=== PATIENT | female | born 1995 | race Caucasian/White ===

== ENCOUNTER → 2018-02-28 07:53 | Outpatient (CLI) | payer BC, SELFPAY ==
[2018-02-28 09:46] LABS: Thyroid Stim Hormone (TSH) 2.53 uIU/mL (0.358-3.74)
[2018-02-28 09:57] LABS: Pregnancy, Serum, hCG Quali. NEGATIVE Negative (0-9 Nonpreg)
[2018-03-02 09:42] LABS: Progesterone Level 0.65 ng/mL (See Comment)
== END ==
PROVIDERS: Family Provider Internal Medicine; PCP Internal Medicine; Visit Provider Obstetrics & Gynecology
DX: N92.6 Irregular menstruation, unspecified (principal); Z30.430 Encounter for insertion of intrauterine contraceptive device
CPT/HCPCS: 36415; 84144; 84146; 84443; 84703

== ENCOUNTER → 2018-03-02 19:47 | Outpatient (CLI) | payer BC, SELFPAY ==
[2018-03-03 00:15] LABS: Chlamydia Trachomatis by PCR Negative (Negative); Neisserai gonorrhoeae by PCR Negative (Negative); Probe Check PASS; Sample Adequacy Control PASS; Specimen Processing Control PASS
== END ==
PROVIDERS: Visit Provider Obstetrics & Gynecology
DX: Z12.4 Encounter for screening for malignant neoplasm of cervix (principal); Z11.3 Encounter for screening for infections with a predominantly sexual mode of transmission
CPT/HCPCS: 87491; 87591; 88175; G0145

== ENCOUNTER → 2021-04-16 | Outpatient (CLI) | payer BC, SELFPAY ==
[2021-04-19 10:26] LABS: HPV Reflexed? NOT INDICATED
== END | disposition home or self-care (01) ==
LOC: LABSPEC 15:10
PROVIDERS: PCP Internal Medicine; Visit Provider Obstetrics & Gynecology
DX: Z12.4 Encounter for screening for malignant neoplasm of cervix (principal)
CPT/HCPCS: 88175; G0145

== ENCOUNTER 2025-05-01 15:20 | Inpatient (IN) | payer BC, SELFPAY ==
[2025-05-01] VITALS (51 sets, daily range): BP systolic 103–137; BP diastolic 58–89; PULSE 84–128; RESP 16–18; TEMP 36.3–37.4; O2SAT 67–100; BMI 34.5
--- OUTSIDE RECORDS SUMMARY | 2025-05-01 15:11 | XMS RPT_ITS | CCD ---
Author Organization [facility] Care Team Providers Care Department Operations Manager Name Role Phone JOSE CARLOS SUAZO, DR JEREL Vann JR Primary Care Physician DENNIS GREENBERG DO Primary Care Physician DENNIS GREENBERG DO Attending Unavailable DENNIS GREENBERG DO Primary Care Unavailable OFELIA VELAZQUEZ, MSMuna Snell Attending Walter BRANCH MD, JEREL Vann JR Primary Care Unavailab DENNIS Verdugo DO Attending Unavailable JEREL BRANCH MD, JR Primary Care Unavailab tony KING MD., DR. ELLA Smiley Attending Walter BRANCH MD, JEREL Vann JR Primary Care Unavailab DENNIS Verdugo DO Attending Unavailable DENNIS GREENBERG DO Primary Care Unavailable Jose Carlos Damico MD, Jerel Vann Primary Care Provider JEREL BRANCH JR Primary Care Unavailable PATRICIA CASANOVA Attending Unavailable Jerel Branch Jr. Care Unavailable Mira Mtz Attending UnavailMira Shields Admitting UnavailJEREL Still JR Primary Care Unavailable MIRIAM, RAO Referring Unavailable JEREL BRANCH JR Primary Care Unavailable MIRIAM, RAO Referring Unavailable LOREN LEMUS Attending Unavailable JEREL BRANCH JR Primary Care Unavailable DESTINEY SCHROEDER Referring Unavailable JEREL BRANCH JR Primary Care Unavailable MIRA LEWIS Referring Unavailable JEREL BRANCH JR Primary Care Unavailable RAO PINEDA Referring Unavailable JEREL BRANCH JR Primary Care Unavailable MIRIAM, RAO Referring Unavailable CONSTANTINO GAINES Attending Unavailable JEREL BRANCH JR Primary Care Unavailable DESTINEY SCHROEDER Attending Unavailable JEREL BRANCH JR Primary Care Unavailable RAO PINEDA Attending Unavailable JEREL BRANCH JR Primary Care Unavailable MIRIAM, RAO Referring Unavailable JEREL BRANCH JR Primary Care Unavailable MIRA LEWIS Referring Unavailable JOSE CARLOS DAI, JEREL W Primary Care Unavailable CONSTANTINO GAINES Referring Unavailable JOSE CARLOS DAI, JEREL W Primary Care Unavailable DESTINEY SCHROEDER Referring Unavailable MIRA LEWIS Attending Unavailable JOSE CARLOS DAI, JEREL W Primary Care Unavailable MIRA LEWIS Referring Unavailable JOSE CARLOS DAI, JEREL W Primary Care Unavailable MIRA LEWIS Referring Unavailable RAO PINEDA Attending Unavailable JOSE CARLOS DAI, JEREL W Primary Care Unavailable CONSTANTINO GAINES Referring Unavailable LAUREN PAL Attending Unavailable JOSE CARLOS DAI, JEREL W Primary Care Unavailable CONSTANTINO GAINES Referring Unavailable JOSE CARLOS DAI, JEREL W Primary Care Unavailable SHABNMA WILSON Attending Unavailable JOSE CARLOS DAI, JEREL Vann Primary Care Unavailable RAO PINEDA Attending Unavailable JOSE CARLOS DAI, JEREL W Primary Care Unavailable SHABNAM WILSON Attending Unavailable JOSE CARLOS DAI, JEREL W Primary Care Unavailable DESTINEY SCHROEDER Attending Unavailable JOSE CARLOS DAI, JEREL W Primary Care Unavailable SHEREE MICHELE Attending Unavail able JOSE CARLOS DAI, JEREL W Primary Care Unavailable CONSTANTINO GAINES Referring Unavailable JOSE CARLOS DAI, JEREL W Primary Care Unavailable MIRA LEWIS Attending Unavailable JOSE CARLOS DAI, JEREL W Primary Care Unavailable RAO PINEDA Referring Unavailable JOSE CARLOS DAI, JEREL W Primary Care Unavailable DESTINEY SCHROEDER Attending Unavailable JOSE CARLOS DAI, JEREL W Primary Care Unavailable ASCENCION KESSLER Attending Unavailable JOSE CARLOS DAI, JEREL W Primary Care Unavailable JOSE CARLOS DAI, JEREL W Primary Care Unavailable SELF Referring Unavailable Medications Current Medications Medication Drug Class(es) Dates Sig (Normalized) Sig (Original) aspirin 81 mg delayed release oral tablet (20 sources) Platelet Aggregation Inhibitor, Nonsteroidal Anti-inflammatory Drug Start: 09-20-2024 take 1 tablet by mouth once daily aspirin, enteric coated (ECOTRIN LOW STRENGTH) 81 mg EC tablet Indications: Encounter for supervision in primigravida, antepartum (HCC) , Less than 8 weeks gestation of (HCC) Take 1 tablet by mouth once daily. 90 tablet 3 09/20/2024 Active Breast Pump (7 sources) Start: 03-25-2025 End: 03-25-2026 Breast Pump Use as directed 1 each 03/25/2025 03/25/2026 Active cefdinir 300 mg oral capsule (1 source) Cephalosporin Antibacterial Start: 07-23-2022 End: 08-02-2022 cefdinir 300 mg oral capsule Dose : 300 mg = 1 cap(s), Oral, q12h, X 10 day(s), # 20 cap(s), 0 Refill(s), 08/02/22 13:22:00 EST, Pharmacy: [facility]/pharmacy #[id number], Bacterial UTI Abnormal urinalysis, 164.5, cm, 06/18/22 15:52:00 EDT, Height, 65.6 Start Date: 07/23/22 Stop Date: 08/02/22 Status: Ordered cephalexin 500 mg oral capsule (1 source) Cephalosporin Antibacterial Start: 06-28-2024 End: 07-05-2024 take 1 capsule by mouth twice daily cephALEXin (KEFLEX) 500 mg capsule Take 1 capsule by mouth two times a day for 7 days. 14 capsule 06/28/2024 07/05/2024 Active Cetirizine (20 sources) Histamine-1 Receptor Antagonist cetirizine HCl (ZYRTEC ORAL) Take by mouth. Active oseltamivir 75 mg oral capsule (5 sources) Neuraminidase Inhibitor Start: 10-06-2024 End: 10-11-2024 take 1 capsule by mouth twice daily oseltamivir (TAMIFLU) 75 mg capsule Indications: Influenza A Take 1 capsule by mouth two times a day for 5 days. 10 capsule 10/06/2024 10/11/2024 Active no115/iron/folic acid ( 19 ORAL) (20 sources) no115/iron/folic acid ( 19 ORAL) Take by mouth. Active spironolactone 100 mg oral tablet (6 sources) Aldosterone Antagonist Start: 07-23-2022 End: 08-27-2024 spironolactone 100 mg oral tablet Dose : 100 mg = 1 tab(s), Oral, qDay, # 90 tab(s), 0 Refill(s) Start Date: 07/23/22 Status: Ordered vitamin b6 50 mg oral tablet (17 sources) Start: 09-02-2024 End: 01-20-2025 take 1 tablet by mouth once daily pyridoxine, vitamin B6, (VITAMIN B-6) 50 mg tablet Take 1 tablet by mouth once daily. 100 tablet 2 09/02/2024 01/20/2025 Discontinued (Course of therapy completed) Completed/Discontinued Medications Medication Drug Class(es) Dates Sig (Normalized) Sig (Original) escitalopram 10 mg oral tablet (4 sources) Serotonin Reuptake Inhibitor End: 09-02-2024 escitalopram oxalate (LEXAPRO) 10 mg tablet Take by mouth as directed. 09/02/2024 Discontinued 21 day ethinyl estradiol 0.417917 mg/hr / etonogestrel 0.005 mg/hr vaginal system (5 sources) Progestin, Estrogen Start: 02-11-2024 End: 08-27-2024 ELURYNG 0.12-0.015 mg/24 hr vaginal ring Use 1 Each vaginally as directed. 3 Each 3 02/11/2024 08/27/2024 Discontinued fexofenadine (5 sources) Histamine-1 Receptor Antagonist End: 10-06-2024 fexofenadine HCl (YONI ORAL) Take by mouth. 10/06/2024 Discontinued fexofenadine HCl (YONI ORAL) Take by mouth. Active MULTIVITAMIN ORAL (1 source) End: 09-02-2024 MULTIVITAMIN ORAL Take by mouth. 09/02/2024 Discontinued nitrofurantoin, macrocrystals 25 mg / nitrofurantoin, monohydrate 75 mg oral capsule (2 sources) Nitrofuran Antibacterial Start: 06-26-2024 End: 07-01-2024 take 1 capsule by mouth twice daily nitrofurantoin monohydrate and macrocrystal (MACROBID) 100 mg capsule Take 1 capsule by mouth two times a day for 5 days. 10 capsule 06/26/2024 06/28/2024 Discontinued propranolol hydrochloride 10 mg oral tablet (8 sources) beta-Adrenergic Kelvin Start: 01-09-2022 End: 09-02-2024 take 1-2 tablets by mouth three times daily as needed propranolol (INDERAL) 10 mg tablet 1-2 tabs, Oral, TID, PRN palpitations, # 90 tab(s), 0 Refill(s), Pharmacy: [facility]/pharmacy #[id number], Encounter to establish care Wellness examination, 163.8, cm, 01/09/22 14:52:00 EDT, Height 01/09/2022 09/02/2024 Discontinued Problems Active Problems Problem Classification Problem Date Documented Date Episodic/Chronic Allergic reactions (5 sources) Environmental allergy 01-09-2022 Episodic Anxiety disorders (2 sources) Anxiety; Translations: [Anxiety disorder, unspecified] Onset: 09-20-2024 09-02-2024 Chronic Cardiac dysrhythmias (5 sources) Palpitations 01-09-2022 Episodic Genitourinary symptoms and ill-defined conditions (2 sources) Unspecified symptoms and signs involving the genitourinary system; Translations: [Unspecified symptoms and signs involving the genitourinary system] Onset: 07-23-2022 Episodic Heart valve disorders (5 sources) Mitral valve prolapse 01-09-2022 Chronic Immunizations and screening for infectious disease (2 sources) Vaccination needed; Translations: [Encounter for immunization] Onset: 02-18-2025 02-18-2025 Episodic Influenza (3 sources) Influenza due to Influenza A virus; Translations: [Influenza due to other identified influenza virus with other respiratory manifestations] 10-06-2024 Episodic Menstrual disorders (5 sources) Irregular periods 01-09-2022 Chronic Other circulatory disease (5 sources) Elevated blood-pressure reading without diagnosis of hypertension 01-09-2022 Episodic Other circulatory disease (20 sources) H/O: hypertension; Translations: [Personal history of other diseases of the circulatory system] Onset: 09-20-2024 09-20-2024 Episodic Other complications of (1 source) Morning sickness; Translations: [Other specified related conditions, unspecified trimester] 09-02-2024 Episodic Other complications of (13 sources) Anxiety in ; Translations: [Other mental disorders complicating , unspecified trimester] Onset: 09-20-2024 09-20-2024 Episodic Other complications of (1 source) Spotting complicating , first trimester; Translations: [Spotting affecting in first trimester] Onset: 09-30-2024 Episodic Other complications of (7 sources) Uterine size for dates discrepancy; Translations: [Uterine size-date discrepancy, third trimester] 02-18-2025 Episodic Other complications of (1 source) Spotting per vagina in ; Translations: [Spotting complicating , third trimester] 02-18-2025 Episodic Other complications of (7 sources) Suspected macroscopic fetus; Translations: [Maternal care for excessive growth, third trimester, not applicable or unspecified] Onset: 04-11-2025 04-08-2025 Episodic Other complications of (3 sources) Excessive growth affecting management of mother; Translations: [Maternal care for excessive growth, third trimester, not applicable or unspecified] 04-15-2025 Episodic Other complications of (1 source) Maternal care for excessive growth, third trimester, not applicable or unspecified; Translations: [Excessive growth affecting management of in third trimester, single or unspecified fetus (HCC)] Onset: 04-15-2025 Episodic Other complications of (1 source) Spotting complicating , third trimester; Translations: [Spotting complicating , third trimester (HCC)] Onset: 02-18-2025 Episodic Other complications of (1 source) Uterine size-date discrepancy, third trimester; Translations: [Uterine size date discrepancy , third trimester (HCC)] Onset: 02-18-2025 Episodic Other and delivery including normal (20 sources) Early stage of ; Translations: [Encounter for supervision of normal , unspecified, unspecified trimester] Onset: 09-20-2024 09-02-2024 Episodic Other screening for suspected conditions (not mental disorders or infectious disease) (9 sources) Abnormal renal function; Translations: [Cancer cervix screening status] Onset: 12-23-2024 02-08-2022 Episodic Other upper respiratory infections (2 sources) Viral upper respiratory tract infection; Translations: [Acute upper respiratory infection, unspecified] 10-06-2024 Episodic Residual codes; unclassified (5 sources) Family history of asthma 01-09-2022 Episodic Residual codes; unclassified (1 source) First trimester ; Translations: [Less than 8 weeks gestation of ] 09-20-2024 Episodic Residual codes; unclassified (1 source) 9 weeks gestation of ; Translations: [9 weeks gestation of ] Onset: 09-30-2024 Episodic Residual codes; unclassified (2 sources) Gestation period, 10 weeks; Translations: [10 weeks gestation of ] 10-05-2024 Episodic Residual codes; unclassified (2 sources) Gestation period, 12 weeks; Translations: [12 weeks gestation of ] 10-25-2024 Episodic Residual codes; unclassified (1 source) Gestation period, 16 weeks; Translations: [16 weeks gestation of ] 11-25-2024 Episodic Residual codes; unclassified (2 sources) Gestation period, 20 weeks; Translations: [20 weeks gestation of ] 12-23-2024 Episodic Residual codes; unclassified (1 source) Gestation period, 24 weeks; Translations: [24 weeks gestation of ] 01-20-2025 Episodic Residual codes; unclassified (1 source) Gestation period, 29 weeks; Translations: [29 weeks gestation of ] 02-18-2025 Episodic Residual codes; unclassified (2 sources) Gestation period, 31 weeks; Translations: [31 weeks gestation of ] 03-10-2025 Episodic Residual codes; unclassified (1 source) Gestation period, 34 weeks; Translations: [34 weeks gestation of ] 03-25-2025 Episodic Residual codes; unclassified (1 source) Gestation period, 36 weeks; Translations: [36 weeks gestation of ] 04-08-2025 Episodic Residual codes; unclassified (2 sources) Gestation period, 37 weeks; Translations: [37 weeks gestation of ] 04-15-2025 Episodic Residual codes; unclassified (1 source) Gestation period, 38 weeks; Translations: [38 weeks gestation of ] 2025 Episodic Residual codes; unclassified (1 source) 38 weeks gestation of ; Translations: [38 weeks gestation of (HCC)] Onset: 2025 Episodic Residual codes; unclassified (1 source) 37 weeks gestation of ; Translations: [37 weeks gestation of (HCC)] Onset: 04-15-2025 Episodic Residual codes; unclassified (1 source) 36 weeks gestation of ; Translations: [36 weeks gestation of (HCC)] Onset: 04-08-2025 Episodic Residual codes; unclassified (1 source) 34 weeks gestation of ; Translations: [34 weeks gestation of (HCC)] Onset: 03-25-2025 Episodic Residual codes; unclassified (1 source) 31 weeks gestation of ; Translations: [31 weeks gestation of (HCC)] Onset: 03-10-2025 Episodic Residual codes; unclassified (1 source) 29 weeks gestation of ; Translations: [29 weeks gestation of (HCC)] Onset: 02-18-2025 Episodic Residual codes; unclassified (1 source) 24 weeks gestation of ; Translations: [24 weeks gestation of (HCC)] Onset: 02-18-2025 Episodic Unclassified (20 sources) [facility] Education - COMMON Onset: 09-20-2024 09-20-2024 Unclassified (20 sources) Education - [place] Onset: 09-20-2024 09-20-2024 Urinary tract infections (1 source) Recurrent urinary tract infection; Translations: [Urinary tract infection, site not specified] 06-26-2024 Episodic Past or Other Problems Problem Classification Problem Date Documented Da te Episodic/Chronic Fracture of upper limb (20 sources) Closed fracture of head of radius; Translations: [Displaced fracture of head of unspecified radius, initial encounter for closed fracture] Onset: 12-23-2005 Resolved: 09-20-2024 12-23-2005 Episodic Hemorrhage during ; abruptio placenta; placenta previa (5 sources) Antepartum hemorrhage; Translations: [Hemorrhage in early , unspecified] Onset: 08-24-2024 08-31-2024 Episodic Other circulatory disease (1 source) Personal history of other diseases of the circulatory system; Translations: [History of chronic hypertension] Onset: 09-20-2024 Episodic Other complications of (3 sources) with inconclusive viability, not applicable or unspecified; Translations: [ with inconclusive viability] Onset: 09-02-2024 08-31-2024 Episodic Other complications of (20 sources) Other mental disorders complicating , unspecified trimester; Translations: [Mental disorders of mother, antepartum condition or complication] Onset: 09-20-2024 11-25-2024 Episodic Residual codes; unclassified (1 source) 20 weeks gestation of ; Translations: [20 weeks gestation of (HCC)] Onset: 12-23-2024 Episodic Residual codes; unclassified (1 source) Less than 8 weeks gestation of ; Translations: [Less than 8 weeks gestation of ] Onset: 10-25-2024 Episodic Residual codes; unclassified (1 source) 8 weeks gestation of ; Translations: [8 weeks gestation of ] Onset: 09-20-2024 Episodic Results Test Name Value Interpretation Reference Range Facility URINE OB DIP B/Oon 5 Glucose Ql (U) Negative Neg mg/dL [facility] Protein.monoclonal (U) [Mass/Vol] Negative Neg mg/dL [facility] URINE OB DIP B/Oon 5 Glucose Ql (U) Negative Neg mg/dL [facility] Protein.monoclonal (U) [Mass/Vol] Negative Neg mg/dL [facility] CNPNon 04-11-2025 CNPN Telephone (OBGYWM) KI DELGADO ([id number]) 1995 F Date Time Provider Department 04/11/25 MIRA LEWIS During your visit today, we recorded the following information about you: Lucrecia Sheppard MA 04/11/2025 8:24 AM Signed Received FMLA paperwork- will complete on working on forms for provider to sign. CHASE Bernabe Reanna, MA 04/19/2025 1:11 PM Signed FMLA has been singed and faxed. Copy is placed into scanning folder. Lucrecia Sheppard MA Allergies As of Date: 04/11/2025 (No Known Allergies) Date Reviewed: 04/08/2025 Reviewed by: Mira Lewis MD - Fully Assessed Prescriptions as of 04/19/2025 - Breast Pump Use as directed - cetirizine HCl (ZYRTEC ORAL) Take by mouth. - aspirin, enteric coated (ECOTRIN LOW STRENGTH) 81 mg EC tablet Take 1 tablet by mouth once daily. - no115/iron/folic acid ( 19 ORAL) Take by mouth. Problem List As Of Date 04/11/2025 Noted Resolved Closed fracture of head of radius [S52.123A] 12/23/2005 09/20/2024 History of chronic hypertension [Z86.79] 09/20/2024 Anxiety during [O99.340, F41.9] 09/20/2024 Encounter for supervision in primigra*09/20/2024 with uncertain dates in first trimest*09/20/2024 macrosomia during in third trim*04/11/2025 Encounter Status:Closed by LUCRECIA SHEPPARD on 04/19/[address] [facility] Examination level ultrasound on 04-08-2025 [facility] Radiology Study observation (narrative) [facility] ROUTINE, GROUP B ST REPTOCOCCUS BY PCRon 04-08-2025 ROUTINE, GROUP B STREPTOCOCCUS BY PCR Not detected Normal [facility] Comment on above: Performed By: #### G BPCR ####[facility] LABCLIA [id number] [place] [address] [place] URINE OB DIP B/Oon 5 Glucose Ql (U) Negative Neg mg/dL [facility] Interpretation and review of laboratory results Normal [facility] Protein.monoclonal (U) [Mass/Vol] Negative Neg mg/dL [facility] URINE OB DIP B/Oon 5 Glucose Ql (U) Negative Neg mg/dL [facility] Interpretation and review of laboratory results Normal [facility] Protein.monoclonal (U) [Mass/Vol] Negative Neg mg/dL [facility] Examination level ultrasound on 03-10-2025 [facility] Radiology Study observation (narrative) [facility] BACTERIAL VAGINOSIS NAATon 0 02-18-2025 Lactobacillus crispatus+gasseri+peewee senii + Gardnerella vaginalis + Atopobium vaginae rRNA RAYA+probe Ql (Vag fld) Not detected Normal Not detected [facility] Comment on above: Order Comment: Speci men Type: BLOOD SPECIMEN Ordering Facility: [facility] Address: [address] [place] [address] Performed By: #### 5 8410-2 #### [facility] CLIA [id number] [address] [place] [address] [place] MARY/TRICHOMONAS NAATon 0 02-18-2025 C. glabrata RNA RAYA+probe Ql (Vag fld) Not detected Normal Not detected [facility] Comment on above: Order Comment: Speci men Type: BLOOD SPECIMEN Ordering Facility: [facility] Address: [address] [place] [address] Performed By: #### 5 8410-2 #### [facility] CLIA [id number] [address] [place] [address] [place] Mary sp DNA RAYA+probe Ql (Vag fld) Not detected Normal Not detected [facility] Comment on above: Order Comment: Speci men Type: BLOOD SPECIMEN Ordering Facility: [facility] Address: [address] [place] [address] Performed By: #### 5 8410-2 #### [facility] CLIA [id number] [address] [place] [address] [place] T. vaginalis DNA RAYA+probe Ql (Unsp spec) Not detected Normal Not detected [facility] Comment on above: Order Comment: Speci men Type: BLOOD SPECIMEN Ordering Facility: [facility] Address: [address] [place] [address] Performed By: #### 5 8410-2 #### [facility] CLIA [id number] [address] [place] [address] [place] CBC W Auto Differential pane l (Bld)on 02-18-2025 Basophils (Bld) [#/Vol] 0.04 10*3/uL Normal <0.11 [facility] Comment on above: Order Comment: Speci men Type: BLOOD SPECIMENOrdering Facility: [facility] Address: [address] [place] [address] Performed By: #### 5 7021-8 ####[facility] [id number] [place] [address] [place] Basophils/100 WBC (Bld) 0.4 % Normal [facility] Comment on above: Order Comment: Speci men Type: BLOOD SPECIMENOrdering Facility: [facility] Address: [address] [place] [address] Performed By: #### 5 7021-8 ####[facility] [id number] [place] [address] [place] Differential cell count method Nom (Bld) Auto Normal [facility] Comment on above: Order Comment: Speci men Type: BLOOD SPECIMENOrdering Facility: [facility] Address: [address] [place] [address] Performed By: #### 5 7021-8 ####[facility] [id number] [place] [address] [place] Eosinophils (Bld) [#/Vol] 0.10 10*3/uL Normal <0.46 [facility] Comment on above: Order Comment: Speci men Type: BLOOD SPECIMENOrdering Facility: [facility] Address: [address] [place] [address] Performed By: #### 5 7021-8 ####[facility] [id number] [place] [address] [place] Eosinophils/100 WBC (Bld) 0.9 % Normal [facility] Comment on above: Order Comment: Speci men Type: BLOOD SPECIMENOrdering Facility: [facility] Address: [address] [place] [address] Performed By: #### 5 7021-8 ####[facility] [id number] [place] [address] [place] Erythrocyte distribution width (RBC) [Ratio] 12.1 % Normal 11.5-15.0 [facility] Comment on above: Order Comment: Speci men Type: BLOOD SPECIMENOrdering Facility: [facility] Address: [address] [place] [address] Performed By: #### 5 7021-8 ####[facility] [id number] [place] [address] [place] Hematocrit (Bld) [Volume fraction] 30.7 % Low 36.0-46.0 [facility] Comment on above: Order Comment: Speci men Type: BLOOD SPECIMENOrdering Facility: [facility] Address: [address] [place] [address] Performed By: #### 5 7021-8 ####[facility] OJSESTRYKERSVILLENCOLIVER [id number] [place] [address] [place] Hemoglobin (Bld) [Mass/Vol] 10.6 g/dL Low 11.5-15.5 [facility] Comment on above: Order Comment: Speci men Type: BLOOD SPECIMENOrdering Facility: [facility] Address: [address] [place] [address] Performed By: #### 5 7021-8 ####[facility] [id number] [place] [address] [place] Immature granulocytes (Bld) [#/Vol] 0.11 10*3/uL High <0.10 [facility] Comment on above: Order Comment: Speci men Type: BLOOD SPECIMENOrdering Facility: [facility] Address: [address] [place] [address] Performed By: #### 5 7021-8 ####[facility] [id number] [place] [address] [place] Immature granulocytes/100 WBC (Bld) 1.0 % Normal [facility] Comment on above: Order Comment: Speci men Type: BLOOD SPECIMENOrdering Facility: [facility] Address: [address] [place] [address] Performed By: #### 5 7021-8 ####[facility] [id number] [place] [address] [place] Lymphocytes (Bld) [#/Vol] 1.95 10*3/uL Normal 1.00-4.00 [facility] Comment on above: Order Comment: Speci men Type: BLOOD SPECIMENOrdering Facility: [facility] Address: [address] [place] [address] Performed By: #### 5 7021-8 ####[facility] JOSEMARY CARMENA [id number] [place] [address] [place] Lymphocytes/100 WBC (Bld) 17.1 % Normal [facility] Comment on above: Order Comment: Speci men Type: BLOOD SPECIMENOrdering Facility: [facility] Address: [address] [place] [address] Performed By: #### 5 7021-8 ####[facility] EMERGENCYJOHN [id number] [place] [address] [place] MCH (RBC) [Entitic mass] 30.0 pg Normal 26.0-34.0 [facility] Comment on above: Order Comment: Speci men Type: BLOOD SPECIMENOrdering Facility: [facility] Address: [address] [place] [address] Performed By: #### 5 7021-8 ####[facility] EMERGENCYKAILEETIMPANOGOS REGIONAL [facility] [id number] [place] [address] [place] MCHC (RBC) [Mass/Vol] 34.5 g/dL Normal 30.5-36.0 [facility] Comment on above: Order Comment: Speci men Type: BLOOD SPECIMENOrdering Facility: [facility] Address: [address] [place] [address] Performed By: #### 5 7021-8 ####[facility] EMERGENCYKAILEELIOly [id number] [place] [address] [place] MCV (RBC) [Entitic vol] 87.0 fL Normal 80.0-100.0 [facility] Comment on above: Order Comment: Speci men Type: BLOOD SPECIMENOrdering Facility: [facility] Address: [address] [place] [address] Performed By: #### 5 7021-8 ####[facility] EMERGENCYNCA [id number] [place] [address] [place] Monocytes (Bld) [#/Vol] 1.00 10*3/uL High <0.87 [facility] Comment on above: Order Comment: Speci men Type: BLOOD SPECIMENOrdering Facility: [facility] Address: [address] [place] [address] Performed By: #### 5 7021-8 ####[facility] [id number] [place] [address] [place] Monocytes/100 WBC (Bld) 8.8 % Normal [facility] Comment on above: Order Comment: Speci men Type: BLOOD SPECIMENOrdering Facility: [facility] Address: [address] [place] [address] Performed By: #### 5 7021-8 ####[facility] [id number] [place] [address] [place] Neutrophils (Bld) [#/Vol] 8.18 10*3/uL High 1.45-7.50 [facility] Comment on above: Order Comment: Speci men Type: BLOOD SPECIMENOrdering Facility: [facility] Address: [address] [place] [address] Performed By: #### 5 7021-8 ####[facility] [id number] [place] [address] [place] Neutrophils/100 WBC (Bld) 71.8 % Normal [facility] Comment on above: Order Comment: Speci men Type: BLOOD SPECIMENOrdering Facility: [facility] Address: [address] [place] [address] Performed By: #### 5 7021-8 ####[facility] [id number] [place] [address] [place] Nucleated RBC (Bld) [#/Vol] 10*3/uL Normal <0.01 [facility] Comment on above: Order Comment: Speci men Type: BLOOD SPECIMENOrdering Facility: [facility] Address: [address] [place] [address] Performed By: #### 5 7021-8 ####[facility] FRANCISCO [id number] [place] [address] [place] Nucleated RBC/100 WBC (Bld) [Ratio] 0.0 /[address] [facility] Comment on above: Order Comment: Speci men Type: BLOOD SPECIMENOrdering Facility: [facility] Address: [address] [place] [address] Performed By: #### 5 7021-8 ####[facility] JOSESTRYKERSVILLENCOLIVER [id number] [place] [address] [place] Platelet mean volume (Bld) [Entitic vol] 10.5 fL Normal 9.0-12.7 [facility] Comment on above: Order Comment: Speci men Type: BLOOD SPECIMENOrdering Facility: [facility] Address: [address] [place] [address] Performed By: #### 5 7021-8 ####[facility] EMERGENCYKONGA [id number] [place] [address] [place] Platelets (Bld) [#/Vol] 213 10*3/uL Normal 150-400 [facility] Comment on above: Order Comment: Speci men Type: BLOOD SPECIMENOrdering Facility: [facility] Address: [address] [place] [address] Performed By: #### 5 7021-8 ####[facility] EMERGENCYNCLIA [id number] [place] [address] [place] RBC (Bld) [#/Vol] 3.53 10*6/uL Low 3.90-5.20 [facility] Comment on above: Order Comment: Speci men Type: BLOOD SPECIMENOrdering Facility: [facility] Address: [address] [place] [address] Performed By: #### 5 7021-8 ####[facility] SOUTHWNCLIA [id number] [place] [address] [place] WBC (Bld) [#/Vol] 11.38 10*3/uL High 3.70-11.00 [facility] Comment on above: Order Comment: Speci men Type: BLOOD SPECIMENOrdering Facility: [facility] Address: [address] [place] [address] Performed By: #### 5 7021-8 ####[facility] EMERGENCYNCLIA [id number] [place] [address] [place] Ferritin SerPl-mCncon 2024 Ferritin [Mass/Vol] 11.5 ng/mL Low 14.7-205.1 [facility] Comment on above: Order Comment: Speci men Type: BLOOD SPECIMENOrdering Facility: [facility] Address: [address] [place] [address] Performed By: #### 5 0190-8, 2276-4 ####[facility] LABCLIA [id number] [place] [address] [place] GESTATIONAL GLUCOSE SCREEN, 1-HOUR, 50 GRAM, NON-FASTINGon 02-18-2025 Glucose [Mass/Vol] 107 mg/dL Normal 74-134 [facility] Comment on above: Order Comment: Speci men Type: BLOOD SPECIMEN Ordering [facility]: [facility] Address: [address] [place] [address] Result Comment: [facility] Congress of Obstetricians and Gynecologists ([place]) guidelines state a gestational diabetes mellitus positive screen is made, in women not previously diagnosed with overt diabetes, when the 1 hr plasma glucose level is equal to or above 140 mg/dL. The [facility] [employer] Manager and [facility] [employer] recommends a 135 mg/dL cutoff. Performed By: #### 5 8410-2 #### [facility] CLIA [id number] [address] [place] [address] [place] Iron and Iron binding capaci ty panelon 02-18-2025 Iron [Mass/Vol] 46 ug/dL Normal 41-186 [facility] Comment on above: Order Comment: Speci men Type: BLOOD SPECIMENOrdering Facility: [facility] Address: [address] [place] [address] Performed By: #### 5 0190-8, 6-4 ####[facility] LABIA [id number] [address] STATES OF [facility] Iron binding capacity [Mass/Vol] >546 High 232-386 [facility] Comment on above: Order Comment: Speci men Type: BLOOD SPECIMENOrdering Facility: [facility] Address: [address] [place] [address] Performed By: #### 5 0190-8, 6-4 ####[facility] [id number] [address] [place] Iron/TIBC [Molar ratio] <8.4 Low 15.0-57.0 [facility] Comment on above: Order Comment: Speci men Type: BLOOD SPECIMENOrdering Facility: [facility] Address: [address] [place] [address] Performed By: #### 5 0190-8, 6-4 ####[facility] [id number] [address] [place] Reagin and Treponema pallidu m IgG and IgM [Interp]on 02-18-2025 T. pallidum IgG+IgM IA Ql (S) Non-Reactive Normal Nonreactive [facility] Comment on above: Order Comment: Speci men Type: BLOOD SPECIMENOrdering Facility: [facility] Address: [address] [place] [address] Performed By: #### 7 3752-8 ####[facility] LABIA [id number] [place] [address] [place] Reagin+T pallidum IgG+IgM Se rPl-Impon 02-18-2025 Reagin and Treponema pallidum IgG and IgM [Interp] Cannot exclude recent Treponemal infection if specimen collected within 7-10 days after appearance of suspect lesions or 2-3 weeks after an exposure. Clinical correlation is required. Normal [facility] Comment on above: Order Comment: Speci men Type: BLOOD SPECIMENOrdering Facility: [facility] Address: [address] [place] [address] Performed By: #### 7 3752-8 ####[facility] LABCLIA [id number] [place] [address] [place] [facility] Examination level ultrasound on 12-23-2024 Indication Standard anatomic survey Impression The patient is referred for a standard anatomic survey. - Single, live, intrauterine . - biometry is consistent with the established gestational age. - No malformations were visualized on a complete standard anatomic survey. - The amniotic fluid volume is normal amount. - The placenta is posterior, fundal. - The Transabdominal cervical length measures 41.4 mm with no evidence of funneling or other dynamic changes. - Not all structural malformations can be detected by ultrasound examination. Recommendations Additional follow-up as clinically indicated. Maternal Assessment Height 165 cm Height (ft) 5 ft Height (in) 5 in Physical Exam Initial weight (lb) 167 lb Initial BMI 27.79 kg/m Maternal assessment other: 1 Para 0 REMOTE READ Method Transabdominal ultrasound examination. View: Adequate visualization Number of fetuses: uncertain Dating LMP on: 07/21/2024 Cycle: regular cycle GA by LMP 22 w + 1 d KAMERON by LMP: 04/27/2025 GA by prior assessment 20 w + 6 d KAMERON by prior assessment: 05/06/2025 Ultrasound examination on: 12/23/2024 GA by U/S based upon: AC, BPD, Femur, HC GA by U/S 21 w + 2 d KAMERON by U/S: 05/03/2025 Assigned: based on stated KAMERON, selected on 12/23/2024 Assigned GA 20 w + 6 d Assigned KAMERON: 05/06/2025 General Evaluation Cardiac activity present. FHR 139 bpm. movements: present. Presentation: cephalic Placenta: Placental site: posterior, fundal Umbilical cord: Cord vessels: 3 vessel cord Amniotic fluid: Amount of AF: normal amount. MVP 4.2 cm Growth Overview Exam date GA BPD (mm) HC (mm) AC (mm) FL (mm) HL (mm) EFW (g) 12/23/2024 20w 6d 49.9 59% 192.1 68% 174.3 87% 32.4 35% 33.1 59% 420 72% Biometry Standard BPD 49.9 mm 21w 1d 59% Hadlock OFD 68.8 mm 21w 3d 93% Nicolaides HC 192.1 mm 21w 3d 68% Rayray Cerebellum tr 21.9 mm 20w 4d 55% Hill Nuchal fold 4.5 mm AC 174.3 mm 22w 3d 87% Hadlock Femur 32.4 mm 20w 2d 35% Rayray Humerus 33.1 mm 21w 1d 59% Rayray EFW 420 g 21w 2d 72% Hadlock EFW (lb) 0 lb EFW (oz) 15 oz EFW by: Hadlock (HC-AC-FL) Extended Voice Over Announcer 5.9 mm CM 5.0 mm 42% Nicolaides Extremities / Bony Struc FL / HC 0.17 2% Hadlock Other Structures FHR 139 bpm Anatomy Cranium: normal Lateral ventricles: normal Choroid plexus: normal Midline falx: normal Cavum septi pellucidi: normal Cerebellum: normal Cisterna magna: normal Head / Neck Vermis: Normal but not required for a standard anatomy exam Neck: Normal but not required for a standard anatomy exam Nuchal fold: Normal but not required for a standard anatomy exam Lips: normal Profile: Normal but not required for a standard anatomy exam Nose: Normal but not required for a standard anatomy exam Face Maxilla: Normal but not required for a standard anatomy exam Mandible: Normal but not required for a standard anatomy exam Orbits: Normal but not required for a standard anatomy exam Lens: Normal but not required for a standard anatomy exam 4-chamber view: normal RVOT view: normal LVOT view: normal 3-vessel view: normal 0-jrwevj-bwhxzek view: normal Heart / Thorax Situs: situs solitus (normal) Aortic arch view: Normal but not required for a standard anatomy exam SVC: Normal but not required for a standard anatomy exam IVC: Normal but not required for a standard anatomy exam Cardiac axis: normal Rt lung: Normal but not required for a standard anatomy exam Lt lung: Normal but not required for a standard anatomy exam Diaphragm: Normal but not required for a standard anatomy exam Cord insertion: normal Stomach: normal Kidneys: normal Bladder: normal Genitals: normal Abdomen Abdom. wall: normal Cervical spine: normal Thoracic spine: normal Lumbar spine: normal Sacral spine: normal Arms: normal Legs: normal Rt upper arm: normal Rt forearm: normal Rt hand: normal Rt fingers: normal Lt upper arm: normal Lt forearm: normal Lt hand: normal Lt fingers: normal Rt upper leg: normal Rt lower leg: normal Rt foot: normal Lt upper leg: normal Lt lower leg: normal Lt foot: normal sex: male Wants to know sex: yes Maternal Structures Uterus / Cervix Uterus: Visualized Cervix: Visualized Approach: Transabdominal Cervical length 41.4 mm Other: Patient declined transvaginal ultrasound for cervical length. Ovaries / Tubes / Adnexa Rt ovary: Visualized Lt ovary: Not visualized Performed By: Rema Myers RDMS, RVT Read By: Eli Martinez M.D. MATERNAL MEDICINE [facility] Radiology Study observation (narrative) [facility] Yamile 11-03-2024 CNPN Telephone (OBGYWM) KI DELGADO ([id number]) 1995 F Date Time Provider Department 11/03/24 DESTINEY SCHROEDER OBGYWM During your visit today, we recorded the following information about you: Nicole Simpson, RN 11/03/2024 3:17 PM Signed 13w5d Calling because she had abnormal discharge for her. Was more like a clear mucous like consistency. States it occurred once so far and was about the size of a nickel. No vaginal itching, irritation, odor, bleeding or cramping. Advised to continue to monitor discharge and call with if any of those symptoms or new s/s occur to call for an appointment. Only call with further advice. SVETA Madera Courtney, APRN.CNM 11/04/2024 7:56 AM Signed Agree with plan of care. Destiney Schroeder APRN.CNM Allergies As of Date: 11/03/2024 (No Known Allergies) Date Reviewed: 10/25/2024 Reviewed by: Destiney Schroeder APRN.CNM - Fully Assessed Reason for Visit: Vaginal Discharge [Other] Prescriptions as of 11/04/2024 - cetirizine HCl (ZYRTEC ORAL) Take by mouth. - aspirin, enteric coated (ECOTRIN LOW STRENGTH) 81 mg EC tablet Take 1 tablet by mouth once daily. - no115/iron/folic acid ( 19 ORAL) Take by mouth. - pyridoxine, vitamin B6, (VITAMIN B-6) 50 mg tablet Take 1 tablet by mouth once daily. Problem List As Of Date 11/03/2024 Noted Resolved Closed fracture of head of radius [S52.123A] 12/23/2005 09/20/2024 History of chronic hypertension [Z86.79] 09/20/2024 Anxiety during [O99.340, F41.9] 09/20/2024 Encounter for supervision in primigra*09/20/2024 with uncertain dates in first trimest*09/20/2024 Encounter Status:Closed by DESTINEY SCHROEDER on 11/04/[address] [facility] Examination level ultrasound on 10-25-2024 Indication First trimester anatomic survey Impression REMOTE READ The patient is referred for a first trimester anatomy scan including nuchal translucency measurement as clinically indicated. - Single, live, intrauterine . - [employer] rump length measurement is consistent with the established gestational age. - A qualitative screen of the nuchal translucency and other anatomic structures was unremarkable on incomplete first trimester anatomic assessment. - Not all structural malformations can be detected by ultrasound examination. Maternal Structures: Right Ovary: Size 34 mm x 18 mm x 17 mm Left Ovary: Size 41 mm x 28 mm x 19 mm Recommendations Return for anatomy ultrasound Maternal Assessment Height 165 cm Height (ft) 5 ft Height (in) 5 in Physical Exam Initial weight (lb) 167 lb Initial BMI 27.79 kg/m Maternal assessment other: 1 Para 0 Method Transabdominal ultrasound examination Number of fetuses: uncertain Dating LMP on: 07/21/2024 Cycle: regular cycle GA by LMP 13 w + 5 d KAMERON by LMP: 04/27/2025 GA by prior assessment 12 w + 3 d KAMERON by prior assessment: 05/06/2025 Ultrasound examination on: 10/25/2024 GA by U/S based upon: CRL GA by U/S 12 w + 6 d KAMERON by U/S: 05/03/2025 Assigned: based on stated KAMERON, selected on 10/25/2024 Assigned GA 12 w + 3 d Assigned KAMERON: 05/06/2025 General Evaluation Cardiac activity present Placenta: posterior Cord vessels: 3 vessel cord Amniotic fluid: normal amount Biometry Standard FHR 151 bpm CRL 66.1 mm 12w 6d 77% Hadlock First Trimester Anatomy Calvarium: normal Falx cerebri: normal Choroid plexus: normal Profile: normal Nasal bone: normal Retronasal triangle: normal Maxilla: normal Mandible: normal Nuchal translucency: Unremarkable Situs: normal Cardiac position: normal Cardiac axis: normal 4-chamber view: suboptimal 4-chamber view with color: suboptimal 6-puodvn-hdioprt view: suboptimal Abdominal cord insertion: normal Stomach: normal Kidneys: suboptimal Bladder: normal Color doppler of perivesical umbilical arteries: normal Vertebral alignment: normal Arms: normal Hands: normal Legs: normal Feet: normal Maternal Structures Uterus / Cervix Uterus: Visualized Uterus length 143 mm Uterus width 89 mm Uterus height 81 mm Uterus Vol 540.8 cm Ovaries / Tubes / Adnexa Rt ovary: Visualized Rt ovary D1 34 mm Rt ovary D2 18 mm Rt ovary D3 17 mm Rt ovary Vol 5.3 cm Lt ovary: Visualized Lt ovary D1 41 mm Lt ovary D2 28 mm Lt ovary D3 19 mm Lt ovary Vol 11.0 cm Performed By: Rema Myers RDMS, RVT Read By: Eli Martinez M.D. MATERNAL MEDICINE [facility] Radiology Study observation (narrative) [facility] CBC W Auto Differential pane l (Bld)on 10-22-2024 Basophils (Bld) [#/Vol] 0.03 10*3/uL Normal <0.11 [facility] Comment on above: Order Comment: Speci men Type: BLOOD SPECIMENOrdering Facility: [facility] Address: [address] [place] [address] Performed By: #### 5 7021-8 ####[facility] MILLWNCLIA [id number] [place] [address] [place] Basophils/100 WBC (Bld) 0.4 % Normal [facility] Comment on above: Order Comment: Speci men Type: BLOOD SPECIMENOrdering Facility: [facility] Address: [address] [place] [address] Performed By: #### 5 7021-8 ####[facility] HOSPITALLIA [id number] [place] [address] [place] Differential cell count method Nom (Bld) Auto Normal [facility] Comment on above: Order Comment: Speci men Type: BLOOD SPECIMENOrdering Facility: [facility] Address: [address] [place] [address] Performed By: #### 5 7021-8 ####[facility] HOSPITALLIA [id number] [place] [address] [place] Eosinophils (Bld) [#/Vol] 0.11 10*3/uL Normal <0.46 [facility] Comment on above: Order Comment: Speci men Type: BLOOD SPECIMENOrdering Facility: [facility] Address: [address] [place] [address] Performed By: #### 5 7021-8 ####[facility] HOSPITALLIA [id number] [place] [address] [place] Eosinophils/100 WBC (Bld) 1.4 % Normal [facility] Comment on above: Order Comment: Speci men Type: BLOOD SPECIMENOrdering Facility: [facility] Address: [address] [place] [address] Performed By: #### 5 7021-8 ####[facility] EMERGENCYNCLIA [id number] [place] [address] [place] Erythrocyte distribution width (RBC) [Ratio] 13.0 % Normal 11.5-15.0 [facility] Comment on above: Order Comment: Speci men Type: BLOOD SPECIMENOrdering Facility: [facility] Address: [address] [place] [address] Performed By: #### 5 7021-8 ####[facility] EMERGENCYNCTIMPANOGOS REGIONAL [facility] [id number] [place] [address] [place] Hematocrit (Bld) [Volume fraction] 32.6 % Low 36.0-46.0 [facility] Comment on above: Order Comment: Speci men Type: BLOOD SPECIMENOrdering Facility: [facility] Address: [address] [place] [address] Performed By: #### 5 7021-8 ####[facility] [id number] [place] [address] [place] Immature granulocytes (Bld) [#/Vol] 0.04 10*3/uL Normal <0.10 [facility] Comment on above: Order Comment: Speci men Type: BLOOD SPECIMENOrdering Facility: [facility] Address: [address] [place] [address] Performed By: #### 5 7021-8 ####[facility] [id number] [place] [address] [place] Immature granulocytes/100 WBC (Bld) 0.5 % Normal [facility] Comment on above: Order Comment: Speci men Type: BLOOD SPECIMENOrdering Facility: [facility] Address: [address] [place] [address] Performed By: #### 5 7021-8 ####[facility] [id number] [place] [address] [place] Lymphocytes (Bld) [#/Vol] 2.15 10*3/uL Normal 1.00-4.00 [facility] Comment on above: Order Comment: Speci men Type: BLOOD SPECIMENOrdering Facility: [facility] Address: [address] [place] [address] Performed By: #### 5 7021-8 ####[facility] EMERGENCYJOHN [id number] [place] [address] [place] Lymphocytes/100 WBC (Bld) 26.6 % Normal [facility] Comment on above: Order Comment: Speci men Type: BLOOD SPECIMENOrdering Facility: [facility] Address: [address] [place] [address] Performed By: #### 5 7021-8 ####[facility] EMERGENCYNCTIMPANOGOS REGIONAL [facility]PITAL [id number] [place] [address] [place] MCH (RBC) [Entitic mass] 30.7 pg Normal 26.0-34.0 [facility] Comment on above: Order Comment: Speci men Type: BLOOD SPECIMENOrdering Facility: [facility] Address: [address] [place] [address] Performed By: #### 5 7021-8 ####[facility] [id number] [place] [address] [place] MCHC (RBC) [Mass/Vol] 34.4 g/dL Normal 30.5-36.0 [facility] Comment on above: Order Comment: Speci men Type: BLOOD SPECIMENOrdering Facility: [facility] Address: [address] [place] [address] Performed By: #### 5 7021-8 ####[facility] EMERGENCYNCLIA [id number] [place] [address] [place] MCV (RBC) [Entitic vol] 89.3 fL Normal 80.0-100.0 [facility] Comment on above: Order Comment: Speci men Type: BLOOD SPECIMENOrdering Facility: [facility] Address: [address] [place] [address] Performed By: #### 5 7021-8 ####[facility]ENTERWNCLIA [id number] [place] [address] [place] Monocytes (Bld) [#/Vol] 0.77 10*3/uL Normal <0.87 [facility] Comment on above: Order Comment: Speci men Type: BLOOD SPECIMENOrdering Facility: [facility] Address: [address] [place] [address] Performed By: #### 5 7021-8 ####[facility] HOSPITALLIA [id number] [place] [address] [place] Monocytes/100 WBC (Bld) 9.5 % Normal [facility] Comment on above: Order Comment: Speci men Type: BLOOD SPECIMENOrdering Facility: [facility] Address: [address] [place] [address] Performed By: #### 5 7021-8 ####[facility]ENTER[facility] [id number] [place] [address] [place] Neutrophils (Bld) [#/Vol] 4.97 10*3/uL Normal 1.45-7.50 [facility] Comment on above: Order Comment: Speci men Type: BLOOD SPECIMENOrdering Facility: [facility] Address: [address] [place] [address] Performed By: #### 5 7021-8 ####[facility] [id number] [place] [address] [place] Neutrophils/100 WBC (Bld) 61.6 % Normal [facility] Comment on above: Order Comment: Speci men Type: BLOOD SPECIMENOrdering Facility: [facility] Address: [address] [place] [address] Performed By: #### 5 7021-8 ####[facility] [id number] [place] [address] [place] Nucleated RBC (Bld) [#/Vol] 10*3/uL Normal <0.01 [facility] Comment on above: Order Comment: Speci men Type: BLOOD SPECIMENOrdering Facility: [facility] Address: [address] [place] [address] Performed By: #### 5 7021-8 ####[facility] [id number] [place] [address] [place] Nucleated RBC/100 WBC (Bld) [Ratio] 0.0 /[address] [facility] Comment on above: Order Comment: Speci men Type: BLOOD SPECIMENOrdering Facility: [facility] Address: [address] [place] [address] Performed By: #### 5 7021-8 ####[facility] [id number] [place] [address] [place] Platelet mean volume (Bld) [Entitic vol] 11.1 fL Normal 9.0-12.7 [facility] Comment on above: Order Comment: Speci men Type: BLOOD SPECIMENOrdering Facility: [facility] Address: [address] [place] [address] Performed By: #### 5 7021-8 ####[facility] [id number] [place] [address] [place] Platelets (Bld) [#/Vol] 218 10*3/uL Normal 150-400 [facility] Comment on above: Order Comment: Speci men Type: BLOOD SPECIMENOrdering Facility: [facility] Address: [address] [place] [address] Performed By: #### 5 7021-8 ####[facility] [id number] [place] [address] [place] RBC (Bld) [#/Vol] 3.65 10*6/uL Low 3.90-5.20 [facility] Comment on above: Order Comment: Speci men Type: BLOOD SPECIMENOrdering Facility: [facility] Address: [address] [place] [address] Performed By: #### 5 7021-8 ####[facility] [id number] [place] [address] [place] WBC (Bld) [#/Vol] 8.07 10*3/uL Normal 3.70-11.00 [facility] Comment on above: Order Comment: Speci men Type: BLOOD SPECIMENOrdering Facility: [facility] Address: [address] [place] [address] Performed By: #### 5 7021-8 ####[facility] [id number] [place] [address] [place] HBV surface Ag Ser Qlon 09-26 HBV surface Ag Ql (S) Negative Normal Negative [facility] Comment on above: Order Comment: Speci men Type: BLOOD SPECIMENOrdering Facility: [facility] Address: [address] [place] [address] Performed By: #### 7 3752-8, 98438-8, 5195-3 ####[facility] LABCLIA [id number] [place] [address] [place] HCV Ab Ser Qlon 10-22-2024 HCV Ab Ql (S) Negative Normal Negative [facility] Comment on above: Order Comment: Speci men Type: BLOOD SPECIMENOrdering Facility: [facility] Address: [address] [place] [address] Result Comment: The result suggests no evidence of active infection with Hepatitis C virus. Should recent infection be suspected, repeat testing may be considered 4-6 weeks after this draw. Performed By: #### 1 6128-1 ####[facility] LABCLIA [id number] [place] [address] [place] HGB ELECTROPHORESIS FOR EVAL (LAB ORDER)on 10-22-2024 Hemoglobin A (Bld) [Mass fraction] 97.4 % Normal 96.2-98.0 [facility] Comment on above: Order Comment: Speci men Type: BLOOD SPECIMENOrdering Facility: [facility] Address: [address] [place] [address] Performed By: #### L [id number], HGBELEV ####[facility] LABCLIA [id number] [place] [address] [place] Hemoglobin A2 (Bld) [Mass fraction] 2.6 % Normal 2.0-3.1 [facility] Comment on above: Order Comment: Speci men Type: BLOOD SPECIMENOrdering Facility: [facility] Address: [address] [place] [address] Performed By: #### L [id number], HGBELEV ####[facility] LABCLIA [id number] [place] [address] [place] Hemoglobin Unsp Elph (Bld) [Mass fraction] No abnormal hemoglobin identified. Normal No abnormal hemoglobin identified. [facility] Comment on above: Order Comment: Speci men Type: BLOOD SPECIMENOrdering Facility: [facility] Address: [address] [place] [address] Performed By: #### L [id number], HGBELEV ####[facility] LABIA [id number] [place] [address] [place] HGB EVALUATION CASCADE INTER Carlos Eduardo 10-22-2024 Hemoglobin pattern (Bld) [Interp] Reviewed by Chantal Palomares DO Normal [facility] Comment on above: Order Comment: Speci men Type: BLOOD SPECIMENOrdering Facility: [facility] Address: [address] [place] [address] Performed By: #### L [id number], HGBELEV ####[facility] LABCLIA [id number] [place] [id number] [place] INTERPRETATION (HGB EVAL) Normal [facility] Comment on above: Order Comment: Speci men Type: BLOOD SPECIMENOrdering Facility: [facility] Address: [address] [place] [address] Result Comment: No a bnormal hemoglobin is identified. There is a normal hemoglobin capillary electrophoresis pattern. Hemoglobins were analyzed by capillary electrophoresis and CBC red cell parameters were reviewed. Performed By: #### L [id number], HGBELEV ####[facility] LABIA [id number] [place] [address] [place] HIV 1+2 Ab IA Qlon 5 HIV 1 and 2 Ab IA.rapid Nom (S/P/Bld) Normal [facility] Comment on above: Order Comment: Speci men Type: BLOOD SPECIMENOrdering Facility: [facility] Address: [address] [place] [address] Result Comment: Test not indicated. Performed By: #### 7 3752-8, 92721-5, 5195-3 ####[facility] LABIA [id number] [place] [address] [place] HIV 1+2 Ab+HIV1 p24 Ag IA Ql Non-Reactive Normal Nonreactive [facility] Comment on above: Order Comment: Speci men Type: BLOOD SPECIMENOrdering Facility: [facility] Address: [address] [place] [address] Performed By: #### 7 3752-8, 60691-7, 5195-3 ####[facility] [id number] [place] [address] [place] HIV immunoassay testing algorithm interpretation (S/P/Bld) [Interp] Normal [facility] Comment on above: Order Comment: Speci men Type: BLOOD SPECIMENOrdering Facility: [facility] Address: [address] [place] [address] Result Comment: No e vidence of HIV-1 or HIV-2 infection. Should recent infection be suspected, repeat testing may be considered 2-3 weeks after this draw. [place] Rev. Code 3701.243(E): This information has been disclosed to you from confidential records protected from disclosure by state law. ???You shall make no further disclosure of this information without the specific, written, and informed release of the individual to whom it pertains or as otherwise permitted by state law. A general authorization for the release of medical or other information is not sufficient for the purpose of the release of HIV test results or diagnoses. Performed By: #### 7 3752-8, 45697-6, 5195-3 ####[facility] LABCLIA [id number] [place] [address] [place] HbA1c (Bld)on 10-22-2024 Average glucose Estimated from glycated hemoglobin (Bld) [Mass/Vol] 97 mg/dL Normal [facility] Comment on above: Order Comment: Boni carolnia Type: BLOOD SPECIMEN [facility] Address: [address] [place] [address] Result Comment: eAG: (Estimated average glucose) is a calculated value from HgbA1c and is customer account representative of the average blood glucose level in the last 2-3 month period. Performed By: #### 5 8410-2 #### [facility] [id number] [address] [place] [address] [place] HbA1c (Bld) [Mass fraction] 5.0 % Normal 4.3-5.6 [facility] Comment on above: Order Comment: Boni carolina Type: BLOOD SPECIMEN [facility] Address: [address] [place] [address] Result Comment: [place] Diabetes Association guidelines indicate that patients with HgbA1c in the range 5.7-6.4% are at increased risk for development of diabetes, and intervention by lifestyle modification may be beneficial. HgbA1c greater or equal to 6.5% is considered diagnostic of diabetes. Performed By: #### 5 8410-2 #### [facility] [id number] [address] [place] [address] [place] [id number] PLUSon 10-22-2024 Cell-free DNA./Cell-free DNA.total Dosage of chromosome-specific cfDNA (cfDNA) [Molar fraction] 15% Normal [facility] Comment on above: Order Comment: Speci men Type: BLOOD SPECIMEN [facility] Address: [address] [place] [address] Performed By: #### 5 8410-2 #### [facility] CLIA [id number] [address] [place] [address] [place] Chr 13+18+21+X+Y aneuploidy Dosage of chromosome-specific cfDNA Ql (cfDNA) Negative Normal [facility] Comment on above: Order Comment: Speci men Type: BLOOD SPECIMEN [facility] Address: [address] [place] [address] Performed By: #### 5 8410-2 #### [facility] CLIA [id number] [address] [place] [address] Chr 21 trisomy Dosage of chromosome-specific cfDNA Ql (cfDNA) Negative Normal [facility] Comment on above: Order Comment: Speci men Type: BLOOD SPECIMEN [facility] Address: [address] [place] [address] Performed By: #### 5 8410-2 #### [facility] CLIA [id number] [address] [place] [address] Chr X and Y aneuploidy risk Sequencing Ql (cfDNA) [Interp] Not detected Normal [facility] Comment on above: Order Comment: Speci men Type: BLOOD SPECIMEN [facility] Address: [address] [place] [address] Result Comment: Not Detected Not Detected Performed By: #### 5 8410-2 #### [facility] CLIA [id number] [address] [place] [address] [place] Citation Bryan (Reference lab test) Comment Normal [facility] Comment on above: Order Comment: Speci men Type: BLOOD SPECIMEN [facility] Address: [address] [place] [address] Result Comment: 1. P tristin ROGERS, et al. Awa Med. 2012;14(3):296-305. 2. Nathalia GILLESPIE, et al. Prenat Diag. 2013;33(6):591-597. 3. Manolo C, et al. Clin Chem. 2015 Apr;61(4):608-616. 4. Terry ROGERS et al. Awa Med. 2011;13(11):913-920. 5. ACOG/SMFM Practice Bulletin No. 226, May 2020. Performed By: #### 5 8410-2 #### [facility] CLIA [id number] [address] [place] [address] [place] Gestational age Estimated from conception date Love Normal [facility] Comment on above: Order Comment: Boni carolina Type: BLOOD SPECIMEN [facility] Address: [address] [place] [address] Performed By: #### 5 8410-2 #### [facility] CLIA [id number] [address] [place] [address] [place] GESTATIONALAGE AGE > OR = 9W Yes Normal [facility] Comment on above: Order Comment: Boni carolina Type: BLOOD SPECIMEN [facility] Address: [address] [place] [address] Performed By: #### 5 8410-2 #### [facility] CLIA [id number] [address] [place] [address] [place] Laboratory comment Bryan (Report) Comment Normal [facility] Comment on above: Order Comment: Boni carolina Type: BLOOD SPECIMEN [facility] Address: [address] [place] [address] Result Comment: The MaterniT(R) 21 PLUS laboratory-developed test (LDT) analyzes circulating cell-free DNA from a maternal blood sample. This test is used for screening purposes and not diagnostic. Clinical correlation is recommended. Validation data on twin pregnancies is limited and the ability of this test to detect aneuploidy in higher multiple gestations has not yet been validated. Performed By: #### 5 8410-2 #### [facility] CLIA [id number] [address] [place] [address] [place] director print name Nom (Provider) Comment Normal [facility] Comment on above: Order Comment: Speci men Type: BLOOD SPECIMEN [facility] Address: [address] [place] [address] Result Comment: This specimen showed an expected representation of chromosome 21, 18 and 13 material. Clinical correlation is suggested. Comment Leticia Westbrook MD, Director, [employer] Performed By: #### 5 8410-2 #### [facility] CLIA [id number] [address] [place] [address] [place] LIMITATIONS OF THE TEST Comment Normal [facility] Comment on above: Order Comment: Speci men Type: BLOOD SPECIMEN [facility] Address: [address] [place] [address] Result Comment: Ruddy wiggins the results of these tests are highly reliable, discordant results, including inaccurate sex prediction, may occur due to placental, maternal, or mosaicism or neoplasm; vanishing twin; prior maternal organ transplant; or other causes. These tests are screening tests and not diagnostic; they do not replace the accuracy and precision of diagnosis with CVS or amniocentesis. A patient with a positive test result should be referred for genetic counseling and offered invasive diagnosis for confirmation of test results.[5] The results of this testing, including the benefits and limitations, should be discussed with a qualified healthcare provider. management decisions, including termination of the , should not be based on the results of these tests alone. The healthcare provider is responsible for the use of this information in the management of their patient. Sex chromosomal aneuploidies are not reportable for known multiple gestations. A negative result does not ensure an unaffected nor does it exclude the possibility of other chromosomal abnormalities or defects which are not a part of these tests. An uninformative result may be reported, the causes of which may include, but are not limited to, insufficient sequencing coverage, noise or artifacts in the region, amplification or sequencing bias, or insufficient fraction. These tests are not intended to identify pregnancies at risk for neural tube defects or ventral wall defects. Testing for whole chromosome abnormalities (including sex chromosomes) and for subchromosomal abnormalities could lead to the potential discovery of both and maternal genomic abnormalities that could have major, minor, or no, clinical significance. Evaluating the significance of a positive or a non-reportable result may involve both invasive testing and additional studies on the mother. Such investigations may lead to a diagnosis of maternal chromosomal or subchromosomal abnormalities, which on occasion may be associated with benign or malignant maternal neoplasms. These tests may not accurately identify triploidy, balanced rearrangements, or the precise location of subchromosomal duplications or deletions; these may be detected by diagnosis with CVS or amniocentesis. The ability to report results may be impacted by maternal BMI, maternal weight, maternal systemic lupus erythematosus (SLE) and/or by certain pharmaceutical agents such as low molecular weight heparin (for example: Lovenox(R), Xaparin(R), Clexane(R) and Fragmin(R)). Performed By: #### 5 8410-2 #### [facility] [id number] [address] [place] [address] [place] [facility] Monosomy X risk Dosage of chromosome-specific cfDNA Ql (Plasma cell-free+WBC DNA) [Interp] Not detected Normal [facility] Comment on above: Order Comment: Speci caity Type: BLOOD SPECIMEN [facility] Address: [address] [place] [address] Performed By: #### 5 8410-2 #### [facility] [id number] [address] [place] [address] NEGATIVE PREDICTIVE VALUE Note Normal [facility] Comment on above: Order Comment: Speci men Type: BLOOD SPECIMEN [facility] Address: [address] [place] [address] Result Comment: The Negative Predictive Value (NPV) for trisomy 21, 18, and 13 is greater than 99%. The NPV for SCA and ESS cannot be calculated as SCA and ESS are only reported when an abnormality is detected. Performed By: #### 5 8410-2 #### [facility] [id number] [address] [place] [address] [place] PERFORMANCE CHARACTERISTICS Note Normal [facility] Comment on above: Order Comment: Boni carolina Type: BLOOD SPECIMEN [facility] Address: [address], [place] [address] Result Comment: ! Sex ! Accuracy: 99.4% ! ! ! ! Region (associated syndrome) ! Est. Sens# ! Est. Spec ! ! ! ! Trisomy 21 (Down Syndrome) ! 99.1% ! 99.9% ! ! ! ! Trisomy 18 (Stearns Syndrome) ! >99.9% ! 99.6% ! ! ! ! Trisomy 13 (Patau Syndrome) ! 91.7% ! 99.7% ! ! ! ! Sex Chromosome Aneuploidies## ! 96.2% ! 99.7% ! ! ! * As reported in [employer] database nstd37 [https://www.ncbi.nlm.nih.gov/dbvar/studies/nstd37/ ] # Estimated Sensitivity. Sensitivity estimated across the observed size distribution of each syndrome [per [facility] database nstd37] and across the range of fractions observed in routine clinical NIPT. Actual sensitivity can also be influenced by other factors such as the size of the event, total sequence counts, amplification bias, or sequence bias. ## Love gestation only. Performed By: #### 5 8410-2 #### [facility] [id number] [address] [place] [address] POSITIVE PREDICTIVE VALUE N/A Normal [facility] Comment on above: Order Comment: Specsuman carolina Type: BLOOD SPECIMEN [facility] Address: [address] [place] [address] Performed By: #### 5 8410-2 #### [facility] CLIA [id number] [address] [place] [address] [place] Reference Lab Test Method Comment Normal [facility] Comment on above: Order Comment: Specsuman carolina Type: BLOOD SPECIMEN [facility]ing [facility]: [facility] Address: [address] [place] [address] Result Comment: See Notes Circulating cell-free DNA was purified from the plasma component of maternal blood. The extracted DNA was then converted into a genomic DNA library for aneuploidy analysis of chromosomes 21, 18, and 13 via next generation sequencing.[1] Optional findings based on the test order include sex chromosome aneuploidy (SCA)[2], and enhanced sequencing series (ESS)[3], which will only be reported on as an additional finding when an abnormality is detected. SCA testing includes information on X and Y representation, while ESS testing includes deletions in selected regions (22q, 15q, 11q, 8q, 5p, 4p, 1p) and trisomy of chromosomes 16 and 22. Performed By: #### 5 8410-2 #### [facility] CLIA [id number] [address] [place] [address] [place] Service comment (Unsp spec) [Interp] Comment Normal [facility] Comment on above: Order Comment: Speci men Type: BLOOD SPECIMEN [facility]: [facility] Address: [address] [place] [address] Result Comment: See Notes [employer] is a subsidiary of [employer], using the brand [employer]. This test was developed and its performance characteristics determined by [employer]. It has not been cleared or approved by the Food and Drug Administration. This laboratory is certified under the Clinical Laboratory Improvement Amendments (CLIA) as qualified to perform high complexity clinical laboratory testing and accredited by the [employer] [place] [employer] [employer] (CAP). Performed By: #### 5 8410-2 #### [facility] CLIA [id number] [address] [place] [address] [place] Sex Dosage of chromosome-specific cfDNA Nom (cfDNA) Comment Normal [facility] Comment on above: Order Comment: Speci men Type: BLOOD SPECIMEN [facility] Address: [address] [place] [address] Result Comment: Cons istent with Male Performed By: #### 5 8410-2 #### [facility] CLIA [id number] [address] [place] [address] [place] Test performance information Bryan (Unsp spec) Comment Normal [facility] Comment on above: Order Comment: Speci men Type: BLOOD SPECIMEN [facility]ing [facility]: [facility] Address: [address] [place] [address] Result Comment: The performance characteristics of the MaterniT(R) 21 PLUS laboratory-developed test (LDT) have been determined in a clinical validation study with women at increased risk for chromosomal aneuploidy.[1-4] Performed By: #### 5 8410-2 #### [facility] CLIA [id number] [address] [place] [address] [place] Trisomy 13 risk Dosage of chromosome-specific cfDNA Ql (cfDNA) [Interp] Negative Normal [facility] Comment on above: Order Comment: Speci men Type: BLOOD SPECIMEN [facility]ing [facility]: [facility] Address: [address] [place] [address] Performed By: #### 5 8410-2 #### [facility] CLIA [id number] [address] [place] [address] OF [place] Trisomy 18 risk Dosage of chromosome-specific cfDNA Ql (Plasma cell-free+WBC DNA) [Interp] Negative Normal [facility] Comment on above: Order Comment: Speci men Type: BLOOD SPECIMEN [facility]ing [facility]: [facility] Address: [address] [place] [address] Performed By: #### 5 8410-2 #### [facility] CLIA [id number] [address] [place] [address] [place] RBC PARAMETERS FOR HB IDon 0 10-22-2024 Erythrocyte distribution width (RBC) [Ratio] 13.1 % Normal 11.5-15.0 [facility] Comment on above: Order Comment: Speci men Type: BLOOD SPECIMEN [facility]ing [facility]: [facility] Address: [address] [place] [address] Performed By: #### 5 8410-2 #### [facility] CLIA [id number] [address] [place] [address] [place] Hematocrit (Bld) [Volume fraction] 33.2 % Low 36.0-46.0 [facility] Comment on above: Order Comment: Speci men Type: BLOOD SPECIMEN [facility]ing [facility]: [facility] Address: [address] [place] [address] Performed By: #### 5 8410-2 #### [facility] CLIA [id number] [address] [place] [address] [place] Hemoglobin (Bld) [Mass/Vol] 11.2 g/dL Low 11.5-15.5 [facility] Comment on above: Order Comment: Speci men Type: BLOOD SPECIMEN Ordering Facility: [facility] Address: [address] [place] [address] Performed By: #### 5 8410-2 #### [facility] CLIA [id number] [address] [place] [address] [place] Order Comment: Speci men Type: BLOOD SPECIMENOrdering Facility: [facility] Address: [address] [place] [address] Performed By: #### 5 7021-8 ####[facility] [id number] [place] [address] [place] MCH (RBC) [Entitic mass] 30.4 pg Normal 26.0-34.0 [facility] Comment on above: Order Comment: Speci men Type: BLOOD SPECIMEN Ordering Facility: [facility] Address: [address] [place] [address] Performed By: #### 5 8410-2 #### [facility] [id number] [address] [place] [address] [place] MCHC (RBC) [Mass/Vol] 33.7 g/dL Normal 30.5-36.0 [facility] Comment on above: Order Comment: Speci men Type: BLOOD SPECIMEN Ordering Facility: [facility] Address: [address] [place] [address] Performed By: #### 5 8410-2 #### [facility] [id number] [address] [place] [address] [place] MCV (RBC) [Entitic vol] 90.2 fL Normal 80.0-100.0 [facility] Comment on above: Order Comment: Speci men Type: BLOOD SPECIMEN Ordering Facility: [facility] Address: [address] [place] [address] Performed By: #### 5 8410-2 #### [facility] CLIA [id number] [address] [place] [address] [place] RBC (Bld) [#/Vol] 3.68 10*6/uL Low 3.90-5.20 [facility] Comment on above: Order Comment: Speci men Type: BLOOD SPECIMEN Ordering Facility: [facility] Address: [address] [place] [address] Performed By: #### 5 8410-2 #### [facility] CLIA [id number] [address] [place] [address] [place] RUBELLA IGG ANTIBODYon 10-22 RUBELLA IGG AB, QUAL Positive Normal Positive [facility] Comment on above: Order Comment: Speci men Type: BLOOD SPECIMEN Ordering Facility: [facility] Address: [address] [place] [address] Result Comment: The result suggests recent or past exposure to Rubella virus or history of Rubella vaccination. Positive result may also be seen due to presence of passively-transferred antibodies. Please correlate with patient's history. Performed By: #### 5 8410-2 #### [facility] CLIA [id number] [address] [place] [address] [place] Reagin and Treponema pallidu m IgG and IgM [Interp]on 10-22-2024 T. pallidum IgG+IgM IA Ql (S) Non-Reactive Normal Nonreactive [facility] Comment on above: Order Comment: Speci men Type: BLOOD SPECIMENOrdering Facility: [facility] Address: [address] [place] [address] Performed By: #### 7 3752-8, 20110-6, 5195-3 ####[facility] LABCLIA [id number] [place] [address] [place] Reagin+T pallidum IgG+IgM Se rPl-Impon 10-22-2024 Reagin and Treponema pallidum IgG and IgM [Interp] Cannot exclude recent Treponemal infection if specimen collected within 7-10 days after appearance of suspect lesions or 2-3 weeks after an exposure. Clinical correlation is required. Normal [facility] Comment on above: Order Comment: Speci men Type: BLOOD SPECIMENOrdering Facility: [facility] Address: [address] [place] [address] Performed By: #### 7 3752-8, 58342-0, 5195-3 ####[facility] LABCLIA [id number] [place] [address] [place] TYPE + SCREEN PRENATALon ABO O Normal [facility] Comment on above: Order Comment: Speci men Type: BLOOD SPECIMENOrdering Facility: [facility] Address: [address] [place] [address] Performed By: #### T SPN ####[facility] BLOOD BANKCLIA [id number] [place] [address] [place] Rh Nom (Bld) Positive Normal [facility] Comment on above: Order Comment: Speci men Type: BLOOD SPECIMENOrdering Facility: [facility] Address: [address] [place] [address] Performed By: #### T SPN ####[facility] BLOOD BANKIA [id number] [place] [address] [place] TYPE AND SCREEN EXPIRATION 10/25/2024 23:[address] [facility] Comment on above: Order Comment: Speci men Type: BLOOD SPECIMENOrdering Facility: [facility] Address: [address] [place] [address] Performed By: #### T SPN ####[facility] B[facility] BANKCLIA [id number] [place] [address] [place] CNOVon 10-06-2024 CNOV Office Visit (WALKWA) KI DELGADO ([id number]) 1995 F Date Time Provider Department 10/06/24 9:10 AM MARGARITA ALMAGEUR During your visit today, we recorded the following information about you: Pulse Blood pressure Weight 119/minute 134/84 77.7 kg Margarita Almaguer APRN.GREEN MARKETING ANALYST 10/06/2024 9:58 AM Signed (J06.9) Viral upper respiratory tract infection with cough (primary encounter diagnosis) (J02.9) Pharyngitis, unspecified etiology (J10.1) Influenza A Plan: oseltamivir (TAMIFLU) 75 mg capsule Education on viral vs bacterial infections. Most viral infections will last 10 days, sometimes 14. It is possible to have back to back viral infections. An antibiotic will not treat a virus. Negative strep culture. Positive influenza A, will discuss tamiflu and possible side effects. -Drink lots of fluids and get plenty of rest. Gargle with salt water 3 times/day. -Vaporizers, cool mist humidifiers, warm showers, and warm fluids help open respiratory and sinus passages. Clean humidifiers daily. -OTC tylenol as directed on the bottle. -Saline nasal spray as needed. -Cough/deep breathing education, promote clearing of the airways and good lung expansion. -Make follow up with primary care for monitoring and resolution in symptoms. -Signs that warrant an ER evaluation: Sudden change/worsening in condition, lethargy, signs of dehydration, fever greater than 102 F that is not responding to Tylenol or ibuprofen (Motrin, Advil), drooling, difficulty swallowing, difficulty breathing, shortness of breath, chest pain, evidence of airway compromise (tripod position, neck extension, retractions), seizures, changes in mental status, or other concerns. Margarita Almaguer APRN.GREEN MARKETING ANALYST 10/06/2024 10:06 AM Signed This note was created using [employer]. Subjective Ki Delgado is a 29 year old female. HPI by patient: Ki Delgado is a 29 year old presenting to the office with the complaint of viral symptoms. Started yesterday. Associated symptoms include body aches, cough, congestion, and sore throat. Covid Immunization Dates Current Care Gaps Covid-19 Vaccine ( season) Overdue since 04/25/2024 01/03/2021 Imm Admin: COVID-19 original vaccine, full dose, monovalent (MODERNA) 12/06/2020 Imm Admin: COVID-19 original vaccine, full dose, monovalent (MODERNA) Is almost 10 weeks . Sick contacts: yes. Smoking history/second hand smoke: none. OTC zyrtec. No antibiotic use in the last 60 days. ALLERGIES No Known Allergies Family History Reviewed Including Cardiac Diseases, Psychiatric Diseases, AND Substance Abuse Problem: No Known Problems Relation: Mother Age of Onset: (Not Specified) Problem: Alcohol abuse Relation: Father Age of Onset: (Not Specified) Comment: Has been sober since approx 2004 Problem: Alcohol abuse Relation: Brother Age of Onset: (Not Specified) Comment: Has been sober since approx. 2022 Problem: other (hypoglycemia [Other]) Relation: Maternal Grandmother Age of Onset: (Not Specified) Problem: Heart Relation: Maternal Grandmother Age of Onset: (Not Specified) Problem: other (colitis [Other]) Relation: Maternal Grandmother Age of Onset: (Not Specified) Problem: other (arrythemia [Other]) Relation: Maternal Grandfather Age of Onset: (Not Specified) Problem: other (lung problems [Other]) Relation: Maternal Grandfather Age of Onset: (Not Specified) Comment: farmers lung Problem: other (mitral valve prolpase [Other]) Relation: Paternal Grandmother Age of Onset: (Not Specified) Problem: other (hemorrhagic stroke) Relation: Paternal Grandmother Age of Onset: (Not Specified) Problem: other (quadruple bypass) Relation: Paternal Grandfather Age of Onset: (Not Specified) Social History Tobacco Use Smoking status: Never Smokeless tobacco: Never Tobacco comments: smoking outside-parent Vaping Use Vaping status: Never Used Alcohol use: Not Currently Comment: socially Drug use: Never Active Ambulatory Problems History of chronic hypertension Date Noted: 09/20/2024 Anxiety during Date Noted: 09/20/2024 Encounter for supervision in primigravida, antepartum Date Noted: 09/20/2024 with uncertain dates in first trimester Date Noted: 09/20/2024 Resolved Ambulatory Problems Closed fracture of head of radius Date Noted: 12/23/2005 Past Medical History:No Additional Past Medical History Review of Systems Constitutional: Negative. HENT: Positive for congestion and sore throat. Eyes: Negative. Respiratory: Positive for cough. Cardiovascular: Negative. Gastrointestinal: Negative. Endocrine: Negative. Genitourinary: Negative. Musculoskeletal: Positive for myalgias. Skin: Negative. Neurological: Negative. Hematological: Negative. Objective BP 134/84 Pulse 119 Wt 77.7 kg (171 lb 4.8 oz (more content not included)... Normal [facility] CNPNon 10-06-2024 RENNY Telephone (KEVIN) KI DELGADO ([id number]) 1995 F Date Time Provider Department 10/06/24 MARGARITA ALMAGUER During your visit today, we recorded the following information about you: Nelly Pierre 10/06/2024 10:53 AM Signed Ki is calling Margarita Almaguer APRN.CNP today to request the RX sent to pharmacy today be sent to a different pharmacy as they do not have Tamiflu in stock at [facility] Pleases send to [facility] for patient Patient has been identified by name and birthdate. Duration of symptoms: today Person calling: self Call patient at: at home [phone] (home) [phone] (cell) Was an appointment scheduled: No Closing statement: Medication not in stock at [facility] Margarita Almaguer APRN.CNP 10/06/2024 11:33 AM Signed Sent Allergies As of Date: 10/06/2024 (No Known Allergies) Date Reviewed: 10/06/2024 Reviewed by: Almaguer, Margarita, ELECTRICAL ASSEMBLY SUPERVISOR.GREEN MARKETING ANALYST - Fully Assessed Reason for Visit: Medication Problem [65] Primary Visit Diagnosis:Influenza A [J10.1] Order(s):oseltamivir (TAMIFLU) 75 mg capsuleTake 1 capsule by mouth two times a day for 5 days.Disp: 10 capsuleRfl: 0 Prescriptions as of 10/06/2024 - oseltamivir (TAMIFLU) 75 mg capsule Take 1 capsule by mouth two times a day for 5 days. - cetirizine HCl (ZYRTEC ORAL) Take by mouth. - aspirin, enteric coated (ECOTRIN LOW STRENGTH) 81 mg EC tablet Take 1 tablet by mouth once daily. - no115/iron/folic acid ( 19 ORAL) Take by mouth. - pyridoxine, vitamin B6, (VITAMIN B-6) 50 mg tablet Take 1 tablet by mouth once daily. Problem List As Of Date 10/06/2024 Noted Resolved Closed fracture of head of radius [S52.123A] 12/23/2005 09/20/2024 History of chronic hypertension [Z86.79] 09/20/2024 Anxiety during [O99.340, F41.9] 09/20/2024 Encounter for supervision in primigra*09/20/2024 with uncertain dates in first trimest*09/20/2024 Prescriptions ordered this encounter Disp Refills Start End OSELTAMIVIR 75 MG CAPSULE 10 c* 0 10/06/2024 10/11/2024 Route: ORAL Sig: Take 1 capsule by mouth two times a day for 5 days. Medications Discontinued During This Encounter Prescriptions - oseltamivir (TAMIFLU) 75 mg capsule (Discontinued) Take 1 capsule by mouth two times a day for 5 days. Encounter Status:Closed by MARGARITA [facility]MAGUER [facility] ([id number]) 1995 F Date Time Provider Department 10/06/24 SHEREE MICHELE OB During your visit today, we recorded the following information about you: Nicole Simpson RN 10/06/2024 8:14 AM Signed 9w5d Calling c/o chest congestion and worsening cough. Asking what to do. Advised to go to PCP or urgent care for evaluation and call with update if tested positive for any illness. Message sent with safe medication list. SVETA Madera Trisha, RN 10/06/2024 10:09 AM Signed 9w5d Patient called back in and was positive for influenza A. She was seen in [facility] today. Her symptoms started yesterday. She was prescribed Tamiflu. She plans to go home rest, push fluids/electrolytes, tylenol as needed. Safe meds previously sent to her to refer to. Next OB visit 10/13/24. Will f/u with PCP or express care with prolonged/worsening symptoms. Asking if there are any other recommendations. SVETA Madera Emily, APRN.GREEN MARKETING ANALYST 10/06/2024 10:23 AM Signed Agree with plan. Hope she feels better! Continue to push fluids and try to stay nourished with small frequent protein filled meals. Rao Pineda APRN.Rema Marte RN 10/06/2024 10:51 AM Signed Left message to call office. SVETA Quintero Trisha, RN 10/06/2024 10:56 AM Signed Patient notified. Nicole Simpson RN Allergies As of Date: 10/06/2024 (No Known Allergies) Date Reviewed: 10/06/2024 Reviewed by: Margarita Almaguer APRN.GREEN MARKETING ANALYST - Fully Assessed Prescriptions as of 10/06/2024 - oseltamivir (TAMIFLU) 75 mg capsule Take 1 capsule by mouth two times a day for 5 days. - cetirizine HCl (ZYRTEC ORAL) Take by mouth. - aspirin, enteric coated (ECOTRIN LOW STRENGTH) 81 mg EC tablet Take 1 tablet by mouth once daily. - no115/iron/folic acid ( 19 ORAL) Take by mouth. - pyridoxine, vitamin B6, (VITAMIN B-6) 50 mg tablet Take 1 tablet by mouth once daily. Problem List As Of Date 10/06/2024 Noted Resolved Closed fracture of head of radius [S52.123A] 12/23/2005 09/20/2024 History of chronic hypertension [Z86.79] 09/20/2024 Anxiety during [O99.340, F41.9] 09/20/2024 Encounter for supervision in primigra*09/20/2024 with uncertain dates in first trimest*09/20/2024 Encounter Status:Closed by NICOLE SIMPSON on 10/06/[address] [facility] INFLUENZA A&B MOLECULAR (POC )on 10-06-2024 Flu A (POCT) Positive Abnormal Negative [facility] Comment on above: Location:[facility] Office, [address] [place] [address], [facility] Interpretation and review of laboratory results Abnormal [facility] Procedural Control Valid [facility] Location:[facility], [address] [place] [address], [address] [place] [address] POINT OF CARE [facility] STREP A MOLECULAR (POC)on Procedural Control Valid [facility] Strep A (POCT) Negative Negative [facility] ALLIED HEALTHon 09-30-2024 ALLIED HEALTH HNO ID: [id number] Author: GUILLERMO CHUN Tech Service: Radiology Author Type: Favor Maker Type: Allied Health Filed: 09/30/2024 20:50 Note Text: Radiology Service Progress Note PATIENT NAME: Ki Delgado DATE OF SERVICE: September 30, 2024 TIME: 8:49 PM PATIENT IDENTITY VERIFICATION COMPLETED USING TWO (2) IDENTIFIERS: Name and Date of confirmed by patient verbally. FALL SCREENING: Has the patient had 2 falls in the last year or 1 fall with injury or currently using an Ambulatory Assistive Device (Walker, Cane, Wheelchair, Crutches, etc.)? Emergency Room Patient: Screened in ED PATIENT GENDER DATA: Assigned female at . status: : Yes. Internal Quality Check OK. Urinalysis hCG results are as follows: Positive Reference Range: Negative status: NO. PATIENT RELEVANT IMPLANT DATA REVIEWED: Not Applicable PATIENT PRESENTS WITH AN IMPLANTABLE OR ATTACHED SALES MARKETING: No RADIOLOGY DEPARTMENT: Ultrasound PERIPHERAL IV DATA: Not applicable SIGNED BY: Yany Mckay September 30, 2024 8:49 PM Normal [facility] B-HCG SerPl-[place]Cn[place] 5 [place] [address].0 m[IU]/mL High <5.0 [facility] Comment on above: Order Comment: Speci men Type: BLOOD SPECIMEN Ordering Facility: [facility] Address: [address] [place] [address] Result Comment: JAMILAH TITATIVE HCG NORMAL RANGES Weeks of Gestation (Weeks Since LMP) 3 Weeks (5.8-71.2 mIU/mL) 4 Weeks (9.5-750 mIU/mL) 5 Weeks (217-7138 mIU/mL) 6 Weeks (158-44575 mIU/mL) 7 Weeks (3697-264490 mIU/mL) 8 Weeks (17840-191999 mIU/mL) 9 Weeks (66726-800635 mIU/mL) 10 Weeks (06695-982062 mIU/mL) 12 Weeks (30840-036923 mIU/mL) Referenced to 4th IS of [facility] Performed By: #### 2 1198-7 #### [facility] CLIA [id number] [address] [place] [address] [place] Basic metabolic 2000 panelon 09-30-2024 Anion gap [Moles/Vol] 12 mmol/L Normal 8-15 [facility] Comment on above: Order Comment: Speci men Type: BLOOD SPECIMEN Ordering Facility: [facility] Address: [address] [place] [address] Performed By: #### 2 4321-2 #### [facility] CLIA [id number] [address] [place] [address] [place] Calcium [Mass/Vol] 10.4 mg/dL High 8.5-10.2 [facility] Comment on above: Order Comment: Speci men Type: BLOOD SPECIMEN Ordering Facility: [facility] Address: [address] [place] [address] Performed By: #### 2 4321-2 #### [facility] CLIA [id number] [address] [place] [address] [place] Chloride [Moles/Vol] 102 mmol/L Normal 98-107 [facility] Comment on above: Order Comment: Speci men Type: BLOOD SPECIMEN Ordering Facility: [facility] Address: [address] [place] [address] Performed By: #### 2 4321-2 #### [facility] CLIA [id number] [address] [place] [address] [place] CO2 [Moles/Vol] 22 mmol/L Normal 22-30 [facility] Comment on above: Order Comment: Speci men Type: BLOOD SPECIMEN Ordering Facility: [facility] Address: [address] [place] [address] Performed By: #### 2 4321-2 #### [facility] CLIA [id number] [address] STATES OF [facility] Creatinine [Mass/Vol] 0.95 mg/dL Normal 0.58-0.96 [facility] Comment on above: Order Comment: Lisai men Type: BLOOD SPECIMEN Ordering Facility: [facility] Address: [address] [place] [address] Performed By: #### 2 4321-2 #### [facility] CLIA [id number] [address] Creatinine and Glomerular filtration rate.predicted panel (S/P/Bld) 84 mL/min/1.73m??? Normal >=60 [facility] Comment on above: Order Comment: Boni carolina Type: BLOOD SPECIMEN Ordering Facility: [facility] Address: [address] [place] [address] Result Comment: Maeve mated Glomerular Filtration Rate (eGFR) is calculated using the 2020 CKD-EPI creatinine equation. This equation utilizes serum creatinine, sex, and age as parameters. The creatinine assay has traceable calibration to isotope dilution-mass spectrometry. Refer to KDIGO guidelines for clinical interpretation. In patients with unstable renal function, e.g. those with acute kidney injury, the eGFR may not accurately reflect actual GFR. Performed By: #### 2 4321-2 #### [facility] CLIA [id number] [address] STATES OF [facility] Glucose [Mass/Vol] 87 mg/dL Normal 74-99 [facility] Comment on above: Order Comment: Boni carolina Type: BLOOD SPECIMEN Ordering Facility: [facility] Address: [address] [address] Result Comment: The [place] Diabetes Association (ADA) provides guidance for cutoff values for fasting glucose and random glucose. The ADA defines fasting as no caloric intake for at least 8 hours. Fasting plasma glucose results between 100 to 125 mg/dL indicate increased risk for diabetes (prediabetes). Fasting plasma glucose results greater than or equal to 126 mg/dL meet the criteria for diagnosis of diabetes. In the absence of unequivocal hyperglycemia, results should be confirmed by repeat testing. In a patient with classic symptoms of hyperglycemia or hyperglycemic crisis, random plasma glucose results greater than or equal to 200 mg/dL meet the criteria for diagnosis of diabetes. Reference: Standards of Medical Care in Diabetes 2016, [place] [employer] Association. Diabetes Care. 2016.39(Suppl 1). Performed By: #### 2 4321-2 #### [facility] CLIA [id number] [address] [place] [address] [place] Potassium [Moles/Vol] 4.0 mmol/L Normal 3.7-5.1 [facility] Comment on above: Order Comment: Boni carolina Type: BLOOD SPECIMEN Ordering Facility: [facility] Address: [address] [place] [address] Performed By: #### 2 4321-2 #### [facility] CLIA [id number] [address] [place] Sodium [Moles/Vol] 136 mmol/L Normal 136-144 [facility] Comment on above: Order Comment: Boni carolina Type: BLOOD SPECIMEN Ordering Facility: [facility] Address: [address] [address] Performed By: #### 2 4321-2 #### [facility] CLIA [id number] [address] [place] [address] [place] Urea nitrogen [Mass/Vol] 10 mg/dL Normal 7-21 [facility] Comment on above: Order Comment: Boni carolina Type: BLOOD SPECIMEN Ordering Facility: [facility] Address: [address] [address] Performed By: #### 2 4321-2 #### [facility] CLIA [id number] [address] [place] [address] [place] CBC W Auto Differential pane l (Bld)on 09-30-2024 Basophils (Bld) [#/Vol] 0.04 10*3/uL Normal <0.11 [facility] Comment on above: Order Comment: Speci men Type: BLOOD SPECIMEN Ordering Facility: [facility] Address: [address] [place] [address] Performed By: #### 5 7021-8 #### [facility] CLIA [id number] [address] [place] [address] [place] Basophils/100 WBC (Bld) 0.4 % Normal [facility] Comment on above: Order Comment: Speci men Type: BLOOD SPECIMEN Ordering Facility: [facility] Address: [address] [place] [address] Performed By: #### 5 7021-8 #### [facility] CLIA [id number] [address] [place] [address] [place] Differential cell count method Nom (Bld) Auto Normal [facility] Comment on above: Order Comment: Speci men Type: BLOOD SPECIMEN Ordering Facility: [facility] Address: [address] [place] [address] Performed By: #### 5 7021-8 #### [facility] CLIA [id number] [address] [place] [address] [place] Eosinophils (Bld) [#/Vol] 0.17 10*3/uL Normal <0.46 [facility] Comment on above: Order Comment: Speci men Type: BLOOD SPECIMEN Ordering Facility: [facility] Address: [address] [place] [address] Performed By: #### 5 7021-8 #### [facility] CLIA [id number] [address] [place] [address] [place] Eosinophils/100 WBC (Bld) 1.8 % Normal [facility] Comment on above: Order Comment: Speci men Type: BLOOD SPECIMEN Ordering Facility: [facility] Address: [address] [place] [address] Performed By: #### 5 7021-8 #### [facility] CLIA [id number] [address] [place] [address] [place] Erythrocyte distribution width (RBC) [Ratio] 13.1 % Normal 11.5-15.0 [facility] Comment on above: Order Comment: Speci men Type: BLOOD SPECIMEN Ordering Facility: [facility] Address: [address] [place] [address] Performed By: #### 5 7021-8 #### [facility] CLIA [id number] [address] [place] [address] [place] Hematocrit (Bld) [Volume fraction] 35.7 % Low 36.0-46.0 [facility] Comment on above: Order Comment: Speci men Type: BLOOD SPECIMEN Ordering Facility: [facility] Address: [address] [place] [address] Performed By: #### 5 7021-8 #### [facility] CLIA [id number] [address] [place] [address] [place] Hemoglobin (Bld) [Mass/Vol] 12.4 g/dL Normal 11.5-15.5 [facility] Comment on above: Order Comment: Speci men Type: BLOOD SPECIMEN Ordering Facility: [facility] Address: [address] [place] [address] Performed By: #### 5 7021-8 #### [facility] CLIA [id number] [address] [place] Immature granulocytes (Bld) [#/Vol] 0.03 10*3/uL Normal <0.10 [facility] Comment on above: Order Comment: Speci men Type: BLOOD SPECIMEN Ordering Facility: [facility] Address: [address] [place] [address] Performed By: #### 5 7021-8 #### [facility] CLIA [id number] [address] [place] Immature granulocytes/100 WBC (Bld) 0.3 % Normal [facility] Comment on above: Order Comment: Speci men Type: BLOOD SPECIMEN Ordering Facility: [facility] Address: [facility] [place] [address] Performed By: #### 5 7021-8 #### [facility] CLIA [id number] [address] Lymphocytes (Bld) [#/Vol] 3.47 10*3/uL Normal 1.00-4.00 [facility] Comment on above: Order Comment: Speci men Type: BLOOD SPECIMEN Ordering Facility: [facility] Address: [address] [place] [address] Performed By: #### 5 7021-8 #### [facility] CLIA [id number] [address] Lymphocytes/100 WBC (Bld) 37.4 % Normal [facility] Comment on above: Order Comment: Speci men Type: BLOOD SPECIMEN Ordering Facility: [facility] Address: [address] [place] [address] Performed By: #### 5 7021-8 #### [facility] CLIA [id number] [address] MCH (RBC) [Entitic mass] 30.5 pg Normal 26.0-34.0 [facility] Comment on above: Order Comment: Speci men Type: BLOOD SPECIMEN Ordering Facility: [facility] Address: [address] [place] [address] Performed By: #### 5 7021-8 #### [facility] CLIA [id number] [address] MCHC (RBC) [Mass/Vol] 34.7 g/dL Normal 30.5-36.0 [facility] Comment on above: Order Comment: Speci men Type: BLOOD SPECIMEN Ordering Facility: [facility] Address: [address] [place] [address] Performed By: #### 5 7021-8 #### [facility] CLIA [id number] [address] MCV (RBC) [Entitic vol] 87.9 fL Normal 80.0-100.0 [facility] Comment on above: Order Comment: Speci men Type: BLOOD SPECIMEN Ordering Facility: [facility] Address: [address] [place] [address] Performed By: #### 5 7021-8 #### [facility] CLIA [id number] [address] [place] [address] [place] Monocytes (Bld) [#/Vol] 1.03 10*3/uL High <0.87 [facility] Comment on above: Order Comment: Speci men Type: BLOOD SPECIMEN Ordering Facility: [facility] Address: [address] [place] [address] Performed By: #### 5 7021-8 #### [facility] CLIA [id number] [address] Monocytes/100 WBC (Bld) 11.1 % Normal [facility] Comment on above: Order Comment: Speci men Type: BLOOD SPECIMEN Ordering Facility: [facility] Address: [address] [place] [address] Performed By: #### 5 7021-8 #### [facility] CLIA [id number] [address] [place] Neutrophils (Bld) [#/Vol] 4.54 10*3/uL Normal 1.45-7.50 [facility] Comment on above: Order Comment: Speci men Type: BLOOD SPECIMEN Ordering Facility: [facility] Address: [address] [place] [address] Performed By: #### 5 7021-8 #### [facility] CLIA [id number] [address] Neutrophils/100 WBC (Bld) 49.0 % Normal [facility] Comment on above: Order Comment: Speci men Type: BLOOD SPECIMEN Ordering Facility: [facility] Address: [address] [place] [address] Performed By: #### 5 7021-8 #### [facility] CLIA [id number] [address] [place] Nucleated RBC (Bld) [#/Vol] 10*3/uL Normal <0.01 [facility] Comment on above: Order Comment: Speci men Type: BLOOD SPECIMEN Ordering Facility: [facility] Address: [address] [place] [address] Performed By: #### 5 7021-8 #### [facility] CLIA [id number] [address] [place] [address] [place] Nucleated RBC/100 WBC (Bld) [Ratio] 0.0 /100 WBC Normal [facility] Comment on above: Order Comment: Speci men Type: BLOOD SPECIMEN Ordering Facility: [facility] Address: [address] [place] [address] Performed By: #### 5 7021-8 #### [facility] CLIA [id number] [address] [place] [address] [place] Platelet mean volume (Bld) [Entitic vol] 10.5 fL Normal 9.0-12.7 [facility] Comment on above: Order Comment: Speci men Type: BLOOD SPECIMEN Ordering Facility: [facility] Address: [address] [place] [address] Performed By: #### 5 7021-8 #### [facility] CLIA [id number] [address] [place] Platelets (Bld) [#/Vol] 238 10*3/uL Normal 150-400 [facility] Comment on above: Order Comment: Speci men Type: BLOOD SPECIMEN Ordering Facility: [facility] Address: [address] [place] [address] Performed By: #### 5 7021-8 #### [facility] CLIA [id number] [address] [place] RBC (Bld) [#/Vol] 4.06 10*6/uL Normal 3.90-5.20 [facility] Comment on above: Order Comment: Speci men Type: BLOOD SPECIMEN Ordering Facility: [facility] Address: [address] [place] [address] Performed By: #### 5 7021-8 #### [facility] CLIA [id number] [address] [place] WBC (Bld) [#/Vol] 9.28 10*3/uL Normal 3.70-11.00 [facility] Comment on above: Order Comment: Speci men Type: BLOOD SPECIMEN Ordering Facility: [facility] Address: [address] [place] [address] Performed By: #### 5 7021-8 #### [facility] CLIA [id number] [address] [place] [address] [facility] ED NOTEon 09-30-2024 ED NOTE HNO ID: [id number] Author: PATRICIA LONGORIA RN Service: ? Author Type: Registered Nurse Type: ED Notes Filed: 09/30/2024 21:53 Note Text: Discharge instructions d/w pt and at bedside. Stated understanding with no further questions for this nurse. Encouraged f/u with PCP and referring doctors given. Stated understanding. [facility] ED PROV NOTEon 09-30-2024 ED PROV NOTE HNO ID: [id number] Author: PATRICIA CASANOVA MD Service: Emergency Medicine Author Type: Physician Type: ED Provider Notes Filed: 09/30/2024 21:48 Note Text: ED Provider Note Patient Name: Ki Delgado : 1995 SERVICE DATE: 09/30/24 History Patient presents with: Bleeding With : Patient ambulatory to triage with complaints of spotting, just started (light pink) patient has a lot of anxiety with the . Has an ultrasound scheduled on Friday 29-year-old female. Comes to the emergency room today for some spotting associated with her . She reports being approximately 8 to 9 weeks . Noticed some light pink/brown spotting while wiping earlier today. Denies any new abdominal cramping or abdominal pain. Denies any kim of fluids or any heavy bleeding. Reports that her has been relatively smooth so far. Has had some episodes of hypoglycemia but denies any significant nausea or vomiting or other associated symptoms at this time. PAST MEDICAL HISTORY Diagnosis Date Closed fracture of head of radius 12/23/2005 History of chronic hypertension 09/20/2024 PAST SURGICAL HISTORY Procedure Laterality Date FOOT SURGERY HX Left 03/16/2010 bunion FAMILY HISTORY Problem Relation Age of Onset No Known Problems Mother Alcohol abuse Father Has been sober since approx 2004 Alcohol abuse Brother Has been sober since approx. 2022 other (hypoglycemia [Other]) Maternal Grandmother Heart Maternal Grandmother other (colitis [Other]) Maternal Grandmother other (arrythemia [Other]) Maternal Grandfather other (lung problems [Other]) Maternal Grandfather farmers lung other (mitral valve prolpase [Other]) Paternal Grandmother other (hemorrhagic stroke) Paternal Grandmother other (quadruple bypass) Paternal Grandfather Social History Tobacco Use Smoking status: Never Smokeless tobacco: Never Tobacco comments: smoking outside-parent Vaping Use Vaping status: Never Used Substance and Sexual Activity Alcohol use: Not Currently Comment: socially Drug use: Never Sexual activity: Yes Partners: Male ALLERGIES No Known Allergies Review of Systems Constitutional: Negative for chills, diaphoresis, fatigue and fever. HENT: Negative for congestion, ear pain, sinus pain and sore throat. Eyes: Negative for photophobia, pain, redness and visual disturbance. Respiratory: Negative for cough, chest tightness and shortness of breath. Cardiovascular: Negative for chest pain, palpitations and leg swelling. Gastrointestinal: Negative for abdominal distention, abdominal pain, constipation, diarrhea, nausea and vomiting. Genitourinary: Negative for difficulty urinating, dysuria, flank pain, frequency and urgency. Spotting with Musculoskeletal: Negative for back pain, neck pain and neck stiffness. Skin: Negative for color change, rash and wound. Neurological: Negative for dizziness, syncope, light-headedness and headaches. Psychiatric/Behavior al: Negative for agitation, behavioral problems and confusion. Physical Exam Vitals [09/30/24 192] BP Pulse Temp Temp src Resp SpO2 Weight Height 129/75 84 36.8 ?C (98.2 ?F) Oral 18 100 % 74.8 kg (165 lb) 1.626 m (5' 4) Physical Exam Vitals and nursing note reviewed. Constitutional: Appearance: She is well-developed. She is not diaphoretic. HENT: Head: Normocephalic and atraumatic. Right Ear: External ear normal. Left Ear: External ear normal. Eyes: General: No scleral icterus. Right eye: No discharge. Left eye: No discharge. Conjunctiva/sclera: Conjunctivae normal. Pupils: Pupils are equal, round, and reactive to light. Neck: Vascular: No JVD. Trachea: No tracheal deviation. Cardiovascular: Rate and Rhythm: Normal rate and regular rhythm. Heart sounds: Normal heart sounds. No murmur heard. No friction rub. No gallop. Pulmonary: Effort: Pulmonary effort is normal. No respiratory distress. Breath sounds: Normal breath sounds. No stridor. No wheezing. Chest: Chest wall: No tenderness. Abdominal: General: Bowel sounds are normal. There is no distension. Palpations: Abdomen is soft. There is no mass. Tenderness: There is no abdominal tenderness. There is no guarding or rebound. Musculoskeletal: General: No tenderness or deformity. Normal range of motion. Cervical back: Normal range of motion and neck supple. Skin: General: Skin is warm. Capillary Refill: Capillary refill takes less than 2 seconds. Coloration: Skin is not pale. Findings: No rash. Neurological: Mental Status: She is alert and oriented to person, place, and time. Sensory: No sensory deficit. Motor: No abnormal muscle tone. Psychiatric: Mood and Affect: Mood normal. Behavior: Behavior normal. Thought Content: Thought content normal. Judgment: Judgment normal. Diagnostic Testing ED Labs Ordered and Reviewed BASIC METABOLIC PANEL - Abnorma (more content not included)... [facility] ED Triage Noteon 09-30-2024 ED Triage Note HNO ID: [id number] Author: NANCY LAGUERRE PA-C Service: Emergency Medicine Author Type: Physician Artificial Teeth Inspector Type: ED Triage Notes Filed: 09/30/2024 19:40 Note Text: ED TRIAGE PROVIDER NOTE Patient Name: Ki Delgado Service Date: 09/30/24 BRIEF HPI: This is a 29 year old female who presents to the ED with: Vaginal bleeding 29-year-old G1, P0 at approximately 9 weeks gestation (FDLMP 07/21/2024) presents for evaluation of spotting. Starting this afternoon that she noticed with wiping. Not having to wear a pad No abdominal pain or cramping Hx of anxiety 09/20/2024 OB ultrasound: Impression Single intrauterine gestational sac, CRL indicates discrepancy from clinical dates, KAMERON 05/06/25 based on today's ultrasound, cardiac activity is visualized BRIEF EXAM: NAD Awake and Alert Non labored breathing Abdomen nontender INITIAL WORKUP AND DECISION MAKING: Orders Placed This Encounter US PREG TRANSABD <14 WEEKS LTD US PREG TRANSVAG <14 WEEKS BASIC METABOLIC PNL CBC + DIFF HCG Quantitative Urinalysis w Microscopic, reflex Culture SIGNATURE: Nancy Laguerre PA-C [facility] TYPE + SCREEN PRENATALon ABO O [facility] Comment on above: Order Comment: Speci men Type: BLOOD SPECIMEN Ordering Facility: [facility] Address: [address] [place] [address] Performed By: #### T SPN #### [facility] CLIA [id number] [address] Rh Nom (Bld) Positive [facility] Comment on above: Order Comment: Speci men Type: BLOOD SPECIMEN Ordering Facility: [facility] Address: [facility] [place] [address] Performed By: #### T SPN #### [facility] CLIA [id number] [address] TYPE AND SCREEN EXPIRATION 10/03/2024 23:59 [facility] Comment on above: Order Comment: Speci men Type: BLOOD SPECIMEN Ordering Facility: [facility] Address: [address] [place] [address] Performed By: #### T SPN #### [facility] CLIA [id number] [address] US PREG TRANSABD <14 WKS LTD on 09-30-2024 US PREG TRANSABD <14 WKS LTD * * *Final Report* * * DATE OF EXAM: Sep 30 2024 8:49PM MDU 1035 - US PREG TRANSABD <14 WKS LTD / PROCEDURE REASON: Abnormal uterine bleeding (AUB), * * * * Physician Interpretation * * * * EXAMINATION: FIRST TRIMESTER TRANSVAGINAL AND TRANSABDOMINAL PELVIC ULTRASOUND CLINICAL HISTORY: Spotting. Positive hCG. LMP: 07/21/2024. TECHNIQUE: Sonography of the pelvis was performed by transabdominal and transvaginal techniques. Images were obtained and stored in a permanent archive. MQ: USOB1_1 COMPARISON: None. RESULT: Uterus: - Orientation: Anteverted - Size: 9.5 x 6.7 x 6.2 cm - Myometrium: homogeneous echogenicity { If leiomyomas present give index lesion size, location etc here} - Cervix length: 3.4 cm. No funneling. Gestation: - Intrauterine gestational sac: Single present - Mean Sac Diameter: 3.3 cm, corresponding gestational age 8 week 5 days - Yolk sac: Present, measuring 6 mm. - Embryo: Single present - [employer] rump length: 2.4 cm, corresponding gestational age 9 weeks, 1 day -Gestational heart rate: present 163 bpm -Subgestational hematoma: Absent Right ovary: Not visualized Left ovary: - Size: 2.8 x 2.2 x 2.5 cm - There is a 1.9 x 1.1 x 1.2 cm corpus luteum. Pelvis free fluid: None. IMPRESSION: Single live intrauterine gestation. Estimated Gestational Age: 9 weeks, 1 day by crown rump length. Left ovarian corpus luteum. 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[employer] Transcribe Date/Time: Sep 30 2024 9:11P Dictated by : ELIER MIKE MD This examination was interpreted and the report reviewed and electronically signed by: ELIER MIKE MD on Sep 30 2024 9:15PM EST [id number] [facility] US PREG TRANSVAG <14 WEEKSon 09-30-2024 US PREG TRANSVAG <14 WEEKS * * *Final Report* * * DATE OF EXAM: Sep 30 2024 8:49PM U 1034 - US PREG TRANSVAG <14 WEEKS / PROCEDURE REASON: Abnormal uterine bleeding (AUB), * * * * Physician Interpretation * * * * EXAMINATION: FIRST TRIMESTER TRANSVAGINAL AND TRANSABDOMINAL PELVIC ULTRASOUND CLINICAL HISTORY: Spotting. Positive hCG. LMP: 07/21/2024. TECHNIQUE: Sonography of the pelvis was performed by transabdominal and transvaginal techniques. Images were obtained and stored in a permanent archive. MQ: USOB1_1 COMPARISON: None. RESULT: Uterus: - Orientation: Anteverted - Size: 9.5 x 6.7 x 6.2 cm - Myometrium: homogeneous echogenicity { If leiomyomas present give index lesion size, location etc here} - Cervix length: 3.4 cm. No funneling. Gestation: - Intrauterine gestational sac: Single present - Mean Sac Diameter: 3.3 cm, corresponding gestational age 8 week 5 days - Yolk sac: Present, measuring 6 mm. - Embryo: Single present - [employer] rump length: 2.4 cm, corresponding gestational age 9 weeks, 1 day -Gestational heart rate: present 163 bpm -Subgestational hematoma: Absent Right ovary: Not visualized Left ovary: - Size: 2.8 x 2.2 x 2.5 cm - There is a 1.9 x 1.1 x 1.2 cm corpus luteum. Pelvis free fluid: None. IMPRESSION: Single live intrauterine gestation. Estimated Gestational Age: 9 weeks, 1 day by crown rump length. Left ovarian corpus luteum. 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 Comment on above: Performed By: #### 6 30-4 ####[facility] [id number] [address] [place] C. trachomatis+N. gonorrhoea e DNA RAYA+probe Ql (Unsp spec)on 09-20-2024 C. trachomatis rRNA RAYA+probe Ql (Unsp spec) Not detected Normal Not detected [facility] Comment on above: Order Comment: Speci men Type: BLOOD SPECIMEN Ordering Facility: [facility] Address: [address] [place] [address] Performed By: #### 5 8410-2 #### [facility] [id number] [address] [place] [address] STATES OF [facility] N. gonorrhoeae rRNA RAYA+probe Ql (Unsp spec) Not detected Normal Not detected 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 Method Transvaginal ultrasound examination. View: Adequate visualization Number of embryos: uncertain Dating LMP on: 07/21/2024 Cycle: regular cycle GA by LMP 8 w + 5 d KAMERON by LMP: 04/27/2025 Ultrasound examination on: 09/20/2024 GA by U/S based upon: CRL GA by U/S 7 w + 3 d KAMERON by U/S: 05/06/2025 Assigned: based on ultrasound (CRL), selected on 09/20/2024 Assigned GA 7 w + 3 d Assigned KAMERON: 05/06/2025 Biometry Standard FHR 163 bpm CRL 12.1 mm 7w 3d 87% Hadlock Assessment Gestational sac: uncertain Location: intrauterine Yolk sac: visualized Embryo: visualized CRL 12.1 mm 7w 3d 87% [place]lock Cardiac activity: present FHR 163 bpm General Evaluation Cardiac activity present. FHR 163 bpm Performed By: Rao Pineda NP Read By: Rao Pineda NP MATERNAL MEDICINE [facility] Radiology Study observation (narrative) [facility] Yamile 09-15-2024 RENNY Telephone (ANN-MARIEWM) KI DELGADO ([id number]) 1995 F Date Time Provider Department 09/15/24 RAO PINEDA During your visit today, we recorded the following information about you: Maxine Schwarz RN 09/15/2024 11:12 AM Signed Attempted to reach patient to go over new OB intake questions for upcoming appt 09/20/24 with at 11am. Stated if she could please call the office back today and ask for Benjamín or Silvestre we could go over questions prior to her appointment and if she is unable to, then we ask that she please arrive 30 minutes prior to her appointment time and arrive with a full bladder. Maxine Schwarz RN Allergies As of Date: 09/15/2024 (No Known Allergies) Date Reviewed: 09/02/2024 Reviewed by: Dm Rodriguez MA - Fully Assessed Reason for Visit: New OB intake questions [Other] Prescriptions as of 09/15/2024 - no115/iron/folic acid ( 19 ORAL) Take by mouth. - fexofenadine HCl (YONI ORAL) Take by mouth. - pyridoxine, vitamin B6, (VITAMIN B-6) 50 mg tablet Take 1 tablet by mouth once daily. Problem List As Of Date 09/15/2024 Noted Resolved FX RADIUS HEAD-CLOSED [S52.123A] 12/23/2005 Encounter Status:Closed by MAXINE SCHWARZ on 09/15/24 [facility] CNOVon 09-02-2024 CNOV Office Visit (OBGYWM) KI DELGADO ([id number]) 1995 F Date Time Provider Department 09/02/24 1:50 PM LAUREN PAL OBGYWE[facility] During your visit today, we recorded the following information about you: Blood pressure Weight Last Period 114/84 73.5 kg 07/21/24 Lauren Pal MD 09/02/2024 1:56 PM Signed Ki Delgado is a 29 year old female who presents for problem visit follow up from US HPI: Patient presents after US. She reports that she had 10 days of light spotting but this has resolved. Also she reports mild nausea. Patient denies pain. She is anxiou. 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 PAST SURGICAL HISTORY Procedure Laterality Date FOOT SURGERY HX Left 03/16/2010 bunion FAMILY HISTORY Problem Relation Age of Onset other (hypoglycemia [Other]) Maternal Grandmother Heart Maternal Grandmother other (colitis [Other]) Maternal Grandmother other (arrythemia [Other]) Maternal Grandfather other (lung problems [Other]) Maternal Grandfather farmers lung other (mitral valve prolpase [Other]) Paternal Grandmother Stroke Paternal Grandmother Social History Tobacco Use Smoking status: Never Smokeless tobacco: Never Tobacco comments: smoking outside-parent Vaping Use Vaping status: Never Used Substance Use Topics Alcohol use: Yes Comment: socially Drug use: Never Current Outpatient Medications Medication Sig propranolol (INDERAL) 10 mg tablet 1-2 tabs, Oral, TID, PRN palpitations, # 90 tab(s), 0 Refill(s), Pharmacy: [facility]/pharmacy #[id number], Encounter to establish care Wellness examination, 163.8, cm, 01/09/22 14:52:00 EDT, Height escitalopram oxalate (LEXAPRO) 10 mg tablet Take by mouth as directed. No current facility-administere d medications for this visit. Allergies As of Date: 09/02/2024 (No Known Allergies) Fully Assessed 06/26/2024 Allergies and current medication updated:Yes SENSITIVE EXAM: Sensitive exam not performed. EXAM: LMP 01/20/2024 GENERAL: pleasant, female in no apparent distress ASSESSMENT AND PLAN: Assessment AND Plan Early stage of Anxiety related nausea, antepartum Pelvic US shows early IUP. Plan for repeat US at time of new OB visit in 2-3 weeks. Patient agrees with plan. Vitamin B6 given for nausea. Anxiety - encouraged patient to establish with counselor. Medical Decision Making: Problems: Moderate: New problem with uncertain prognosis Data: Unique test result(s) reviewed: 3+ Risk: Moderate: Drug management Medical Decision Making Level: 4 - Moderate Lauren Pal MD Referring Provider: CONSTANTINO GAINES [[id number]] Allergies As of Date: 09/02/2024 (No Known Allergies) Date Reviewed: 09/02/2024 Reviewed by: Dm Rodriguez MA - Fully Assessed Reason for Visit: US follow up [Other] Primary Visit Diagnosis:Early stage of [Z34.90] Other Visit Diagnoses:Anxiety [F41.9] related nausea, antepartum [O26.899, R11.0] Order(s):pyridoxine, vitamin B6, (VITAMIN B-6) 50 mg tabletTake 1 tablet by mouth once daily.Disp: 100 tabletRfl: 2 Prescriptions as of 09/02/2024 - no115/iron/folic acid ( 19 ORAL) Take by mouth. - fexofenadine HCl (YONI ORAL) Take by mouth. - pyridoxine, vitamin B6, (VITAMIN B-6) 50 mg tablet Take 1 tablet by mouth once daily. Problem List As Of Date 09/02/2024 Noted Resolved FX RADIUS HEAD-CLOSED [S52.123A] 12/23/2005 Prescriptions ordered this encounter Disp Refills Start End PYRIDOXINE (VITAMIN B6) 50 MG TABLET 100 * 2 09/02/2024 Route: ORAL Sig: Take 1 tablet by mouth once daily. Medications Discontinued During This Encounter Prescriptions - propranolol (INDERAL) 10 mg tablet (Discontinued) Reported on 09/02/2024 - MULTIVITAMIN ORAL (Discontinued) Take by mouth. - escitalopram oxalate (LEXAPRO) 10 mg tablet (Discontinued) Take by mouth as directed. Encounter Status:Closed by LAUREN PAL on 09/02/[address] [facility] US Pelvison 09-02-2024 Indication r/o ectopic Impression Right Ovary: Size 29 mm x 12 mm x 12 mm Left Ovary: Size 46 mm x 29 mm x 25 mm There is a hemorrhagic corpus luteum cyst of the left ovary. The uterus is anteverted. The central endometrial complex contains a gestational sac with a yolk sac. No pole is identified. There is a small amount of free fluid visualized in the peritoneal cavity. Recommendations Follow up for repeat ultrasound in at least 11 days to confirm viability. Method Transabdominal and transvaginal ultrasound examination, Color Doppler examination. View: Adequate visualization Number of embryos: uncertain Dating LMP on: 07/21/2024 Cycle: regular cycle GA by LMP 6 w + 1 d KAMERON by LMP: 04/27/2025 Assigned: based on the LMP, selected on 09/02/2024 Assigned GA 6 w + 1 d Assigned KAMERON: 04/27/2025 Assessment Gestational sac: visualized GS 5.7 mm -/- 3% Italo Location: intrauterine Yolk sac: visualized YS 1.1 mm <1% Grisolia Embryo: not visualized Uterus Uterus: Visualized Uterus position: anteverted Description of uterine malformations: none Myometrium: normal Endometrium: thickened, intrauterine GS w/ YS seen Cervix details: normal Uterus length 75 mm Uterus width 56 mm Uterus height 40 mm Uterus Vol 86.9 cm Endometrial thickness, total 20.9 mm Fibroids: No fibroids identified Polyps: No polyps identified Cul de Sac Visualized. free fluid visualized: small Right Ovary Rt ovary: Visualized Rt ovary morphology: premenopausal normal follicular Rt ovary D1 29 mm Rt ovary D2 12 mm Rt ovary D3 12 mm Rt ovary Vol 2.2 cm Rt ovarian cyst(s): No cysts identified Left Ovary Lt ovary: Visualized Lt ovary D1 46 mm Lt ovary D2 29 mm Lt ovary D3 25 mm Lt ovary Vol 17.7 cm Lt ovarian corpus luteum: hemorrhagic Lt ovarian corpus luteum D1 22.4 mm Lt ovarian corpus luteum D2 21.0 mm Lt ovarian corpus luteum D3 17.7 mm Performed By: Ki Mims RDMS Read By: Raman Gyoal M.D. MATERNAL MEDICINE [facility] Radiology Study observation (narrative) [facility] B-HCG SerPl-aCncon 5 HCG.beta subunit Qn 2155.0 m[IU]/mL High <5.0 [facility] Comment on above: Order Comment: Speci men Type: BLOOD SPECIMENOrdering Facility: [facility] Address: [address] [place] [address] Result Comment: JAMILAH TITATIVE HCG NORMAL RANGES Weeks of Gestation (Weeks Since LMP) 3 Weeks (5.8-71.2 mIU/mL) 4 Weeks (9.5-750 mIU/mL) 5 Weeks (217-7138 mIU/mL) 6 Weeks (158-28584 mIU/mL) 7 Weeks (3697-732027 mIU/mL) 8 Weeks (36076-117600 mIU/mL) 9 Weeks (11854-736121 mIU/mL) 10 Weeks (57674-063707 mIU/mL) 12 Weeks (80256-664885 mIU/mL) Referenced to 4th IS of [facility] Performed By: #### 2 9338-7 ####[facility] LABCLIA [id number] [address] [address] [address], [place] [address] [place] CBC panel Auto (Bld)on 09-01 Erythrocyte distribution width (RBC) [Ratio] 12.6 % Normal 11.5-15.0 [facility] Comment on above: Order Comment: Speci men Type: BLOOD SPECIMEN Ordering Facility: [facility] Address: [address] [place] [address] Performed By: #### 5 8410-2 #### [facility] [id number] [address] [place] [address] [place] Hematocrit (Bld) [Volume fraction] 41.7 % Normal 36.0-46.0 [facility] Comment on above: Order Comment: Speci men Type: BLOOD SPECIMEN Ordering Facility: [facility] Address: [address] [place] [address] Performed By: #### 5 8410-2 #### [facility] [id number] [address] [place] [address] [place] Hemoglobin (Bld) [Mass/Vol] 14.0 g/dL Normal 11.5-15.5 [facility] Comment on above: Order Comment: Speci men Type: BLOOD SPECIMEN Ordering Facility: [facility] Address: [address] [place] [address] Performed By: #### 5 8410-2 #### [facility] [id number] [address] [place] [address] [place] MCH (RBC) [Entitic mass] 29.5 pg Normal 26.0-34.0 [facility] Comment on above: Order Comment: Speci men Type: BLOOD SPECIMEN Ordering Facility: [facility] Address: [address] [place] [address] Performed By: #### 5 8410-2 #### [facility] [id number] [address] [place] [address] [place] MCHC (RBC) [Mass/Vol] 33.6 g/dL Normal 30.5-36.0 [facility] Comment on above: Order Comment: Speci men Type: BLOOD SPECIMEN Ordering Facility: [facility] Address: [address] [place] [address] Performed By: #### 5 8410-2 #### [facility] CLIA [id number] [address] [place] [address] [place] MCV (RBC) [Entitic vol] 87.8 fL Normal 80.0-100.0 [facility] Comment on above: Order Comment: Speci men Type: BLOOD SPECIMEN Ordering Facility: [facility] Address: [address] [place] [address] Performed By: #### 5 8410-2 #### [facility] CLIA [id number] [address] [place] [address] [place] Nucleated RBC (Bld) [#/Vol] 10*3/uL Normal <0.01 [facility] Comment on above: Order Comment: Speci men Type: BLOOD SPECIMEN Ordering Facility: [facility] Address: [address] [place] [address] Performed By: #### 5 8410-2 #### [facility] CLIA [id number] [address] [place] [address] [place] Platelet mean volume (Bld) [Entitic vol] 10.7 fL Normal 9.0-12.7 [facility] Comment on above: Order Comment: Speci men Type: BLOOD SPECIMEN Ordering Facility: [facility] Address: [address] [place] [address] Performed By: #### 5 8410-2 #### [facility] CLIA [id number] [address] [place] [address] [place] Platelets (Bld) [#/Vol] 230 10*3/uL Normal 150-400 [facility] Comment on above: Order Comment: Speci men Type: BLOOD SPECIMEN Ordering Facility: [facility] Address: [address] [place] [address] Performed By: #### 5 8410-2 #### [facility] CLIA [id number] [address] [place] [address] [place] RBC (Bld) [#/Vol] 4.75 10*6/uL Normal 3.90-5.20 [facility] Comment on above: Order Comment: Speci men Type: BLOOD SPECIMEN Ordering Facility: [facility] Address: [address] [place] [address] Performed By: #### 5 8410-2 #### [facility] CLIA [id number] [address] [place] [address] [place] WBC (Bld) [#/Vol] 6.48 10*3/uL Normal 3.70-11.00 [facility] Comment on above: Order Comment: Speci men Type: BLOOD SPECIMEN Ordering Facility: [facility] Address: [address] [place] [address] Performed By: #### 5 8410-2 #### [facility] CLIA [id number] [address] [place] [address] [place] Comprehensive metabolic 2000 panelon 09-01-2024 Albumin [Mass/Vol] 4.3 g/dL Normal 3.9-4.9 [facility] Comment on above: Order Comment: Speci men Type: BLOOD SPECIMEN Ordering Facility: [facility] Address: [address] [place], [place] [address] Performed By: #### 2 4323-8 #### [facility] CLIA [id number] [address] [place] [address] [place] ALP [Catalytic activity/Vol] 57 U/L Normal 34-123 [facility] Comment on above: Order Comment: Speci men Type: BLOOD SPECIMEN Ordering Facility: [facility] Address: [address] [place] [address] Performed By: #### 2 4323-8 #### [facility] CLIA [id number] [address] [place] [address] [place] ALT [Catalytic activity/Vol] 15 U/L Normal 7-38 [facility] Comment on above: Order Comment: Speci men Type: BLOOD SPECIMEN Ordering Facility: [facility] Address: [address] [id number] Performed By: #### 2 4323-8 #### [facility] CLIA [id number] [address] [place] [address] [place] Anion gap [Moles/Vol] 9 mmol/L Normal 8-15 [facility] Comment on above: Order Comment: Speci men Type: BLOOD SPECIMEN Ordering Facility: [facility] Address: [address] [place] [address] Performed By: #### 2 4323-8 #### [facility] CLIA [id number] [address] [place] [address] [place] AST [Catalytic activity/Vol] 16 U/L Normal 13-35 [facility] Comment on above: Order Comment: Speci men Type: BLOOD SPECIMEN Ordering Facility: [facility] Address: [address] [place] [address] Performed By: #### 2 4323-8 #### [facility] CLIA [id number] [address] [place] [address] [place] Bilirubin [Mass/Vol] 0.3 mg/dL Normal 0.2-1.3 [facility] Comment on above: Order Comment: Speci men Type: BLOOD SPECIMEN Ordering Facility: [facility] Address: [address] [place] [address] Performed By: #### 2 4323-8 #### [facility] CLIA [id number] [address] [place] [address] [place] Calcium [Mass/Vol] 9.5 mg/dL Normal 8.5-10.2 [facility] Comment on above: Order Comment: Speci men Type: BLOOD SPECIMEN Ordering Facility: [facility] Address: [address] [place] [address] Performed By: #### 2 4323-8 #### [facility] CLIA [id number] [address] [place] [address] [place] Chloride [Moles/Vol] 105 mmol/L Normal 98-107 [facility] Comment on above: Order Comment: Speci men Type: BLOOD SPECIMEN Ordering Facility: [facility] Address: [address] [place] [address] Performed By: #### 2 4323-8 #### [facility] CLIA [id number] [address] [place] [address] [place] CO2 [Moles/Vol] 21 mmol/L Low 22-30 [facility] Comment on above: Order Comment: Speci men Type: BLOOD SPECIMEN Ordering Facility: [facility] Address: [address] [place] [address] Performed By: #### 2 4323-8 #### [facility] CLIA [id number] [address] [place] [address] [place] Creatinine [Mass/Vol] 0.85 mg/dL Normal 0.58-0.96 [facility] Comment on above: Order Comment: Speci men Type: BLOOD SPECIMEN Ordering Facility: [facility] Address: [address] [place] [address] Performed By: #### 2 4323-8 #### [facility] CLIA [id number] [address] [place] [address] [place] Creatinine and Glomerular filtration rate.predicted panel (S/P/Bld) 96 mL/min/1.73m??? Normal >=60 [facility] Comment on above: Order Comment: Speci men Type: BLOOD SPECIMEN Ordering Facility: [facility] Address: [address] [id number] Result Comment: Maeve mated Glomerular Filtration Rate (eGFR) is calculated using the 2020 CKD-EPI creatinine equation. This equation utilizes serum creatinine, sex, and age as parameters. The creatinine assay has traceable calibration to isotope dilution-mass spectrometry. Refer to KDIGO guidelines for clinical interpretation. In patients with unstable renal function, e.g. those with acute kidney injury, the eGFR may not accurately reflect actual GFR. Performed By: #### 2 4323-8 #### [facility] [id number] [address] [place] [address] [place] Glucose [Mass/Vol] 56 mg/dL Low 74-99 [facility] Comment on above: Order Comment: Boni carolina Type: BLOOD SPECIMEN Ordering Facility: [facility] Address: [address] [place] [address] Result Comment: The [place] Diabetes Association (ADA) provides guidance for cutoff values for fasting glucose and random glucose. The ADA defines fasting as no caloric intake for at least 8 hours. Fasting plasma glucose results between 100 to 125 mg/dL indicate increased risk for diabetes (prediabetes). Fasting plasma glucose results greater than or equal to 126 mg/dL meet the criteria for diagnosis of diabetes. In the absence of unequivocal hyperglycemia, results should be confirmed by repeat testing. In a patient with classic symptoms of hyperglycemia or hyperglycemic crisis, random plasma glucose results greater than or equal to 200 mg/dL meet the criteria for diagnosis of diabetes. Reference: Standards of Medical Care in Diabetes 2016, [place] [employer] Association. Diabetes Care. 2016.39(Suppl 1). Performed By: #### 2 4323-8 #### [facility] [id number] [address] [place] [address] [place] Potassium [Moles/Vol] 3.7 mmol/L Normal 3.7-5.1 [facility] Comment on above: Order Comment: Boni carolina Type: BLOOD SPECIMEN Ordering Facility: [facility] Address: [address] [place], [place] [id number] Performed By: #### 2 4323-8 #### [facility] CLIA [id number] [address] [place] [address] [place] Protein [Mass/Vol] 6.8 g/dL Normal 6.3-8.0 [facility] Comment on above: Order Comment: Speci men Type: BLOOD SPECIMEN Ordering Facility: [facility] Address: [address] [place] [address] Performed By: #### 2 4323-8 #### [facility] CLIA [id number] [address] [place] [address] [place] Sodium [Moles/Vol] 135 mmol/L Low 136-144 [facility] Comment on above: Order Comment: Speci men Type: BLOOD SPECIMEN Ordering Facility: [facility] Address: [address] [place] [address] Performed By: #### 2 4323-8 #### [facility] CLIA [id number] [address] [place] [address] [place] Urea nitrogen [Mass/Vol] 12 mg/dL Normal 7-21 [facility] Comment on above: Order Comment: Speci men Type: BLOOD SPECIMEN Ordering Facility: [facility] Address: [address] [place] [address] Performed By: #### 2 4323-8 #### [facility] [id number] [address] [place] [address] [place] [facility] HCG.beta subunit Qn 935.3 m[IU]/mL High <5.0 [facility] Comment on above: Order Comment: Speci men Type: BLOOD SPECIMENOrdering Facility: [facility] Address: [address] [place] [address] Result Comment: JAMILAH TITATIVE HCG NORMAL RANGES Weeks of Gestation (Weeks Since LMP) 3 Weeks (5.8-71.2 mIU/mL) 4 Weeks (9.5-750 mIU/mL) 5 Weeks (217-7138 mIU/mL) 6 Weeks (158-04797 mIU/mL) 7 Weeks (3697-802554 mIU/mL) 8 Weeks (18302-439993 mIU/mL) 9 Weeks (84397-808270 mIU/mL) 10 Weeks (67641-729769 mIU/mL) 12 Weeks (56481-947869 mIU/mL) Referenced to 4th IS of [facility] Performed By: #### 2 1198-7 ####[facility] LABCLIA [id number] [place] [address] [place] HCG QUANTITATIVEon HCG.beta subunit Qn 935.3 m[IU]/mL [facility] Comment on above: QUANTITATIVE HCG NOR MAL RANGES Weeks of Gestation (Weeks Since LMP) 3 Weeks (5.8-71.2 mIU/mL) 4 Weeks (9.5-750 mIU/mL) 5 Weeks (217-7138 mIU/mL) 6 Weeks (158-03602 mIU/mL) 7 Weeks (3697-340175 mIU/mL) 8 Weeks (02637-653473 mIU/mL) 9 Weeks (58946-787990 mIU/mL) 10 Weeks (57841-730016 mIU/mL) 12 Weeks (59850-256677 mIU/mL) Referenced to 4th IS of [facility] HCG.beta subunit Qnon 2024 Interpretation and review of laboratory results Abnormal [facility] CNPNon 08-27-2024 MARCUSN Telephone (YONIS) KI DELGADO ([id number]) 1995 F Date Time Provider Department 08/27/24 CONSTANTINO GAINES During your visit today, we recorded the following information about you: Terri Griffith LPN 08/27/2024 8:49 AM Signed Patient received results of hcg quants on Immy and called asking if any repeat labs are needed. Lmp was 07/21/2024. Patient reports that she continues to have brownish spotting only when using restroom and cramping is intermittent and mild when it occurs. Please advise. New ob appointment is scheduled on 09/09/2024 Constantino Gaines MD 08/27/2024 9:25 AM Signed recommend she not take spironolactone during . Take PNV w/ folic acid. Repeat quants next week, if severe pain notify office or to ED. Unfortunately, there is no intervention we can offer at this time to prevent miscarriage but many patients spot early on and go on to have normal healthy pregnancies. Get quants Friday and fri or Friday and next week. MD Bayron Noriega Tara, RN 08/27/2024 9:38 AM Signed Pt notified-states she has not been taking the Spironolactone. Has been taking PNV w/folic acid. Pt will have completed Friday (08/30/24) and Friday (09/01/24). Please leave phone note open for results. SVETA Ruelas Annalee, LPN 08/31/2024 10:39 AM Signed Patient received Immy message with results of hcg quant drawn on 08/30/2024 and asking if she needs to have lab repeated today as mentioned in result note or tomorrow (48 hours after last). Previous HCG quants drawn on 08/24 and 08/26/24. Does patient need to have a CBC drawn also? Order placed was for a CMP. Please advise. Constantino Gaines MD 08/31/2024 11:01 AM Signed My apologies, thought I ordered cbc and cmp. Repeat quant tomorrow, I misread it and thought it was done Friday. Yes, 48 hrs apart is more appropriate. Have CMP and CBC done w/ next quant and get US and we will go from there. thanks. MD Camilo Noriega Rebecca L, MD 08/31/2024 11:01 AM Signed Addended by: CONSTANTINO GAINES on: 08/31/2024 11:01 AM Modules accepted: Orders Mira Nguyen RN 08/31/2024 11:19 AM Signed Patient notified. Mira Nguyen RN Allergies As of Date: 08/27/2024 (No Known Allergies) Date Reviewed: 06/26/2024 Reviewed by: Ivanna Warner MA - Fully Assessed Reason for Visit: Results [95] Primary Visit Diagnosis:Threatened [O20.0] Order(s):HCG QUANTITATIVE [SQHCGQT] Order #: [id number] STANDING COMPLETE BLOOD COUNT [SQCBC] Order #: [id number] FUTURE Prescriptions as of 08/31/2024 - propranolol (INDERAL) 10 mg tablet 1-2 tabs, Oral, TID, PRN palpitations, # 90 tab(s), 0 Refill(s), Pharmacy: [facility]/pharmacy #[id number], Encounter to establish care Wellness examination, 163.8, cm, 01/09/22 14:52:00 EDT, Height - escitalopram oxalate (LEXAPRO) 10 mg tablet Take by mouth as directed. Problem List As Of Date 08/27/2024 Noted Resolved FX RADIUS HEAD-CLOSED [S52.123A] 12/23/2005 Medications Discontinued During This Encounter Prescriptions - spironolactone (ALDACTONE) 100 mg tablet (Discontinued) Take 100 mg by mouth once daily. - ELURYNG 0.12-0.015 mg/24 hr vaginal ring (Discontinued) Use 1 Each vaginally as directed. Encounter Status:Closed by TERRI GRIFFITH on 08/31/[address] [facility] B-HCG SerPl-aCncon 5 HCG.beta subunit Qn 351.8 m[IU]/mL High <5.0 [facility] Comment on above: Order Comment: Speci men Type: BLOOD SPECIMENOrdering Facility: [facility] Address: [address] [place] [address] Result Comment: JAMILAH TITATIVE HCG NORMAL RANGES Weeks of Gestation (Weeks Since LMP) 3 Weeks (5.8-71.2 mIU/mL) 4 Weeks (9.5-750 mIU/mL) 5 Weeks (217-7138 mIU/mL) 6 Weeks (158-70123 mIU/mL) 7 Weeks (3697-738039 mIU/mL) 8 Weeks (58716-487619 mIU/mL) 9 Weeks (55802-847507 mIU/mL) 10 Weeks (13958-540898 mIU/mL) 12 Weeks (52258-663738 mIU/mL) Referenced to 4th IS of [facility] Performed By: #### 2 1198-7 ####[facility] [id number] [address] [place] B-HCG SerPl-aCncon 4 HCG.beta subunit Qn 178.5 m[IU]/mL High <5.0 C [facility] Comment on above: Order Comment: Speci men Type: BLOOD SPECIMENOrdering Facility: [facility] Address: [address] [place] [address] Result Comment: JAMILAH TITATIVE HCG NORMAL RANGES Weeks of Gestation (Weeks Since LMP) 3 Weeks (5.8-71.2 mIU/mL) 4 Weeks (9.5-750 mIU/mL) 5 Weeks (217-7138 mIU/mL) 6 Weeks (158-34151 mIU/mL) 7 Weeks (3697-260622 mIU/mL) 8 Weeks (94218-146146 mIU/mL) 9 Weeks (98346-259678 mIU/mL) 10 Weeks (54306-300417 mIU/mL) 12 Weeks (69020-000127 mIU/mL) Referenced to 4th IS of [facility] Performed By: #### 2 1198-7 ####[facility] [id number] [address] [place] Yamile 06-28-2024 RENNY Telephone ([email or web address]) KI DELGADO ([id number]) 1995 F Date Time Provider Department 06/28/24 LUCIANA JOSEPH During your visit today, we recorded the following information about you: Jena Bob 06/28/2024 1:38 PM Signed Ki is calling Luciana Joseph APRN.[employer] today asking the Macrobid for UTI is changed. She's taken Macrobid in the past for UTI's and they haven not worked -She is not feeling any better since Friday's visit. Asking prescription is changed to Ceftriaxone? Please advise Jodi Crocker PA-C 06/28/2024 2:09 PM Signed This provider returned the call to Ki. She has a thompson-sensitive UTI. She is day 3/7 of Macrobid and it has not helped at all. She does not want Macrobid- she states it never works. She states she has Macrobid for previous UTIs, and took two rounds but it still didn't work. She would like to switch antibiotics. Switched to Keflex. She VU. Stop Macrobid. Start Keflex. - sent to [facility] Jodi Crocker PA-C Allergies As of Date: 06/28/2024 (No Known Allergies) Date Reviewed: 06/26/2024 Reviewed by: Ivanna Warner MA - Fully Assessed Reason for Visit: Medication Problem [65] Order(s):cephALEXin (KEFLEX) 500 mg capsuleTake 1 capsule by mouth two times a day for 7 days.Disp: 14 capsuleRfl: 0 Prescriptions as of 06/28/2024 - cephALEXin (KEFLEX) 500 mg capsule Take 1 capsule by mouth two times a day for 7 days. - spironolactone (ALDACTONE) 100 mg tablet Take 100 mg by mouth once daily. - ELURYNG 0.12-0.015 mg/24 hr vaginal ring Use 1 Each vaginally as directed. Problem List As Of Date 06/28/2024 Noted Resolved FX RADIUS HEAD-CLOSED [S52.123A] 12/23/2005 Prescriptions ordered this encounter Disp Refills Start End CEPHALEXIN 500 MG CAPSULE 14 c* 0 06/28/2024 07/05/2024 Route: ORAL Sig: Take 1 capsule by mouth two times a day for 7 days. Medications Discontinued During This Encounter Prescriptions - nitrofurantoin monohydrate and macrocrystal (MACROBID) 100 mg capsule (Discontinued) Take 1 capsule by mouth two times a day for 5 days. Encounter Status:Closed by JODI CROCKER on 06/28/[address] [facility] Bacteria Ur Culton Bacteria identified Cx Nom (U) ORGANISM ID: 1 50,000-<100,000 CFU/ml Escherichia coli ORGANISM ID: 1 (ESCHERICHIA COLI) ANTIBIOTIC INTERPRETATION CYNDI STATUS REFERENCE RANGE Ampicillin S <=2 F Susceptible <=8 , Intermediate >8 , Resistant >16 Cefazolin S <=4 F Susceptible 0-16 , Intermediate <0 or >16 , Resistant >16 For uncomplicated urinary tract infections, cefazolin results can be used to predict susceptibility or resistance to cephalexin. Ceftriaxone S <=1 F Susceptible <=1 , Intermediate >1 , Resistant >=4 Cefepime S <=1 F Susceptible <=2 , Susceptible-Dose Dependent >2 , Resistant >=16 Ertapenem S <=0.5 F Susceptible <=0.5 , Intermediate >.5 , Resistant >1 Meropenem S <=0.25 F Susceptible <=1 , Intermediate >1 , Resistant >2 Ampicillin/Sulbact S <=2 F Susceptible <=8 , Intermediate >8 , Resistant >16 Piperacillin/Tazobac S <=4 F Susceptible <16 , Susceptible-Dose Dependent >=16 , Resistant >=32 Gentamicin S <=1 F Susceptible <=2 , Intermediate >2 , Resistant >=8 Tobramycin S <=1 F Susceptible <4 , Intermediate >=4 , Resistant >=8 Trimeth sulfameth S <=20 F Susceptible <=40 , Resistant >40 Ciprofloxacin S <=0.25 F Susceptible <0.5 , Intermediate >=.5 , Resistant >=1 Nitrofurantoin S <=16 F Susceptible <=32 , Intermediate >32 , Resistant >[address] [facility] Comment on above: Performed By: #### 6 30-4 ####[facility] LABCLIA [id number] [address] OF [facility] CNOVon 06-26-2024 CNOV Office Visit (JOSE) KI DELGADO ([id number]) 1995 F Date Time Provider Department 06/26/24 8:20 AM LUCIANA JOSEPH During your visit today, we recorded the following information about you: Temperature Pulse Blood pressure Weight 97.4 degrees 82/minute 132/91 71.8 kg Luciana Joseph APRN.GREEN MARKETING ANALYST 06/26/2024 8:54 AM Signed Subjective HPI Ki presents today with one day hx of urinary frequency, burning and she has seen blood. She states she has hx of a uti in the past that became very severe so she wanted to be seen baudilio. She denies fever, abdominal pain or back discomfort. No past medical history on file. PAST SURGICAL HISTORY Procedure Laterality Date FOOT SURGERY HX Left 03/16/2010 bunion ALLERGIES Patient has no known allergies. MEDICATIONS spironolactone (ALDACTONE) 100 mg tablet Take 100 mg by mouth once daily. ELURYNG 0.12-0.015 mg/24 hr vaginal ring Use 1 Each vaginally as directed. FAMILY HISTORY Problem Relation Age of Onset other (hypoglycemia [Other]) Maternal Grandmother Heart Maternal Grandmother other (colitis [Other]) Maternal Grandmother other (arrythemia [Other]) Maternal Grandfather other (lung problems [Other]) Maternal Grandfather farmers lung other (mitral valve prolpase [Other]) Paternal Grandmother Stroke Paternal Grandmother Social History Tobacco Use Smoking status: Never Smokeless tobacco: Never Tobacco comments: smoking outside-parent Vaping Use Vaping status: Never Used Substance Use Topics Alcohol use: Yes Comment: socially Drug use: Never Review of Systems Genitourinary: Positive for dysuria, frequency, hematuria and urgency. Negative for flank pain. Objective Physical Exam Vitals and nursing note reviewed. Constitutional: Appearance: Normal appearance. HENT: Head: Normocephalic and atraumatic. Nose: Nose normal. Mouth/Throat: Mouth: Mucous membranes are moist. Eyes: Extraocular Movements: Extraocular movements intact. Pupils: Pupils are equal, round, and reactive to light. Cardiovascular: Rate and Rhythm: Normal rate and regular rhythm. Pulses: Normal pulses. Pulmonary: Effort: Pulmonary effort is normal. Breath sounds: Normal breath sounds. Abdominal: General: Abdomen is flat. Bowel sounds are normal. Palpations: Abdomen is soft. Tenderness: There is no right CVA tenderness, left CVA tenderness, guarding or rebound. Musculoskeletal: General: Normal range of motion. Cervical back: Normal range of motion and neck supple. Skin: General: Skin is warm and dry. Capillary Refill: Capillary refill takes less than 2 seconds. Neurological: General: No focal deficit present. Mental Status: She is alert and oriented to person, place, and time. Psychiatric: Mood and Affect: Mood normal. ASSESSMENT/PLAN: 1. Recurrent UTI (urinary tract infection) - ICD9: 599.0, ICD10: N39.0 acute - UA positive for ava esterase, hematuria, and proteinuria - Send urine for culture - Begin treatment with Macrobid 100 mg BID for 7 days - Patient education for prevention given - URINE CULTURE Luciana Joseph APRN.GREEN MARKETING ANALYST Referring Provider: SELF [200] Allergies As of Date: 06/26/2024 (No Known Allergies) Date Reviewed: 06/26/2024 Reviewed by: Ivanna Warner MA - Fully Assessed Reason for Visit: UTI [116] Cmt: Symptoms started yesterday frequency burning and blood in urine. Primary Visit Diagnosis:Recurrent UTI (urinary tract infection) [N39.0] Order(s):UA DIP, URINE (POC) [[id number]] Order #: [id number]. #:[id number] nitrofurantoin monohydrate and macrocrystal (MACROBID) 100 mg capsuleTake 1 capsule by mouth two times a day for 5 days.Disp: 10 capsuleRfl: 0 URINE CULTURE [SQURCUL] Order #: [id number]. #:[id number] Prescriptions as of 06/26/2024 - nitrofurantoin monohydrate and macrocrystal (MACROBID) 100 mg capsule Take 1 capsule by mouth two times a day for 5 days. - spironolactone (ALDACTONE) 100 mg tablet Take 100 mg by mouth once daily. - ELURYNG 0.12-0.015 mg/24 hr vaginal ring Use 1 Each vaginally as directed. Problem List As Of Date 06/26/2024 Noted Resolved FX RADIUS HEAD-CLOSED [S52.123A] 12/23/2005 Prescriptions ordered this encounter Disp Refills Start End NITROFURANTOIN MONOHYDRATE AND MACROCR* 10 c* 0 06/26/2024 07/01/2024 Route: ORAL Sig: Take 1 capsule by mouth two times a day for 5 days. Encounter Status:Closed by LUCIANA JOSEPH on 06/26/[address] [facility] UA DIP, URINE (POC)on 2023 BILIRUBIN UA (POCT) Negative Negative [facility] CLARITY UA (POCT) Turbid [facility] COLOR UA (POCT) Dark yellow [facility] GLUCOSE UA (POCT) Negative Negative mg/dL [facility] Hemoglobin Ql (U) Moderate Abnormal Negative [facility] Interpretation and review of laboratory results Abnormal [facility] KETONE UA (POCT) Negative Negative mg/dL [facility] LEUKOCYTES UA (POCT) Small Abnormal Negative [facility] NITRITE UA (POCT) Negative Negative [facility] PH UA (POCT) 7.5 4.5 - 8.0 [facility] Protein Ql (U) 30 mg/dL Abnormal Negative [facility] SPECIFIC GRAVITY UA (POCT) 1.020 1.005 - 1.030 [facility] UROBILINOGEN UA (POCT) 0.2 Normal E.U./dL [facility] Location:[facility] Office, [address] [place] [address], [address] [place] [address] POINT OF CARE [facility] .GFRon 08-09-2022 GFR 73 ml/min/1.73sqm Normal [facility] ([place]) Comment on above: Result Comment: GFR Population mean for , Non- Americans Ages 20-29 = 116 mL/min/1.73 sq.m. Ages 30-39 = 107 mL/min/1.73 sq.m. Ages 40-49 = 99 mL/min/1.73 sq.m. Ages 50-59 = 93 mL/min/1.73 sq.m. Ages 60-69 = 85 mL/min/1.73 sq.m. Ages 70+ = 75 mL/min/1.73 sq.m. Chronic Kidney Disease: Less than 60 mL/min/1.73 square meters End Stage Renal Disease: Less than 15 mL/min/1.73 square meters Performed By: #### B MP, GFR #### [place] [address] [address] GFR Non- 60 ml/min/1.73sqm Normal [facility] ([place]) Comment on above: Result Comment: GFR Population mean for , Non- Americans Ages 20-29 = 116 mL/min/1.73 sq.m. Ages 30-39 = 107 mL/min/1.73 sq.m. Ages 40-49 = 99 mL/min/1.73 sq.m. Ages 50-59 = 93 mL/min/1.73 sq.m. Ages 60-69 = 85 mL/min/1.73 sq.m. Ages 70+ = 75 mL/min/1.73 sq.m. Chronic Kidney Disease: Less than 60 mL/min/1.73 square meters End Stage Renal Disease: Less than 15 mL/min/1.73 square meters Performed By: #### B MP, GFR #### [address] [address] .Urinalysis Microscopic (AO) on 08-08-2022 UA Bacteria Trace Abnormal [facility] ([place]) Comment on above: Performed By: #### U AMICAO, UA #### [address] [address] UA RBC 0-5 Abnormal None Seen [facility] ([place]) Comment on above: Performed By: #### U AMICAO, UA #### [address] [address] UA Squam Epithelial 5-10 Abnormal None Seen [facility] ([place]) Comment on above: Performed By: #### U AMICAO, UA #### [address] [address] UA WBC 10-15 Abnormal None Seen [facility] ([place]) Comment on above: Performed By: #### U AMICAO, UA #### [address] [address] BMPon 08-08-2022 BUN/Creatinine Ratio 13 ratio Normal 7-27 [facility] ([place]) Comment on above: Performed By: #### B MP, GFR #### [address] [address] Calcium [Mass/Vol] 9.3 mg/dL Normal 8.4-10.2 [facility] ([place]) Comment on above: Performed By: #### B MP, GFR #### [address] [address] Chloride [Moles/Vol] 102 mmol/L Normal 98-107 [facility] ([place]) Comment on above: Performed By: #### B MP, GFR #### [address] [address] CO2 [Moles/Vol] 28 mmol/L Normal 22-29 [facility] ([place]) Comment on above: Performed By: #### B MP, GFR #### [address] [address] Creatinine [Mass/Vol] 1.10 mg/dL High 0.55-1.02 [facility] ([place] Comment on above: Performed By: #### B MP, GFR #### [address] [address] Electrolyte Balance 8.0 mEq/L Normal 4.0-15.0 [facility] ([place]) Comment on above: Performed By: #### B MP, GFR #### [address] [address] Glucose [Mass/Vol] 135 mg/dL High 70-105 [facility] ([place]) Comment on above: Performed By: #### B MP, GFR #### [address] [address] Potassium [Moles/Vol] 4.6 mmol/L Normal 3.5-5.1 [facility] ([place] Comment on above: Performed By: #### B MP, GFR #### [address] [address] Sodium [Moles/Vol] 138 mmol/L Normal 136-145 [facility] ([place]) Comment on above: Performed By: #### B MP, GFR #### [address] [address] Urea nitrogen [Mass/Vol] 14 mg/dL Normal 7-18 [facility] ([place]) Comment on above: Performed By: #### B MP, GFR #### [address] [address] LABORATORYOrdered By: Sherie Arriaga on 08-08-2022 Appearance (U) Clear (08/08/22 8:09 AM) Invalid Interpretation Code Clear AO Auto Urine SS Bacteria LM.HPF (Urine sed) [#/Area] Trace /HPF Invalid Interpretation Code AO Auto Urine SS Bilirubin Ql (U) Negative (08/08/22 8:09 AM) Invalid Interpretation Code Negative AO Auto Urine SS Color (U) Yellow (08/08/22 8:09 AM) Invalid Interpretation Code AO Auto Urine SS Glucose Test strip (U) [Mass/Vol] Negative Invalid Interpretation Code Negativemg/dL AO Auto Urine SS Hemoglobin Auto test strip (U) [Mass/Vol] Trace *ABN* (08/08/22 8:09 AM) Invalid Interpretation Code Negative AO Auto Urine SS Ketones Ql (U) Negative Invalid Interpretation Code Negativemg/dL AO Auto Urine SS UA Leuk Est Negative (08/08/22 8:09 AM) Invalid Interpretation Code Negative AO Auto Urine SS UA Nitrite Negative (08/08/22 8:09 AM) Invalid Interpretation Code Negative AO Auto Urine SS UA pH 6.5 (08/08/22 8:09 AM) Invalid Interpretation Code 5.0 - 8.0 AO Auto Urine SS UA Protein 30 mg/dL Invalid Interpretation Code Negativemg/dL AO Auto Urine SS UA RBC 0-5 /HPF Invalid Interpretation Code None Seen/HPF AO Auto Urine SS UA Spec Grav 1.025 (08/08/22 8:09 AM) Invalid Interpretation Code 1.015-1.025 AO Auto Urine SS UA Specimen Type Not Given (08/08/22 8:09 AM) Invalid Interpretation Code AO Auto Urine SS UA Squam Epithelial 5-10 /HPF Invalid Interpretation Code None Seen/HPF AO Auto Urine SS UA Urobilinogen 0.2 E.U./dL Invalid Interpretation Code 0.2-1.0E.U./dL AO Auto Urine SS WBC LM.HPF (Urine sed) [#/Area] 10-15 /HPF Invalid Interpretation Code None Seen/HPF AO Auto Urine SS LABORATORYOrdered By: SYSTEM SYSTEM on 08-08-2022 Calcium [Mass/Vol] 9.3 mg/dL Invalid Interpretation Code 8.4 - 10.2 mg/dL AO ADM SS Chloride [Moles/Vol] 102 mmol/L Invalid Interpretation Code 98 - 107 mmol/L AO ADM SS CO2 [Moles/Vol] 28 mmol/L Invalid Interpretation Code 22 - 29 mmol/L AO ADM SS Creatinine [Mass/Vol] 1.10 mg/dL Invalid Interpretation Code 0.55 - 1.02 mg/dL AO ADM SS Electrolyte Balance 8.0 mEq/L Invalid Interpretation Code 4.0 - 15.0 mEq/L AO ADM SS Glucose [Mass/Vol] 135 mg/dL Invalid Interpretation Code 70 - 105 mg/dL AO ADM SS Potassium [Moles/Vol] 4.6 mmol/L Invalid Interpretation Code 3.5 - 5.1 mmol/L AO ADM SS Sodium [Moles/Vol] 138 mmol/L Invalid Interpretation Code 136 - 145 mmol/L AO ADM SS Urea nitrogen [Mass/Vol] 14 mg/dL Invalid Interpretation Code 7 - 18 mg/dL AO ADM SS Urea nitrogen/Creatinine [Mass ratio] 13 ratio Invalid Interpretation Code 7 - 27 ratio AO ADM SS UAon 08-08-2022 Color (U) Yellow Normal [facility] ([place]) Comment on above: Performed By: #### U AMICAO, UA #### [address] [address] Glucose (U) [Mass/Vol] Negative Normal Negative [facility] ([place] Comment on above: Performed By: #### U AMICAO, UA #### [address] [address] Ketones Ql (U) Negative Normal Negative [facility] ([place] Comment on above: Performed By: #### U AMICAO, UA #### [address] [address] UA Appear Clear Normal Clear [facility] ([place] Comment on above: Performed By: #### U AMICAO, UA #### [address] [address] UA Blood Trace Abnormal Negative [facility] ([place] Comment on above: Performed By: #### U AMICAO, UA #### [address] [address] UA Leuk Est Negative Normal Negative [facility] ([place] Comment on above: Performed By: #### U AMICAO, UA #### [address] [address] UA Nitrite Negative Normal Negative [facility] ([place] Comment on above: Performed By: #### U AMICAO, UA #### [address] [address] UA pH 6.5 Normal 5.0 - 8.0 [facility] ([place] Comment on above: Performed By: #### U AMICAO, UA #### [address] [address] UA Protein 30 mg/dL Normal Negative [facility] ([place] Comment on above: Performed By: #### U AMICAO, UA #### [address] [address] UA Spec Grav 1.025 Normal 1.015-1.025 [facility] ([place] Comment on above: Performed By: #### U AMICAO, UA #### [address] [address] UA Specimen Type Not Given Normal [facility] ([place] Comment on above: Performed By: #### U AMICAO, UA #### [address] [address] UA Urobilinogen 0.2 E.U./dL Normal 0.2-1.0 [facility] ([place]) Comment on above: Performed By: #### U AMICAO, UA #### [address] [address] Urobilinogen (U) [Mass/Vol] Negative Normal Negative [facility] ([place] Comment on above: Performed By: #### U AMICAO, UA #### [address] [address] .GFRon 02-07-2022 GFR 68 ml/min/1.73sqm Normal [facility] ([place]) Comment on above: Result Comment: GFR Population mean for , Non- Americans Ages 20-29 = 116 mL/min/1.73 sq.m. Ages 30-39 = 107 mL/min/1.73 sq.m. Ages 40-49 = 99 mL/min/1.73 sq.m. Ages 50-59 = 93 mL/min/1.73 sq.m. Ages 60-69 = 85 mL/min/1.73 sq.m. Ages 70+ = 75 mL/min/1.73 sq.m. Chronic Kidney Disease: Less than 60 mL/min/1.73 square meters End Stage Renal Disease: Less than 15 mL/min/1.73 square meters Performed By: #### B MP, GFR #### [place] [id number] GFR Non- 56 ml/min/1.73sqm Normal [facility] ([place]) Comment on above: Result Comment: GFR Population mean for , Non- Americans Ages 20-29 = 116 mL/min/1.73 sq.m. Ages 30-39 = 107 mL/min/1.73 sq.m. Ages 40-49 = 99 mL/min/1.73 sq.m. Ages 50-59 = 93 mL/min/1.73 sq.m. Ages 60-69 = 85 mL/min/1.73 sq.m. Ages 70+ = 75 mL/min/1.73 sq.m. Chronic Kidney Disease: Less than 60 mL/min/1.73 square meters End Stage Renal Disease: Less than 15 mL/min/1.73 square meters Performed By: #### B MP, GFR #### [address] [address] BMPon 02-07-2022 BUN/Creatinine Ratio 18 ratio Normal 7-27 [facility] ([place]) Comment on above: Performed By: #### B MP, GFR #### [address] [address] Calcium [Mass/Vol] 9.4 mg/dL Normal 8.4-10.2 [facility] ([place]) Comment on above: Performed By: #### B MP, GFR #### [address] [address] Chloride [Moles/Vol] 104 mmol/L Normal 98-107 [facility] ([place]) Comment on above: Performed By: #### B MP, GFR #### [address] [address] CO2 [Moles/Vol] 28 mmol/L Normal 22-29 [facility] ([place]) Comment on above: Performed By: #### B MP, GFR #### [address] [address] Creatinine [Mass/Vol] 1.18 mg/dL High 0.55-1.02 [facility] ([place] Comment on above: Performed By: #### B MP, GFR #### [place] [id number] [place], [place] [address] Electrolyte Balance 10.0 mEq/L Normal 4.0-15.0 [facility] ([place]) Comment on above: Performed By: #### B MP, GFR #### [place] [id number] [place], [place] [address] Glucose [Mass/Vol] 97 mg/dL Normal 70-105 [facility] ([place]) Comment on above: Performed By: #### B MP, GFR #### [address] [address] Potassium [Moles/Vol] 4.8 mmol/L Normal 3.5-5.1 [facility] ([place] Comment on above: Performed By: #### B MP, GFR #### [address] [address] Sodium [Moles/Vol] 142 mmol/L Normal 136-145 [facility] ([place]) Comment on above: Performed By: #### B MP, GFR #### [address] [address] Urea nitrogen [Mass/Vol] 21 mg/dL High 7-18 [facility] ([place]) Comment on above: Performed By: #### B MP, GFR #### [address] [address] LABORATORYOrdered By: Barney Blandon on 02-07-2022 Calcium [Mass/Vol] 9.4 mg/dL Invalid Interpretation Code 8.4 - 10.2 mg/dL AO ADM SS Chloride [Moles/Vol] 104 mmol/L Invalid Interpretation Code 98 - 107 mmol/L AO ADM SS CO2 [Moles/Vol] 28 mmol/L Invalid Interpretation Code 22 - 29 mmol/L AO ADM SS Creatinine [Mass/Vol] 1.18 mg/dL Invalid Interpretation Code 0.55 - 1.02 mg/dL AO ADM SS Electrolyte Balance 10.0 mEq/L Invalid Interpretation Code 4.0 - 15.0 mEq/L AO ADM SS Glucose [Mass/Vol] 97 mg/dL Invalid Interpretation Code 70 - 105 mg/dL AO ADM SS Potassium [Moles/Vol] 4.8 mmol/L Invalid Interpretation Code 3.5 - 5.1 mmol/L AO ADM SS Sodium [Moles/Vol] 142 mmol/L Invalid Interpretation Code 136 - 145 mmol/L AO ADM SS Urea nitrogen [Mass/Vol] 21 mg/dL Invalid Interpretation Code 7 - 18 mg/dL AO ADM SS Urea nitrogen/Creatinine [Mass ratio] 18 ratio Invalid Interpretation Code 7 - 27 ratio AO ADM SS LABORATORYOrdered By: SYSTEM SYSTEM on 02-07-2022 GFR 68 ml/min/1.73sqm Invalid Interpretation Code AO Chemistry S GFR Non- 56 ml/min/1.73sqm Invalid Interpretation Code AO Chemistry S [id number] 01-11-2022 Dog Dander IgE <0.35 Normal <0.35 [facility] ([place]) Comment on above: Result Comment: Perf ormed By: [facility] [address] [place] [address] Pocket Marker: Chad De La Garza III, M.D. CLIA#: [id number] Performed By: #### B MP, GFR #### [place] [id number] Dog Dander-Class Class 0 Normal Class 0 [facility] ([place]) Comment on above: Result Comment: Perf ormed By: [facility] [address] [place] [address] Pocket Marker: Chad De La Garza III, M.D. CLIA#: [id number] Performed By: #### B MP, GFR #### [address] [address] .Auto Diffon 01-10-2022 Basophil, Absolute 0.00 10 3/mcL Normal 0.00-0.19 [facility] ([place] Comment on above: Performed By: #### L IPID, CBC, TSH, ADIFF, GFR, ANEU, CMP #### [address] [address] Basophils/100 WBC (Bld) 1.0 % Normal 0.0-2.5 [facility] ([place]) Comment on above: Performed By: #### L IPID, CBC, TSH, ADIFF, GFR, ANEU, CMP #### [address] [address] Eosinophil, Absolute 0.10 10 3/mcL Normal 0.00-0.40 [facility] ([place]) Comment on above: Performed By: #### L IPID, CBC, TSH, ADIFF, GFR, ANEU, CMP #### [address] [address] Eosinophils/100 WBC (Bld) 2.3 % Normal 0.0-7.0 [facility] ([place]) Comment on above: Performed By: #### L IPID, CBC, TSH, ADIFF, GFR, ANEU, CMP #### [address] [address] Lymphocyte, Absolute 2.00 10 3/mcL Normal 0.77-3.85 A [facility] ([place]) Comment on above: Performed By: #### L IPID, CBC, TSH, ADIFF, GFR, ANEU, CMP #### [address] [address] Lymphocytes/100 WBC (Bld) 42.1 % Normal 10.0-50.0 [facility] ([place]) Comment on above: Performed By: #### L IPID, CBC, TSH, ADIFF, GFR, ANEU, CMP #### [address] [address] Monocyte, Absolute 0.50 10 3/mcL Normal 0.15-1.00 [facility] [place] Comment on above: Performed By: #### L IPID, CBC, TSH, ADIFF, GFR, ANEU, CMP #### [address] [address] Monocytes/100 WBC (Bld) 11.4 % Normal 1.7-13.0 [facility] ([place] Comment on above: Performed By: #### L IPID, CBC, TSH, ADIFF, GFR, ANEU, CMP #### [address] [address] Neutrophils/100 WBC (Bld) 43.2 % Normal 37.0-80.0 [facility] ([place]) Comment on above: Performed By: #### L IPID, CBC, TSH, ADIFF, GFR, ANEU, CMP #### [address] [address] .GFRon 01-10-2022 GFR 62 ml/min/1.73sqm Normal [facility] ([place]) Comment on above: Result Comment: GFR Population mean for , Non- Americans Ages 20-29 = 116 mL/min/1.73 sq.m. Ages 30-39 = 107 mL/min/1.73 sq.m. Ages 40-49 = 99 mL/min/1.73 sq.m. Ages 50-59 = 93 mL/min/1.73 sq.m. Ages 60-69 = 85 mL/min/1.73 sq.m. Ages 70+ = 75 mL/min/1.73 sq.m. Chronic Kidney Disease: Less than 60 mL/min/1.73 square meters End Stage Renal Disease: Less than 15 mL/min/1.73 square meters Performed By: #### B MP, GFR #### [address] [address] GFR Non- 51 ml/min/1.73sqm Normal [facility] ([place] Comment on above: Result Comment: GFR Population mean for , Non- Americans Ages 20-29 = 116 mL/min/1.73 sq.m. Ages 30-39 = 107 mL/min/1.73 sq.m. Ages 40-49 = 99 mL/min/1.73 sq.m. Ages 50-59 = 93 mL/min/1.73 sq.m. Ages 60-69 = 85 mL/min/1.73 sq.m. Ages 70+ = 75 mL/min/1.73 sq.m. Chronic Kidney Disease: Less than 60 mL/min/1.73 square meters End Stage Renal Disease: Less than 15 mL/min/1.73 square meters Performed By: #### B MP, GFR #### [address] [address] .NEUABSon 01-10-2022 Neutrophil, Absolute 2.00 10 3/mcL Low 2.85-6.16 [facility] ([place]) Comment on above: Performed By: #### L IPID, CBC, TSH, ADIFF, GFR, ANEU, CMP #### [address] [address] CBCon 01-10-2022 Erythrocyte distribution width (RBC) [Ratio] 15.9 % High 11.5-14.5 [facility] ([place]) Comment on above: Performed By: #### L IPID, CBC, TSH, ADIFF, GFR, ANEU, CMP #### [address] [address] Hematocrit (Bld) [Volume fraction] 38.5 % Normal 37.0-47.0 [facility] ([place]) Comment on above: Performed By: #### L IPID, CBC, TSH, ADIFF, GFR, ANEU, CMP #### [address] [address] Hgb 12.7 G/dL Normal 12.0-16.0 [facility] ([place]) Comment on above: Performed By: #### L IPID, CBC, TSH, ADIFF, GFR, ANEU, CMP #### [address] [address] MCH (RBC) [Entitic mass] 28.7 pg Normal 27.0-31.2 [facility] ([place]) Comment on above: Performed By: #### L IPID, CBC, TSH, ADIFF, GFR, ANEU, CMP #### [address] [address] MCHC 33.1 G/dL Normal 33.0-37.0 [facility] ([place] Comment on above: Performed By: #### L IPID, CBC, TSH, ADIFF, GFR, ANEU, CMP #### [address] [address] MCV (RBC) [Entitic vol] 86.8 fL Normal 80.0-94.0 [facility] ([place]) Comment on above: Performed By: #### L IPID, CBC, TSH, ADIFF, GFR, ANEU, CMP #### [address] [address] Platelet 225 10 3/mcL Normal 130-400 [facility] [facility] Comment on above: Performed By: #### L IPID, CBC, TSH, ADIFF, GFR, ANEU, CMP #### [address] [address] Platelet mean volume (Bld) [Entitic vol] 10.0 fL Normal 7.4-10.4 [facility] ([place]) Comment on above: Performed By: #### L IPID, CBC, TSH, ADIFF, GFR, ANEU, CMP #### [address] [address] RBC 4.44 10 6/mcL Normal 4.20-5.40 [facility] ([place]) Comment on above: Performed By: #### L IPID, CBC, TSH, ADIFF, GFR, ANEU, CMP #### [address] [address] WBC 4.70 10 3/mcL Normal 4.60-10.80 [facility] ([place] Comment on above: Performed By: #### L IPID, CBC, TSH, ADIFF, GFR, ANEU, CMP #### [address] [address] CMPon 01-10-2022 Albumin Level 4.3 G/dL Normal 3.5-5.0 [facility] ([place] Comment on above: Performed By: #### B MP, GFR #### [address] [address] Albumin/Globulin [Mass ratio] 1.4 {ratio} Normal 1.1-2.5 [facility] ([place] Comment on above: Performed By: #### B MP, GFR #### [address] [address] ALP [Catalytic activity/Vol] 57 U/L Normal 40-135 [facility] ([place] Comment on above: Performed By: #### B MP, GFR #### [address] [address] ALT [Catalytic activity/Vol] 33 U/L Normal 14-59 [facility] ([place] Comment on above: Performed By: #### B MP, GFR #### [address] [address] AST [Catalytic activity/Vol] 32 U/L Normal 10-40 [facility] ([place] Comment on above: Performed By: #### B MP, GFR #### [address] [address] Bili Total 0.5 mg/dL Normal 0.2-1.0 [facility] ([place] Comment on above: Result Comment: Use of this assay is not recommended for patients undergoing treatment with eltrombopag due to the potential for falsely elevated results. Performed By: #### B MP, GFR #### [address] [address] BUN/Creatinine Ratio 12 ratio Normal 7-27 [facility] ([place]) Comment on above: Performed By: #### B MP, GFR #### [address] [address] Calcium [Mass/Vol] 10.1 mg/dL Normal 8.4-10.2 [facility] ([place]) Comment on above: Performed By: #### B MP, GFR #### [address] [address] Chloride [Moles/Vol] 106 mmol/L Normal 98-107 [facility] ([place] Comment on above: Performed By: #### B MP, GFR #### [address] [address] CO2 [Moles/Vol] 26 mmol/L Normal 22-29 [facility] ([place] Comment on above: Performed By: #### B MP, GFR #### [address] [address] Creatinine [Mass/Vol] 1.28 mg/dL High 0.55-1.02 [facility] [place] Comment on above: Performed By: #### B MP, GFR #### [address] [address] Electrolyte Balance 10.0 mEq/L Normal 4.0-15.0 [facility] ([place]) Comment on above: Performed By: #### B MP, GFR #### [address] [address] Globulin 3.1 G/dL Normal [facility] ([place] Comment on above: Performed By: #### B MP, GFR #### [address] [address] Glucose [Mass/Vol] 88 mg/dL Normal 70-105 [facility] ([place] Comment on above: Performed By: #### B MP, GFR #### [address] [address] Potassium [Moles/Vol] 5.3 mmol/L High 3.5-5.1 [facility] [place] Comment [place]: Performed By: #### B MP, GFR #### [address] [address] Sodium [Moles/Vol] 142 mmol/L Normal 136-145 [facility] ([place] Comment on above: Performed By: #### B MP, GFR #### [address] [address] Total Protein 7.4 G/dL Normal 6.4-8.2 [facility] ([place] Comment on above: Performed By: #### B MP, GFR #### [address] [address] Urea nitrogen [Mass/Vol] 16 mg/dL Normal 7-18 [facility] ([place] Comment on above: Performed By: #### B MP, GFR #### [address] [address] LABORATORYOrdered By: Antonieta Cano on 01-10-2022 Albumin BCP dye [Mass/Vol] 4.3 G/dL Invalid Interpretation Code 3.5 - 5.0 G/dL AO ADM SS Albumin/Globulin [Mass ratio] 1.4 {ratio} Invalid Interpretation Code 1.1 - 2.5 ratio AO ADM SS ALP [Catalytic activity/Vol] 57 U/L Invalid Interpretation Code 40 - 135 U/L AO ADM SS ALT With P-5'-P [Catalytic activity/Vol] 33 U/L Invalid Interpretation Code 14 - 59 U/L AO ADM SS AST With P-5'-P [Catalytic activity/Vol] 32 U/L Invalid Interpretation Code 10 - 40 U/L AO ADM SS Bilirubin [Mass/Vol] 0.5 mg/dL Invalid Interpretation Code 0.2 - 1.0 mg/dL AO ADM SS Calcium [Mass/Vol] 10.1 mg/dL Invalid Interpretation Code 8.4 - 10.2 mg/dL AO ADM SS Chloride [Moles/Vol] 106 mmol/L Invalid Interpretation Code 98 - 107 mmol/L AO ADM SS Cholesterol [Mass/Vol] 191 mg/dL Invalid Interpretation Code 0 - 200 mg/dL AO ADM SS Cholesterol in HDL [Mass/Vol] 58 mg/dL Invalid Interpretation Code 40 - 60 mg/dL AO ADM SS Cholesterol in LDL [Mass/Vol] 122 mg/dL Invalid Interpretation Code 0 - 130 mg/dL AO ADM SS CO2 [Moles/Vol] 26 mmol/L Invalid Interpretation Code 22 - 29 mmol/L AO ADM SS Creatinine [Mass/Vol] 1.28 mg/dL Invalid Interpretation Code 0.55 - 1.02 mg/dL AO ADM SS Electrolyte Balance 10.0 mEq/L Invalid Interpretation Code 4.0 - 15.0 mEq/L AO ADM SS Globulin 3.1 G/dL Invalid Interpretation Code AO ADM SS Glucose [Mass/Vol] 88 mg/dL Invalid Interpretation Code 70 - 105 mg/dL AO ADM SS Potassium [Moles/Vol] 5.3 mmol/L Invalid Interpretation Code 3.5 - 5.1 mmol/L AO ADM SS Protein [Mass/Vol] 7.4 G/dL Invalid Interpretation Code 6.4 - 8.2 G/dL AO ADM SS Sodium [Moles/Vol] 142 mmol/L Invalid Interpretation Code 136 - 145 mmol/L AO ADM SS Triglyceride [Mass/Vol] 57 mg/dL Invalid Interpretation Code 0 - 150 mg/dL AO ADM SS TSH Qn 2.39 m[IU]/L Invalid Interpretation Code 0.36 - 3.74 mcIU/mL AO ADM SS Urea nitrogen [Mass/Vol] 16 mg/dL Invalid Interpretation Code 7 - 18 mg/dL AO ADM SS Urea nitrogen/Creatinine [Mass ratio] 12 ratio Invalid Interpretation Code 7 - 27 ratio AO ADM SS LABORATORYOrdered By: Olivia Chavez on 01-10-2022 Basophil, Absolute 0.00 103/mcL Invalid Interpretation Code 0.00 - 0.19 10^3/mcL AO Auto Heme SS Basophils/100 WBC (Bld) 1.0 % Invalid Interpretation Code 0.0 - 2.5 % AO Auto Heme SS Eosinophil, Absolute 0.10 103/mcL Invalid Interpretation Code 0.00 - 0.40 10^3/mcL AO Auto Heme SS Eosinophils/100 WBC (Bld) 2.3 % Invalid Interpretation Code 0.0 - 7.0 % AO Auto Heme SS Erythrocyte distribution width (RBC) [Ratio] 15.9 % Invalid Interpretation Code 11.5 - 14.5 % AO Auto Heme SS Hematocrit (Bld) [Volume fraction] 38.5 % Invalid Interpretation Code 37.0 - 47.0 % AO Auto Heme SS Hemoglobin (Bld) [Mass/Vol] 12.7 G/dL Invalid Interpretation Code 12.0 - 16.0 G/dL AO Auto Heme SS Lymphocyte, Absolute 2.00 103/mcL Invalid Interpretation Code 0.77 - 3.85 10^3/mcL AO Auto Heme SS Lymphocytes/100 WBC (Bld) 42.1 % Invalid Interpretation Code 10.0 - 50.0 % AO Auto Heme SS MCH (RBC) [Entitic mass] 28.7 pg Invalid Interpretation Code 27.0 - 31.2 pg AO Auto Heme SS MCHC (RBC) [Mass/Vol] 33.1 G/dL Invalid Interpretation Code 33.0 - 37.0 G/dL AO Auto Heme SS MCV (RBC) [Entitic vol] 86.8 fL Invalid Interpretation Code 80.0 - 94.0 fL AO Auto Heme SS Monocyte, Absolute 0.50 103/mcL Invalid Interpretation Code 0.15 - 1.00 10^3/mcL AO Auto Heme SS Monocytes/100 WBC (Bld) 11.4 % Invalid Interpretation Code 1.7 - 13.0 % AO Auto Heme SS Neutrophil, Absolute 2.00 103/mcL Invalid Interpretation Code 2.85 - 6.16 10^3/mcL AO Auto Heme SS Neutrophils/100 WBC (Bld) 43.2 % Invalid Interpretation Code 37.0 - 80.0 % AO Auto Heme SS Platelet mean volume (Bld) [Entitic vol] 10.0 fL Invalid Interpretation Code 7.4 - 10.4 fL AO Auto Heme SS Platelets (Bld) [#/Vol] 225 103/mcL Invalid Interpretation Code 130 - 400 10^3/mcL AO Auto Heme SS RBC (Bld) [#/Vol] 4.44 106/mcL Invalid Interpretation Code 4.20 - 5.40 10^6/mcL AO Auto Heme SS WBC (Bld) [#/Vol] 4.70 103/mcL Invalid Interpretation Code 4.60 - 10.80 10^3/mcL AO Auto Heme SS LABORATORYOrdered By: SYSTEM SYSTEM on 01-10-2022 GFR 62 ml/min/1.73sqm Invalid Interpretation Code AO Chemistry S GFR Non- 51 ml/min/1.73sqm Invalid Interpretation Code AO Chemistry S LIPIDon 01-10-2022 Cholesterol [Mass/Vol] 191 mg/dL Normal 0-200 [facility] ([place]) Comment on above: Result Comment: Chol esterol Reference Interval: Less than 200 Desirable 200-239 Borderline high risk 240 and above High risk Performed By: #### L IPID, CBC, TSH, ADIFF, GFR, ANEU, CMP #### [address] [address] Cholesterol in HDL [Mass/Vol] 58 mg/dL Normal 40-60 [facility] ([place]) Comment on above: Performed By: #### L IPID, CBC, TSH, ADIFF, GFR, ANEU, CMP #### [address] [address] Cholesterol in LDL [Mass/Vol] 122 mg/dL Normal 0-130 [facility] ([place] Comment on above: Performed By: #### L IPID, CBC, TSH, ADIFF, GFR, ANEU, CMP #### [address] [address] Triglyceride [Mass/Vol] 57 mg/dL Normal 0-150 [facility] ([place]) Comment on above: Result Comment: Trig lyceride Reference Interval: Less than 150 Normal 150-199 Borderline high risk 200-499 High risk 500 or higher Very high risk Performed By: #### L IPID, CBC, TSH, ADIFF, GFR, ANEU, CMP #### [id number] [place], [place] [address] TSHon 01-10-2022 TSH Qn 2.39 m[IU]/L Normal 0.36-3.74 [facility] ([place]) Comment on above: Performed By: #### L IPID, CBC, TSH, ADIFF, GFR, ANEU, CMP #### [id number] [place], [place] [address] Vital Signs Date Time Vital Sign Value Performing Clinician Chris vera 2025 08:35-0400 Body mass index (BMI) [Ratio] 35.36 kg/m2 Sheree Swain MD Work Phone: [facility] 2025 08:35-0400 Body weight 93.44 kg Sheree Swain MD Work Phone: [facility] 2025 08:35-0400 Diastolic blood pressure 70 mm[Hg] Sheree Swain MD Work Phone: [facility] 2025 08:35-0400 Systolic blood pressure 108 mm[Hg] Sheree Swain MD Work Phone: [facility] 04-21-2025 07:50-0400 Body mass index (BMI) [Ratio] 35.02 kg/m2 Destiney Schroeder ELECTRICAL ASSEMBLY SUPERVISOR.CNM Work Phone: [facility] 04-21-2025 07:50-0400 Body weight 92.53 kg Destiney Schroeder ELECTRICAL ASSEMBLY SUPERVISOR.CNM Work Phone: [facility] 04-21-2025 07:50-0400 Diastolic blood pressure 82 mm[Hg] Destiney Plotts ELECTRICAL ASSEMBLY SUPERVISOR.CNM Work Phone: [facility] 04-21-2025 07:50-0400 Systolic blood pressure 124 mm[Hg] Destiney Plotts ELECTRICAL ASSEMBLY SUPERVISOR.CNM Work Phone: [facility] 04-15-2025 07:57-0400 Body mass index (BMI) [Ratio] 34.84 kg/m2 Shabnam Wilson ELECTRICAL ASSEMBLY SUPERVISOR.CNM Work Phone: [facility] 04-15-2025 07:57-0400 Body weight 92.08 kg Shabnam Wilson ELECTRICAL ASSEMBLY SUPERVISOR.CNM Work Phone: [facility] 04-15-2025 07:57-0400 Diastolic blood pressure 76 mm[Hg] Shabnam Wilson ELECTRICAL ASSEMBLY SUPERVISOR.CNM Work Phone: [facility] 04-15-2025 07:57-0400 Systolic blood pressure 104 mm[Hg] Shabnam Wilson ELECTRICAL ASSEMBLY SUPERVISOR.CNM Work Phone: [facility] 04-08-2025 15:20-0400 Body mass index (BMI) [Ratio] 34.84 kg/m2 Mira Lewis MD Work Phone: [facility] 04-08-2025 15:20-0400 Body weight 92.08 kg Mira Lewis MD Work Phone: [facility] 04-08-2025 15:20-0400 Diastolic blood pressure 74 mm[Hg] Mira Lewis MD Work Phone: [facility] 04-08-2025 15:20-0400 Systolic blood pressure 112 mm[Hg] Mira Lewis MD Work Phone: [facility] 03-25-2025 08:08-0400 Body mass index (BMI) [Ratio] 34.16 kg/m2 Shabnam Wilson ELECTRICAL ASSEMBLY SUPERVISOR.CNM Work Phone: [facility] 03-25-2025 08:08-0400 Body weight 90.27 kg Shabnam Wilson ELECTRICAL ASSEMBLY SUPERVISOR.CNM Work Phone: [facility] 03-25-2025 08:08-0400 Diastolic blood pressure 60 mm[Hg] Shabnam Wilson ELECTRICAL ASSEMBLY SUPERVISOR.CNM Work Phone: [facility] 03-25-2025 08:08-0400 Systolic blood pressure 104 mm[Hg] Shabnam Wilson ELECTRICAL ASSEMBLY SUPERVISOR.CNM Work Phone: [facility] 03-10-2025 09:01-0400 Body mass index (BMI) [Ratio] 33.99 kg/m2 Rao Faithdestiny ELECTRICAL ASSEMBLY SUPERVISOR.GREEN MARKETING ANALYST Work Phone: [facility] 03-10-2025 09:01-0400 Body weight 89.81 kg Rao Pineda ELECTRICAL ASSEMBLY SUPERVISOR.GREEN MARKETING ANALYST Work Phone: [facility] 03-10-2025 09:01-0400 Diastolic blood pressure 62 mm[Hg] Rao Pineda ELECTRICAL ASSEMBLY SUPERVISOR.GREEN MARKETING ANALYST Work Phone: [facility] 03-10-2025 09:01-0400 Systolic blood pressure 112 mm[Hg] Rao Pineda ELECTRICAL ASSEMBLY SUPERVISOR.GREEN MARKETING ANALYST Work Phone: [facility] 02-18-2025 08:10-0400 Body mass index (BMI) [Ratio] 33.51 kg/m2 Mira Lewis MD Work Phone: [facility] 02-18-2025 08:10-0400 Body weight 88.54 kg Mira Lewis MD Work Phone: [facility] 02-18-2025 08:10-0400 Diastolic blood pressure 80 mm[Hg] Mira Lewis MD Work Phone: [facility] 02-18-2025 08:10-0400 Systolic blood pressure 120 mm[Hg] Mira Lewis MD Work Phone: [facility] 01-20-2025 08:02-0400 Body mass index (BMI) [Ratio] 33.13 kg/m2 Destiney Schroeder ELECTRICAL ASSEMBLY SUPERVISOR.CNM Work Phone: [facility] 01-20-2025 08:02-0400 Body weight 87.54 kg Destiney Plotbrynn ELECTRICAL ASSEMBLY SUPERVISOR.CNM Work Phone: [facility] 01-20-2025 08:02-0400 Diastolic blood pressure 72 mm[Hg] Destiney Plotts ELECTRICAL ASSEMBLY SUPERVISOR.CNM Work Phone: [facility] 01-20-2025 08:02-0400 Systolic blood pressure 110 mm[Hg] Destiney Plotts ELECTRICAL ASSEMBLY SUPERVISOR.CNM Work Phone: [facility] 12-23-2024 09:01-0400 Body mass index (BMI) [Ratio] 32.27 kg/m2 Constantino Gaines MD Work Phone: [facility] 12-23-2024 09:01-0400 Body weight 85.28 kg Constantino Gaines MD Work Phone: [facility] 12-23-2024 09:01-0400 Diastolic blood pressure 60 mm[Hg] Constantino Gaines MD Work Phone: [facility] 12-23-2024 09:01-0400 Systolic blood pressure 104 mm[Hg] Constantino Gaines MD Work Phone: [facility] 11-25-2024 07:51-0400 Body mass index (BMI) [Ratio] 31.41 kg/m2 Destiney Plotts ELECTRICAL ASSEMBLY SUPERVISOR.CNM Work Phone: [facility] 11-25-2024 07:51-0400 Body weight 83.01 kg Destiney Plotts ELECTRICAL ASSEMBLY SUPERVISOR.CNM Work Phone: [facility] 11-25-2024 07:51-0400 Diastolic blood pressure 74 mm[Hg] Destiney Plotts ELECTRICAL ASSEMBLY SUPERVISOR.CNM Work Phone: [facility] 11-25-2024 07:51-0400 Systolic blood pressure 112 mm[Hg] Destiney Plotts ELECTRICAL ASSEMBLY SUPERVISOR.CNM Work Phone: [facility] 10-25-2024 11:48-0500 Body mass index (BMI) [Ratio] 30 kg/m2 Destiney Plotts ELECTRICAL ASSEMBLY SUPERVISOR.CNM Work Phone: [facility] 10-25-2024 11:48-0500 Body weight 79.29 kg Destiney Plotts ELECTRICAL ASSEMBLY SUPERVISOR.CNM Work Phone: [facility] 10-25-2024 11:48-0500 Diastolic blood pressure 70 mm[Hg] Destiney Plotts ELECTRICAL ASSEMBLY SUPERVISOR.CNM Work Phone: [facility] 10-25-2024 11:48-0500 Systolic blood pressure 110 mm[Hg] Destiney Plotts ELECTRICAL ASSEMBLY SUPERVISOR.CNM Work Phone: [facility] 10-11-2024 07:38-0500 Body mass index (BMI) [Ratio] 29.35 kg/m2 Rao Hadestiny ELECTRICAL ASSEMBLY SUPERVISOR.GREEN MARKETING ANALYST Work Phone: [facility] 10-11-2024 07:38-0500 Body weight 77.56 kg Rao Haury ELECTRICAL ASSEMBLY SUPERVISOR.GREEN MARKETING ANALYST Work Phone: [facility] 10-11-2024 07:38-0500 Diastolic blood pressure 78 mm[Hg] Rao Haury ELECTRICAL ASSEMBLY SUPERVISOR.GREEN MARKETING ANALYST Work Phone: [facility] 10-11-2024 07:38-0500 Systolic blood pressure 114 mm[Hg] Rao Hadestiny ELECTRICAL ASSEMBLY SUPERVISOR.GREEN MARKETING ANALYST Work Phone: [facility] 10-06-2024 09:31-0500 Body mass index (BMI) [Ratio] 29.4 kg/m2 aMrgarita Almaguer ELECTRICAL ASSEMBLY SUPERVISOR.GREEN MARKETING ANALYST Work Phone: [facility] 10-06-2024 09:31-0500 Body weight 77.7 kg Margarita Almaguer ELECTRICAL ASSEMBLY SUPERVISOR.GREEN MARKETING ANALYST Work Phone: [facility] 10-06-2024 09:31-0500 Diastolic blood pressure 84 mm[Hg] Margarita Almaguer ELECTRICAL ASSEMBLY SUPERVISOR.GREEN MARKETING ANALYST Work Phone: [facility] 10-06-2024 09:31-0500 Heart rate 119 /min Margarita Almaguer ELECTRICAL ASSEMBLY SUPERVISOR.GREEN MARKETING ANALYST Work Phone: [facility] 10-06-2024 09:31-0500 SaO2% (BldA) [Mass fraction] 100 % Margarita Almaguer ELECTRICAL ASSEMBLY SUPERVISOR.GREEN MARKETING ANALYST Work Phone: [facility] 10-06-2024 09:31-0500 Systolic blood pressure 134 mm[Hg] Margarita Almaguer ELECTRICAL ASSEMBLY SUPERVISOR.GREEN MARKETING ANALYST Work Phone: [facility] 10-04-2024 08:06-0500 Body mass index (BMI) [Ratio] 29.18 kg/m2 Ascencion Kessler MD Work Phone: [facility] 10-04-2024 08:06-0500 Body weight 77.11 kg Ascencion Kessler MD Work Phone: [facility] 10-04-2024 08:06-0500 Diastolic blood pressure 74 mm[Hg] Ascencion Kessler MD Work Phone: [facility] 10-04-2024 08:06-0500 Systolic blood pressure 118 mm[Hg] Ascencion Kessler MD Work Phone: [facility] 09-20-2024 10:59-0500 Body height 164.5 cm Rao Haury ELECTRICAL ASSEMBLY SUPERVISOR.GREEN MARKETING ANALYST Work Phone: [facility] 09-20-2024 10:59-0500 Body mass index (BMI) [Ratio] 27.99 kg/m2 Rao Haury ELECTRICAL ASSEMBLY SUPERVISOR.GREEN MARKETING ANALYST Work Phone: [facility] 09-20-2024 10:59-0500 Body weight 75.75 kg Rao Haury ELECTRICAL ASSEMBLY SUPERVISOR.GREEN MARKETING ANALYST Work Phone: [facility] 09-20-2024 10:59-0500 Diastolic blood pressure 70 mm[Hg] Rao Haury ELECTRICAL ASSEMBLY SUPERVISOR.GREEN MARKETING ANALYST Work Phone: [facility] 09-20-2024 10:59-0500 Systolic blood pressure 124 mm[Hg] Rao Haury ELECTRICAL ASSEMBLY SUPERVISOR.GREEN MARKETING ANALYST Work Phone: [facility] 09-02-2024 11:31-0500 Body mass index (BMI) [Ratio] 27.12 kg/m2 Lauren Pal MD Work Phone: [facility] 09-02-2024 11:31-0500 Body weight 73.48 kg Lauren Pal MD Work Phone: [facility] 09-02-2024 11:31-0500 Diastolic blood pressure 84 mm[Hg] Lauren Pal MD Work Phone: [facility] 09-02-2024 11:31-0500 Systolic blood pressure 114 mm[Hg] Lauren Pal MD Work Phone: [facility] 06-26-2024 08:36-0400 Body mass index (BMI) [Ratio] 26.5 kg/m2 Luciana Callow ELECTRICAL ASSEMBLY SUPERVISOR.GREEN MARKETING ANALYST Work Phone: [facility] 06-26-2024 08:36-0400 Body temperature 97.39 [degF] Luciana Callow ELECTRICAL ASSEMBLY SUPERVISOR.GREEN MARKETING ANALYST Work Phone: [facility] 06-26-2024 08:36-0400 Body weight 71.8 kg ow ELECTRICAL ASSEMBLY SUPERVISOR.GREEN MARKETING ANALYST Work Phone: [facility] 06-26-2024 08:36-0400 Diastolic blood pressure 91 mm[Hg] ELECTRICAL ASSEMBLY SUPERVISOR.GREEN MARKETING ANALYST Work Phone: [facility] 06-26-2024 08:36-0400 Heart rate 82 /min ELECTRICAL ASSEMBLY SUPERVISOR.GREEN MARKETING ANALYST Work Phone: [facility] 06-26-2024 08:36-0400 SaO2% (BldA) [Mass fraction] 99 % ELECTRICAL ASSEMBLY SUPERVISOR.GREEN MARKETING ANALYST Work Phone: [facility] 06-26-2024 08:36-0400 Systolic blood pressure 132 mm[Hg] Luciana Callow ELECTRICAL ASSEMBLY SUPERVISOR.GREEN MARKETING ANALYST Work Phone: [facility] 02-11-2024 11:11-0400 Body height 164.6 cm Ascencion Kessler MD Work Phone: [facility] 02-11-2024 11:11-0400 Body mass index (BMI) [Ratio] 26.95 kg/m2 Ascencion Kessler MD Work Phone: [facility] 02-11-2024 11:11-0400 Body weight 73.03 kg Ascencion Kessler MD Work Phone: [facility] 02-11-2024 11:11-0400 Diastolic blood pressure 60 mm[Hg] Ascencion Kessler MD Work Phone: [facility] 02-11-2024 11:11-0400 Systolic blood pressure 100 mm[Hg] Ascencion Kessler MD Work Phone: [facility] Encounters Encounter Date Encounter Type Care Provider Facility Start: 05-06-2025 ambulatory [facility] Start: 2025 End: 2025 Patient encounter procedure Sheree Swain MD Work Phone: OB/Gynecology Comment on above: Encounter for superv ision of normal first in third trimester (HCC) (Primary Dx); History of chronic hypertension; Excessive growth affecting management of in third trimester, single or unspecified fetus (HCC); Anxiety during (HCC); 38 weeks gestation of (HCC) Start: 2025 End: 2025 ambulatory JEREL BRANCH JR Facility:[facility] Start: 04-21-2025 End: 04-21-2025 Patient encounter procedure Destiney Schroeder APRN.CNM Work Phone: OB/Gynecology Comment on above: Encounter for superv ision of normal first in third trimester (HCC) (Primary Dx); Excessive growth affecting management of in third trimester, single or unspecified fetus (HCC); History of chronic hypertension; Anxiety during (HCC); 37 weeks gestation of (HCC) Start: 04-21-2025 End: 04-21-2025 ambulatory JEREL BRANCH JR Facility:[facility] Start: 04-15-2025 End: 04-15-2025 Patient encounter procedure Shabnam Wilson APRN.CNM Work Phone: OB/Gynecology Comment on above: Encounter for superv ision of normal first in third trimester (HCC) (Primary Dx); 37 weeks gestation of (HCC); Excessive growth affecting management of in third trimester, single or unspecified fetus (HCC); History of chronic hypertension; Anxiety during (HCC) Start: 04-15-2025 End: 04-15-2025 ambulatory JEREL BRANCH JR Facility:[facility] Start: 04-11-2025 End: 04-19-2025 Telephone encounter Mira Lewis MD Work Phone: OB/Gynecology Start: 04-08-2025 End: 04-08-2025 Patient encounter procedure Mira Lewis MD Work Phone: OB/Gynecology Comment on above: 36 weeks gestation o f (HCC) (Primary Dx); Encounter for supervision of normal first in third trimester (HCC) macrosomia dur ing in third trimester, single or unspecified fetus (HCC) (Primary Dx); Encounter for supervision of normal first in third trimester (HCC); Uterine size date discrepancy , third trimester (HCC) Start: 04-08-2025 End: 04-08-2025 ambulatory JEREL BRANCH JR Facility:[facility] Start: 03-25-2025 End: 03-25-2025 Patient encounter procedure Shabnam Wilson APRN.CNM Work Phone: OB/Gynecology Comment on above: Encounter for superv ision of normal first in third trimester (HCC) (Primary Dx); 34 weeks gestation of (HCC); Uterine size date discrepancy , third trimester (HCC); History of chronic hypertension; Anxiety during ([facility]) Start: 03-25-2025 End: 03-25-2025 ambulatory JEREL BRANCH JR Facility:[facility] Start: 03-10-2025 End: 03-10-2025 Patient encounter procedure Rao Pineda APRN.GREEN MARKETING ANALYST Work Phone: OB/Gynecology Comment on above: Encounter for superv ision of normal first in third trimester (HCC) (Primary Dx); 31 weeks gestation of (HCC); Uterine size date discrepancy , third trimester (HCC); Anxiety during (HCC) Encounter for ultras ound to check growth ([facility]) (Primary Dx); Uterine size date discrepancy , third trimester (HCC); 31 weeks gestation of (HCC) Start: 03-10-2025 End: 03-10-2025 ambulatory JEREL BRANCH JR Facility:[facility] Start: 02-21-2025 End: 04-23-2025 Follow-up encounter Constantino Gaines MD Work Phone: OB/Gynecology Start: 02-18-2025 End: 02-18-2025 Patient encounter procedure Mira Lewis MD Work Phone: OB/Gynecology Comment on above: 29 weeks gestation o f (HCC) (Primary Dx); Encounter for supervision of normal first in second trimester ([facility]); Need for vaccination; Spotting complicating , third trimester ([facility]); Uterine size date discrepancy , third trimester ([facility]) Start: 02-18-2025 End: 02-18-2025 ambulatory JEREL BRANCH JR Facility:[facility] Start: 01-20-2025 End: 01-20-2025 Patient encounter procedure Destiney Schroeder APRN.CNM Work Phone: OB/Gynecology Comment on above: History of chronic h ypertension (Primary Dx); Encounter for supervision of normal first in second trimester ([facility]); Anxiety during ([facility]); 24 weeks gestation of ([facility]); Screening for diabetes mellitus Start: 01-20-2025 End: 01-20-2025 ambulatory JEREL BRANCH JR Facility:[facility] Start: 12-23-2024 End: 12-23-2024 Patient encounter procedure Constantino Gaines MD Work Phone: OB/Gynecology Comment on above: Encounter for superv ision of normal first in second trimester ([facility]) (Primary Dx); History of chronic hypertension; 20 weeks gestation of ([facility]) Encounter for anatomic survey ([facility]) (Primary Dx); 20 weeks gestation of ([facility]) Start: 12-23-2024 End: 12-23-2024 ambulatory JEREL BRANCH JR Facility:[facility] Start: 11-25-2024 End: 11-25-2024 ambulatory JEREL BRANCH JR Facility:[facility] Start: 11-25-2024 End: 11-25-2024 Patient encounter procedure Destiney Schroeder APRN.CNM Work Phone: OB/Gynecology Comment on above: 16 weeks gestation o f ([facility]) (Primary Dx); Anxiety during ([facility]); Encounter for supervision in primigravida, antepartum ([facility]) Start: 11-03-2024 End: 11-04-2024 Telephone encounter Destiney Schroeder APRN.CNM Work Phone: OB/Gynecology Comment on above: Vaginal Discharge Start: 10-25-2024 End: 12-25-2024 Follow-up encounter Rao Pineda APRN.CNP Work Phone: OB/Gynecology Start: 10-25-2024 End: 10-25-2024 ambulatory JEREL BRANCH JR Facility:[facility] Start: 10-25-2024 End: 10-25-2024 Patient encounter procedure Whsuman Tech 1 Pet Walker Mfm Wstr [facility] Maternal Medicine Comment on above: Encounter for antena hali screening for malformation using ultrasound (Primary Dx); 12 weeks gestation of 12 weeks gestation o f (Primary Dx); Encounter for supervision in primigravida, antepartum; Anxiety during Start: 10-22-2024 End: 10-22-2024 ambulatory JEREL BRANCH JR Facility:[facility] Start: 10-11-2024 End: 10-11-2024 ambulatory JEREL Edwar JOSE CARLOS DAI Facility:[facility] Start: 10-11-2024 End: 10-11-2024 Patient encounter procedure Rao Pineda APRN.CNP Work Phone: OB/Gynecology Comment on above: Encounter for superv ision in primigravida, antepartum (Primary Dx); 10 weeks gestation of ; Influenza A; Anxiety during Start: 10-07-2024 End: 10-07-2024 E-mail encounter from caregiver Jodi Crocker PA-C Work Phone: [facility] Start: 10-07-2024 End: 10-07-2024 Patient encounter procedure Jodi Crocker PA-C Work Phone: [facility] Comment on above: Lab results Start: 10-06-2024 End: 10-06-2024 Telephone encounter Sheree Swain MD Work Phone: OB/Gynecology Comment on above: Medication Problem Start: 10-06-2024 End: 10-06-2024 ambulatory JEREL BRANCH JR Facility:[facility] Start: 10-06-2024 End: 10-06-2024 Office outpatient new 30 minutes Margarita Almaguer APRN.GREEN MARKETING ANALYST Work Phone: [facility] Comment on above: Viral upper respirat ory tract infection with cough (Primary Dx); Pharyngitis, unspecified etiology; Influenza A Start: 10-04-2024 End: 10-04-2024 ambulatory JEREL Edwar BRANCH Facility:[facility] Start: 10-04-2024 End: 10-04-2024 Patient encounter procedure Ascencion Kessler MD Work Phone: OB/Gynecology Comment on above: 10 weeks gestation o f (Primary Dx) Start: 09-30-2024 End: 09-30-2024 Emergency department patient visit JEREL Edwar JOSE CARLOS DAI Facility:[facility] Start: 09-20-2024 End: 09-20-2024 ambulatory JEREL BRANCH Facility:[facility] Start: 09-20-2024 End: 09-20-2024 Patient encounter procedure Rao Pineda APRN.GREEN MARKETING ANALYST Work Phone: OB/Gynecology Comment on above: Encounter for superv ision in primigravida, antepartum (Primary Dx); Less than 8 weeks gestation of ; Anxiety during ; History of chronic hypertension; with uncertain dates in first trimester Start: 09-02-2024 End: 09-02-2024 ambulatory Pet Walker Wstr Mob Us Remote Work Phone: OB/Gynecology Start: 09-02-2024 End: 09-02-2024 Patient encounter procedure Us Tech 1 Wstr Mob OB/Gynecology Comment on above: Early stage of pregn minh (Primary Dx); Anxiety; related nausea, antepartum Start: 09-01-2024 End: 09-01-2024 ambulatory JEREL Edwar JOSE CARLOS DAI Facility:[facility] Start: 08-31-2024 End: 08-31-2024 Orders Only Constantino Gaines MD Work Phone: [facility] Comment on above: Bleeding in early pr egnancy (Primary Dx); , location unknown Start: 08-30-2024 End: 08-30-2024 ambulatory JEREL BRANCH JR Facility:[facility] Start: 08-27-2024 End: 08-31-2024 Telephone encounter Constantino Gaines APRN.CNM Work Phone: OB/Gynecology Comment on above: Results Start: 08-26-2024 End: 08-26-2024 ambulatory JEREL BRANCH JR Facility:[facility] Start: 08-24-2024 End: 08-24-2024 ambulatory JEREL BRANCH JR Facility:[facility] Start: 06-28-2024 End: 06-28-2024 Telephone encounter Luciana Opal ARAGON.GREEN MARKETING ANALYST Work Phone: [facility] Comment on above: Medication Problem Start: 06-26-2024 End: 06-26-2024 ambulatory JEREL BRANCH JR Facility:[facility] Start: 06-26-2024 End: 06-26-2024 Patient encounter procedure Luciana Opal ARAGON.GREEN MARKETING ANALYST Work Phone: [facility] Comment on above: Recurrent UTI (urina ry tract infection) (Primary Dx) Start: 02-11-2024 End: 02-11-2024 Patient encounter procedure Ascencion Kessler MD Work Phone: OB/Gynecology Comment on above: Encounter for gyneco logical examination (general) (routine) without abnormal findings (Primary Dx); Screening for cervical cancer Start: 02-11-2024 End: 02-11-2024 Patient encounter status Ascencion Kessler MD Work Phone: [facility] Start: 08-08-2022 End: 08-09-2022 ambulatory DENNIS GREENBERG DO Facility:B Start: 08-08-2022 End: 08-08-2022 Patient encounter procedure DENNIS GREENBERG DO [facility] Start: 07-23-2022 End: 07-28-2022 ambulatory DENNIS GREENBERG DO Facility:[facility] Start: 07-23-2022 End: 07-27-2022 Outreach Lab DENNIS GREENBERG DO [facility] Start: 02-07-2022 End: 02-08-2022 ambulatory MS. SHABNAM GILBERT GREEN MARKETING ANALYST Facility:B Start: 02-07-2022 End: 02-07-2022 Patient encounter procedure SHABNAM GILBERT ELECTRICAL ASSEMBLY SUPERVISOR-GREEN MARKETING ANALYST [facility] Start: 01-10-2022 End: 01-11-[address] ELLA KING MD. Facility:[facility] Start: 01-10-2022 End: 01-10-2022 Patient encounter procedure DENNIS GREENBERG DO [facility] Procedures Date Procedure Procedure Detail Performing Clinician Start: 2025 Urnls dip stick/tabl et rgnt non-auto w/o micrscp Sheree Swain MD Work Phone: Start: 04-21-2025 Urnls dip stick/tabl et rgnt non-auto w/o micrscp Destiney Schroeder ELECTRICAL ASSEMBLY SUPERVISOR.CNM Work Phone: Start: 04-08-2025 Us preg uterus after 1st trimest 1/ gestation Rao Pineda ELECTRICAL ASSEMBLY SUPERVISOR.GREEN MARKETING ANALYST Work Phone: Start: 04-08-2025 Urnls dip stick/tabl et rgnt non-auto w/o micrscp Mira Leiws MD Work Phone: Start: 03-25-2025 Urnls dip stick/tabl et rgnt non-auto w/o micrscp Shabnam Wilson ELECTRICAL ASSEMBLY SUPERVISOR.CNM Work Phone: Start: 03-10-2025 Us preg uterus after 1st trimest 1/1st gestation Mira Lewis MD Work Phone: Start: 12-23-2024 Us preg uterus after 1st trimest /1st gestation Rao Pineda ELECTRICAL ASSEMBLY SUPERVISOR.GREEN MARKETING ANALYST Work Phone: Start: 10-25-2024 Us preg uterus after 1st trimest 1/ gestation Rao Pineda ELECTRICAL ASSEMBLY SUPERVISOR.GREEN MARKETING ANALYST Work Phone: Start: 10-22-2024 Antibody screen JEREL BRANCH JR Comment on above: Order Comment: Speci men Type: BLOOD SPECIMENOrdering Facility: [facility] Address: [address] [place] [address] Performed By: #### T SPN ####[facility] BANKCLIA [id number] [id number] [address] [place] Start: 10-06-2024 INFLUENZA A&B MOLECU LAR (POC) [facility] Provider Start: 10-06-2024 STREP A MOLECULAR (POC) [facility] Provider Start: 09-30-2024 Antibody screen JEREL BRANCH JR Comment on above: Order Comment: Speci men Type: BLOOD SPECIMEN Ordering Facility: [facility] Address: [address] [place] [address] [place] [address] Performed By: #### T SPN #### [facility] CLIA [id number] [address] [place] [address] [place] Start: 09-20-2024 Us uterus l imited fetuses Rao Faithdestiny ARZATEGREEN MARKETING ANALYST Work Phone: Start: 09-02-2024 pelvic nonobstetr ic real-time image complete Constantino Gaines MD Work Phone: Start: 06-26-2024 Urnls dip stick/tabl et rgnt auto w/o microscopy [facility] Provider Foot structure (body structure) DENNIS GREENBERG DO Comment on above: More than 10 years a go Plan of Treatment Date Care Activity Detail Author Start: 02-18-2035 Urine microalbumin profile DTaP,Tdap,Td Vaccine (3 - Td or Tdap) [facility] Start: 02-10-2027 Screening for malign ant neoplasm of cervix Cervical Cancer Screening [facility] Start: 01-10-2027 Urine microalbumin profile DTaP,Tdap,Td Vaccine (2 - Td or Tdap) [facility] Start: 06-13-2025 End: 06-13-2025 Patient encounter procedure 06/13/2025 10:30 AM EDT Office Visit OB/Gynecology [address] [place] [address] Loren Lemus MD [address] [place] [id number] 6 week post OB/Gynecology Comment on above: 6 week post Start: 05-16-2025 End: 05-16-2025 Patient encounter procedure 05/16/2025 10:30 AM EDT Office Visit OB/Gynecology [address] [place] [address] Shabnam Wilson APRN.CNM [address] [place] [address] 2 week post OB/Gynecology Comment on above: 2 week post Start: 05-06-2025 End: 05-06-2025 Patient encounter procedure 05/06/2025 8:10 AM EDT Routine Office Visit OB/Gynecology [address] [place] [address] Mira Lewis MD [address] [place] [address] OB OB/Gynecology Comment on above: OB Start: 2025 End: 2025 Patient encounter procedure 2025 8:40 AM EDT Routine Office Visit OB/Gynecology [address] [place] [address] Sheree Michele MD [address] [place] [address] OB OB/Gynecology Comment on above: OB Start: 04-25-2025 Influenza vaccination C [facility] Start: 04-21-2025 End: 04-21-2025 Patient encounter procedure OB/Gynecology Comment on above: OB OB- please ask for f ax number for her FMLA Start: 04-15-2025 End: 04-15-2025 Patient encounter procedure 04/15/2025 8:00 AM EDT Routine Office Visit OB/Gynecology [address] [place] [address] Shabnam Wilson APRN.CNM [address] [place] [address] OB OB/Gynecology Comment on above: OB Start: 04-08-2025 End: 04-08-2025 Patient encounter procedure OB/Gynecology Comment on above: Growth/OB Growth Start: 03-25-2025 End: 03-25-2025 Patient encounter procedure 03/25/2025 8:00 AM EDT Routine Office Visit OB/Gynecology [address] [place] [address] Shabnam Wilson APRN.CN [address] [place] [address] OB OB/Gynecology Comment on above: OB Start: 03-10-2025 End: 03-10-2026 OBSTETRIC ULTRASOUND WHI OBSTETRIC ULTRASOUND WHI Anc Imaging Routine Encounter for supervision of normal first in third trimester (HCC) Uterine size date discrepancy , third trimester (HCC) Expected: 03/10/2025, Expires: 03/10/2026 [facility] Work Phone: Comment on above: Expected: 03/10/2025 , Expires: 03/10/2026 Start: 03-10-2025 End: 03-10-2025 Patient encounter procedure Maternal Medicine Comment on above: Growth Growth/OB Start: 03-04-2025 End: 02-18-2026 OBSTETRIC ULTRASOUND WHI OBSTETRIC ULTRASOUND WHI Anc Imaging Routine Uterine size date discrepancy , third trimester (HCC) Expected: 03/04/2025, Expires: 02/18/2026 [facility] Work Phone: Comment on above: Expected: 03/04/2025 , Expires: 02/18/2026 Start: 02-18-2025 End: 02-18-2025 Patient encounter procedure 02/18/2025 8:10 AM EDT Routine Office Visit OB/Gynecology [address] [place], [place] [id number] Mira Lewis MD [address] [place] [address] OB/ glucose OB/Gynecology Comment on above: OB/ glucose Start: 02-18-2025 End: 02-18-2025 ambulatory 02/18/2025 8:00 AM EDT Results Only [facility] [address] [place] [address] lab glucose [facility] Comment on above: lab glucose Start: 02-14-2025 End: 02-14-2025 Patient encounter procedure 02/14/2025 8:50 AM EDT Office Visit OB/Gynecology [address] [place] [address] Ascencion Kessler MD [address] [place] [address] Annual OB/Gynecology Comment on above: Annual Start: 01-20-2025 End: 04-21-2025 ANEMIA REFLEX PANEL ANEMIA REFLEX PANEL Lab Routine History of chronic hypertension Encounter for supervision of normal first in second trimester (HCC) Anxiety during (HCC) 24 weeks gestation of (HCC) Expected: 01/20/2025, Expires: 04/21/2025 [facility] Comment on above: Expected: 01/20/2025 , Expires: 04/21/2025 Start: 01-20-2025 End: 01-20-2026 GESTATIONAL GLUCOSE SCREEN, 1-HOUR, 50 GRAM, NON-FASTING GESTATIONAL GLUCOSE SCREEN, 1-HOUR, 50 GRAM, NON-FASTING Lab Routine History of chronic hypertension Encounter for supervision of normal first in second trimester (HCC) Anxiety during (HCC) 24 weeks gestation of (HCC) Screening for diabetes mellitus Expected: 01/20/2025, Expires: 01/20/2026 [facility] Work Phone: Comment on above: Expected: 01/20/2025 , Expires: 01/20/2026 Start: 01-20-2025 End: 01-20-2026 SYPHILIS TREPONEMAL W/REFLEX SYPHILIS TREPONEMAL W/REFLEX Lab Routine History of chronic hypertension Encounter for supervision of normal first in second trimester (HCC) Anxiety during (HCC) 24 weeks gestation of (HCC) Expected: 01/20/2025, Expires: 01/20/2026 [facility] Comment on above: Expected: 01/20/2025 , Expires: 01/20/2026 Start: 01-20-2025 End: 01-20-2025 Patient encounter procedure 01/20/2025 8:00 AM EDT Routine Office Visit OB/Gynecology [address] [place] [address] Destiney Schroeder APRN.CNM [address] [place] [address] OB Routine OB/Gynecology Comment on above: OB Routine Start: 12-23-2024 End: 12-23-2024 Patient encounter procedure Maternal Medicine Comment on above: Anatomy/OB Start: 11-25-2024 End: 11-25-2024 Patient encounter procedure 11/25/2024 8:00 AM EDT Routine Office Visit OB/Gynecology [address] [place] [address] Destiney Schroeder APRN.CNM [address] [place] [address] OB OB/Gynecology Comment on above: OB Start: 10-25-2024 End: 10-25-2024 Patient encounter procedure Maternal Medicine Comment on above: Nuchal OB Start: 10-18-2024 End: 10-18-2024 Patient encounter procedure 10/18/2024 8:00 AM EST Routine Office Visit OB/Gynecology [address] [place] [address] Ascencion Kessler MD [address] [place] [address] Weekly heart beat check (per Miriam) OB/Gynecology Comment on above: Weekly heart b eat check (per Miriam) Start: 10-13-2024 End: 10-13-2024 Patient encounter procedure 10/13/2024 8:00 AM EST Routine Office Visit OB/Gynecology [address] [place] [address] Ascencion Kessler MD [address] [place] [address] Weekly heart beat check (per Haury) OB/Gynecology Comment on above: Weekly heart b eat check (per Haury) Start: 09-20-2024 End: 12-20-2024 ANEMIA REFLEX PANEL ANEMIA REFLEX PANEL Lab Routine Encounter for supervision in primigravida, antepartum Less than 8 weeks gestation of Expected: 09/20/2024, Expires: 12/20/2024 [facility] Work Phone: Comment on above: Expected: 09/20/2024 , Expires: 12/20/2024 Start: 09-20-2024 End: 12-20-2024 Chromosome 21 trisomy [Presence] in Blood or Tissue by Cytogenetics [id number] PLUS Lab Routine Encounter for supervision in primigravida, antepartum Less than 8 weeks gestation of Expected: 09/20/2024, Expires: 12/20/2024 [facility] Comment on above: Expected: 09/20/2024 , Expires: 12/20/2024 Start: 09-20-2024 End: 12-20-2024 Hemoglobin A1c in Blood HEMOGLOBIN A1C Lab Routine Encounter for supervision in primigravida, antepartum Less than 8 weeks gestation of Expected: 09/20/2024, Expires: 12/20/2024 [facility] Comment on above: Expected: 09/20/2024 , Expires: 12/20/2024 Start: 09-20-2024 End: 12-20-2024 HEMOGLOBIN EVALUATION CASCADE HEMOGLOBIN EVALUATION CASCADE Lab Routine Encounter for supervision in primigravida, antepartum Less than 8 weeks gestation of Expected: 09/20/2024, Expires: 12/20/2024 [facility] Comment on above: Expected: 09/20/2024 , Expires: 12/20/2024 Start: 09-20-2024 End: 12-20-2024 Hepatitis B virus surface Ag [Presence] in Serum HEPATITIS B SURFACE ANTIGEN Lab Routine Encounter for supervision in primigravida, antepartum Less than 8 weeks gestation of Expected: 09/20/2024, Expires: 12/20/2024 [facility] Comment on above: Expected: 09/20/2024 , Expires: 12/20/2024 Start: 09-20-2024 End: 12-20-2024 Hepatitis C virus Ab [Presence] in Serum HEPATITIS C ANTIBODY IA WITH CONFIRMATION Lab Routine Encounter for supervision in primigravida, antepartum Less than 8 weeks gestation of Expected: 09/20/2024, Expires: 12/20/2024 [facility] Comment on above: Expected: 09/20/2024 , Expires: 12/20/2024 Start: 09-20-2024 End: 12-20-2024 HIV 1+2 Ab [Presence] in Serum or Plasma by Immunoassay HIV 1/2 COMBO WITH REFLEX TO DIFFERENTIATION Lab Routine Encounter for supervision in primigravida, antepartum Less than 8 weeks gestation of Expected: 09/20/2024, Expires: 12/20/2024 [facility] Comment on above: Expected: 09/20/2024 , Expires: 12/20/2024 Start: 09-20-2024 End: 09-20-2025 OBSTETRIC ULTRASOUND WHI OBSTETRIC ULTRASOUND WHI Anc Imaging Routine Encounter for supervision in primigravida, antepartum Less than 8 weeks gestation of Expected: 09/20/2024, Expires: 09/20/2025 [facility] Comment on above: Expected: 09/20/2024 , Expires: 09/20/2025 Start: 09-20-2024 End: 12-20-2024 RUBELLA IGG ANTIBODY RUBELLA IGG ANTIBODY Lab Routine Encounter for supervision in primigravida, antepartum Less than 8 weeks gestation of Expected: 09/20/2024, Expires: 12/20/2024 [facility] Comment on above: Expected: 09/20/2024 , Expires: 12/20/2024 Start: 09-20-2024 End: 12-20-2024 SYPHILIS TREPONEMAL W/REFLEX SYPHILIS TREPONEMAL W/REFLEX Lab Routine Encounter for supervision in primigravida, antepartum Less than 8 weeks gestation of Expected: 09/20/2024, Expires: 12/20/2024 [facility] Comment on above: Expected: 09/20/2024 , Expires: 12/20/2024 Start: 09-20-2024 End: 12-20-2024 TYPE + SCREEN TYPE + SCREEN Blood Bank Routine Encounter for supervision in primigravida, antepartum Less than 8 weeks gestation of Expected: 09/20/2024, Expires: 12/20/2024 [facility] Comment on above: Expected: 09/20/2024 , Expires: 12/20/2024 Start: 09-20-2024 End: 09-20-2024 Patient encounter procedure 09/20/2024 11:00 AM EST Initial Office Visit OB/Gynecology [address] [place] [address] Rao Pineda, ELECTRICAL ASSEMBLY SUPERVISOR.GREEN MARKETING ANALYST [address] [place] [address] initial ob appointment- lmp 07/21/24 OB/Gynecology Comment on above: initial ob appointme nt- lmp 07/21/24 Start: 09-09-2024 End: 09-09-2024 Patient encounter procedure 09/09/2024 11:00 AM EST Initial Office Visit OB/Gynecology [address] [place] [address] Rao Pineda, ELECTRICAL ASSEMBLY SUPERVISOR.GREEN MARKETING ANALYST [address] [place] [address] initial ob appointment- lmp 07/21/24 OB/Gynecology Comment on above: initial ob appointme nt- lmp 07/21/24 Start: 09-02-2024 End: 09-02-2024 Patient encounter procedure 09/02/2024 11:30 AM EST Office Visit OB/Gynecology [address] [place] [address] Lauren Pal MD [address] [place] [address] f/u ultrasound to r/o ectopic OB/Gynecology Comment on above: f/u ultrasound to r/ o ectopic Start: 09-02-2024 End: 09-02-2024 ambulatory 09/02/2024 11:00 AM EST Procedure OB/Gynecology [address] [place] [address] Remote, Pet Walker Wstr Mob Us [address] [place] [address] r/o ectopic OB/Gynecology Comment on above: r/o ectopic Start: 08-31-2024 End: 11-30-2024 CBC panel - Blood by Automated count COMPLETE BLOOD COUNT Lab Routine Threatened Expected: 08/31/2024, Expires: 11/30/2024 [facility] Comment on above: Expected: 08/31/2024 , Expires: 11/30/2024 Start: 08-31-2024 End: 11-30-2024 Comprehensive metabolic 2000 panel - Serum or Plasma COMPREHENSIVE METABOLIC PANEL Lab Routine Bleeding in early , location unknown Expected: 08/31/2024, Expires: 11/30/2024 [facility] Comment on above: Expected: 08/31/2024 , Expires: 11/30/2024 Start: 08-31-2024 End: 08-31-2025 US Pelvis PELVIC US [facility] Anc Imaging Routine Bleeding in early , location unknown Expected: 08/31/2024, Expires: 08/31/2025 [facility] Work Phone: Comment on above: Expected: 08/31/2024 , Expires: 08/31/2025 Start: 04-25-2024 Covid-19 Vaccine ( season) Covid-19 Vaccine () [facility] Start: 04-25-2024 Covid-19 Vaccine () Covid-19 Vaccine ( season) [facility] Start: 04-25-2024 Influenza vaccination C [facility] Start: 08-25-2023 Behavioral Health Screening Behavioral Health Screening [facility] Start: 2023 HPV Vaccine (1 - 3-d ose SCDM series) HPV Vaccine (1 - 3-dose SCDM series) [facility] Start: 04-25-2023 Covid-19 Vaccine () Covid-19 Vaccine () [facility] Start: 2017 Screening for malign ant neoplasm of cervix Cervical Cancer Screening [facility] Start: 2015 Hepatitis B Vaccine (1 of 3 - 19+ 3-dose series) Hepatitis B Vaccine (1 of 3 - 19+ 3-dose series) [facility] Start: 2014 Anxiety Screening Anxiety Screening [facility] Start: 2014 Depression Screening Depression Scre ening [facility] Start: 2014 Hepatitis C screening Hepatitis C Sc reening [facility] Start: 2014 HIV screening HIV Screening [facility] Bacteria identified in Urine by Culture URINE CULTURE Microbiology Routine Recurrent UTI (urinary tract infection) Ordered: 06/26/2024 [facility] Work Phone: Comment on above: Ordered: 06/26/2024 Bacteria identified in Urine by Culture BACTERIAL CULTURE, URINE Microbiology Routine Encounter for supervision in primigravida, antepartum Less than 8 weeks gestation of 09/20/2024 11:50 AM [facility] BACTERIAL VAGINOSIS NAAT BACTERIAL VAGINOSIS NAAT Lab Routine Spotting complicating , third trimester ([facility]) 02/18/2025 8:30 AM EDT [facility] MARY/TRICHOMONAS NAAT MARY/TRICHOMONAS NAAT Lab Routine Spotting complicating , third trimester ([facility]) 02/18/2025 8:30 AM EDT [facility] Chlamydia trachomatis+Neisseria gonorrhoeae DNA [Presence] in Unspecified specimen by RAYA with probe detection GONORRHEA/CHLAMYDIA NAAT Lab Routine Encounter for supervision in primigravida, antepartum Less than 8 weeks gestation of 09/20/2024 11:50 AM EST [facility] End: 09-10-2024 Choriogonadotropin.beta subunit [Units/volume] in Serum or Plasma HCG QUANTITATIVE Lab Routine Threatened 2x per week for 4 Occurrences starting 08/27/2024 until 09/10/2024, 1 completed [facility] Work Phone: Comment on above: 2x per week for 4 Oc currences starting 08/27/2024 until 09/10/2024, 1 completed COVID & INFLUENZA A/ B & RSV PCR, ROUTINE COVID & INFLUENZA A/B & RSV PCR, ROUTINE Microbiology Routine Viral upper respiratory tract infection with cough Influenza A Ordered: 10/06/2024 [facility] Work Phone: Comment on above: Ordered: 10/06/2024 PAP TEST PAP TEST Lab [place] Encounter for gynecological examination (general) (routine) without abnormal findings Screening for cervical cancer 02/11/2024 12:02 PM EDT [facility] Work Phone: ROUTINE, GR OUP B STREPTOCOCCUS BY PCR ROUTINE, GROUP B STREPTOCOCCUS BY PCR Microbiology Routine 36 weeks gestation of ([facility]) 04/08/2025 3:43 PM EDT [facility] Work Phone: URINE OB DIP B/O URINE OB DIP B/ O Lab Routine Encounter for supervision of normal first in third trimester ([facility]) History of chronic hypertension 37 weeks gestation of ([facility]) Ordered: 04/15/2025 [facility] Work Phone: Comment on above: Ordered: 04/15/2025 Immunizations Immunization Date Immunization Notes Care Provider Gustavo kline 02-18-2025 tetanus toxoid, redu ham diphtheria toxoid, and acellular pertussis vaccine, adsorbed Mira Lewis MD Work Phone: [facility] 04-23-2021 influenza virus vaccine, unspecified formulation SHABNAMYAHIR GILBERT ELECTRICAL ASSEMBLY SUPERVISOR-GREEN MARKETING ANALYST [facility] 01-03-2021 SARS-CoV-2 (COVID-19 ) mRNA-1273 vaccine SHABNAM OFELIA ELECTRICAL ASSEMBLY SUPERVISOR-GREEN MARKETING ANALYST [facility] Comment on above: Result Comment: 2021: TPVAL 12-06-2020 SARS-CoV-2 (COVID-19 ) mRNA-1273 vaccine SHABNAM OFELIA ELECTRICAL ASSEMBLY SUPERVISOR-GREEN MARKETING ANALYST [facility] Comment on above: Result Comment: 2021: TPVALL 04-10-2020 influenza virus vaccine, unspecified formulation SHABNAM OFELIA ELECTRICAL ASSEMBLY SUPERVISOR-GREEN MARKETING ANALYST [facility] 06-16-2019 influenza virus vaccine, unspecified formulation SHABNAM GILBERT ELECTRICAL ASSEMBLY SUPERVISOR-GREEN MARKETING ANALYST [facility] 04-09-2018 influenza virus vaccine, unspecified formulation SHABNAM GILBERT ELECTRICAL ASSEMBLY SUPERVISOR-GREEN MARKETING ANALYST [facility] 01-10-2017 tetanus toxoid, redu ham diphtheria toxoid, and acellular pertussis vaccine, adsorbed SHABNAM GILBERT ELECTRICAL ASSEMBLY SUPERVISOR-GREEN MARKETING ANALYST [facility] Payers Date Payer Category Payer Self-pay 2024 [employer] Blue [employer] BLUE CARD PPO OOS [id number] 2024 Unknown [id number] 2023 Unknown [id number] 2022 Unknown [id number] 2022 Unknown [id number] 1996 Unknown [id number] 1996 Unknown [id number] 1996 Unknown [id number] 1996 Unknown [id number] 1996 Unknown [id number] Unknown [id number] Social History Date Type Detail Facility Start: 01-09-2022 End: 02-11-2024 Tobacco smoking status Never smoked tobacco (finding) [facility] Start: 1995 Sex Assigned At Female A [facility] Start: 02-11-2024 Tobacco use and exposure Smokeless tobacco non-user [facility] Start: 02-11-2024 End: 09-02-2024 Alcohol intake Current drinker of alcohol (finding) [facility] Start: 02-11-2024 End: 09-02-2024 History of Social function [facility] Start: 02-11-2024 End: 09-02-2024 Tobacco use panel [facility] Start: 02-11-2024 Tobacco Comment smoking outside-pare nt [facility] Start: 02-11-2024 Alcohol Comment socially [facility] Start: 1995 [facility] 07-26-2012 National Score (1-10 0), lower number is lower risk 54 [facility] Start: 09-20-2024 End: 04-08-2025 Alcoholic beverage intake Ex-drinker (finding) [facility] Start: 08-13-2024 [facility] Start: 09-15-2024 Gender identity Identifies as female gender (finding) [facility] Start: 09-15-2024 Sexual orientation Heterosexual (dwaine higginbotham) [facility] Goals Date Patient Goal Desired Activity /State Personal health goal Clinical Notes 01-10-2022 to 2025 Quick Notes - Sheree Michele MD - 2025 8:42 AM EDTPrenatal Quick Notes - Sheree Michele MD - 2025 8:42 AM EDTPatient InstructionsPatient Instructions Note Date & Type Note Facility 2025 Progress note Formatting of t his note might be different from the original. DM-Pt doing well. Denies vaginal Bleeding, Leaking fluid, or regular Contractions. Pt reports good movement Physical Exam: Gen: female in no apparent distress Abd: soft, Gravid. Non tender to palpation. See flow sheet Participation of a fellow, resident, medical student, or advanced practice provider student in performing the sensitive examination was discussed with the patient or authorized customer account representative. The patient or authorized customer account representative has agreed to proceed with the sensitive examination. @ 38.6 weeks Assessment & Plan Encounter for supervision of normal first in third trimester ([facility]) Orders: URINE OB DIP B/O History of chronic hypertension BP well controlled. Orders: URINE OB DIP B/O Excessive growth affecting management of in third trimester, single or unspecified fetus ([facility]) Orders: URINE OB DIP B/O Anxiety during ([facility]) Orders: URINE OB DIP B/O 38 weeks gestation of ([facility]) IOL scheduled Kick counts and labor reviewed Sheree Crowder MD [facility] 2025 Miscellaneous Notes DM-Pt doing well. Denies vaginal Bleeding, Leaking fluid, or regular Contractions. Pt reports good movement Physical Exam: Gen: female in no apparent distress Abd: soft, Gravid. Non tender to palpation. See flow sheet Participation of a fellow, resident, medical student, or advanced practice provider student in performing the sensitive examination was discussed with the patient or authorized customer account representative. The patient or authorized customer account representative has agreed to proceed with the sensitive examination. @ 38.6 weeks Assessment & Plan Encounter for supervision of normal first in third trimester ([facility]) Orders: URINE OB DIP B/O History of chronic hypertension BP well controlled. Orders: URINE OB DIP B/O Excessive growth affecting management of in third trimester, single or unspecified fetus ([facility]) Orders: URINE OB DIP B/O Anxiety during ([facility]) Orders: URINE OB DIP B/O 38 weeks gestation of ([facility]) IOL scheduled Kick counts and labor reviewed Sheree Crowder MD documented in this encounter [facility] 2025 Instructions Ember Darden MA - 2025 8:31 AM EDT SEQUENTIAL SCREENINGS The [facility] offers sequential screenings for women who are interested in screenings for chromosomal abnormalities and certain defects during a . The sequential screen combines ultrasound and blood tests to determine the risk of chromosomal abnormalities, including Down's Syndrome (Trisomy 21) and Trisomy 18, as well as open neural tube defects including spina bifida. Ultrasound examination is performed between 11 weeks and 13 weeks gestational age. Blood tests are drawn after the ultrasound and again later in the between 15 and 21 weeks gestational age. Please let your physician know if you are interested in this testing. It will require an appointment with our morgue technician. This is not an ultrasound performed by a physician in our office during a routine visit. SIGNS AND SYMPTOMS OF LABOR 1. Contractions every 10 minutes or more often 2. Clear, pink, or brownish fluid (water) leaking from vagina 3. Feeling that baby is pushing down, pressure 4. Low, dull backache 5. Cramps that feel like a period 6. Cramps with or without diarrhea If you notice any of the above symptoms, contact our office at [phone] and ask to speak with a nurse. After hours, you can call doctors registry at [phone] OR call [facility] at [phone] and ask to have the doctor safety companion paged. If you consider this an emergency, dial 9-- or go to your nearest emergency department. NEED HELP? Are you dealing with a violent or abusive relationship? Are you a victim of rape or sexual assult? Call [facility] ([facility] 24 hour Crisis Hotline: 532.108.7664 or 759-355-4495. MANUAL Your Guide to a Healthy manual is now on-line. Visit [email or web address] [email or web address] to download your free copy documented in this encounter [facility] 04-21-2025 Progress note Formatting of t his note might be different from the original. S: Ki Delgado is a 29 year old female who presents at 37.6 weeks gestation for a routine visit. Positive movements. C/O occasional barry osman. Denies headache, visual changes, chest pain, shortness of breath, vaginal bleeding, leakage of fluid, or dysuria. Feeling well, no complaints. Requesting CE today. SENSITIVE EXAMINATION CONSENT: The sensitive examination was discussed with the Patient or Patient's Authorized Electric Accounting Machine Operator. As applicable, any other physician, advance practice provider, medical student, or other health professional student that will be observing or involved in the sensitive examination for educational or training purposes was discussed with the Patient or Authorized Electric Accounting Machine Operator. The Patient or Authorized Electric Accounting Machine Operator has agreed to proceed with the sensitive examination. O: See flow sheet Gen: No apparent distress Abd: Gravid, nontender CE / ASSESSMENT/PLAN: 1. Encounter for supervision of normal first in third trimester 2. Excessive growth affecting management of in third trimester 3. History of chronic hypertension 4. Anxiety during 5. 37 weeks gestation of - EFW 78%, AC 97% @ 36 weeks gestation - Hx of CHTN- no current medications - R/B/A to induction of labor reviewed with patient and and questions answered - IOL scheduled for 05/01/25 7pm with cytotec / schilling bulb - GBS negative - Labor precautions reviewed and when to call office - RTO 1 week or sooner if needed Destiney Schroeder APRN.CNM [facility] Work Phone: 04-21-2025 Miscellaneous Notes S: Ki Delgado is a 29 year old female who presents at 37.6 weeks gestation for a routine visit. Positive movements. C/O occasional barry osman. Denies headache, visual changes, chest pain, shortness of breath, vaginal bleeding, leakage of fluid, or dysuria. Feeling well, no complaints. Requesting CE today. SENSITIVE EXAMINATION CONSENT: The sensitive examination was discussed with the Patient or Patient's Authorized Electric Accounting Machine Operator. As applicable, any other physician, advance practice provider, medical student, or other health professional student that will be observing or involved in the sensitive examination for educational or training purposes was discussed with the Patient or Authorized Electric Accounting Machine Operator. The Patient or Authorized Electric Accounting Machine Operator has agreed to proceed with the sensitive examination. O: See flow sheet Gen: No apparent distress Abd: Gravid, nontender CE / ASSESSMENT/PLAN: 1. Encounter for supervision of normal first in third trimester 2. Excessive growth affecting management of in third trimester 3. History of chronic hypertension 4. Anxiety during 5. 37 weeks gestation of - EFW 78%, AC 97% @ 36 weeks gestation - Hx of CHTN- no current medications - R/B/A to induction of labor reviewed with patient and and questions answered - IOL scheduled for 05/01/25 7pm with cytotec / schilling bulb - GBS negative - Labor precautions reviewed and when to call office - RTO 1 week or sooner if needed Destiney Schroeder APRN.CNM documented in this encounter [facility] 04-21-2025 Instructions Ember Darden MA - 04/21/2025 7:46 AM EDT SEQUENTIAL SCREENINGS The [facility] offers sequential screenings for women who are interested in screenings for chromosomal abnormalities and certain defects during a . The sequential screen combines ultrasound and blood tests to determine the risk of chromosomal abnormalities, including Down's Syndrome (Trisomy 21) and Trisomy 18, as well as open neural tube defects including spina bifida. Ultrasound examination is performed between 11 weeks and 13 weeks gestational age. Blood tests are drawn after the ultrasound and again later in the between 15 and 21 weeks gestational age. Please let your physician know if you are interested in this testing. It will require an appointment with our morgue technician. This is not an ultrasound performed by a physician in our office during a routine visit. SIGNS AND SYMPTOMS OF LABOR 1. Contractions every 10 minutes or more often 2. Clear, pink, or brownish fluid (water) leaking from vagina 3. Feeling that baby is pushing down, pressure 4. Low, dull backache 5. Cramps that feel like a period 6. Cramps with or without diarrhea If you notice any of the above symptoms, contact our office at [phone] and ask to speak with a nurse. After hours, you can call doctors registry at [phone] OR call [facility] at [phone] and ask to have the doctor safety companion paged. If you consider this an emergency, dial 0-6-0 or go to your nearest emergency department. NEED HELP? Are you dealing with a violent or abusive relationship? Are you a victim of rape or sexual assult? Call [facility] ([place]) 24 hour Crisis Hotline: 478.950.3425 or 145-293-0105. MANUAL Your Guide to a Healthy manual is now on-line. Visit [email or web address] to download your free copy documented in this encounter [facility] 04-19-2025 Telephone encounter Note FMLA has been singed and faxed. Copy is placed into scanning folder. Lucrecia Sheppard MA [facility] 04-19-2025 Miscellaneous Notes FMLA has been singed and faxed. Copy is placed into scanning folder. Lucrecia Sheppard MA Received [facility] paperwork- will complete on working on forms for provider to sign. Lucrecia Sheppard MA documented in this encounter [facility] 04-15-2025 Progress note Formatting of t his note is different from the original. MELINA-S: Ki Delgado is a 29 year old female who presents at 37w0d with KAMERON: 05/06/2025, by Ultrasound for a routine visit. Denies headache, visual changes, chest pain, shortness of breath, vaginal bleeding, leakage of fluid, or dysuria. Feeling well, no complaints. O: See flow sheet Gen: No apparent distress Abd: Gravid, nontender S=D Growth at 36 wk The EFW is 3104 g, at the 78%. AC is at the 97%. MVP of 5.7 cm and RICHARD of 20 cm. GBS negative ASSESSMENT/PLAN: 1. Encounter for supervision of normal first in third trimester -Continue PNV and ASA 2. 37 weeks gestation of 3. Large for gestational age -Growth US at 36 weeks completed 4. History of chronic hypertension -Recommend IOL at 39 wk. Growth US at 36wk, no additional testing. Agreeable to IOL and would like 05/01 at 1900. Will discuss scheduling next visit 5. Anxiety during Labor instructions reviewed and when to call RTO in 1 weeks Shabnam Wilson APRN.CNM [facility] 04-15-2025 Miscellaneous Notes MELINA-S: Ki Delgado is a 29 year old female who presents at 37w0d with KAMERON: 05/06/2025, by Ultrasound for a routine visit. Denies headache, visual changes, chest pain, shortness of breath, vaginal bleeding, leakage of fluid, or dysuria. Feeling well, no complaints. O: See flow sheet Gen: No apparent distress Abd: Gravid, nontender S=D Growth at 36 wk The EFW is 3104 g, at the 78%. AC is at the 97%. MVP of 5.7 cm and RICHARD of 20 cm. GBS negative ASSESSMENT/PLAN: 1. Encounter for supervision of normal first in third trimester -Continue PNV and ASA 2. 37 weeks gestation of 3. Large for gestational age -Growth US at 36 weeks completed 4. History of chronic hypertension -Recommend IOL at 39 wk. Growth US at 36wk, no additional testing. Agreeable to IOL and would like 05/01 at 1900. Will discuss scheduling next visit 5. Anxiety during Labor instructions reviewed and when to call RTO in 1 weeks Shabnam Wilson APRN.CNM documented in this encounter [facility] 04-15-2025 Instructions Salima Marin MA - 04/15/2025 7:57 AM EDT SEQUENTIAL SCREENINGS The [facility] offers sequential screenings for women who are interested in screenings for chromosomal abnormalities and certain defects during a . The sequential screen combines ultrasound and blood tests to determine the risk of chromosomal abnormalities, including Down's Syndrome (Trisomy 21) and Trisomy 18, as well as open neural tube defects including spina bifida. Ultrasound examination is performed between 11 weeks and 13 weeks gestational age. Blood tests are drawn after the ultrasound and again later in the between 15 and 21 weeks gestational age. Please let your physician know if you are interested in this testing. It will require an appointment with our morgue technician. This is not an ultrasound performed by a physician in our office during a routine visit. SIGNS AND SYMPTOMS OF LABOR 1. Contractions every 10 minutes or more often 2. Clear, pink, or brownish fluid (water) leaking from vagina 3. Feeling that baby is pushing down, pressure 4. Low, dull backache 5. Cramps that feel like a period 6. Cramps with or without diarrhea If you notice any of the above symptoms, contact our office at [phone] and ask to speak with a nurse. After hours, you can call doctors registry at [phone] OR call [facility] at [phone] and ask to have the doctor safety companion paged. If you consider this an emergency, dial or go to your nearest emergency department. NEED HELP? Are you dealing with a violent or abusive relationship? Are you a victim of rape or sexual assult? Call [facility] ([facility] 24 hour Crisis Hotline: 639.605.8875 or 292-029-6694. MANUAL Your Guide to a Healthy manual is now on-line. Visit [email or web address] ncyGuide to download your free copy documented in this encounter [facility] 04-11-2025 Telephone encounter Note Received [facility] paperwork- will complete on working on forms for provider to sign. Lucrecia Sheppard MA [facility] 04-08-2025 Note Indication Evaluation of growth Discrepancy between uterine size and clinical dates Impression - Single, live, intrauterine . - presentation is cephalic. - The biometry is consistent with the assigned gestational dating. - The EFW is 3104 g, at the 78%. AC is at the 97%. This is consistent with macrosomia. She had a normal glucose test. - Amniotic fluid volume is normal amount with an MVP of 5.7 cm and RICHARD of 20 cm. - The placenta is posterior, fundal. - No malformations visualized on a limited survey as detailed below. Recommendations Additional follow-up as clinically indicated. Maternal Assessment Height 165 cm Height (ft) 5 ft Height (in) 5 in Physical Exam Initial weight (lb) 167 lb Initial BMI 27.79 kg/m Maternal assessment other: 1 Para 0 REMOTE READ Method Transabdominal ultrasound examination Love . Number of fetuses: 1 Dating LMP on: 07/21/2024 Cycle: regular cycle GA by LMP 37 w + 2 d KAMERON by LMP: 04/27/2025 GA by prior assessment 36 w + 0 d KAMERON by prior assessment: 05/06/2025 Ultrasound examination on: 04/08/2025 GA by U/S based upon: AC, BPD, Femur, HC GA by U/S 37 w + 1 d KAMERON by U/S: 2025 Assigned: based on stated KAMERON, selected on 12/23/2024 Assigned GA 36 w + 0 d Assigned KAMERON: 05/06/2025 General Evaluation Cardiac activity present. FHR 138 bpm. movements: present. Presentation: cephalic Placenta: Placental site: posterior, fundal Umbilical cord: Cord vessels: 3 vessel cord Amniotic fluid: Amount of AF: normal amount. MVP 5.7 cm. RICHARD 20.0 cm. Q1 5.6 cm, Q2 5.7 cm, Q3 4.0 cm, Q4 4.6 cm Growth Overview Exam date GA BPD (mm) HC (mm) AC (mm) FL (mm) HL (mm) EFW (g) 12/23/2024 20w 6d 49.9 59% 192.1 68% 174.3 87% 32.4 35% 33.1 59% 420 72% 03/10/2025 31w 6d 86.5 98% 315.1 90% 305.1 98% 58.6 24% 2201 86% 04/08/2025 36w 0d 93 94% 338.5 82% 342.1 97% 65.7 17% 3104 78% Biometry Standard BPD 93.0 mm 37w 6d 94% [place] OFD 118.1 mm -/- 76% Nicolaides HC 338.5 mm 38w 6d 82% Rayray AC 342.1 mm 38w 1d 97% [place] Femur 65.7 mm 33w 4d 17% Rayray EFW 3,104 g 37w 3d 78% [place] EFW (lb) 6 lb EFW (oz) 13 oz EFW by: [place] (HC-AC-FL) Extended Voice Over Announcer 5.0 mm Extremities / Bony Struc FL / HC 0.19 Other Structures FHR 138 bpm Anatomy Lateral ventricles: normal Cavum septi pellucidi: normal Cerebellum: normal Cisterna magna: normal 4-chamber view: normal RVOT view: normal LVOT view: normal 3-vessel view: normal Heart / Thorax Situs: situs solitus (normal) Diaphragm: normal Stomach: normal Kidneys: normal Bladder: normal sex: male Wants to know sex: yes Performed By: Rema Myers RDMS, RVT Read By: Anna Adame M.D. [facility] 04-08-2025 Progress note Formatting of t his note might be different from the original. S: Ki Delgado is a 29 year old female who presents at 05/06/2025, by Ultrasound for a routine visit. Denies headache, visual changes, chest pain, shortness of breath, vaginal bleeding, leakage of fluid, or dysuria. Feeling well, no complaints. Good movement, No contractions O: See flow sheet Gen: No apparent distress Abd: Gravid, nontender EFW today. US not performed yet IOL of labor expected at 39 weeks for CHTN GBS collected ASSESSMENT/PLAN: 1. 36 weeks gestation of ([facility]) - ICD9: V22.2, ICD10: Z3A.36 (primary diagnosis) - URINE OB DIP B/O - ROUTINE, GROUP B STREPTOCOCCUS BY PCR 2. Encounter for supervision of normal first in third trimester ([facility]) - ICD9: V22.0, ICD10: Z34.03 - URINE OB DIP B/O Mira Lewis MD [facility] 04-08-2025 Miscellaneous Notes S: Ki Delgado is a 29 year old female who presents at 05/06/2025, by Ultrasound for a routine visit. Denies headache, visual changes, chest pain, shortness of breath, vaginal bleeding, leakage of fluid, or dysuria. Feeling well, no complaints. Good movement, No contractions O: See flow sheet Gen: No apparent distress Abd: Gravid, nontender EFW today. US not performed yet IOL of labor expected at 39 weeks for CHTN GBS collected ASSESSMENT/PLAN: 1. 36 weeks gestation of ([facility]) - ICD9: V22.2, ICD10: Z3A.36 (primary diagnosis) - URINE OB DIP B/O - ROUTINE, GROUP B STREPTOCOCCUS BY PCR 2. Encounter for supervision of normal first in third trimester ([facility]) - ICD9: V22.0, ICD10: Z34.03 - URINE OB DIP B/O Mira Lewis MD documented in this encounter [facility] 04-08-2025 Instructions Salima Marin MA - 04/08/2025 3:20 PM EDT SEQUENTIAL SCREENINGS The [facility] offers sequential screenings for women who are interested in screenings for chromosomal abnormalities and certain defects during a . The sequential screen combines ultrasound and blood tests to determine the risk of chromosomal abnormalities, including Down's Syndrome (Trisomy 21) and Trisomy 18, as well as open neural tube defects including spina bifida. Ultrasound examination is performed between 11 weeks and 13 weeks gestational age. Blood tests are drawn after the ultrasound and again later in the between 15 and 21 weeks gestational age. Please let your physician know if you are interested in this testing. It will require an appointment with our morgue technician. This is not an ultrasound performed by a physician in our office during a routine visit. SIGNS AND SYMPTOMS OF LABOR 1. Contractions every 10 minutes or more often 2. Clear, pink, or brownish fluid (water) leaking from vagina 3. Feeling that baby is pushing down, pressure 4. Low, dull backache 5. Cramps that feel like a period 6. Cramps with or without diarrhea If you notice any of the above symptoms, contact our office at [phone] and ask to speak with a nurse. After hours, you can call doctors registry at [phone] OR call [facility] at [phone] and ask to have the doctor safety companion paged. If you consider this an emergency, dial 9--5 or go to your nearest emergency department. NEED HELP? Are you dealing with a violent or abusive relationship? Are you a victim of rape or sexual assult? Call [facility] ([place]) 24 hour Crisis Hotline: 448.476.4050 or 624-720-8535. MANUAL Your Guide to a Healthy manual is now on-line. Visit [email or web address] to download your free copy documented in this encounter [facility] 03-25-2025 Progress note Formatting of t his note might be different from the original. MELINA-S: Ki Delgado is a 29 year old female who presents at 34w0d with KAMERON: 05/06/2025, by Ultrasound for a routine visit. Denies headache, visual changes, chest pain, shortness of breath, vaginal bleeding, leakage of fluid, or dysuria. Feeling well, no complaints. O: See flow sheet Gen: No apparent distress Abd: Gravid, nontender Growth at 32 wk:The EFW is 2201 g, at the 86%. AC is at the 98% ASSESSMENT/PLAN: 1. Encounter for supervision of normal first in third trimester -Continue PNV and ASA -Handout given on perineal massage -GBS next visit -Rx given for breast pump 2. 34 weeks gestation of 3. Uterine size date discrepancy , third trimester -Growth US at 36wk 4. History of chronic hypertension -Discussed history of CHTN and still recommend IOL at 39 wk. Growth US at 36wk, no additional testing. Agreeable to IOL and would like 9/7 at 1900. Will discuss closer to 37wk 5. Anxiety during PTL precautions reviewed and when to call RTO in 2 weeks Shabnam Wilson APRN.CNM [facility] 03-25-2025 Miscellaneous Notes MELINA-S: Ki Delgado is a 29 year old female who presents at 34w0d with KAMERON: 05/06/2025, by Ultrasound for a routine visit. Denies headache, visual changes, chest pain, shortness of breath, vaginal bleeding, leakage of fluid, or dysuria. Feeling well, no complaints. O: See flow sheet Gen: No apparent distress Abd: Gravid, nontender Growth at 32 wk:The EFW is 2201 g, at the 86%. AC is at the 98% ASSESSMENT/PLAN: 1. Encounter for supervision of normal first in third trimester -Continue PNV and ASA -Handout given on perineal massage -GBS next visit -Rx given for breast pump 2. 34 weeks gestation of 3. Uterine size date discrepancy , third trimester -Growth US at 36wk 4. History of chronic hypertension -Discussed history of CHTN and still recommend IOL at 39 wk. Growth US at 36wk, no additional testing. Agreeable to IOL and would like 9/7 at 1900. Will discuss closer to 37wk 5. Anxiety during PTL precautions reviewed and when to call RTO in 2 weeks Shabnam Wilson APRN.CNM documented in this encounter [facility] 03-25-2025 Instructions Shabnam Wilson APRN.CNM - 03/25/2025 8:04 AM EDT Images from the original note were not included. What is my perineum? Your perineum is the area between your vaginal opening and your rectum. This area stretches when you give , and sometimes the perineum or vagina will tear as your baby is being born. If your health care provider cuts an episiotomy during your , it is this area that is cut. You may need stitches after your baby is born if you have a tear or have an episiotomy. How often do perineal tears occur? About 4 to 8 out of every 10 women who give vaginally will have some tear in their perineum. About two?thirds of these women will need some stitches. Is an episiotomy necessary? An episiotomy is not necessary for most women. Although they were common before the , they are rarely done today. However, sometimes your health care provider may recommend an episiotomy just as your baby is being born. For example, an episiotomy can help if your baby needs to be born very quickly. You can ask your health care provider to talk with you about episiotomy during a visit. Can my health care provider do anything to help me avoid a tear? There are many ways that your health care provider can help to reduce your chance of tearing. For example, your provider may: Apply a warm compress to the perineum just before the baby comes out Recommend specific positions for you to be in as you push Provide gentle downward pressure on the baby's head as your baby is coming out Ask that you push your baby out between contractions Avoid the use of forceps or a vacuum to help your baby be born Can I do anything before the to help me avoid a tear? Preventing a perineal tear that occurs during has been the subject of many research studies. Several studies have found that perineal massage during the last weeks of can reduce tearing at for women giving for the first time. This massage--using 2 fingers to stretch your perineal tissues--is performed by you, in your home, once or twice a week, for the last 4 to 6 weeks of your . The next page of this handout tells how to do this massage. For every 15 women who do perineal massage, one woman will avoid an episiotomy and perineal tearing that needs stitches. While you massage, you can practice relaxing the muscles in your perineum. This can help you prepare for the stretching, burning feeling you may have when your baby's head is born. Relaxing this area during can help prevent tearing. Does perineal massage in help all women? Massage seems to work better for some women than others. Women having their first baby, women who are 30 years or older, and women who have had episiotomies before have fewer tears and less severe tears when perineal massage is done during the last weeks of . Can my partner help? Yes! Many women find that it is easier to have their partners do this massage. See the instructions for perineal massage on the next page for more information. Are there any risks to perineal massage during ? Not that we know of. It is free. It doesn't hurt. It is easy to do. And most women don't mind doing it. However, you should not stretch the perineum until it hurts or massage too often, which can hurt the skin in that area. Do not do perineal massage more than once or twice a week. Women who do it more often do not have a lower risk of perineal tearing. Check with your health care provider before beginning perineal massage. And, if you believe your amniotic fluid (bag of dan) is leaking, check with your health care provider before putting anything in your vagina. Instructions for Perineal Massage During Wash your hands well, and make sure your fingernails are short. Relax in a private place where you can rest with your legs open and your knees bent. Some women like to lean on pillows for back support. Lubricate your thumbs and the perineal tissues. Use a lubricant such as vitamin E oil, coconut oil, almond oil, or any vegetable oil used for cooking--like olive oil. You may also try a water?soluble jelly, such as K?Y jelly, or your body's natural vaginal lubricant. Do not use baby oil, mineral oil, or petroleum jelly (Vaseline). Place your thumbs about 1 to 1.5 inches inside your vagina (see Figure 1). Press down (toward the anus) and to the sides until you feel a slight burning, stretching sensation. Hold that stretched position for 1 or 2 minutes. With your thumbs, slowly massage the lower half of the vagina using a U?shaped movement for 2 to 3 minutes at most. Concentrate on relaxing your muscles. This is a good time to practice slow, deep breathing techniques. Partners: If your partner is doing the perineal massage, follow the same basic instructions above. However, your partner should use his or her index fingers to do the massage (instead of thumbs). The same side?to?side, U?shaped, downward pressure method should be used. Good communication is important--be sure to tell your partner if you have too much pain or burning! Figure 1 1 Perineal Massage Fior Grade Level: 7.2 Approved August 2015. This handout replaces Perineal Massage in published in Volume 50, Issue 1, Aug/Sep 2004 SIGNS AND SYMPTOMS OF LABOR 1. Contractions every 10 minutes or more often 2. Clear, pink, or brownish fluid (water) leaking from vagina 3. Feeling that baby is pushing down, pressure 4. Low, dull backache 5. Cramps that feel like a period 6. Cramps with or without diarrhea If you notice any of the above symptoms, contact our office at [phone] and ask to speak with a nurse. After hours, you can call doctors registry at [phone] OR call [facility] at [phone] and ask to have the doctor safety companion paged. If you consider this an emergency, dial 9-1- or go to your nearest emergency department. NEED HELP? Are you dealing with a violent or abusive relationship? Are you a victim of rape or sexual assult? Call [facility] ([facility] 24 hour Crisis Hotline: 602.400.4524 or 432-227-1449. MANUAL Your Guide to a Healthy manual is now on-line. Visit [email or web address] to download your free copy documented in this encounter [facility] 03-10-2025 Note Indication Evaluation of growth Discrepancy between uterine size and clinical dates Impression - Single, live, intrauterine . - presentation is cephalic. - The biometry is consistent with the assigned gestational dating. - The EFW is 2201 g, at the 86%. AC is at the 98%. - The amniotic fluid volume is normal amount with an MVP of 5.8 cm and an RICHARD of 20.7 cm. - The placenta is posterior, fundal. - No malformations visualized on a limited survey as detailed below. Recommendations Additional follow-up as clinically indicated. Maternal Assessment Height 165 cm Height (ft) 5 ft Height (in) 5 in Physical Exam Initial weight (lb) 167 lb Initial BMI 27.79 kg/m Maternal assessment other: 1 Para 0 REMOTE READ Method Transabdominal ultrasound examination Love . Number of fetuses: 1 Dating LMP on: 07/21/2024 Cycle: regular cycle GA by LMP 33 w + 1 d KAMERON by LMP: 04/27/2025 GA by prior assessment 31 w + 6 d KAMERON by prior assessment: 05/06/2025 Ultrasound examination on: 03/10/2025 GA by U/S based upon: AC, BPD, Femur, HC GA by U/S 33 w + 4 d KAMERON by U/S: 04/24/2025 Assigned: based on stated KAMERON, selected on 12/23/2024 Assigned GA 31 w + 6 d Assigned KAMERON: 05/06/2025 General Evaluation Cardiac activity present. FHR 135 bpm. movements: present. Presentation: cephalic Placenta: Placental site: posterior, fundal Umbilical cord: Cord vessels: 3 vessel cord Amniotic fluid: Amount of AF: normal amount. MVP 5.8 cm. RICHARD 20.7 cm. Q1 5.0 cm, Q2 5.5 cm, Q3 5.8 cm, Q4 4.4 cm Growth Overview Exam date GA BPD (mm) HC (mm) AC (mm) FL (mm) HL (mm) EFW (g) 12/23/2024 20w 6d 49.9 59% 192.1 68% 174.3 87% 32.4 35% 33.1 59% 420 72% 03/10/2025 31w 6d 86.5 98% 315.1 90% 305.1 98% 58.6 24% 2201 86% Biometry Standard BPD 86.5 mm 34w 6d 98% [place] OFD 110.8 mm 33w 3d 84% Nicolaides HC 315.1 mm 34w 3d 90% Rayray AC 305.1 mm 34w 3d 98% [place] Femur 58.6 mm 30w 4d 24% Rayray EFW 2,201 g 33w 1d 86% [place] EFW (lb) 4 lb EFW (oz) 14 oz EFW by: [place] (HC-AC-FL) Extended Voice Over Announcer 5.0 mm Extremities / Bony Struc FL / HC 0.19 Other Structures FHR 135 bpm Anatomy Lateral ventricles: normal Cavum septi pellucidi: normal Cerebellum: normal Cisterna magna: normal 4-chamber view: normal RVOT view: normal LVOT view: normal 3-vessel view: normal Heart / Thorax Situs: situs solitus (normal) Diaphragm: normal Stomach: normal Kidneys: normal Bladder: normal sex: male Wants to know sex: yes Performed By: Rema Myers RDMS, RVT Read By: Eli Martinez M.D. [facility] 03-10-2025 Progress note Formatting of t his note might be different from the original. EH - S: Ki is a 29 year old female who presents at 31w6d for a routine visit. Feeling movement. Denies headache, visual changes, chest pain, shortness of breath, vaginal bleeding, leakage of fluid, or dysuria. Feeling well, no complaints. O: See flow sheet Gen: No apparent distress Abd: Gravid, nontender, 38 lb TWG ASSESSMENT/PLAN: 1. Encounter for supervision of normal first in third trimester ([facility]) - ICD9: V22.0, ICD10: Z34.03 (primary diagnosis) - Continue PNV and LDA 2. 31 weeks gestation of ([facility]) - ICD9: V22.2, ICD10: Z3A.31 - Hemoglobin 10.6 on 02/18 - Repeat CBC next visit 3. Uterine size date discrepancy , third trimester ([facility]) - ICD9: 649.63, ICD10: O26.843 - Growth today, report pending 4. Anxiety during ([facility]) - ICD9: 648.43, 300.00, ICD10: O99.340, F41.9 - Mood stable since second trimester PTL precautions and kick counts reviewed. RTO in 2 weeks or sooner as needed. Rao Pineda APRN.MARCUS [facility] 03-10-2025 Miscellaneous Notes EH - S: Ki is a 29 year old female who presents at 31w6d for a routine visit. Feeling movement. Denies headache, visual changes, chest pain, shortness of breath, vaginal bleeding, leakage of fluid, or dysuria. Feeling well, no complaints. O: See flow sheet Gen: No apparent distress Abd: Gravid, nontender, 38 lb TWG ASSESSMENT/PLAN: 1. Encounter for supervision of normal first in third trimester ([facility]) - ICD9: V22.0, ICD10: Z34.03 (primary diagnosis) - Continue PNV and LDA 2. 31 weeks gestation of ([facility]) - ICD9: V22.2, ICD10: Z3A.31 - Hemoglobin 10.6 on 02/18 - Repeat CBC next visit 3. Uterine size date discrepancy , third trimester ([facility]) - ICD9: 649.63, ICD10: O26.843 - Growth today, report pending 4. Anxiety during ([facility]) - ICD9: 648.43, 300.00, ICD10: O99.340, F41.9 - Mood stable since second trimester PTL precautions and kick counts reviewed. RTO in 2 weeks or sooner as needed. Rao Pineda APRN.MARCUS documented in this encounter [facility] 03-10-2025 Instructions Lucrecia Sheppard MA - 03/10/2025 9:01 AM EDT SEQUENTIAL SCREENINGS The [facility] offers sequential screenings for women who are interested in screenings for chromosomal abnormalities and certain defects during a . The sequential screen combines ultrasound and blood tests to determine the risk of chromosomal abnormalities, including Down's Syndrome (Trisomy 21) and Trisomy 18, as well as open neural tube defects including spina bifida. Ultrasound examination is performed between 11 weeks and 13 weeks gestational age. Blood tests are drawn after the ultrasound and again later in the between 15 and 21 weeks gestational age. Please let your physician know if you are interested in this testing. It will require an appointment with our morgue technician. This is not an ultrasound performed by a physician in our office during a routine visit. SIGNS AND SYMPTOMS OF LABOR 1. Contractions every 10 minutes or more often 2. Clear, pink, or brownish fluid (water) leaking from vagina 3. Feeling that baby is pushing down, pressure 4. Low, dull backache 5. Cramps that feel like a period 6. Cramps with or without diarrhea If you notice any of the above symptoms, contact our office at [phone] and ask to speak with a nurse. After hours, you can call doctors registry at [phone] OR call [facility] at [phone] and ask to have the doctor safety companion paged. If you consider this an emergency, dial 1-7-6 or go to your nearest emergency department. NEED HELP? Are you dealing with a violent or abusive relationship? Are you a victim of rape or sexual assult? Call [facility] ([place]) 24 hour Crisis Hotline: 690.514.5050 or 206-319-2627. MANUAL Your Guide to a Healthy manual is now on-line. Visit [email or web address] to download your free copy documented in this encounter [facility] 02-18-2025 Progress note Formatting of t his note might be different from the original. S: Ki Delgado is a 29 year old female who presents at 05/06/2025, by Ultrasound for a routine visit. Denies headache, visual changes, chest pain, shortness of breath, vaginal bleeding, leakage of fluid, or dysuria. Feeling well, no complaints. Good movement, No contractions O: See flow sheet Gen: No apparent distress Abd: Gravid, nontender SENSITIVE EXAMINATION CONSENT: The sensitive examination was discussed with the Patient or Patient's Authorized Electric Accounting Machine Operator. As applicable, any other physician, advance practice provider, medical student, or other health professional student that will be observing or involved in the sensitive examination for educational or training purposes was discussed with the Patient or Authorized Electric Accounting Machine Operator. The Patient or Authorized Electric Accounting Machine Operator has agreed to proceed with the sensitive examination. Copious vaginal discharge. Cervix friable Declined LARC TDAP today GCT today S>D by 2 weeks. Growth at 32 weeks Family hx 12lb baby recently ASSESSMENT/PLAN: 1. 29 weeks gestation of ([facility]) - ICD9: V22.2, ICD10: Z3A.29 (primary diagnosis) 2. Encounter for supervision of normal first in second trimester ([facility]) - ICD9: V22.0, ICD10: Z34.02 3. Need for vaccination - ICD9: V05.9, ICD10: Z23 TDAp 4. Spotting complicating , third trimester ([facility]) - ICD9: 649.53, ICD10: O26.853 - BACTERIAL VAGINOSIS NAAT - MARY/TRICHOMONAS NAAT 5. Uterine size date discrepancy , third trimester ([facility]) - ICD9: 649.63, ICD10: O26.843 - OBSTETRIC ULTRASOUND WHI Mira Lewis MD [facility] 02-18-2025 Miscellaneous Notes S: Ki Delgado is a 29 year old female who presents at 05/06/2025, by Ultrasound for a routine visit. Denies headache, visual changes, chest pain, shortness of breath, vaginal bleeding, leakage of fluid, or dysuria. Feeling well, no complaints. Good movement, No contractions O: See flow sheet Gen: No apparent distress Abd: Gravid, nontender SENSITIVE EXAMINATION CONSENT: The sensitive examination was discussed with the Patient or Patient's Authorized Electric Accounting Machine Operator. As applicable, any other physician, advance practice provider, medical student, or other health professional student that will be observing or involved in the sensitive examination for educational or training purposes was discussed with the Patient or Authorized Electric Accounting Machine Operator. The Patient or Authorized Electric Accounting Machine Operator has agreed to proceed with the sensitive examination. Copious vaginal discharge. Cervix friable Declined LARC TDAP today GCT today S>D by 2 weeks. Growth at 32 weeks Family hx 12lb baby recently ASSESSMENT/PLAN: 1. 29 weeks gestation of ([facility]) - ICD9: V22.2, ICD10: Z3A.29 (primary diagnosis) 2. Encounter for supervision of normal first in second trimester ([facility]) - ICD9: V22.0, ICD10: Z34.02 3. Need for vaccination - ICD9: V05.9, ICD10: Z23 TDAp 4. Spotting complicating , third trimester ([facility]) - ICD9: 649.53, ICD10: O26.853 - BACTERIAL VAGINOSIS NAAT - MARY/TRICHOMONAS NAAT 5. Uterine size date discrepancy , third trimester ([facility]) - ICD9: 649.63, ICD10: O26.843 - OBSTETRIC ULTRASOUND WHI Mira Lewis MD documented in this encounter [facility] 02-18-2025 Note HNO ID: [id number] Author: ASHA CASTRO MA Service: ? Author Type: Deli Department Manager Type: Progress Notes Filed: 02/18/2025 08:47 Note Text: Patient identified by name and date of . Ki Delgado presents today for a vaccination of Tdap. Patient denies an allergy to latex: yes Patient denies a severe (life-threatening) allergy to a previous dose of Tdap, DTP, DTaP, DT or Td vaccine. Yes Patient denies history of epilepsy or neurological problems: Yes Patient is afebrile and denies being moderately or severely ill: Yes Patient denies history of Guillain-[place] Syndrome (a severe paralytic illness): Yes Tdap Adacel injection was given without incident. See immunizations for details of immunizations administered today. VIS sheet provided: Yes Provider Mira Lewis MD was present in office at time of injection. Asha Castro MA [facility] 02-18-2025 History of Present illness Narrative Patient identified by name and date of . Ki Delgado presents today for a vaccination of Tdap. Patient denies an allergy to latex: yes Patient denies a severe (life-threatening) allergy to a previous dose of Tdap, DTP, DTaP, DT or Td vaccine. Yes Patient denies history of epilepsy or neurological problems: Yes Patient is afebrile and denies being moderately or severely ill: Yes Patient denies history of Guillain-[place] Syndrome (a severe paralytic illness): Yes Tdap Adacel injection was given without incident. See immunizations for details of immunizations administered today. VIS sheet provided: Yes Provider Mira Lewis MD was present in office at time of injection. Asha Castro MA documented in this encounter [facility] 02-18-2025 Instructions Ahsa Castro MA - 02/18/2025 8:09 AM EDT SEQUENTIAL SCREENINGS The [facility] offers sequential screenings for women who are interested in screenings for chromosomal abnormalities and certain defects during a . The sequential screen combines ultrasound and blood tests to determine the risk of chromosomal abnormalities, including Down's Syndrome (Trisomy 21) and Trisomy 18, as well as open neural tube defects including spina bifida. Ultrasound examination is performed between 11 weeks and 13 weeks gestational age. Blood tests are drawn after the ultrasound and again later in the between 15 and 21 weeks gestational age. Please let your physician know if you are interested in this testing. It will require an appointment with our morgue technician. This is not an ultrasound performed by a physician in our office during a routine visit. SIGNS AND SYMPTOMS OF LABOR 1. Contractions every 10 minutes or more often 2. Clear, pink, or brownish fluid (water) leaking from vagina 3. Feeling that baby is pushing down, pressure 4. Low, dull backache 5. Cramps that feel like a period 6. Cramps with or without diarrhea If you notice any of the above symptoms, contact our office at [phone] and ask to speak with a nurse. After hours, you can call doctors registry at [phone] OR call [facility] at [phone] and ask to have the doctor safety companion paged. If you consider this an emergency, dial 9-1- or go to your nearest emergency department. NEED HELP? Are you dealing with a violent or abusive relationship? Are you a victim of rape or sexual assult? Call [facility] ([place]) 24 hour Crisis Hotline: 733.181.2911 or 295-019-5139. MANUAL Your Guide to a Healthy manual is now on-line. Visit [email or web address] to download your free copy documented in this encounter [facility] 01-20-2025 Progress note Formatting of t his note might be different from the original. S: Ki Delgado is a 29 year old female who presents at 24 weeks gestation for a routine visit. Positive movements. Denies headache, visual changes, chest pain, shortness of breath, vaginal bleeding, leakage of fluid, or dysuria. Feeling well, no complaints. O: See flow sheet Gen: No apparent distress Abd: Gravid, non tender S=D, measuring 2 weeks ahead ASSESSMENT/PLAN: 1. History of chronic hypertension 2. Encounter for supervision of normal first in second trimester 3. Anxiety during 4. 24 weeks gestation of 5. Screening for diabetes mellitus - HTN [id number]- took metoprolol - lost over 100 lbs.and blood pressures normal - Anxiety decreased - Measuring 2 weeks ahead- watch growth - Concern over weight gain- discussed diet- no meal skipping or dieting- reviewed decreasing sugar/carb - Reviewed GCT process for next visit - RTO 4 weeks or sooner Destiney Schroeder APRN.CNM [facility] Work Phone: 01-20-2025 Miscellaneous Notes S: Ki Delgado is a 29 year old female who presents at 24 weeks gestation for a routine visit. Positive movements. Denies headache, visual changes, chest pain, shortness of breath, vaginal bleeding, leakage of fluid, or dysuria. Feeling well, no complaints. O: See flow sheet Gen: No apparent distress Abd: Gravid, non tender S=D, measuring 2 weeks ahead ASSESSMENT/PLAN: 1. History of chronic hypertension 2. Encounter for supervision of normal first in second trimester 3. Anxiety during 4. 24 weeks gestation of 5. Screening for diabetes mellitus - HTN - took metoprolol - lost over 100 lbs.and blood pressures normal - Anxiety decreased - Measuring 2 weeks ahead- watch growth - Concern over weight gain- discussed diet- no meal skipping or dieting- reviewed decreasing sugar/carb - Reviewed GCT process for next visit - RTO 4 weeks or sooner Destiney Schroeder APRN.CNM documented in this encounter [facility] 01-20-2025 Instructions Crescencio Nicholas MA - 01/20/2025 7:54 AM EDT SEQUENTIAL SCREENINGS The [facility] offers sequential screenings for women who are interested in screenings for chromosomal abnormalities and certain defects during a . The sequential screen combines ultrasound and blood tests to determine the risk of chromosomal abnormalities, including Down's Syndrome (Trisomy 21) and Trisomy 18, as well as open neural tube defects including spina bifida. Ultrasound examination is performed between 11 weeks and 13 weeks gestational age. Blood tests are drawn after the ultrasound and again later in the between 15 and 21 weeks gestational age. Please let your physician know if you are interested in this testing. It will require an appointment with our morgue technician. This is not an ultrasound performed by a physician in our office during a routine visit. SIGNS AND SYMPTOMS OF LABOR 1. Contractions every 10 minutes or more often 2. Clear, pink, or brownish fluid (water) leaking from vagina 3. Feeling that baby is pushing down, pressure 4. Low, dull backache 5. Cramps that feel like a period 6. Cramps with or without diarrhea If you notice any of the above symptoms, contact our office at [phone] and ask to speak with a nurse. After hours, you can call doctors registry at [phone] OR call [facility] at [phone] and ask to have the doctor safety companion paged. If you consider this an emergency, dial or go to your nearest emergency department. NEED HELP? Are you dealing with a violent or abusive relationship? Are you a victim of rape or sexual assult? Call [facility] ([place]) 24 hour Crisis Hotline: 411.488.1527 or 544-051-9875. MANUAL Your Guide to a Healthy manual is now on-line. Visit [email or web address] [email or web address] to download your free copy documented in this encounter [facility] 12-23-2024 Progress note Formatting of t his note might be different from the original. RR_ Doing well overall. Taking PNV. ASA prophylaxis- cont. Anatomy US done today. F/u in 4 weeks or prn. Constantino Gaines MD [facility] 12-23-2024 Miscellaneous Notes RR_ Doing well overall. Taking PNV. ASA prophylaxis- cont. Anatomy US done today. F/u in 4 weeks or prn. Constantino Gaines MD documented in this encounter [facility] 12-23-2024 Instructions Salima Marin MA - 12/23/2024 8:30 AM EDT SEQUENTIAL SCREENINGS The [facility] offers sequential screenings for women who are interested in screenings for chromosomal abnormalities and certain defects during a . The sequential screen combines ultrasound and blood tests to determine the risk of chromosomal abnormalities, including Down's Syndrome (Trisomy 21) and Trisomy 18, as well as open neural tube defects including spina bifida. Ultrasound examination is performed between 11 weeks and 13 weeks gestational age. Blood tests are drawn after the ultrasound and again later in the between 15 and 21 weeks gestational age. Please let your physician know if you are interested in this testing. It will require an appointment with our morgue technician. This is not an ultrasound performed by a physician in our office during a routine visit. SIGNS AND SYMPTOMS OF LABOR 1. Contractions every 10 minutes or more often 2. Clear, pink, or brownish fluid (water) leaking from vagina 3. Feeling that baby is pushing down, pressure 4. Low, dull backache 5. Cramps that feel like a period 6. Cramps with or without diarrhea If you notice any of the above symptoms, contact our office at [phone] and ask to speak with a nurse. After hours, you can call doctors registry at [phone] OR call [facility] at [phone] and ask to have the doctor safety companion paged. If you consider this an emergency, dial 9-1-3 or go to your nearest emergency department. NEED HELP? Are you dealing with a violent or abusive relationship? Are you a victim of rape or sexual assult? Call [facility] ([place]) 24 hour Crisis Hotline: 673.795.4209 or 104-812-0349. MANUAL Your Guide to a Healthy manual is now on-line. Visit [email or web address] to download your free copy documented in this encounter [facility] 11-25-2024 Progress note Formatting of t his note might be different from the original. S: Ki Delgado is a 29 year old female who presents at 16 weeks gestation for a routine visit. Unsure if feeling flutters yet. Denies headache, visual changes, chest pain, shortness of breath, vaginal bleeding, leakage of fluid, or dysuria. Concerned over weight gain. Stated she is eating healthy ie mostly vegetables, fruits and some meats. No excessive sweets. Declines meal skipping or dieting. Discussed trial of food logs and decreasing carbohydrate intake. O: See flow sheet Gen: No apparent distress Abd: Gravid, non tender S=D, 23 lb TWG ASSESSMENT/PLAN: 1. 16 weeks gestation of 2. Anxiety during 3. Encounter for supervision in primigravida, antepartum - Decrease carbohydrate intake - Log food - No dieting - RTO 4 weeks for anatomy US and ANNABELLE Schroeder APRN.CNM [facility] 11-25-2024 Miscellaneous Notes S: Ki Delgado is a 29 year old female who presents at 16 weeks gestation for a routine visit. Unsure if feeling flutters yet. Denies headache, visual changes, chest pain, shortness of breath, vaginal bleeding, leakage of fluid, or dysuria. Concerned over weight gain. Stated she is eating healthy ie mostly vegetables, fruits and some meats. No excessive sweets. Declines meal skipping or dieting. Discussed trial of food logs and decreasing carbohydrate intake. O: See flow sheet Gen: No apparent distress Abd: Gravid, non tender S=D, 23 lb TWG ASSESSMENT/PLAN: 1. 16 weeks gestation of 2. Anxiety during 3. Encounter for supervision in primigravida, antepartum - Decrease carbohydrate intake - Log food - No dieting - RTO 4 weeks for anatomy and ANNABELLE Schroeder APRN.CNM documented in this encounter [facility] 11-04-2024 Telephone encounter Note Agree with plan of care. Destiney Schroeder APRN.CNM [facility] 11-04-2024 Miscellaneous Notes Agree with plan of care. Destiney Schroeder APRN.CNM 13w5d Calling because she had abnormal discharge for her. Was more like a clear mucous like consistency. States it occurred once so far and was about the size of a nickel. No vaginal itching, irritation, odor, bleeding or cramping. Advised to continue to monitor discharge and call with if any of those symptoms or new s/s occur to call for an appointment. Only call with further advice. Nicole Simpson RN documented in this encounter [facility] 11-03-2024 Telephone encounter Note 13w5d Calling because she had abnormal discharge for her. Was more like a clear mucous like consistency. States it occurred once so far and was about the size of a nickel. No vaginal itching, irritation, odor, bleeding or cramping. Advised to continue to monitor discharge and call with if any of those symptoms or new s/s occur to call for an appointment. Only call with further advice. Nicole Simpson RN [facility] 10-25-2024 Progress note Formatting of t his note might be different from the original. S: Ki Delgado is a 29 year old female who presents at 12 weeks gestation for a routine visit. Just completed 1st trimester ultrasound. Has already completed labs and MaterniT 21. Denies headache, visual changes, chest pain, shortness of breath, vaginal bleeding, leakage of fluid, or dysuria. Feeling well, no complaints. O: See flow sheet Gen: No apparent distress Abd: Gravid, non tender ASSESSMENT/PLAN: 1. 12 weeks gestation of - ICD9: V22.2, ICD10: Z3A.12 (primary diagnosis) 2. Encounter for supervision in primigravida, antepartum 3. Anxiety during - Continue vitamin - Start ASA daily - RTO 4 weeks- discussed if feeling anxiety and wants to hear FHT with doppler to call office Destiney Schroeder APRN.CNM [facility] 10-25-2024 Miscellaneous Notes S: Ki Delgado is a 29 year old female who presents at 12 weeks gestation for a routine visit. Just completed 1st trimester ultrasound. Has already completed labs and MaterniT 21. Denies headache, visual changes, chest pain, shortness of breath, vaginal bleeding, leakage of fluid, or dysuria. Feeling well, no complaints. O: See flow sheet Gen: No apparent distress Abd: Gravid, non tender ASSESSMENT/PLAN: 1. 12 weeks gestation of - ICD9: V22.2, ICD10: Z3A.12 (primary diagnosis) 2. Encounter for supervision in primigravida, antepartum 3. Anxiety during - Continue vitamin - Start ASA daily - RTO 4 weeks- discussed if feeling anxiety and wants to hear FHT with doppler to call office Destiney Schroeder APRN.CNM documented in this encounter [facility] 10-25-2024 Instructions Asha Castro MA - 10/25/2024 11:23 AM EST SEQUENTIAL SCREENINGS The [facility] offers sequential screenings for women who are interested in screenings for chromosomal abnormalities and certain defects during a . The sequential screen combines ultrasound and blood tests to determine the risk of chromosomal abnormalities, including Down's Syndrome (Trisomy 21) and Trisomy 18, as well as open neural tube defects including spina bifida. Ultrasound examination is performed between 11 weeks and 13 weeks gestational age. Blood tests are drawn after the ultrasound and again later in the between 15 and 21 weeks gestational age. Please let your physician know if you are interested in this testing. It will require an appointment with our morgue technician. This is not an ultrasound performed by a physician in our office during a routine visit. SIGNS AND SYMPTOMS OF LABOR 1. Contractions every 10 minutes or more often 2. Clear, pink, or brownish fluid (water) leaking from vagina 3. Feeling that baby is pushing down, pressure 4. Low, dull backache 5. Cramps that feel like a period 6. Cramps with or without diarrhea If you notice any of the above symptoms, contact our office at [phone] and ask to speak with a nurse. After hours, you can call doctors registry at [phone] OR call [facility] at [phone] and ask to have the doctor safety companion paged. If you consider this an emergency, dial 9-1-1 or go to your nearest emergency department. NEED HELP? Are you dealing with a violent or abusive relationship? Are you a victim of rape or sexual assult? Call [facility] ([facility] 24 hour Crisis Hotline: 233.859.1254 or 016-333-1923. MANUAL Your Guide to a Healthy manual is now on-line. Visit [email or web address] [email or web address] to download your free copy documented in this encounter [facility] 10-11-2024 Instructions Dm Rodriguez MA - 10/11/2024 7:37 AM EST SEQUENTIAL SCREENINGS The [facility] offers sequential screenings for women who are interested in screenings for chromosomal abnormalities and certain defects during a . The sequential screen combines ultrasound and blood tests to determine the risk of chromosomal abnormalities, including Down's Syndrome (Trisomy 21) and Trisomy 18, as well as open neural tube defects including spina bifida. Ultrasound examination is performed between 11 weeks and 13 weeks gestational age. Blood tests are drawn after the ultrasound and again later in the between 15 and 21 weeks gestational age. Please let your physician know if you are interested in this testing. It will require an appointment with our morgue technician. This is not an ultrasound performed by a physician in our office during a routine visit. SIGNS AND SYMPTOMS OF LABOR 1. Contractions every 10 minutes or more often 2. Clear, pink, or brownish fluid (water) leaking from vagina 3. Feeling that baby is pushing down, pressure 4. Low, dull backache 5. Cramps that feel like a period 6. Cramps with or without diarrhea If you notice any of the above symptoms, contact our office at [phone] and ask to speak with a nurse. After hours, you can call doctors registry at [phone] OR call [facility] at [phone] and ask to have the doctor safety companion paged. If you consider this an emergency, dial [phone]- or go to your nearest emergency department. NEED HELP? Are you dealing with a violent or abusive relationship? Are you a victim of rape or sexual assult? Call [facility] ([place]) 24 hour Crisis Hotline: 311.552.1039 or 001-943-9449. MANUAL Your Guide to a Healthy manual is now on-line. Visit [email or web address] [email or web address] to download your free copy documented in this encounter [facility] 10-11-2024 Progress note Formatting of t his note might be different from the original. EH - S: Ki is a 29 year old female who presents at 10w3d for a routine visit. O: See flow sheet Gen: No apparent distress Abd: Gravid, nontender ASSESSMENT/PLAN: 1. Encounter for supervision in primigravida, antepartum - ICD9: V22.0, ICD10: Z34.00 (primary diagnosis) - [facility] [place] [facility] 2. 10 weeks gestation of - ICD9: V22.2, ICD10: Z3A.10 - labs ordered 3. Influenza A - ICD9: 487.1, ICD10: J10.1 - Feeling better, most symptoms resolved 4. Anxiety during - ICD9: 648.43, 300.00, ICD10: O99.340, F41.9 - Reports that the flu did increase anxiety - Continue to monitor throughout RTO for NT ultrasound and OB visit or sooner as needed. Rao Pineda APRN.MARCUS [facility] 10-11-2024 Miscellaneous Notes EH - S: Ki is a 29 year old female who presents at 10w3d for a routine visit. O: See flow sheet Gen: No apparent distress Abd: Gravid, nontender ASSESSMENT/PLAN: 1. Encounter for supervision in primigravida, antepartum - ICD9: V22.0, ICD10: Z34.00 (primary diagnosis) - Leaving for [place] [facility] next week 2. 10 weeks gestation of - ICD9: V22.2, ICD10: Z3A.10 - labs ordered 3. Influenza A - ICD9: 487.1, ICD10: J10.1 - Feeling better, most symptoms resolved 4. Anxiety during - ICD9: 648.43, 300.00, ICD10: O99.340, F41.9 - Reports that the flu did increase anxiety - Continue to monitor throughout RTO for NT ultrasound and OB visit or sooner as needed. Rao Pineda APRN.CNP documented in this encounter [facility] 10-06-2024 Telephone encounter Note Sent [facility] 10-06-2024 Miscellaneous Notes Sent Ki is calling Margarita Almaguer APRN.CNP today to request the RX sent to pharmacy today be sent to a different pharmacy as they do not have Tamiflu in stock at [facility] Pleases send to [facility] for patient Patient has been identified by name and birthdate. Duration of symptoms: today Person calling: self Call patient at: at home [phone] (home) [phone] (cell) Was an appointment scheduled: No Closing statement: Medication not in stock at [facility] documented in this encounter [facility] 10-06-2024 Telephone encounter Note Patient notified. Nicole Simpson RN [facility] 10-06-2024 Miscellaneous Notes Patient notified. Nicole Simpson RN Left message to call office. Rema Parson RN Agree with plan. Hope she feels better! Continue to push fluids and try to stay nourished with small frequent protein filled meals. Rao Pineda APRN.MARCUS 9w5d Patient called back in and was positive for influenza A. She was seen in [facility] today. Her symptoms started yesterday. She was prescribed Tamiflu. She plans to go home rest, push fluids/electrolytes, tylenol as needed. Safe meds previously sent to her to refer to. Next OB visit 10/13/24. Will f/u with PCP or express care with prolonged/worsening symptoms. Asking if there are any other recommendations. Nicole Simpson RN 9w5d Calling c/o chest congestion and worsening cough. Asking what to do. Advised to go to PCP or urgent care for evaluation and call with update if tested positive for any illness. Message sent with safe medication list. Nicole Simpson RN documented in this encounter [facility] 10-06-2024 Telephone encounter Note Left message to call office. Rema Parson RN [facility] 10-06-2024 Telephone encounter Note Ki is calling Margarita Almaguer APRN.MARCUS today to request the RX sent to pharmacy today be sent to a different pharmacy as they do not have Tamiflu in stock at [facility] Pleases send to [facility] for patient Patient has been identified by name and birthdate. Duration of symptoms: today Person calling: self Call patient at: at home [phone] (home) [phone] (cell) Was an appointment scheduled: No Closing statement: Medication not in stock at [facility] Elieser Villegas Savbryon [facility] 10-06-2024 Telephone encounter Note Agree with plan. Hope she feels better! Continue to push fluids and try to stay nourished with small frequent protein filled meals. Rao Pineda APRN.MARCUS [facility] 10-06-2024 Telephone encounter Note 9w5d Patient called back in and was positive for influenza A. She was seen in [facility] today. Her symptoms started yesterday. She was prescribed Tamiflu. She plans to go home rest, push fluids/electrolytes, tylenol as needed. Safe meds previously sent to her to refer to. Next OB visit 10/13/24. Will f/u with PCP or express care with prolonged/worsening symptoms. Asking if there are any other recommendations. Nicole Simpson RN [facility] 10-06-2024 Note SARS-COV-2 (AGENT OF COVID-19) RNA: Not detected INFLUENZA A RNA: Detected INFLUENZA B RNA: Not detected RESPIRATORY SYNCYTIAL VIRUS (RSV) RNA: Not detected [facility] Comment on above: Performed By: #### [id number] ####[facility] LABCLIA [id number] [address] [place] 10-06-2024 Note HNO ID: [id number] Author: MARGARITA ALMAGUER APRN.CNP Service: ? Author Type: Nurse Practitioner Type: Progress Notes Filed: 10/06/2024 10:06 Note Text: This note was created using [employer]. Subjective Ki Delgado is a 29 year old female. HPI by patient: Ki Delgado is a 29 year old presenting to the office with the complaint of viral symptoms. Started yesterday. Associated symptoms include body aches, cough, congestion, and sore throat. Covid Immunization Dates Current Care Gaps Covid-19 Vaccine ( season) Overdue since 04/25/2024 01/03/2021 Imm Admin: COVID-19 original vaccine, full dose, monovalent (MODERNA) 12/06/2020 Imm Admin: COVID-19 original vaccine, full dose, monovalent (MODERNA) Is almost 10 weeks . Sick contacts: yes. Smoking history/second hand smoke: none. OTC zyrtec. No antibiotic use in the last 60 days. ALLERGIES No Known Allergies Family History Reviewed Including Cardiac Diseases, Psychiatric Diseases, AND Substance Abuse Problem: No Known Problems Relation: Mother Age of Onset: (Not Specified) Problem: Alcohol abuse Relation: Father Age of Onset: (Not Specified) Comment: Has been sober since approx 2004 Problem: Alcohol abuse Relation: Brother Age of Onset: (Not Specified) Comment: Has been sober since approx. 2022 Problem: other (hypoglycemia [Other]) Relation: Maternal Grandmother Age of Onset: (Not Specified) Problem: Heart Relation: Maternal Grandmother Age of Onset: (Not Specified) Problem: other (colitis [Other]) Relation: Maternal Grandmother Age of Onset: (Not Specified) Problem: other (arrythemia [Other]) Relation: Maternal Grandfather Age of Onset: (Not Specified) Problem: other (lung problems [Other]) Relation: Maternal Grandfather Age of Onset: (Not Specified) Comment: farmers lung Problem: other (mitral valve prolpase [Other]) Relation: Paternal Grandmother Age of Onset: (Not Specified) Problem: other (hemorrhagic stroke) Relation: Paternal Grandmother Age of Onset: (Not Specified) Problem: other (quadruple bypass) Relation: Paternal Grandfather Age of Onset: (Not Specified) Social History Tobacco Use Smoking status: Never Smokeless tobacco: Never Tobacco comments: smoking outside-parent Vaping Use Vaping status: Never Used Alcohol use: Not Currently Comment: socially Drug use: Never Active Ambulatory Problems History of chronic hypertension Date Noted: 09/20/2024 Anxiety during Date Noted: 09/20/2024 Encounter for supervision in primigravida, antepartum Date Noted: 09/20/2024 with uncertain dates in first trimester Date Noted: 09/20/2024 Resolved Ambulatory Problems Closed fracture of head of radius Date Noted: 12/23/2005 Past Medical History:No Additional Past Medical History Review of Systems Constitutional: Negative. HENT: Positive for congestion and sore throat. Eyes: Negative. Respiratory: Positive for cough. Cardiovascular: Negative. Gastrointestinal: Negative. Endocrine: Negative. Genitourinary: Negative. Musculoskeletal: Positive for myalgias. Skin: Negative. Neurological: Negative. Hematological: Negative. Objective BP 134/84 Pulse 119 Wt 77.7 kg (171 lb 4.8 oz) LMP 07/21/2024 (Exact Date) SpO2 100% BMI 29.40 kg/m? Physical Exam Vitals reviewed. Constitutional: General: She is not in acute distress. Appearance: She is not ill-appearing, toxic-appearing or diaphoretic. HENT: Head: Normocephalic and atraumatic. Right Ear: Tympanic membrane, ear canal and external ear normal. Left Ear: Tympanic membrane, ear canal and external ear normal. Nose: Rhinorrhea present. Right Sinus: No maxillary sinus tenderness or frontal sinus tenderness. Left Sinus: No maxillary sinus tenderness or frontal sinus tenderness. Mouth/Throat: Mouth: Mucous membranes are moist. Pharynx: Oropharynx is clear. No oropharyngeal exudate or posterior oropharyngeal erythema. Cardiovascular: Rate and Rhythm: Regular rhythm. Tachycardia present. Pulmonary: Effort: Pulmonary effort is normal. Breath sounds: Normal breath sounds. Lymphadenopathy: Head: Right side of head: No submandibular or tonsillar adenopathy. Left side of head: No submandibular or tonsillar adenopathy. Cervical: No cervical adenopathy. Psychiatric: Behavior: Behavior is cooperative. Assessment and Plan (J06.9) Viral upper respiratory tract infection with cough (primary encounter diagnosis) (J02.9) Pharyngitis, unspecified etiology (J10.1) Influenza A Plan: oseltamivir (TAMIFLU) 75 mg capsule Education on viral vs bacterial infections. Most viral infections will last 10 days, sometimes 14. It is possible to have back to back viral infections. An antibiotic will not treat a virus. Negative strep culture. Positive influenza A, will discuss tamiflu and possible side effects. Patient wants the se (more content not included)... [facility] 10-06-2024 History of Present illness Narrative This note was created using NoteWriter. Subjective Ki Delgado is a 29 year old female. HPI by patient: Ki Delgado is a 29 year old presenting to the office with the complaint of viral symptoms. Started yesterday. Associated symptoms include body aches, cough, congestion, and sore throat. Covid Immunization Dates Current Care Gaps Covid-19 Vaccine ( season) Overdue since 04/25/2024 01/03/2021 Imm Admin: COVID-19 original vaccine, full dose, monovalent (MODERNA) 12/06/2020 Imm Admin: COVID-19 original vaccine, full dose, monovalent (MODERNA) Is almost 10 weeks . Sick contacts: yes. Smoking history/second hand smoke: none. OTC zyrtec. No antibiotic use in the last 60 days. ALLERGIES No Known Allergies Family History Reviewed Including Cardiac Diseases, Psychiatric Diseases, & Substance Abuse Problem: No Known Problems Relation: Mother Age of Onset: (Not Specified) Problem: Alcohol abuse Relation: Father Age of Onset: (Not Specified) Comment: Has been sober since approx 2004 Problem: Alcohol abuse Relation: Brother Age of Onset: (Not Specified) Comment: Has been sober since approx. 2022 Problem: other (hypoglycemia [Other]) Relation: Maternal Grandmother Age of Onset: (Not Specified) Problem: Heart Relation: Maternal Grandmother Age of Onset: (Not Specified) Problem: other (colitis [Other]) Relation: Maternal Grandmother Age of Onset: (Not Specified) Problem: other (arrythemia [Other]) Relation: Maternal Grandfather Age of Onset: (Not Specified) Problem: other (lung problems [Other]) Relation: Maternal Grandfather Age of Onset: (Not Specified) Comment: farmers lung Problem: other (mitral valve prolpase [Other]) Relation: Paternal Grandmother Age of Onset: (Not Specified) Problem: other (hemorrhagic stroke) Relation: Paternal Grandmother Age of Onset: (Not Specified) Problem: other (quadruple bypass) Relation: Paternal Grandfather Age of Onset: (Not Specified) Social History Tobacco Use Smoking status: Never Smokeless tobacco: Never Tobacco comments: smoking outside-parent Vaping Use Vaping status: Never Used Alcohol use: Not Currently Comment: socially Drug use: Never Active Ambulatory Problems History of chronic hypertension Date Noted: 09/20/2024 Anxiety during Date Noted: 09/20/2024 Encounter for supervision in primigravida, antepartum Date Noted: 09/20/2024 with uncertain dates in first trimester Date Noted: 09/20/2024 Resolved Ambulatory Problems Closed fracture of head of radius Date Noted: 12/23/2005 Past Medical History:No Additional Past Medical History Review of Systems Constitutional: Negative. HENT: Positive for congestion and sore throat. Eyes: Negative. Respiratory: Positive for cough. Cardiovascular: Negative. Gastrointestinal: Negative. Endocrine: Negative. Genitourinary: Negative. Musculoskeletal: Positive for myalgias. Skin: Negative. Neurological: Negative. Hematological: Negative. Objective BP 134/84 Pulse 119 Wt 77.7 kg (171 lb 4.8 oz) LMP 07/21/2024 (Exact Date) SpO2 100% BMI 29.40 kg/m Physical Exam Vitals reviewed. Constitutional: General: She is not in acute distress. Appearance: She is not ill-appearing, toxic-appearing or diaphoretic. HENT: Head: Normocephalic and atraumatic. Right Ear: Tympanic membrane, ear canal and external ear normal. Left Ear: Tympanic membrane, ear canal and external ear normal. Nose: Rhinorrhea present. Right Sinus: No maxillary sinus tenderness or frontal sinus tenderness. Left Sinus: No maxillary sinus tenderness or frontal sinus tenderness. Mouth/Throat: Mouth: Mucous membranes are moist. Pharynx: Oropharynx is clear. No oropharyngeal exudate or posterior oropharyngeal erythema. Cardiovascular: Rate and Rhythm: Regular rhythm. Tachycardia present. Pulmonary: Effort: Pulmonary effort is normal. Breath sounds: Normal breath sounds. Lymphadenopathy: Head: Right side of head: No submandibular or tonsillar adenopathy. Left side of head: No submandibular or tonsillar adenopathy. Cervical: No cervical adenopathy. Psychiatric: Behavior: Behavior is cooperative. Assessment and Plan (J06.9) Viral upper respiratory tract infection with cough (primary encounter diagnosis) (J02.9) Pharyngitis, unspecified etiology (J10.1) Influenza A Plan: oseltamivir (TAMIFLU) 75 mg capsule Education on viral vs bacterial infections. Most viral infections will last 10 days, sometimes 14. It is possible to have back to back viral infections. An antibiotic will not treat a virus. Negative strep culture. Positive influenza A, will discuss tamiflu and possible side effects. Patient wants the send out viral swab for flu/rsv/covid sent out as well. -Drink lots of fluids and get plenty of rest. Gargle with salt water 3 times/day. -Vaporizers, cool mist humidifiers, warm showers, and warm fluids help open respiratory and sinus passages. Clean humidifiers daily. -OTC tylenol as directed on the bottle. -Saline nasal spray as needed. -Cough/deep breathing education, promote clearing of the airways and good lung expansion. -Make follow up with primary care for monitoring and resolution in symptoms. -Signs that warrant an ER evaluation: Sudden change/worsening in condition, lethargy, signs of dehydration, fever greater than 102 F that is not responding to Tylenol or ibuprofen (Motrin, Advil), drooling, difficulty swallowing, difficulty breathing, shortness of breath, chest pain, evidence of airway compromise (tripod position, neck extension, retractions), seizures, changes in mental status, or other concerns. The patient will pursue further outpatient evaluation with the primary care physician or another Urgent Care/Express Care as outlined in the after visit summary. The patient is agreeable to this plan of care and follow-up instructions have been explained in detail. The patient has received these instructions in written format and have expressed an understanding of the after visit summary. Medical Decision Making: Level: 4 - Moderate I spent a total of 20 minutes on the date of the service which included preparing to see the patient, [id number] patient care, completing clinical documentation, obtaining and/or reviewing separately obtained history, performing a medically appropriate examination, counseling and educating the patient/family/caregiver, and ordering medications, tests, or procedures. documented in this encounter [facility] 10-06-2024 Instructions Margarita Almaguer APRN.CNP - 10/06/2024 9:23 AM EST (J06.9) Viral upper respiratory tract infection with cough (primary encounter diagnosis) (J02.9) Pharyngitis, unspecified etiology (J10.1) Influenza A Plan: oseltamivir (TAMIFLU) 75 mg capsule Education on viral vs bacterial infections. Most viral infections will last 10 days, sometimes 14. It is possible to have back to back viral infections. An antibiotic will not treat a virus. Negative strep culture. Positive influenza A, will discuss tamiflu and possible side effects. -Drink lots of fluids and get plenty of rest. Gargle with salt water 3 times/day. -Vaporizers, cool mist humidifiers, warm showers, and warm fluids help open respiratory and sinus passages. Clean humidifiers daily. -OTC tylenol as directed on the bottle. -Saline nasal spray as needed. -Cough/deep breathing education, promote clearing of the airways and good lung expansion. -Make follow up with primary care for monitoring and resolution in symptoms. -Signs that warrant an ER evaluation: Sudden change/worsening in condition, lethargy, signs of dehydration, fever greater than 102 F that is not responding to Tylenol or ibuprofen (Motrin, Advil), drooling, difficulty swallowing, difficulty breathing, shortness of breath, chest pain, evidence of airway compromise (tripod position, neck extension, retractions), seizures, changes in mental status, or other concerns. documented in this encounter [facility] 10-06-2024 Telephone encounter Note 9w5d Calling c/o chest congestion and worsening cough. Asking what to do. Advised to go to PCP or urgent care for evaluation and call with update if tested positive for any illness. Message sent with safe medication list. Nicole Simpson RN [facility] 10-04-2024 Progress note Formatting of t his note might be different from the original. Primigravida who presents at 9w3d with dark spotting that was noticed yesterday when she wiped. No intercourse for the past week. Very anxious about well ness in the absence of breast tenderness and nausea. Unable to locate FHTs with doppler. Ultrasound performed with obvious heart activity and no evidence for abruption. RTO - 1 week. Ascencion Kessler MD [facility] 10-04-2024 Miscellaneous Notes Primigravida who presents at 9w3d with dark spotting that was noticed yesterday when she wiped. No intercourse for the past week. Very anxious about well ness in the absence of breast tenderness and nausea. Unable to locate FHTs with doppler. Ultrasound performed with obvious heart activity and no evidence for abruption. RTO - 1 week. Ascencion Kessler MD documented in this encounter [facility] 10-04-2024 Instructions Dm Rodriguez MA - 10/04/2024 8:04 AM EST SEQUENTIAL SCREENINGS The [facility] offers sequential screenings for women who are interested in screenings for chromosomal abnormalities and certain defects during a . The sequential screen combines ultrasound and blood tests to determine the risk of chromosomal abnormalities, including Down's Syndrome (Trisomy 21) and Trisomy 18, as well as open neural tube defects including spina bifida. Ultrasound examination is performed between 11 weeks and 13 weeks gestational age. Blood tests are drawn after the ultrasound and again later in the between 15 and 21 weeks gestational age. Please let your physician know if you are interested in this testing. It will require an appointment with our morgue technician. This is not an ultrasound performed by a physician in our office during a routine visit. SIGNS AND SYMPTOMS OF LABOR 1. Contractions every 10 minutes or more often 2. Clear, pink, or brownish fluid (water) leaking from vagina 3. Feeling that baby is pushing down, pressure 4. Low, dull backache 5. Cramps that feel like a period 6. Cramps with or without diarrhea If you notice any of the above symptoms, contact our office at [phone] and ask to speak with a nurse. After hours, you can call doctors registry at [phone] OR call [facility] at [phone] and ask to have the doctor safety companion paged. If you consider this an emergency, dial 9-1-3 or go to your nearest emergency department. NEED HELP? Are you dealing with a violent or abusive relationship? Are you a victim of rape or sexual assult? Call [facility] ([place]) 24 hour Crisis Hotline: 254.389.2243 or 544-185-5492. MANUAL Your Guide to a Healthy manual is now on-line. Visit [email or web address] to download your free copy documented in this encounter [facility] 09-15-2024 Note HNO ID: [id number] Author: RAO PINEDA APRN.GREEN MARKETING ANALYST Service: ? Author Type: Nurse Practitioner Type: Progress Notes Filed: 09/20/2024 11:45 Note Text: Brick Picker offered: Patient declines. INITIAL OB ASSESSMENT HPI: Ki is a 29 year old White Female here to establish Obstetrical Care. Patient's last menstrual period was 07/21/2024 (exact date). from OB Dating Form. was planned Complaints: No OB History T0 L0 SAB0 IAB0 Ectopic0 Multiple0 Live Births0 Previous history: Prior : N/A History of 4th degree laceration: N/A History of shoulder dystocia: History of Hypertensive disorders including pre-eclampsia or gestational hypertension: Yes History of gestational diabetes: no Patient's Risk Screening for delivery: Have you had a prior love between 20w and 36w6d? N/A How many pregnancies have you had before? 0 Did you have a previous baby with a GBS Infection? No Please select all that apply for any prior : N/A MEDICAL/PSYCHOSOCIAL HISTORY: Severe Bleeding with delivery: no Thyroid Disease: no Gestational Hypertension: no Preeclampsia: no Diabetes in : no No results found for: ABORHD BMI 27.99 kg/(m2) Last Pap: 02/24/2024 History of abnormal pap: no Prior treatment for cervical dysplasia: none. Last HPV: No History of STDs: No Partner History of STDs: None Did you have a partner with Herpes? No Tobacco use: No E-Cigarette/Vaping Use: No Caffeine use: Yes-1 cup of coffee per day Drug use: No Alcohol use: No Multivitamin with Folic acid: Yes Would refuse blood transfusion if medically necessary: No Social Needs: How often does this describe you? I don't have enough money to pay my bills: Never Within the past 12 months, have you worried that your food would run out before you had money to buy more? Never In the past 12 months, has lack of reliable transportation kept you from going to medical appointments or work, or from getting things needed for daily living? Never In the past 12 months, have you had any concerns about having a place to live, or about the condition or quality of your housing? Never Would you like more information on any of the following (please check all that apply)? Not interested Social History: Do you have any history of depression, anxiety, PTSD, or other mood problems? Yes Do you have a history of abuse or trauma that may impact your experience? No Are you currently employed? Yes Depression/Anxiety Screening: Admits to symptoms of anxiety OB Depression and Anxiety Screening- This Encounter (since 09/19/2024) Over the past 2 weeks have you felt down, depressed, or hopeless? Negative Over the past two weeks, have you felt little interest or pleasure in doing things?? Negative Feeling nervous, anxious or on edge 2-More than half the days Not being able to stop or control worrying 1-Several days Anxiety Pre-Screening Total (If >/= 3 additional questions will be reviewed) 3 Worrying too much about different things 0-Not al all Trouble relaxing 0-Not al all Being so restless that it is hard to sit still 0-Not al all Becoming easily annoyed or irritable 0-Not al all Feeling afraid, as if something awful might happen 2-More than half the days Anxiety (NU) Full Screening Total 5 SBIRT Ki Delgado was given the 4P's screening tool. Ki answered as follows: OB Opioid Screening - Last Recorded (since 12/25/2023) Did any of your parents have a problem with alcohol or other drug use? Yes Father had problem with alcohol-has been sober for approx 20 years Does your partner have a problem with alcohol or other drug use? No In the past, have you had difficulties in your life because of alcohol or other drugs, including prescription medications? No In the past month have you drunk any alcohol or used other drugs? No Are you taking medication for pain during the either prescribed or not? No Based on the screen and further questions, she is considered at Low risk due to:No past or current use. Positive reinforcement of current behavior. Plan to rescreen early third trimester. Rao Pineda APRN.MARCUS Genetic Screening: Partner present: Yes Patient verbalized knowledge of partner family health history: Yes Do you or your partner have any personal or family history of defects not previously discussed: No Do you have history of a complicated by anomaly, genetic condition, or demise: No Preeclampsia Risk Screening: Screening for prevention of preeclampsia: High risk factors: None Moderate risk ractors: Nulliparity OB Risk Screening: Completed, no positive findings documented. Marital Status: Partner: Name: Layo Age: 29 Occupation: [employer] Gender: Male History reviewed. No pertinent past medical history. PAST SURGICAL HISTORY Pro (more content not included)... [facility] 09-15-2024 History of Present illness Narrative Images from the original note were not included. Brick Picker offered: Patient declines. INITIAL OB ASSESSMENT HPI: Ki is a 29 year old White Female here to establish Obstetrical Care. Patient's last menstrual period was 07/21/2024 (exact date). from OB Dating Form. was planned Complaints: No OB History T0 L0 SAB0 IAB0 Ectopic0 Multiple0 Live Births0 Previous history: Prior : N/A History of 4th degree laceration: N/A History of shoulder dystocia: History of Hypertensive disorders including pre-eclampsia or gestational hypertension: Yes History of gestational diabetes: no Patient's Risk Screening for delivery: Have you had a prior love between 20w and 36w6d? N/A How many pregnancies have you had before? 0 Did you have a previous baby with a GBS Infection? No Please select all that apply for any prior : N/A MEDICAL/PSYCHOSOCIAL HISTORY: Severe Bleeding with delivery: no Thyroid Disease: no Gestational Hypertension: no Preeclampsia: no Diabetes in : no No results found for: ABORHD BMI 27.99 kg/(m^2) Last Pap: 02/24/2024 History of abnormal pap: no Prior treatment for cervical dysplasia: none. Last HPV: No History of STDs: No Partner History of STDs: None Did you have a partner with Herpes? No Tobacco use: No E-Cigarette/Vaping Use: No Caffeine use: Yes-1 cup of coffee per day Drug use: No Alcohol use: No Multivitamin with Folic acid: Yes Would refuse blood transfusion if medically necessary: No Social Needs: How often does this describe you? I don't have enough money to pay my bills: Never Within the past 12 months, have you worried that your food would run out before you had money to buy more? Never In the past 12 months, has lack of reliable transportation kept you from going to medical appointments or work, or from getting things needed for daily living? Never In the past 12 months, have you had any concerns about having a place to live, or about the condition or quality of your housing? Never Would you like more information on any of the following (please check all that apply)? Not interested Social History: Do you have any history of depression, anxiety, PTSD, or other mood problems? Yes Do you have a history of abuse or trauma that may impact your experience? No Are you currently employed? Yes Depression/Anxiety Screening: Admits to symptoms of anxiety OB Depression and Anxiety Screening- This Encounter (since 09/19/2024) Over the past 2 weeks have you felt down, depressed, or hopeless? Negative Over the past two weeks, have you felt little interest or pleasure in doing things? Negative Feeling nervous, anxious or on edge 2-More than half the days Not being able to stop or control worrying 1-Several days Anxiety Pre-Screening Total (If >/= 3 additional questions will be reviewed) 3 Worrying too much about different things 0-Not al all Trouble relaxing 0-Not al all Being so restless that it is hard to sit still 0-Not al all Becoming easily annoyed or irritable 0-Not al all Feeling afraid, as if something awful might happen 2-More than half the days Anxiety (NU) Full Screening Total 5 SBIRT Ki Delgado was given the 4P's screening tool. Ki answered as follows: OB Opioid Screening - Last Recorded (since 12/25/2023) Did any of your parents have a problem with alcohol or other drug use? Yes Father had problem with alcohol-has been sober for approx 20 years Does your partner have a problem with alcohol or other drug use? No In the past, have you had difficulties in your life because of alcohol or other drugs, including prescription medications? No In the past month have you drunk any alcohol or used other drugs? No Are you taking medication for pain during the either prescribed or not? No Based on the screen and further questions, she is considered at Low risk due to:No past or current use. Positive reinforcement of current behavior. Plan to rescreen early third trimester. Rao Pineda APRN.MARCUS Genetic Screening: Partner present: Yes Patient verbalized knowledge of partner family health history: Yes Do you or your partner have any personal or family history of defects not previously discussed: No Do you have history of a complicated by anomaly, genetic condition, or demise: No Preeclampsia Risk Screening: Screening for prevention of preeclampsia: High risk factors: None Moderate risk ractors: Nulliparity OB Risk Screening: Completed, no positive findings documented. Marital Status: Partner: Name: Layo Age: 29 Occupation: Sales Gender: Male History reviewed. No pertinent past medical history. PAST SURGICAL HISTORY Procedure Laterality Date FOOT SURGERY HX Left 03/16/2010 bunion Current Outpatient Medications Medication Sig Dispense Refill no115/iron/folic acid ( 19 ORAL) Take by mouth. fexofenadine HCl (YONI ORAL) Take by mouth. pyridoxine, vitamin B6, (VITAMIN B-6) 50 mg tablet Take 1 tablet by mouth once daily. 100 tablet 2 No current facility-administered medications for this visit. Allergies As of Date: 09/20/2024 (No Known Allergies) Fully Assessed 09/20/2024 Does patient have penicillin allergy: No REVIEW OF SYSTEMS: GENERAL: Negative for: Fever or Chills HEENT: Negative for: Headache, Impaired Vision, Ringing in Ears, Nosebleeds NECK: Negative for: Swelling, Pain, Stiffness RESPIRATORY: Negative for: Shortness of breath, Wheezing + cough GASTROINTESTINAL: Negative for: Heartburn, Constipation, Diarrhea, Blood in stool, Vomiting MUSCULOSKELETAL: Negative for: Muscle or joint pain, stiffness, Joint swelling NEUROLOGIC/PSYCHIATRIC: Negative for: Weakness, Paralysis, Numbness, Tingling, Tremor, Depression, Memory loss + anxiety SKIN: Negative for: Rash, Itching GENITOURINARY: Negative for: vaginal itching, vaginal discharge, hematuria or dysuria SENSITIVE EXAM: The sensitive examination was discussed with the Patient or Patient's Authorized Electric Accounting Machine Operator. As applicable, any other physician, advance practice provider, medical student, or other health professional student that will be observing or involved in the sensitive examination for educational or training purposes was discussed with the Patient or Authorized Electric Accounting Machine Operator. The Patient or Authorized Electric Accounting Machine Operator has agreed to proceed with the sensitive examination. (Sensitive examination includes inspection and/or palpation of the breasts, pelvis, prostate and anorectal regions). PHYSICAL EXAM: BP 124/70 Ht 5' 4.764 (1.65m) Wt 167 lb (75.8kg) LMP 07/21/2024 BMI 27.99 kg/(m^2). GENERAL: pleasant in no apparent distress DERMATOLOGY: Normal, without lesions, non-icteric, and non-hirsute NECK: Supple, full range of motion, no adenopathy, and thyroid normal CHEST: Normal inspiratory effort BREAST: soft, non-tender, symmetric, no dominant mass, normal nipple-areolar complex, no lymphadenopathy, and no nipple discharge ABDOMEN: soft, non-tender, and no masses NEURO: alert and oriented x3,exam grossly non-focal PELVIS: External genitalia normal without lesions. Perineal body intact. No vaginal or cervical lesions. Cervix closed. Uterus 7 week size. No adnexal masses or tenderness. Clinical Pelvimetry: Pelvimetry clinically assessed as adequate I attest that I was present, not working on other tasks, and directing the student during this visit. I have reviewed and agree with the above documentation of this student. Rao Pineda APRN.GREEN MARKETING ANALYST Limited OB ultrasound exam: single intrauterine and positive cardiac activity ASSESSMENT: 29 year old at 8w5d wks gestational age PLAN: 1) Patient oriented to practice. Patient given new OB orientation folder. Discussed nutrition, folic acid supplementation, dietary guidelines, exercise, smoking, alcohol, caffeine, and drug use. Discussed gestational weight gain guidelines. Discussed routine OB labs including STD/HIV. Discussed how to access Your guide to a health and the Warehouse Processor. Discussed hemoglobin electrophoresis. Patient: Accepts Reviewed midwifery and civilian jail officer services that are available. 2) Screening: Hemoglobin A1C: ordered Baby Aspirin: The patient has been counseled about the potential benefits of low dose aspirin in and our recommendation that this be offered to all patients, regardless of whether they meet the high risk criteria specified above. She accepts Aneuploidy Screening: Discussed aneuploidy screening, nuchal translucency/first trimester early anatomy ultrasound and NIPT. The risks/benefits and limitations of NIPT/aneuploidy screening were reviewed including the potential for false negative and false positive results. The availability of genetic counseling was reviewed. Information on aneuploidy screening was provided. The patient chooses to proceed with First trimester early anatomy ultrasound (12-13w6d) and NIPT (10 weeks). Understands potential out of pocket cost. Myriad Carrier Screening: Discussed myriad carrier screening. We discussed the availability of professional-society guided carrier screening and reviewed the conditions screened and limitations of screening. The availability of genetic counseling was reviewed. Information on carrier screening was provided. The patient is uncertain 3) Patient offered option of Virtual Visits. Patient unsure. May consider in future. ACTIVE PROBLEM LIST Encounter for Supervision in Primigrav[facility], Antepartum - 09/20/2024 Comment: Care Checklist Vaccines: [] Flu vaccine [] declined [] RSV vaccine 32 0/ - 36 01/29 (Apr - Sep) [] declined [] COVID vaccine [] declined [] TDaP - [] declined First trimester: [x] Dating US [] 1st tri labs [x] Pap smear [] Carrier screening [] declined [x] NIPT screening [] declined [x] First trimester anatomy scan [] declined [x] universal ASA ordered (start 12w-16w) [] declined [] M Power Consult [] not indicated [] declined Second trimester: [] Anatomy scan [] Mode of Delivery - [] Feeding - [] Pump ordered [] Diabetes screen [] CBC, RPR [] Behavioral Health Screening Third trimester (28-30 weeks): [] Consent [] Contraception [] Promotions Director [] TeamBirth handout Third trimester (36-40 weeks): [] GBS [] Presentation - [] Scheduled [] yes - Hibiclens, pre-op instructions, CBC, T&S ordered [] no [] H&P [] Preferences worksheet [] Scanned in EMR With Uncertain Dates in First Trimester - 09/20/2024 Comment: September 20, 2024 POCUS not consistent with LMP. Confirm dating with NT. Rao Pineda APRN.GREEN MARKETING ANALYST History of Chronic Hypertension - 09/20/2024 Comment: September 20, 2024 Reports history during college. Was on metoprolol. No issues since. BP normal today. Reports likely due to stress. Rao Pineda APRN.CNP Anxiety During - 09/20/2024 Comment: September 20, 2024 Has been on 15-20 mg of Lexparo in the past. Discontinued due to mood improving. NU score 5. Denies thoughts of self harm. Encouraged counseling or medication. Mental health resources provided. Patient plans to consider and notify provider with decision. Rao Pineda APRN.CNP Follow up in 4 weeks or sooner prn. Plan for NT scan between 12w0d and 13w6d gestation. Rao Pineda APRN.CNP documented in this encounter [facility] 09-15-2024 Instructions Rao Pineda APRN.CNP - 09/15/2024 11:16 AM EST Images from the original note were not included. Please select the following link to access the [facility] Your Guide to a Healthy . [email or web address] Please select the following link to access the [facility] Your Guide to a Healthy . [email or web address] MORNING SICKNESS IN by Meryl Guajardo M.D. for Point.io As you may already know, morning sickness can often be more appropriately called evening sickness or xymms-iwleaq-cf-the-day sickness. While there are the mariaelena few, most women (50-90%) experience some degree of nausea, some have vomiting, and a few develop a severe form of vomiting during called hyperemesis gravidarum. What causes the nausea and vomiting of ? We can't explain why some people feel fine and others are green for months. Even the same woman may feel vastly different in each . There is some relationship between nausea and the level of the hormone hCG. In twin pregnancies, and in other situations where the hCG is greater than expected, nausea and vomiting tend to be worse. In a destined for miscarriage, hCG levels tend to be low, and nausea is often less severe. This being said, a lack of nausea doesn't guarantee that the is destined for miscarriage. The fact that nausea and vomiting are often signs of a healthy can offer a silver lining in the dark cloud of miserable nausea. How long will the nausea last? Fortunately, for most women, nausea and vomiting are a first trimester event, peaking at week 9-10 and waning by week 14-16. When you are feeling bad the weeks can go by slowly but most moms do feel tremendously better by the middle of the . Whether morning sickness is a brief experience or lasts through most of the , there are treatments that can make the weeks or months more tolerable. What can you do about it? Diet: See what works for you. Try eating bland dry foods, and avoid fatty or spicy foods. It is okay to eat a less than perfectly balanced diet in the first trimester. Have your liquids separately from dry foods. Try sports drinks, water, clear juices, Ben-aid, or non-caffeinated tea. Avoid carbonated beverages that fill up your stomach. Try eating lots of little meals. If you tend to feel sick when you first wake up, leave crackers next to the bed for a quick snack before rising. Keeping healthy snacks with you all day to nibble when you feel queasy can sometimes even prevent nausea from starting. vitamins and nausea: Pre-holly vitamins can sometimes worsen nausea in . While folate is necessary, especially early in the , it comes as a smaller pill that many people find more tolerable than the complete vitamin pill. Ask your practitioner if it is okay to temporarily replace vitamins and iron with just a folate pill if you find a significant worsening in the level of your nausea from the vitamins. Alternative therapies: Acupressure may be used to treat nausea in , and is not known to have any risks for the fetus. Wristbands (marketed for seasickness) that put pressure on an acupressure point at the wrist are often available at drugstores or travel stores. Mariela root is used for nausea in many traditional cultures. Some women take fresh grated mariela or mariela tablets. It is possible that the pill form contains other ingredients or contaminants, so you may want to try fresh mariela first. Medications: Emetrol is the only nausea medication approved for use in . It is available over the counter and is soothing to the stomach. A prescription medication called Bendectin was available in the -1979's and was shown to be safe in , but the company stopped marketing it in the [place] due to the costs of liability coverage. Bendectin contained 10 milligrams of vitamin B6 and 10 milligrams of Doxylamine. Two tablets were given at bedtime and a total of up to 4 tablets could be used in a 24-hour period. Interestingly, Unisom , which contains a higher dose (25 mg.) of the same medication, Doxylamine, is currently marketed as an qbdu-tpe-pldtoia sleeping pill. Ask your practitioner if creating a vitamin B6/Doxylamine combination with oyud-ytv-ufndtzf medications would be safe for you. Prescription medications like Compazine and Phenergan can be used if the benefits outweigh possible risks, but these have not been clearly shown to be safe in . Zofran , an expensive anti-nausea medication often used to treat nausea from chemotherapy, can also be used. Can I throw up so much it harms the baby? The act of vomiting cannot hurt your fetus, which is protected inside the uterus. If you get dehydrated or develop a metabolic imbalance, this can be unhealthy. As long as you can keep down liquids, you and your baby will generally do all right. Eat when you feel able. If you are unable to keep anything down, or if you notice potential signs of dehydration such as lightheadedness, or concentrated and/or infrequent urination, call your practitioner. Some women need brief hospital admission for intravenous fluids and anti-nausea medications if their condition becomes severe. This severe form of nausea and vomiting is called Hyperemesis Gravidarum. As with many symptoms of , remind yourself that this, too, shall pass, and you'll have a wonderful baby to show for it! TREATMENT OPTIONS, SHORT VERSION: Frequent small meals Hydrate throughout day Sea-Bands wrist pressure point applicators Mariela root (powdered, in capsules) 250mg four times a day Vitamin B6 25 mg tablet three times a day Also may be taken with half a tablet of Unisom three times a day (Doxylamine 12.5 mg) If severe (weight loss, dehydration), call us and come in for IV hydration and possible medication in the form of injections. Prescription medications such as Phenergan, Compazine, Reglan Psychotherapy Services at [facility] Call Behavioral Health Access Line at [phone] to schedule Individual psychotherapy In-person or virtual Wait time for first evaluation may be 12 or more weeks. Wait list spots may be available. Due to the high volume of patients this option is recommended if you are looking for short term acute symptom coping strategies. 2-539-7-AAJK5BKDN - [facility] Mental Health Hotline If you are in suicidal crisis, please call or text 3-292-751-TALK ( ) or visit the National Suicide Prevention Lifeline website. mchb.[facility] hospital[facility].gov If you are in crisis, call 151 or go to your nearest Emergency Department Here are some links for wonderful Providers here in the community and surrounding areas. Do not hesitate to contact their offices, many are offering virtual visits during this time. Psychotherapy Services outside of [facility] Support International Online Provider Directory https://Porter + Sail.Domino [address]/ - can assist in finding providers in your area that might be more extensive then the list below. [facility] [place], [place] [address] [place] [address] [facility] [address] [place] [address] [facility] [address] [place] [address] [facility] [address] [place], [place] [id number] Alek Farley MD [address] [place] [address] [facility] [address] [facility], [address] [place] [address] [facility] [address] [place] [address] [facility] Donovan / Elmer [phone]/ [phone] Dianna Michelle [address] [facility] [address] [facility] [phone] Aves of Counseling and Mediation Kimberly / Siri [phone] [facility] [address] [place] [address]/ rio dell and haskins [phone] CHRIS Larson, MAMADOU Bu and Beyond Family Therapy Workshops, telehealth and at home visits. [phone] [facility] counseling cowiche 20 locations [place], [place], [place], [place], [place], [place], [place], Shaniko hts, [place], [place], [place], [place], [place], [place], [facility], [place], [place] ,[facility], [place], [place],[facility], [facility] [place], [place], [facility], [facility], [place] www.merged with swedish hospitalShowpad.co [phone] Psychotherapy resources outside of [facility] are listed below [facility] BigSwerve Psychotherapy Web: https://www.Tapiture/ Support International Online Provider Directory https://Pendo Systems/ [facility] https://Xenon Arc/ Gigturn for Behavioral Health and Wellness Web: https://Xiu.com/ Hakia for Effective Living Web: https://Cirqle.nl.AutoMoneyBackliving.Domino Street/ LifeStance Web: https://blur Group.[address]/location/s prompton/[place]/ [facility] Web: https://www.[facility].or / [facility] Web: https://Sub10 Systems.org/ Recovery Resources Mental health and substance abuse help Web: https://www.Backyards.org & RESOURCES Support International Direct peer support and connection to professional resources Non-Emergency Helpline Phone: / Text: [phone] Web: https://www..net/ Online Provider Directory: https://Pendo Systems/ Online Support Meetings: https://www..net/get-he lp/ryh-qzumgl-fystnlf-meetings/ GI Baby and Sweat Band Sewer Services Web: https://www.Stumpedia/ Resource Interactive Expert information on medication use during and Text: [phone] Web: https://ProUroCare Medical/ NATIONAL REGISTRY FOR PSYCHIATRIC MEDICATIONS Currently studying the safety of antidepressants, ADHD medications and atypical antipsychotics taken during TO PARTICIPATE CALL TOLL-FREE: Web: https://womensmentalhealth.org/re search/pregnancyregistry/ Support Groups: [facility]- Follow on facebook Baby Bistro support group led by [facility] department [facility] - Support Group Essentia Healths.org The POEM support group [phone] Www.poemonline.org Follow on facebook - POAMAN dee chapter Online support meetings PSI https://www..net/get-he lp/uej-xdddxx-vehfhwg-meetings/ [facility] mommy and me virtual support group 11:30-1pm Support for mothers and new babies and toddlers Metcalfe childbirth education: Childbirth @cc.org or call [phone] CRISIS: CRISIS HOTLINE [phone], 911 or go to the nearest ER. [facility] [phone] / [facility] [phone] https://www.[facility] centerrb.org Crisis text line text the word HOME to 257632 [facility] [address] [facility] [address] www.3LM Fabi Zavala clinical counseling [address] [address] www.bethbritton[address] [phone] Holding space psychotherapy Rin Osorio FIELD CROP FARMER SHOWCASE TRIMMER-S [address] [facility] www.GNosis Analytics [phone]/ Stew [phone] They all offer virtual. All work with trauma Support groups Online support meetings PSI https://www..net/get-he lp/pwt-spfksi-bjpabcc-meetings/ Here are the support groups they offer: Support of parents of 1 to 4 years old children POEM ( Outreach and Encouragement for Moms) offers free support for mothers experiencing depression, anxiety, and other mood and anxiety disorders. Masks are recommended but not required. No pre-registration required. Babies in arms welcome. meetings now take place on the and Friday of each month Location: [facility] [address] [place] [address] Room 122 (library room) 7-8:00 p.m. When you enter the [facility] parking lot off of [address] the entrance door closest to our meeting room is on the front of the building toward the right. For those who are more comfortable with a virtual platform, POEM offers online support group options several days of the week. To register for an online group or to find out more about POEM, website at: https://mhaohio.org/get-help/garnet healthtcmy-vercfs-atfnkq/poem-services/ offer a confidential helpline: private Facebook group is called YANN Wood Here are the groups they offer: Traumatic childbirth resources: Http://pattch.org/ https://www.TISSUELABlizciValue.[address]/ Name Location (s) Phone # (s) Services Website [facility] [address] [place], [place] - [phone]; [address] [phone] In-Person GROUPS INDIVIDUAL THERAPY MATERNAL-INFANT MENTAL HEALTH MEDICATION MANAGEMENT PLAY AND ART THERAPY TELETHERAPY https://www.Tapiture/s ervices/ [facility] Zakiya DEE? [address] [place], [place] [address] ? [address] [place], [place] [id number] ? SUNG [address] [place], [place] [address]? Grief Support Groups Individual Grief Counseling Spiritual Care Memorial Events https://richardson.[facility].org/grief-services [facility] [address] [place], [place] [address]; ; Email: drake@ReVolt [employer] Women's Mental Health; Couples Counseling; Trauma (EMDR); Stress Management; Mood and Anxiety Related Disorders- and much more https://www.Stellaris/ LifeStance Numerous as they have contract providers: access website to find specific providers near you Counseling including CBT and EMDR as well as many more modalities; Medication Management; Telehealth and In-Person https://Libra Alliance/ Smart Ecosystems Behavioral Health and Wellness [address] [place] [address]; [phone] Personal, Family and Group Therapy; Psychological Testing and Diagnosis; Medication Management; Life and Career Coaching; Psychoanalysis; Literacy Testing; Yoga and Meditation https://Xiu.com/ Raw Science Inc. [facility] [address] [facility] [address], [place] [address] [address] ; [facility], [address] [place] [address]; Office # for both sites: Individual and Couples Counseling https://www.Pictour.us.Domino [address]/ paymentinsurance.html OCD & Anxiety [facility] [address] [facility], [address], [place] [address]; Specialize in Cognitive-Behavioral Therapy (CBT) for the treatment of anxiety disorders across the lifespan. TELEHEALTH ONLY. https://ocdandanxietycenteroSilentium/faqs [facility] [address] [facility] [address] [place], [address] [place] [address] [facility] [place] [place], [address] [place] [address] [facility] [place], [address] [place] [address] [place], [address], [id number] [place] [address] [facility]. [place], [place], [id number] [place] [address] [place], [place], [id number] Transportation Services To minimize patient barriers, [facility] provides transportation services to patients who qualify. If you are unable to get to your appointment at any of our facilities, please let us know. Need help now? Stop by one of our walk-in clinics to establish behavioral health care. Counseling Indvidual, Group, Couples and Family Counseling and EMDR. Medication Management Case Management benefits applications housing assistance Substance abuse treatment Medication assisted treatment https://www.[facility].or g/mental-health/ [facility] OFFICE AT [facility] [address] [place] [address] [facility] OFFICE [address] [place] [address] [facility] OFFICE [address] [place] [address] [place] OFFICE (at [facility]) [address] [place] [address] [facility] SYRINGE EXCHANGE PROGRAM & HIV SCREENING [address] [place] [address] [place] SYRINGE EXCHANGE PROGRAM [address] [place] [address] Behavioral Health Urgent Care: [facility] Sites Counseling Indvidual and Group Medication Management Case Management benefits applications housing assistance Substance abuse treatment Medication assisted treatment Employment Services/ Job Training https://theShowpadersGiggemio.org/ Recovery Resources [address] [place], [place] [address]: P: [phone] [address] [facility], [address], [place] [address] P: [phone] Our services include: Addiction Mental Health Treatment Assessment Psychiatry Medical Care Employment Housing Drug and Alcohol Prevention HIV/AIDS Prevention https://www.recres.org/ [facility] [place] [address] [place] [address] [place] [address] [place], [place] [address]altaf.[address] [place], [place] [address] [place] [address] [place] [address] [place] [address] [facility] [address] [place] [address] [place] [address] [facility] [address] [place] [address] TMS Therapy/ Counseling Psychocological Testing for ADHD Medication Management In-Person/ Telemedicine https://www.CareSimply/moon ents-depression Memory & Psychological services [address], [place] [address] Neuropsychological Testing For ADHD https://www.memoryandpsych.com/ [facility] - Main Office [address] [place] [phone] [phone] Providing ijaq-fj-rzpv and telehealth services. Adult Case Management Community Education and Prevention Employment Outpatient Treatment - Counseling & Psychotherapy Psychiatric Services http://www.[facility].org/ [facility] [address] [address] [facility] [address] [place] [address] Virtual Appointments! Now offering safe and convenient virtual client appointments to anyone in [place]! Individual Therapy Couples/Relationship Therapy Trauma/EMDR Therapy Art Therapy Play Therapy Svp Video [employer] Support: Parenting Skills, Parent Child Interaction Therapy, Parent Interaction Therapy Meditation Dietitian/Master Data Analyst Services Group Therapy Yoga https://www.Crowdbaron. [address]/ [place] Flores [phone] Private Practice: Telehealth Only Specializes in EMDR for Trauma None documented in this encounter [facility] 09-02-2024 Note HNO ID: [id number] Author: RAMAN GOYAL MD Service: ? Author Type: Physician Type: Progress Notes Filed: 09/02/2024 12:55 Note Text: The patient presents for requested ultrasound. Full report available in the Imaging tab in Epic. Raman Goyal MD [facility] 09-02-2024 History of Present illness Narrative The patient presents for requested ultrasound. Full report available in the Imaging tab in Epic. Raman Goyal MD documented in this encounter [facility] 09-02-2024 Note HNO ID: [id number] Author: LAUREN PAL MD Service: ? Author Type: Physician Type: Progress Notes Filed: 09/02/2024 13:56 Note Text: Ki Delgado is a 29 year old female who presents for problem visit follow up from US HPI: Patient presents after US. She reports that she had 10 days of light spotting but this has resolved. Also she reports mild nausea. Patient denies pain. She is anxiou. 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 PAST SURGICAL HISTORY Procedure Laterality Date FOOT SURGERY HX Left 03/16/2010 bunion FAMILY HISTORY Problem Relation Age of Onset other (hypoglycemia [Other]) Maternal Grandmother Heart Maternal Grandmother other (colitis [Other]) Maternal Grandmother other (arrythemia [Other]) Maternal Grandfather other (lung problems [Other]) Maternal Grandfather farmers lung other (mitral valve prolpase [Other]) Paternal Grandmother Stroke Paternal Grandmother Social History Tobacco Use Smoking status: Never Smokeless tobacco: Never Tobacco comments: smoking outside-parent Vaping Use Vaping status: Never Used Substance Use Topics Alcohol use: Yes Comment: socially Drug use: Never Current Outpatient Medications Medication Sig propranolol (INDERAL) 10 mg tablet 1-2 tabs, Oral, TID, PRN palpitations, # 90 tab(s), 0 Refill(s), Pharmacy: [facility]/pharmacy #[id number], Encounter to establish care Wellness examination, 163.8, cm, 01/09/22 14:52:00 EDT, Height escitalopram oxalate (LEXAPRO) 10 mg tablet Take by mouth as directed. No current facility-administered medications for this visit. Allergies As of Date: 09/02/2024 (No Known Allergies) Fully Assessed 06/26/2024 Allergies and current medication updated:Yes SENSITIVE EXAM: Sensitive exam not performed. EXAM: LMP 01/20/2024 GENERAL: pleasant, female in no apparent distress ASSESSMENT AND PLAN: Assessment AND Plan Early stage of Anxiety related nausea, antepartum Pelvic US shows early IUP. Plan for repeat US at time of new OB visit in 2-3 weeks. Patient agrees with plan. Vitamin B6 given for nausea. Anxiety - encouraged patient to establish with counselor. Medical Decision Making: Problems: Moderate: New problem with uncertain prognosis Data: Unique test result(s) reviewed: 3+ Risk: Moderate: Drug management Medical Decision Making Level: 4 - Moderate Lauren Pal MD [facility] 09-02-2024 History of Present illness Narrative Ki Delgado is a 29 year old female who presents for problem visit follow up from HPI: Patient presents after US. She reports that she had 10 days of light spotting but this has resolved. Also she reports mild nausea. Patient denies pain. She is anxiou. 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 PAST SURGICAL HISTORY Procedure Laterality Date FOOT SURGERY HX Left 03/16/2010 bunion FAMILY HISTORY Problem Relation Age of Onset other (hypoglycemia [Other]) Maternal Grandmother Heart Maternal Grandmother other (colitis [Other]) Maternal Grandmother other (arrythemia [Other]) Maternal Grandfather other (lung problems [Other]) Maternal Grandfather farmers lung other (mitral valve prolpase [Other]) Paternal Grandmother Stroke Paternal Grandmother Social History Tobacco Use Smoking status: Never Smokeless tobacco: Never Tobacco comments: smoking outside-parent Vaping Use Vaping status: Never Used Substance Use Topics Alcohol use: Yes Comment: socially Drug use: Never Current Outpatient Medications Medication Sig propranolol (INDERAL) 10 mg tablet 1-2 tabs, Oral, TID, PRN palpitations, # 90 tab(s), 0 Refill(s), Pharmacy: [facility]/pharmacy #[id number], Encounter to establish care Wellness examination, 163.8, cm, 01/09/22 14:52:00 EDT, Height escitalopram oxalate (LEXAPRO) 10 mg tablet Take by mouth as directed. No current facility-administered medications for this visit. Allergies As of Date: 09/02/2024 (No Known Allergies) Fully Assessed 06/26/2024 Allergies and current medication updated:Yes SENSITIVE EXAM: Sensitive exam not performed. EXAM: LMP 01/20/2024 GENERAL: pleasant, female in no apparent distress ASSESSMENT AND PLAN: Assessment & Plan Early stage of Anxiety related nausea, antepartum Pelvic US shows early IUP. Plan for repeat US at time of new OB visit in 2-3 weeks. Patient agrees with plan. Vitamin B6 given for nausea. Anxiety - encouraged patient to establish with counselor. Medical Decision Making: Problems: Moderate: New problem with uncertain prognosis Data: Unique test result(s) reviewed: 3+ Risk: Moderate: Drug management Medical Decision Making Level: 4 - Moderate Lauren Pal MD documented in this encounter [facility] 08-31-2024 Telephone encounter Note Patient notified. Mira Nguyen RN [facility] 08-31-2024 Miscellaneous Notes Patient notified. Mira Nguyen RN Addended by: CONSTANTINO GAINES on: 08/31/2024 11:01 AM Modules accepted: Orders My apologies, thought I ordered cbc and cmp. Repeat quant tomorrow, I misread it and thought it was done Friday. Yes, 48 hrs apart is more appropriate. Have CMP and CBC done w/ next quant and get US and we will go from there. thanks. Constantino Gaines MD Patient received Immy message with results of hcg quant drawn on 08/30/2024 and asking if she needs to have lab repeated today as mentioned in result note or tomorrow (48 hours after last). Previous HCG quants drawn on 08/24 and 08/26/24. Does patient need to have a CBC drawn also? Order placed was for a CMP. Please advise. Pt notified-states she has not been taking the Spironolactone. Has been taking PNV w/folic acid. Pt will have completed Friday (08/30/24) and Friday (09/01/24). Please leave phone note open for results. Maxine Schwarz RN recommend she not take spironolactone during . Take PNV w/ folic acid. Repeat quants next week, if severe pain notify office or to ED. Unfortunately, there is no intervention we can offer at this time to prevent miscarriage but many patients spot early on and go on to have normal healthy pregnancies. Get quants Friday and fri or Friday and next week. Constantino Gaines MD Patient received results of hcg quants on Immy and called asking if any repeat labs are needed. Lmp was 07/21/2024. Patient reports that she continues to have brownish spotting only when using restroom and cramping is intermittent and mild when it occurs. Please advise. New ob appointment is scheduled on 09/09/2024 documented in this encounter [facility] 08-31-2024 Note Addended by: CONSTANTINO GAINES on: 08/31/2024 11:01 AM Modules accepted: Orders [facility] 08-31-2024 Telephone encounter Note My apologies, thought I ordered cbc and cmp. Repeat quant tomorrow, I misread it and thought it was done Friday. Yes, 48 hrs apart is more appropriate. Have CMP and CBC done w/ next quant and get US and we will go from there. thanks. Constantino Gaines MD [facility] 08-31-2024 Telephone encounter Note Patient received Immy message with results of hcg quant drawn on 08/30/2024 and asking if she needs to have lab repeated today as mentioned in result note or tomorrow (48 hours after last). Previous HCG quants drawn on 08/24 and 08/26/24. Does patient need to have a CBC drawn also? Order placed was for a CMP. Please advise. [facility] 08-27-2024 Telephone encounter Note Pt notified-states she has not been taking the Spironolactone. Has been taking PNV w/folic acid. Pt will have completed Friday (08/30/24) and Friday (09/01/24). Please leave phone note open for results. Maxine Schwarz RN [facility] 08-27-2024 Telephone encounter Note recommend she not take spironolactone during . Take PNV w/ folic acid. Repeat quants next week, if severe pain notify office or to ED. Unfortunately, there is no intervention we can offer at this time to prevent miscarriage but many patients spot early on and go on to have normal healthy pregnancies. Get quants Friday and fri or Friday and next week. Constantino Gaines MD [facility] 08-27-2024 Telephone encounter Note Patient received results of hcg quants on mychart and called asking if any repeat labs are needed. Lmp was 07/21/2024. Patient reports that she continues to have brownish spotting only when using restroom and cramping is intermittent and mild when it occurs. Please advise. New ob appointment is scheduled on 09/09/2024 [facility] 06-28-2024 Telephone encounter Note This provider returned the call to Ki. She has a thompson-sensitive UTI. She is day 3/7 of Macrobid and it has not helped at all. She does not want Macrobid- she states it never works. She states she has Macrobid for previous UTIs, and took two rounds but it still didn't work. She would like to switch antibiotics. Switched to Keflex. She VU. Stop Macrobid. Start Keflex. - sent to Elieser CARRERA PA-C [facility] 06-28-2024 Miscellaneous Notes This provider returned the call to Ki. She has a thompson-sensitive UTI. She is day 3/7 of Macrobid and it has not helped at all. She does not want Macrobid- she states it never works. She states she has Macrobid for previous UTIs, and took two rounds but it still didn't work. She would like to switch antibiotics. Switched to Keflex. She VU. Stop Macrobid. Start Keflex. - sent to Elieser CARRERA PA-C Ki is calling Luciana Joseph APRN.CNP today asking the Macrobid for UTI is changed. She's taken Macrobid in the past for UTI's and they haven not worked -She is not feeling any better since Friday's visit. Asking prescription is changed to Ceftriaxone? Please advise documented in this encounter [facility] 06-28-2024 Telephone encounter Note Ki is calling Luciana Joseph APRN.MARCUS today asking the Macrobid for UTI is changed. She's taken Macrobid in the past for UTI's and they haven not worked -She is not feeling any better since Friday's visit. Asking prescription is changed to Ceftriaxone? Please advise [facility] 06-26-2024 Note HNO ID: [id number] Author: LUCIANA JOSEPH APRN.CNP Service: ? Author Type: Nurse Practitioner Type: Progress Notes Filed: 06/26/2024 08:54 Note Text: Subjective HPI Ki presents today with one day hx of urinary frequency, burning and she has seen blood. She states she has hx of a uti in the past that became very severe so she wanted to be seen baudilio. She denies fever, abdominal pain or back discomfort. No past medical history on file. PAST SURGICAL HISTORY Procedure Laterality Date FOOT SURGERY HX Left 03/16/2010 bunion ALLERGIES Patient has no known allergies. MEDICATIONS spironolactone (ALDACTONE) 100 mg tablet Take 100 mg by mouth once daily. ELURYNG 0.12-0.015 mg/24 hr vaginal ring Use 1 Each vaginally as directed. FAMILY HISTORY Problem Relation Age of Onset other (hypoglycemia [Other]) Maternal Grandmother Heart Maternal Grandmother other (colitis [Other]) Maternal Grandmother other (arrythemia [Other]) Maternal Grandfather other (lung problems [Other]) Maternal Grandfather farmers lung other (mitral valve prolpase [Other]) Paternal Grandmother Stroke Paternal Grandmother Social History Tobacco Use Smoking status: Never Smokeless tobacco: Never Tobacco comments: smoking outside-parent Vaping Use Vaping status: Never Used Substance Use Topics Alcohol use: Yes Comment: socially Drug use: Never Review of Systems Genitourinary: Positive for dysuria, frequency, hematuria and urgency. Negative for flank pain. Objective Physical Exam Vitals and nursing note reviewed. Constitutional: Appearance: Normal appearance. HENT: Head: Normocephalic and atraumatic. Nose: Nose normal. Mouth/Throat: Mouth: Mucous membranes are moist. Eyes: Extraocular Movements: Extraocular movements intact. Pupils: Pupils are equal, round, and reactive to light. Cardiovascular: Rate and Rhythm: Normal rate and regular rhythm. Pulses: Normal pulses. Pulmonary: Effort: Pulmonary effort is normal. Breath sounds: Normal breath sounds. Abdominal: General: Abdomen is flat. Bowel sounds are normal. Palpations: Abdomen is soft. Tenderness: There is no right CVA tenderness, left CVA tenderness, guarding or rebound. Musculoskeletal: General: Normal range of motion. Cervical back: Normal range of motion and neck supple. Skin: General: Skin is warm and dry. Capillary Refill: Capillary refill takes less than 2 seconds. Neurological: General: No focal deficit present. Mental Status: She is alert and oriented to person, place, and time. Psychiatric: Mood and Affect: Mood normal. ASSESSMENT/PLAN: 1. Recurrent UTI (urinary tract infection) - ICD9: 599.0, ICD10: N39.0 acute - UA positive for ava esterase, hematuria, and proteinuria - Send urine for culture - Begin treatment with Macrobid 100 mg BID for 7 days - Patient education for prevention given - URINE CULTURE Luciana Joseph APRN.[facility] 06-26-2024 History of Present illness Narrative Subjective HPI Ki presents today with one day hx of urinary frequency, burning and she has seen blood. She states she has hx of a uti in the past that became very severe so she wanted to be seen baudilio. She denies fever, abdominal pain or back discomfort. No past medical history on file. PAST SURGICAL HISTORY Procedure Laterality Date FOOT SURGERY HX Left 03/16/2010 bunion ALLERGIES Patient has no known allergies. MEDICATIONS spironolactone (ALDACTONE) 100 mg tablet Take 100 mg by mouth once daily. ELURYNG 0.12-0.015 mg/24 hr vaginal ring Use 1 Each vaginally as directed. FAMILY HISTORY Problem Relation Age of Onset other (hypoglycemia [Other]) Maternal Grandmother Heart Maternal Grandmother other (colitis [Other]) Maternal Grandmother other (arrythemia [Other]) Maternal Grandfather other (lung problems [Other]) Maternal Grandfather farmers lung other (mitral valve prolpase [Other]) Paternal Grandmother Stroke Paternal Grandmother Social History Tobacco Use Smoking status: Never Smokeless tobacco: Never Tobacco comments: smoking outside-parent Vaping Use Vaping status: Never Used Substance Use Topics Alcohol use: Yes Comment: socially Drug use: Never Review of Systems Genitourinary: Positive for dysuria, frequency, hematuria and urgency. Negative for flank pain. Objective Physical Exam Vitals and nursing note reviewed. Constitutional: Appearance: Normal appearance. HENT: Head: Normocephalic and atraumatic. Nose: Nose normal. Mouth/Throat: Mouth: Mucous membranes are moist. Eyes: Extraocular Movements: Extraocular movements intact. Pupils: Pupils are equal, round, and reactive to light. Cardiovascular: Rate and Rhythm: Normal rate and regular rhythm. Pulses: Normal pulses. Pulmonary: Effort: Pulmonary effort is normal. Breath sounds: Normal breath sounds. Abdominal: General: Abdomen is flat. Bowel sounds are normal. Palpations: Abdomen is soft. Tenderness: There is no right CVA tenderness, left CVA tenderness, guarding or rebound. Musculoskeletal: General: Normal range of motion. Cervical back: Normal range of motion and neck supple. Skin: General: Skin is warm and dry. Capillary Refill: Capillary refill takes less than 2 seconds. Neurological: General: No focal deficit present. Mental Status: She is alert and oriented to person, place, and time. Psychiatric: Mood and Affect: Mood normal. ASSESSMENT/PLAN: 1. Recurrent UTI (urinary tract infection) - ICD9: 599.0, ICD10: N39.0 acute - UA positive for ava esterase, hematuria, and proteinuria - Send urine for culture - Begin treatment with Macrobid 100 mg BID for 7 days - Patient education for prevention given - URINE CULTURE Luciana Joseph APRN.MARCUS documented in this encounter [facility] 02-11-2024 History of Present illness Narrative Brick Picker offered: Patient accepts, visit chaperoned by Lucrecia Sheppard MA. Ki is a 28 year old No obstetric history on file. who presents for an annual gynecologic exam without complaints. Menses: cycles every 28 days and 4-5 days of flow. Contraception: Nuva Ring HPV vaccine: Yes Last Pap: normal HPV: negative History of abnormal pap: No Last mammogram: never Sexually active: Yes Time with current partner: 12 mo OB History No obstetric history on file. 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 No pertinent past medical history. PAST SURGICAL HISTORY Procedure Laterality Date FOOT SURGERY HX Left 03/16/2010 bunion FAMILY HISTORY Problem Relation Age of Onset other (hypoglycemia [Other]) Maternal Grandmother Heart Maternal Grandmother other (colitis [Other]) Maternal Grandmother other (arrythemia [Other]) Maternal Grandfather other (lung problems [Other]) Maternal Grandfather farmers lung other (mitral valve prolpase [Other]) Paternal Grandmother Stroke Paternal Grandmother SOCIAL HISTORY Social History Tobacco Use Smoking status: Never Smokeless tobacco: Never Tobacco comments: smoking outside-parent Vaping Use Vaping Use: Never used Substance Use Topics Alcohol use: Yes Comment: socially Drug use: Never REVIEW OF SYSTEMS Abdomen: No abdominal pain, nausea, vomiting, diarrhea, or constipation. No bloating, early satiety, indigestion, or increased flatulence. Bladder: No dysuria, gross hematuria, urinary frequency, urinary urgency, or incontinence. Breast: No breast lumps, nipple d/c, overlying skin changes, redness or skin retraction. Allergies and current medication updated:Yes EXAM: BP 100/60 Ht 5' 4.803 (1.65m) Wt 161 lb (73.0kg) LMP 01/20/2024 BMI 26.95 kg/(m^2). GENERAL: pleasant, female in no apparent distress HEENT: Normocephalic, atraumatic, mucus membranes moist, and no lesions NECK: Supple, full range of motion, no adenopathy, and thyroid normal DERMATOLOGY: Normal, without lesions, non-icteric, and non-hirsute BREAST: soft, non-tender, symmetric, no dominant mass, normal nipple-areolar complex, no lymphadenopathy, and no nipple discharge CHEST: Normal inspiratory effort ABDOMEN: soft, non-tender, and no masses PELVIC: external genitalia normal, normal Bartholin's glands, urethra, Carrier's glands, no vulvar lesions, no cervical lesions, good vaginal support, physiologic discharge present, normal appearing perineal body and perianal region BIMANUAL: uterus normal size, shape and consistency, no adnexal masses, and non-tender RECTOVAGINAL: deferred. NEURO: alert and oriented x3,exam grossly non-focal EXTREMITIES: normal ASSESSMENT/PLAN: 1) Health maintenance: Pap done with reflex HPV. 2) Contraception: Nuva Ring. Contraceptive options reviewed and information provided. 3) STD screening: Declined STD check. 4) Follow up one year or sooner as needed Ascencion Kessler MD documented in this encounter [facility] 08-10-2022 Note . MICRO - Microbiology PROCEDURE: Urine Culture [*1] SOURCE: Urine, Clean Catch BODY SITE: COLLECTED DATE/TIME: 08/08/2022 08:09 EST RECEIVED DATE/TIME: 08/08/2022 16:01 EST START DATE/TIME: 08/08/2022 16:01 EST FREE TEXT SOURCE: FINAL REPORTS Final Report [] Verified Date/Time/Personnel: 08/10/2022 08:48 EST No growth at 48 hours. PRELIMINARY REPORTS Preliminary Report [] Verified Date/Time/Personnel: 08/09/2022 10:02 EST No growth to date Performing Locations *1: This test was performed at: [facility], [address] [place] [address], [id number] , [facility] ([place]) 08-08-2022 Evaluation + Plan note Diagnostic Tests PendingUrine Culture 08/08/22 Future Scheduled TestsBasic Metabolic Panel 02/08/22 [facility] 02-08-2022 Evaluation + Plan note Future Scheduled TestsBasic Metabolic Panel 02/08/22Basic Metabolic Panel 07/23/22Urinalysis Microscopic 07/23/22Urine Culture 07/23/22 [facility] 01-10-2022 Evaluation + Plan note Diagnostic Tests PendingBob Montero Dander 01/10/22 [facility] Evaluation + Plan note Future Appointments Appointment Date:02/08/2022 11:00:00 AM Scheduled Provider:DENNIS GREENBERG DO Location:[facility] Appointment Type:PC OV Follow Up [facility] Evaluation note Diagnosis Encounter for gynecological examination (general) (routine) without abnormal findings- Primary Screening for cervical cancer Screening for malignant neoplasm of the cervix [facility] Diagnosis Recurrent UTI (urinary tract infection)- Primary Urinary tract infection, site not specified [facility] Diagnosis Bleeding in early - Primary Unspecified hemorrhage in early , unspecified as to episode of care , location unknown state, incidental [facility] Diagnosis Threatened - Primary Threatened , unspecified as to episode of care [facility] Diagnosis Bleeding in early - Primary Unspecified hemorrhage in early , unspecified as to episode of care , location unknown state, incidental [facility] Diagnosis Early stage of - Primary state, incidental Anxiety Anxiety state, unspecified related nausea, antepartum Mild hyperemesis gravidarum, antepartum [facility] Diagnosis Encounter for supervision in primigravida, antepartum- Primary Less than 8 weeks gestation of state, incidental Anxiety during History of chronic hypertension with uncertain dates in first trimester [facility] Diagnosis 10 weeks gestation of - Primary state, incidental [facility] Diagnosis Viral upper respiratory tract infection with cough- Primary Acute upper respiratory infections of unspecified site Pharyngitis, unspecified etiology Influenza A Influenza with other respiratory manifestations [facility] Diagnosis Influenza A- Primary Influenza with other respiratory manifestations [facility] Diagnosis Encounter for supervision in primigravida, antepartum- Primary 10 weeks gestation of state, incidental Influenza A Influenza with other respiratory manifestations Anxiety during [facility] Diagnosis Encounter for screening for malformation using ultrasound- Primary 12 weeks gestation of state, incidental [facility] Diagnosis 12 weeks gestation of - Primary state, incidental Encounter for supervision in primigravida, antepartum Anxiety during [facility] Diagnosis 16 weeks gestation of (HCC)- Primary state, incidental Anxiety during ([facility]) Encounter for supervision in primigravida, antepartum ([facility]) [facility] Diagnosis Encounter for supervision of normal first in second trimester ([facility])- Primary Supervision of normal first History of chronic hypertension 20 weeks gestation of ([facility]) state, incidental [facility] Diagnosis Encounter for anatomic survey ([facility])- Primary Encounter for anatomic survey 20 weeks gestation of ([facility]) state, incidental [facility] Diagnosis History of chronic hypertension- Primary Encounter for supervision of normal first in second trimester ([facility]) Supervision of normal first Anxiety during ([facility]) 24 weeks gestation of ([facility]) state, incidental Screening for diabetes mellitus [facility] Diagnosis 29 weeks gestation of ([facility] [facility] Primary state, incidental Encounter for supervision of normal first in second trimester ([facility]) Supervision of normal first Need for vaccination Need for prophylactic vaccination and inoculation against unspecified single disease Spotting complicating , third trimester ([facility]) Uterine size date discrepancy , third trimester ([facility]) [facility] Diagnosis Encounter for supervision of normal first in third trimester ([facility])- Primary Supervision of normal first 31 weeks gestation of ([facility]) state, incidental Uterine size date discrepancy , third trimester ([facility]) Anxiety during ([facility]) [facility] Diagnosis Encounter for ultrasound to check growth ([facility])- Primary Encounter for routine screening for malformation using ultrasonics Uterine size date discrepancy , third trimester ([facility]) 31 weeks gestation of ([facility]) state, incidental [facility] Diagnosis Encounter for supervision of normal first in third trimester ([facility])- Primary Supervision of normal first 34 weeks gestation of ([facility]) state, incidental Uterine size date discrepancy , third trimester ([facility]) History of chronic hypertension Anxiety during ([facility]) [facility] Diagnosis 36 weeks gestation of ([facility])- Primary state, incidental Encounter for supervision of normal first in third trimester ([facility]) Supervision of normal first [facility] Diagnosis macrosomia during in third trimester, single or unspecified fetus ([facility])- Primary Encounter for supervision of normal first in third trimester ([facility]) Supervision of normal first Uterine size date discrepancy , third trimester ([facility]) [facility] Diagnosis Encounter for supervision of normal first in third trimester ([facility])- Primary Supervision of normal first 37 weeks gestation of ([facility]) state, incidental Excessive growth affecting management of in third trimester, single or unspecified fetus ([facility]) History of chronic hypertension Anxiety during ([facility]) [facility] Diagnosis Encounter for supervision of normal first in third trimester ([facility])- Primary Supervision of normal first Excessive growth affecting management of in third trimester, single or unspecified fetus ([facility]) History of chronic hypertension Anxiety during ([facility]) 37 weeks gestation of ([facility]) state, incidental [facility] Diagnosis Encounter for supervision of normal first in third trimester ([facility])- Primary Supervision of normal first History of chronic hypertension Excessive growth affecting management of in third trimester, single or unspecified fetus (H[facility]) Anxiety during ([facility]) 38 weeks gestation of ([facility]) state, incidental * Assessment & Plan Note - Sheree Michele MD - 2025 8:43 AM EDT Associated Problem(s): History of chronic hypertension BP well controlled. Orders: URINE OB DIP B/O * Assessment & Plan Note - Sheree Michele MD - 2025 8:43 AM EDT Associated Problem(s): Anxiety during (HCC) Orders: URINE OB DIP B/O documented in this encounter [facility] course Narrative No data available for this section [facility] Hospital Discharge instructions No data available for this section [facility] Progress note No data available for this section [facility] Reason for referral (narrative)* Diagnostic Procedure Only (Routine) - Pending Review Specialty Diagnoses / Procedures Referred By Contac t Referred To Contact [facility] Diagnoses Bleeding in early , location unknown Procedures PELVIC US WHI US PELVIC NONOBSTETRIC REAL-TIME IMAGE COMPLETE Constantino Gaines MD [address] [place] [address] [facility] [address] [place] [address] Referral ID Status Reason Start Date Expiration Date Visits Requested Visits Authorized [id number] Pending Review Auto-Generat ed Referral 08/31/2024 08/31/2025 1 1 [facility] for referral (narrative)* Diagnostic Procedure Only (Routine) - Pending Review Specialty Diagnoses / Procedures Referred By Contac t Referred To Contact [facility] Diagnoses Encounter for supervision in primigravida, antepartum Less than 8 weeks gestation of Procedures OBSTETRIC ULTRASOUND WHI US PREG UTERUS AFTER 1ST TRIMEST GESTATION Rao Pineda APRN.GREEN MARKETING ANALYST [address] [place] [address] [facility] [address] [place] [address] Referral ID Status Reason Start Date Expiration Date Visits Requested Visits Authorized [id number] Pending Review Auto-Generat ed Referral 09/20/2024 09/20/2025 1 1 * Diagnostic Procedure Only (Routine) - New Request Specialty Diagnoses / Procedures Referred By Arlene t Referred To Contact [facility] Diagnoses Encounter for supervision in primigravida, antepartum Less than 8 weeks gestation of Procedures OBSTETRIC ULTRASOUND WHI US PREG UTERUS AFTER 1ST TRIMEST GESTATION Rao Pineda APRN.CNP [address] [place] [address] [facility] [address] [place] [id number] Referral ID Status Reason Start Date Expiration Date Visits Requested Visits Authorized [id number] New Request Auto-Generat ed Referral 09/20/2024 09/20/2025 1 1 [facility]* Diagnostic Procedure Only (Routine) - Closed Specialty Diagnoses / Procedures Referred By Contac t Referred To Contact [facility] Diagnoses Bleeding in early , location unknown Procedures PELVIC US WHI US PELVIC NONOBSTETRIC REAL-TIME IMAGE COMPLETE Constantino Gaines MD [address] [place] [address] [facility] [address] [place] [address] Referral ID Status Reason Start Date Expiration Date V isits Requested Visits Authorized [id number] Closed Auto-Generate d Referral 08/31/2024 08/24/2025 1 1 [facility] Summary Purpose Family History No Family History Records FoundNo Family History Records FoundNo Family History Records FoundNo Family History Records Found Advance Directives No Advanced Directives Records FoundNo Advanced Directives Records FoundNo Advanced Directives Records FoundNo Advanced Directives Records Found Additional Source Comments Care Team (unrecognized sect ion and content) Department Operations Manager Relationship Specialty Start Date End Date Jerel Branch Jr., MD PCP - General Internal Medicine 07/29/12 Department Operations Manager Relationship Specialty Start Date End Date Jerel Branch Jr., MD PCP - General Internal Medicine 07/29/12 Department Operations Manager Relationship Specialty Start Date End Date Jerel Branch Jr., MD PCP - General Internal Medicine 07/29/12 Department Operations Manager Relationship Specialty Start Date End Date Jerel Branch Jr., MD PCP - General Internal Medicine 07/29/12 Department Operations Manager Relationship Specialty Start Date End Date Jerel Branch Jr., MD PCP - General Internal Medicine 07/29/12 Department Operations Manager Relationship Specialty Start Date End Date Jerel Branch Jr., MD PCP - General Internal Medicine 07/29/12 Department Operations Manager Relationship Specialty Start Date End Date Jerel Branch Jr., MD PCP - General Internal Medicine 07/29/12 Department Operations Manager Relationship Specialty Start Date End Date Jerel Branch Jr., MD PCP - General Internal Medicine 07/29/12 Department Operations Manager Relationship Specialty Start Date End Date Jerel Branch Jr., MD PCP - General Internal Medicine 07/29/12 Department Operations Manager Relationship Specialty Start Date End Date Jerel Branch Jr., MD PCP - General Internal Medicine 07/29/12 Department Operations Manager Relationship Specialty Start Date End Date Jerel Branch Jr., MD PCP - General Internal Medicine 07/29/12 Department Operations Manager Relationship Specialty Start Date End Date Jerel Branch Jr., MD PCP - General Internal Medicine 07/29/12 Department Operations Manager Relationship Specialty Start Date End Date Jerel Branch Jr., MD PCP - General Internal Medicine 07/29/12 Department Operations Manager Relationship Specialty Start Date End Date Jerel Branch Jr., MD PCP - General Internal Medicine 07/29/12 Department Operations Manager Relationship Specialty Start Date End Date Jerel Branch Jr., MD PCP - General Internal Medicine 07/29/12 Department Operations Manager Relationship Specialty Start Date End Date Jerel Branch Jr., MD PCP - General Internal Medicine 07/29/12 Department Operations Manager Relationship Specialty Start Date End Date Jerel Branch Jr., MD PCP - General Internal Medicine 07/29/12 Department Operations Manager Relationship Specialty Start Date End Date Jerel Branch Jr., MD PCP - General Internal Medicine 07/29/12 Department Operations Manager Relationship Specialty Start Date End Date Jerel Branch Jr., MD PCP - General Internal Medicine 07/29/12 Care Team (unrecognized sect ion and content) Care Team Personnel Name: DENNIS GREENBERG DO Position: P4 Physician - Primary Care Member Role: Primary Care Physician Address: Address: [address] [place] [id number]- [place] Care Team Related Persons Name: WILLIAN MATA Address: Home [address] [place] [phone] Name: WILLIAN MATA Address: [address] [id number] Care Team Personnel Name: DENNIS GREENBERG DO Position: P4 Physician - Primary Care Member Role: Primary Care Physician Address: Address: [address] [place] [address]- [place] Care Team Related Persons Name: WILLIAN MATA Address: [address] [phone] Name: WILLIAN MATA Address: [address] [phone] INFORMATION SOURCE (unrecogn ized section and content) DATE CREATED AUTHOR 08/15/2022 [facility] DATE CREATED AUTHOR AUTHOR'S ORGANIZ ATION 10/03/2024 [facility] DATE CREATED AUTHOR AUTHOR'S ORGANIZ ATION 03/14/2025 [facility] DATE CREATED AUTHOR AUTHOR'S ORGANIZ ATION 04/30/2025 [facility] Source Comments (unrecognize d section and content) In the event this informatio n is protected by the Federal Confidentiality of Alcohol and Drug Abuse Patient Records regulations: The Federal rules restrict any use of the information to criminally investigate or prosecute any alcohol or drug abuse patient.[facility] the event this information is protected by the Federal Confidentiality of Alcohol and Drug Abuse Patient Records regulations: The Federal rules restrict any use of the information to criminally investigate or prosecute any alcohol or drug abuse patient.[facility] the event this information is protected by the Federal Confidentiality of Alcohol and Drug Abuse Patient Records regulations: The Federal rules restrict any use of the information to criminally investigate or prosecute any alcohol or drug abuse patient.[facility] the event this information is protected by the Federal Confidentiality of Alcohol and Drug Abuse Patient Records regulations: The Federal rules restrict any use of the information to criminally investigate or prosecute any alcohol or drug abuse patient.[facility] the event this information is protected by the Federal Confidentiality of Alcohol and Drug Abuse Patient Records regulations: The Federal rules restrict any use of the information to criminally investigate or prosecute any alcohol or drug abuse patient.[facility] the event this information is protected by the Federal Confidentiality of Alcohol and Drug Abuse Patient Records regulations: The Federal rules restrict any use of the information to criminally investigate or prosecute any alcohol or drug abuse patient.[facility] the event this information is protected by the Federal Confidentiality of Alcohol and Drug Abuse Patient Records regulations: The Federal rules restrict any use of the information to criminally investigate or prosecute any alcohol or drug abuse patient.[facility] the event this information is protected by the Federal Confidentiality of Alcohol and Drug Abuse Patient Records regulations: The Federal rules restrict any use of the information to criminally investigate or prosecute any alcohol or drug abuse patient.[facility] the event this information is protected by the Federal Confidentiality of Alcohol and Drug Abuse Patient Records regulations: The Federal rules restrict any use of the information to criminally investigate or prosecute any alcohol or drug abuse patient.[facility] the event this information is protected by the Federal Confidentiality of Alcohol and Drug Abuse Patient Records regulations: The Federal rules restrict any use of the information to criminally investigate or prosecute any alcohol or drug abuse patient.[facility] the event this information is protected by the Federal Confidentiality of Alcohol and Drug Abuse Patient Records regulations: The Federal rules restrict any use of the information to criminally investigate or prosecute any alcohol or drug abuse patient.[facility] the event this information is protected by the Federal Confidentiality of Alcohol and Drug Abuse Patient Records regulations: The Federal rules restrict any use of the information to criminally investigate or prosecute any alcohol or drug abuse patient.[facility] the event this information is protected by the Federal Confidentiality of Alcohol and Drug Abuse Patient Records regulations: The Federal rules restrict any use of the information to criminally investigate or prosecute any alcohol or drug abuse patient.[facility] the event this information is protected by the Federal Confidentiality of Alcohol and Drug Abuse Patient Records regulations: The Federal rules restrict any use of the information to criminally investigate or prosecute any alcohol or drug abuse patient.[facility] the event this information is protected by the Federal Confidentiality of Alcohol and Drug Abuse Patient Records regulations: The Federal rules restrict any use of the information to criminally investigate or prosecute any alcohol or drug abuse patient.[facility] the event this information is protected by the Federal Confidentiality of Alcohol and Drug Abuse Patient Records regulations: The Federal rules restrict any use of the information to criminally investigate or prosecute any alcohol or drug abuse patient.[facility] the event this information is protected by the Federal Confidentiality of Alcohol and Drug Abuse Patient Records regulations: The Federal rules restrict any use of the information to criminally investigate or prosecute any alcohol or drug abuse patient.[facility] the event this information is protected by the Federal Confidentiality of Alcohol and Drug Abuse Patient Records regulations: The Federal rules restrict any use of the information to criminally investigate or prosecute any alcohol or drug abuse patient.[facility] the event this information is protected by the Federal Confidentiality of Alcohol and Drug Abuse Patient Records regulations: The Federal rules restrict any use of the information to criminally investigate or prosecute any alcohol or drug abuse patient.[facility] the event this information is protected by the Federal Confidentiality of Alcohol and Drug Abuse Patient Records regulations: The Federal rules restrict any use of the information to criminally investigate or prosecute any alcohol or drug abuse patient.[facility] the event this information is protected by the Federal Confidentiality of Alcohol and Drug Abuse Patient Records regulations: The Federal rules restrict any use of the information to criminally investigate or prosecute any alcohol or drug abuse patient.[facility] the event this information is protected by the Federal Confidentiality of Alcohol and Drug Abuse Patient Records regulations: The Federal rules restrict any use of the information to criminally investigate or prosecute any alcohol or drug abuse patient.[facility] the event this information is protected by the Federal Confidentiality of Alcohol and Drug Abuse Patient Records regulations: The Federal rules restrict any use of the information to criminally investigate or prosecute any alcohol or drug abuse patient.[facility] the event this information is protected by the Federal Confidentiality of Alcohol and Drug Abuse Patient Records regulations: The Federal rules restrict any use of the information to criminally investigate or prosecute any alcohol or drug abuse patient.[facility] the event this information is protected by the Federal Confidentiality of Alcohol and Drug Abuse Patient Records regulations: The Federal rules restrict any use of the information to criminally investigate or prosecute any alcohol or drug abuse patient.[facility] the event this information is protected by the Federal Confidentiality of Alcohol and Drug Abuse Patient Records regulations: The Federal rules restrict any use of the information to criminally investigate or prosecute any alcohol or drug abuse patient.[facility] the event this information is protected by the Federal Confidentiality of Alcohol and Drug Abuse Patient Records regulations: The Federal rules restrict any use of the information to criminally investigate or prosecute any alcohol or drug abuse patient.[facility] the event this information is protected by the Federal Confidentiality of Alcohol and Drug Abuse Patient Records regulations: The Federal rules restrict any use of the information to criminally investigate or prosecute any alcohol or drug abuse patient.[facility] the event this information is protected by the Federal Confidentiality of Alcohol and Drug Abuse Patient Records regulations: The Federal rules restrict any use of the information to criminally investigate or prosecute any alcohol or drug abuse patient.[facility] the event this information is protected by the Federal Confidentiality of Alcohol and Drug Abuse Patient Records regulations: The Federal rules restrict any use of the information to criminally investigate or prosecute any alcohol or drug abuse patient.[facility] the event this information is protected by the Federal Confidentiality of Alcohol and Drug Abuse Patient Records regulations: The Federal rules restrict any use of the information to criminally investigate or prosecute any alcohol or drug abuse patient.[facility] the event this information is protected by the Federal Confidentiality of Alcohol and Drug Abuse Patient Records regulations: The Federal rules restrict any use of the information to criminally investigate or prosecute any alcohol or drug abuse patient.[facility] the event this information is protected by the Federal Confidentiality of Alcohol and Drug Abuse Patient Records regulations: The Federal rules restrict any use of the information to criminally investigate or prosecute any alcohol or drug abuse patient.[facility] the event this information is protected by the Federal Confidentiality of Alcohol and Drug Abuse Patient Records regulations: The Federal rules restrict any use of the information to criminally investigate or prosecute any alcohol or drug abuse patient.[facility] Reason for Visit (unrecogniz ed section and content) Reason Comments UTI Symptoms started yes terday frequency burning and blood in urine. Reason Comments Medication Problem Reason Comments Results Reason Comments US follow up Reason Comments Initial OB Visit Reason Onset Date Comments Care 10/04/2024 weekly heart tones Reason Comments Viral Syndrome Ten weeks Reason Onset Date Comments Care 10/11/2024 Reason Comments US Specialty Diagnoses / Procedures Referred By Arlene t Referred To Contact [facility] Diagnoses Encounter for supervision in primigravida, antepartum Less than 8 weeks gestation of Encounter for supervision of normal , unspecified, unspecified trimester Procedures OBSTETRIC ULTRASOUND WHI US PREG UTERUS AFTER 1ST TRIMEST GESTATION Rao Pineda, MAHESH.GREEN MARKETING ANALYST [address] [address] Phone: tel: fax: [facility] [address] [place] [address] Referral ID Status Reason Start Date Expiration Date Visits Requested Visits Authorized [id number] Authorized Auto-Generat ed Referral 10/11/2024 08/24/2025 20 20 Reason Onset Date Comments Care 10/25/2024 Reason Comments Vaginal Discharge Reason Onset Date Comments Care 12/23/2024 Specialty Diagnoses / Procedures Referred By Contac t Referred To Contact [facility] Diagnoses Encounter for supervision in primigravida, antepartum (HCC) Less than 8 weeks gestation of ([facility]) Procedures OBSTETRIC ULTRASOUND WHI US PREG UTERUS AFTER 1ST TRIMEST GESTATION Rao Pineda APRN.GREEN MARKETING ANALYST [address] [place] [address] Phone: tel: fax: [facility] [address] [place] [address] Referral ID Status Reason Start Date Expiration Date V isits Requested Visits Authorized [id number] Closed Auto-Generate d Referral 09/20/2024 09/20/2025 1 1 Reason Onset Date Comments Care 01/20/2025 Reason Onset Date Comments Care 02/18/2025 Reason Onset Date Comments Care 03/10/2025 Specialty Diagnoses / Procedures Referred By Contac t Referred To Contact [facility] Diagnoses Uterine size date discrepancy , third trimester ([facility]) Procedures OBSTETRIC ULTRASOUND WHI US PREG UTERUS AFTER 1ST TRIMEST GESTATION Mira Lewis MD [address] [place] [address] Phone: tel: fax: [facility] [address] [place] [address] Referral ID Status Reason Start Date Expiration Date V isits Requested Visits Authorized [id number] Closed Auto-Generate d Referral 02/24/2025 08/24/2025 1 1 Reason Onset Date Comments Care 03/25/2025 Reason Onset Date Comments Care 04/08/2025 Specialty Diagnoses / Procedures Referred By Contac t Referred To Contact [facility] Diagnoses Encounter for supervision of normal first in third trimester (HCC) Uterine size date discrepancy , third trimester (HCC) Procedures OBSTETRIC ULTRASOUND WHI US PREG UTERUS AFTER 1ST TRIMEST GESTATION Rao Pineda APRN.CNP [address] [place] [address] Phone: tel: fax: [facility] [address] [place] [address] Referral ID Status Reason Start Date Expiration Date V isits Requested Visits Authorized [id number] Closed Auto-Generate d Referral 03/10/2025 03/10/2026 1 1 Reason Onset Date Comments Care 04/15/2025 Reason Onset Date Comments Care 04/21/2025 Reason Onset Date Comments Care 2025 FOR RECORDS PERTAINING TO PATIENTS WHO ARE OR HAVE BEEN ENROLLED IN A CHEMICAL DEPENDENCY/SUBSTANCEABUSE PROGRAM, SOME INFORMATION MAY BE OMITTED. This clinical summary was aggregated from multiple sources. Caution should be exercised in using it in the provision of clinical care. This summary normalizes information from multiple sources, and as a consequence, information in this document may materially change the coding, format and clinical context of patient data. In addition, data may be omitted in some cases. CLINICAL DECISIONS SHOULD BE BASED ON THE PRIMARY CLINICAL RECORDS. [facility]. provides no warranty or guarantee of the accuracy or completeness of information in this document.
--- OUTSIDE RECORDS SUMMARY | 2025-05-01 15:30 | XMS RPT_ITS | CCD ---
Author Organization [facility] Care Team Providers Care Briar Cutter Name Role Phone JOSE CARLOS SUAZO, DR JEREL Vann JR Primary Care Physician DENNIS GREENBERG DO Primary Care Physician DENNIS GREENBERG DO Attending Unavailable DENNIS GREENBERG DO Primary Care Unavailable OFELIA VELAZQUEZ, MSMuna Snell Attending Walter BRANCH MD, JEREL Vann JR Primary Care Unavailab DENNIS Verdugo DO Attending Unavailable JEERL BRANCH MD, JR Primary Care Unavailab tony [...] Unavailable SHABNAM WILSON Attending Unavailable JOSE CARLOS ADI, JEREL W Primary Care Unavailable DESTINEY SCHROEDER [...] cap(s), 0 Refill(s), 08/02/22 13:22:00 EST, Pharmacy: [facility]/pharmacy #[id number], Bacterial UTI Abnormal urinalysis, 164.5, cm, [...] directed. 09/02/2024 Discontinued 21 day ethinyl estradiol 0.785525 mg/hr / etonogestrel 0.005 mg/hr vaginal system [...] palpitations, # 90 tab(s), 0 Refill(s), Pharmacy: [facility]/pharmacy #[id number], Encounter to establish care Wellness examination, 163.8, [...] 5 Glucose Ql (U) Negative Neg mg/dL [facility] Protein.monoclonal (U) [Mass/Vol] Negative Neg mg/dL [facility] URINE OB DIP B/Oon 5 Glucose Ql (U) Negative Neg mg/dL [facility] Protein.monoclonal (U) [Mass/Vol] Negative Neg mg/dL [facility] CNPNon 04-11-2025 CNPN Telephone (OBGYWM) KI DELGADO ([id number]) 1995 F Date Time Provider Department 04/11/25 [...] Status:Closed by LUCRECIA SHEPPARD on 04/19/25 Normal [facility] Examination level ultrasound on 04-08-2025 [facility] Radiology Study observation (narrative) [facility] ROUTINE, GROUP B ST REPTOCOCCUS BY PCRon 04-08-2025 ROUTINE, GROUP B STREPTOCOCCUS BY PCR Not detected Normal [facility] Comment on above: Performed By: #### G BPCR ####[facility] LABCLIA [id number] [place] [address] [place] URINE OB DIP B/Oon 5 Glucose Ql (U) Negative Neg mg/dL [facility] Interpretation and review of laboratory results Normal [facility] Protein.monoclonal (U) [Mass/Vol] Negative Neg mg/dL [facility] URINE OB DIP B/Oon 5 Glucose Ql (U) Negative Neg mg/dL [facility] Interpretation and review of laboratory results Normal [facility] Protein.monoclonal (U) [Mass/Vol] Negative Neg mg/dL [facility] Examination level ultrasound on 03-10-2025 [facility] Radiology Study observation (narrative) [facility] BACTERIAL VAGINOSIS NAATon 0 02-18-2025 Lactobacillus crispatus+gasseri+peewee senii + Gardnerella vaginalis + Atopobium vaginae rRNA RAYA+probe Ql (Vag fld) Not detected Normal Not detected [facility] Comment on above: Order Comment: Speci men Type: BLOOD SPECIMEN Ordering Facility: [facility] Address: [address] [place] [address] Performed By: #### 5 8410-2 #### [facility] CLIA [id number] [address] [place] [address] [place] MARY/TRICHOMONAS NAATon 0 02-18-2025 C. glabrata RNA ARYA+probe Ql (Vag fld) Not detected Normal Not detected [facility] Comment on above: Order Comment: Speci men Type: BLOOD SPECIMEN Ordering Facility: [facility] Address: [address] [place] [address] Performed By: #### 5 8410-2 #### [facility] CLIA [id number] [address] [place] [address] [place] Mary sp DNA RAYA+probe Ql (Vag fld) Not detected Normal Not detected [facility] Comment on above: Order Comment: Speci men Type: BLOOD SPECIMEN Ordering Facility: [facility] Address: [address] [place] [address] Performed By: #### 5 8410-2 #### [facility] CLIA [id number] [address] [place] [address] [place] T. vaginalis DNA RAYA+probe Ql (Unsp spec) Not detected Normal Not detected [facility] Comment on above: Order Comment: Speci men Type: BLOOD SPECIMEN Ordering Facility: [facility] Address: [address] [place] [address] Performed By: #### 5 8410-2 #### [facility] CLIA [id number] [address] [place] [address] [place] CBC W Auto Differential pane l (Bld)on 02-18-2025 Basophils (Bld) [#/Vol] 0.04 10*3/uL Normal <0.11 [facility] Comment on above: Order Comment: Speci men Type: BLOOD SPECIMENOrdering Facility: [facility] Address: [address] [place] [address] Performed By: #### 5 7021-8 ####[facility] [id number] [place] [address] [place] Basophils/100 WBC (Bld) 0.4 % Normal [facility] Comment on above: Order Comment: Speci men Type: BLOOD SPECIMENOrdering Facility: [facility] Address: [address] [place] [address] Performed By: #### 5 7021-8 ####[facility] [id number] [place] [address] [place] Differential cell count method Nom (Bld) Auto Normal [facility] Comment on above: Order Comment: Speci men Type: BLOOD SPECIMENOrdering Facility: [facility] Address: [address] [place] [address] Performed By: #### 5 7021-8 ####[facility] [id number] [place] [address] [place] Eosinophils (Bld) [#/Vol] 0.10 10*3/uL Normal <0.46 [facility] Comment on above: Order Comment: Speci men Type: BLOOD SPECIMENOrdering Facility: [facility] Address: [address] [place] [address] Performed By: #### 5 7021-8 ####[facility] [id number] [place] [address] [place] Eosinophils/100 WBC (Bld) 0.9 % Normal [facility] Comment on above: Order Comment: Speci men Type: BLOOD SPECIMENOrdering Facility: [facility] Address: [address] [place] [address] Performed By: #### 5 7021-8 ####[facility] [id number] [place] [address] [place] Erythrocyte distribution width (RBC) [Ratio] 12.1 % Normal 11.5-15.0 [facility] Comment on above: Order Comment: Speci men Type: BLOOD SPECIMENOrdering Facility: [facility] Address: [address] [place] [address] Performed By: #### 5 7021-8 ####[facility] [id number] [place] [address] [place] Hematocrit (Bld) [Volume fraction] 30.7 % Low 36.0-46.0 [facility] Comment on above: Order Comment: Speci men Type: BLOOD SPECIMENOrdering Facility: [facility] Address: [address] [place] [address] Performed By: #### 5 7021-8 ####[facility] OJSECHESTERTOWNNCOLIVER [id number] [place] [address] [place] Hemoglobin (Bld) [Mass/Vol] 10.6 g/dL Low 11.5-15.5 [facility] Comment on above: Order Comment: Speci men Type: BLOOD SPECIMENOrdering Facility: [facility] Address: [address] [place] [address] Performed By: #### 5 7021-8 ####[facility] EASTNCOly [id number] [place] [address] [place] Immature granulocytes (Bld) [#/Vol] 0.11 10*3/uL High <0.10 [facility] Comment on above: Order Comment: Speci men Type: BLOOD SPECIMENOrdering Facility: [facility] Address: [address] [place] [address] Performed By: #### 5 7021-8 ####[facility] EASTNCLIA [id number] [place] [address] [place] Immature granulocytes/100 WBC (Bld) 1.0 % Normal [facility] Comment on above: Order Comment: Speci men Type: BLOOD SPECIMENOrdering Facility: [facility] Address: [address] [place] [address] Performed By: #### 5 7021-8 ####[facility] EASTNCLIA [id number] [place] [address] [place] Lymphocytes (Bld) [#/Vol] 1.95 10*3/uL Normal 1.00-4.00 [facility] Comment on above: Order Comment: Speci men Type: BLOOD SPECIMENOrdering Facility: [facility] Address: [address] [place] [address] Performed By: #### 5 7021-8 ####[facility] JOSEMARY CARMENA [id number] [place] [address] [place] Lymphocytes/100 WBC (Bld) 17.1 % Normal [facility] Comment on above: Order Comment: Speci men Type: BLOOD SPECIMENOrdering Facility: [facility] Address: [address] [place] [address] Performed By: #### 5 7021-8 ####[facility] EASTJOHN [id number] [place] [address] [place] MCH (RBC) [Entitic mass] 30.0 pg Normal 26.0-34.0 [facility] Comment on above: Order Comment: Speci men Type: BLOOD SPECIMENOrdering Facility: [facility] Address: [address] [place] [address] Performed By: #### 5 7021-8 ####[facility] EASTKAILEETOOELE [facility] [id number] [place] [address] [place] MCHC (RBC) [Mass/Vol] 34.5 g/dL Normal 30.5-36.0 [facility] Comment on above: Order Comment: Speci men Type: BLOOD SPECIMENOrdering Facility: [facility] Address: [address] [place] [address] Performed By: #### 5 7021-8 ####[facility] EASTKAILEELIOly [id number] [place] [address] [place] MCV (RBC) [Entitic vol] 87.0 fL Normal 80.0-100.0 [facility] Comment on above: Order Comment: Speci men Type: BLOOD SPECIMENOrdering Facility: [facility] Address: [address] [place] [address] Performed By: #### 5 7021-8 ####[facility] EASTNCA [id number] [place] [address] [place] Monocytes (Bld) [#/Vol] 1.00 10*3/uL High <0.87 [facility] Comment on above: Order Comment: Speci men Type: BLOOD SPECIMENOrdering Facility: [facility] Address: [address] [place] [address] Performed By: #### 5 7021-8 ####[facility] [id number] [place] [address] [place] Monocytes/100 WBC (Bld) 8.8 % Normal [facility] Comment on above: Order Comment: Speci men Type: BLOOD SPECIMENOrdering Facility: [facility] Address: [address] [place] [address] Performed By: #### 5 7021-8 ####[facility] [id number] [place] [address] [place] Neutrophils (Bld) [#/Vol] 8.18 10*3/uL High 1.45-7.50 [facility] Comment on above: Order Comment: Speci men Type: BLOOD SPECIMENOrdering Facility: [facility] Address: [address] [place] [address] Performed By: #### 5 7021-8 ####[facility] [id number] [place] [address] [place] Neutrophils/100 WBC (Bld) 71.8 % Normal [facility] Comment on above: Order Comment: Speci men Type: BLOOD SPECIMENOrdering Facility: [facility] Address: [address] [place] [address] Performed By: #### 5 7021-8 ####[facility] [id number] [place] [address] [place] Nucleated RBC (Bld) [#/Vol] 10*3/uL Normal <0.01 [facility] Comment on above: Order Comment: Speci men Type: BLOOD SPECIMENOrdering Facility: [facility] Address: [address] [place] [address] Performed By: #### 5 7021-8 ####[facility] FRANCISCO [id number] [place] [address] [place] Nucleated RBC/100 WBC (Bld) [Ratio] 0.0 /100 WBC Normal [facility] Comment on above: Order Comment: Speci men Type: BLOOD SPECIMENOrdering Facility: [facility] Address: [address] [place] [address] Performed By: #### 5 7021-8 ####[facility] JOSECHESTERTOWNNCOLIVER [id number] [place] [address] [place] Platelet mean volume (Bld) [Entitic vol] 10.5 fL Normal 9.0-12.7 [facility] Comment on above: Order Comment: Speci men Type: BLOOD SPECIMENOrdering Facility: [facility] Address: [address] [place] [address] Performed By: #### 5 7021-8 ####[facility] EASTKONGA [id number] [place] [address] [place] Platelets (Bld) [#/Vol] 213 10*3/uL Normal 150-400 [facility] Comment on above: Order Comment: Speci men Type: BLOOD SPECIMENOrdering Facility: [facility] Address: [address] [place] [address] Performed By: #### 5 7021-8 ####[facility] EASTNCLIA [id number] [place] [address] [place] RBC (Bld) [#/Vol] 3.53 10*6/uL Low 3.90-5.[address] [facility] Comment on above: Order Comment: Speci men Type: BLOOD SPECIMENOrdering Facility: [facility] Address: [address] [place] [address] Performed By: #### 5 7021-8 ####[facility] [id number] [place] [address] [place] WBC (Bld) [#/Vol] 11.38 10*3/uL High 3.70-11.00 [facility] Comment on above: Order Comment: Speci men Type: BLOOD SPECIMENOrdering Facility: [facility] Address: [address] [place] [address] Performed By: #### 5 7021-8 ####[facility] EASTNCLIA [id number] [place] [address] [place] Ferritin SerPl-mCncon 2024 Ferritin [Mass/Vol] 11.5 ng/mL Low 14.7-205.[address] [facility] Comment on above: Order Comment: Speci men Type: BLOOD SPECIMENOrdering Facility: [facility] Address: [address] [place] [address] Performed By: #### 5 0190-8, 2276-4 ####[facility] LABCLIA [id number] [place] [address] [place] GESTATIONAL GLUCOSE SCREEN, 1-HOUR, 50 GRAM, NON-FASTINGon 02-18-2025 Glucose [Mass/Vol] 107 mg/dL Normal 74-134 [facility] Comment on above: Order Comment: Speci men Type: BLOOD SPECIMEN [facility] Address: [address] [place] [address] Result Comment: [facility] of Obstetricians and Gynecologists ([place]) guidelines state a gestational diabetes mellitus positive screen is made, in women not previously diagnosed with overt diabetes, when the 1 hr plasma glucose level is equal to or above 140 mg/dL. The [facility] Lab Nurse and Women's [facility] [place] recommends a 135 mg/dL cutoff. Performed By: #### 5 8410-2 #### [facility] CLIA [id number] 1 [place] [address] [place] Iron and Iron binding capaci ty panelon 02-18-2025 Iron [Mass/Vol] 46 ug/dL Normal 41-186 [facility] Comment on above: Order Comment: Speci men Type: BLOOD SPECIMENOrdering Facility: [facility] Address: [address] [place] [address] Performed By: #### 5 0190-8, 6-4 ####[facility] LABIA [id number] [address] STATES OF [facility] Iron binding capacity [Mass/Vol] >546 High 232-386 [facility] Comment on above: Order Comment: Speci men Type: BLOOD SPECIMENOrdering Facility: [facility] Address: [address] [place] [address] Performed By: #### 5 0190-8, 6-4 ####[facility] [id number] [address] [place] Iron/TIBC [Molar ratio] <8.4 Low 15.0-57.0 [facility] Comment on above: Order Comment: Speci men Type: BLOOD SPECIMENOrdering Facility: [facility] Address: [address] [place] [address] Performed By: #### 5 0190-8, 6-4 ####[facility] [id number] [address] [place] Reagin and Treponema pallidu m IgG and IgM [Interp]on 02-18-2025 T. pallidum IgG+IgM IA Ql (S) Non-Reactive Normal Nonreactive [facility] Comment on above: Order Comment: Speci men Type: BLOOD SPECIMENOrdering Facility: [facility] Address: [address] [place] [address] Performed By: #### 7 3752-8 ####[facility] LABIA [id number] [place] [address] [place] Reagin+T pallidum IgG+IgM Se rPl-Impon 02-18-2025 Reagin and Treponema pallidum IgG and IgM [Interp] Cannot exclude recent Treponemal infection if specimen collected within 7-10 days after appearance of suspect lesions or 2-3 weeks after an exposure. Clinical correlation is required. Normal [facility] Comment on above: Order Comment: Speci men Type: BLOOD SPECIMENOrdering Facility: [facility] Address: [address] [place] [address] Performed By: #### 7 3752-8 ####[facility] LABCLIA [id number] [place] [address] [place] [facility] Examination level ultrasound on 12-23-2024 Indication Standard [...] 15 oz EFW by: Hadlock (HC-AC-FL) Extended [employer] Operator 5.9 mm CM 5.0 mm 42% Nicolaides [...] normal LVOT view: normal 3-vessel view: normal 3-qfxzzk-lmqmeeq view: normal Heart / Thorax Situs: situs [...] Read By: Eli Martinez M.D. MATERNAL MEDICINE [facility] Radiology Study observation (narrative) [facility] Yamile 11-03-2024 CNPN Telephone (OBGYWM) KI DELGADO ([id number]) 1995 F Date Time Provider Department 11/03/24 [...] Status:Closed by DESTINEY SCHROEDER on 11/04/24 Normal [facility] Examination level ultrasound on 10-25-2024 Indication First trimester anatomic survey Impression REMOTE READ The patient is referred for a first trimester anatomy scan including nuchal translucency measurement as clinically indicated. - Single, live, intrauterine . - [place] rump length measurement is consistent with the [...] view: suboptimal 4-chamber view with color: suboptimal 9-ovfoja-nvwxzoi view: suboptimal Abdominal cord insertion: normal Stomach: [...] Read By: Eli Martinez M.D. MATERNAL MEDICINE [facility] Radiology Study observation (narrative) [facility] CBC W Auto Differential pane l (Bld)on 10-22-2024 Basophils (Bld) [#/Vol] 0.03 10*3/uL Normal <0.11 [facility] Comment on above: Order Comment: Speci men Type: BLOOD SPECIMENOrdering Facility: [facility] Address: [address] [place] [address] Performed By: #### 5 7021-8 ####[facility] MILLWNCLIA [id number] [place] [address] [place] Basophils/100 WBC (Bld) 0.4 % Normal [facility] Comment on above: Order Comment: Speci men Type: BLOOD SPECIMENOrdering Facility: [facility] Address: [address] [place] [address] Performed By: #### 5 7021-8 ####[facility] [id number] [place] [address] [place] Differential cell count method Nom (Bld) Auto Normal [facility] Comment on above: Order Comment: Speci men Type: BLOOD SPECIMENOrdering Facility: [facility] Address: [address] [place] [address] Performed By: #### 5 7021-8 ####[facility] [id number] [place] [address] [place] Eosinophils (Bld) [#/Vol] 0.11 10*3/uL Normal <0.46 [facility] Comment on above: Order Comment: Speci men Type: BLOOD SPECIMENOrdering Facility: [facility] Address: [address] [place] [address] Performed By: #### 5 7021-8 ####[facility] [id number] [place] [address] [place] Eosinophils/100 WBC (Bld) 1.4 % Normal [facility] Comment on above: Order Comment: Speci men Type: BLOOD SPECIMENOrdering Facility: [facility] Address: [address] [place] [address] Performed By: #### 5 7021-8 ####[facility] EASTNCLIA [id number] [place] [address] [place] Erythrocyte distribution width (RBC) [Ratio] 13.0 % Normal 11.5-15.0 [facility] Comment on above: Order Comment: Speci men Type: BLOOD SPECIMENOrdering Facility: [facility] Address: [address] [place] [address] Performed By: #### 5 7021-8 ####[facility]ASTNCTOO[facility] [id number] [place] [address] [place] Hematocrit (Bld) [Volume fraction] 32.6 % Low 36.0-46.0 [facility] Comment on above: Order Comment: Speci men Type: BLOOD SPECIMENOrdering Facility: [facility] Address: [address] [place] [address] Performed By: #### 5 7021-8 ####[facility] [id number] [place] [address] [place] Immature granulocytes (Bld) [#/Vol] 0.04 10*3/uL Normal <0.10 [facility] Comment on above: Order Comment: Speci men Type: BLOOD SPECIMENOrdering Facility: [facility] Address: [address] [place] [address] Performed By: #### 5 7021-8 ####[facility] [id number] [place] [address] [place] Immature granulocytes/100 WBC (Bld) 0.5 % Normal [facility] Comment on above: Order Comment: Speci men Type: BLOOD SPECIMENOrdering Facility: [facility] Address: [address] [place] [address] Performed By: #### 5 7021-8 ####[facility] [id number] [place] [address] [place] Lymphocytes (Bld) [#/Vol] 2.15 10*3/uL Normal 1.00-4.00 [facility] Comment on above: Order Comment: Speci men Type: BLOOD SPECIMENOrdering Facility: [facility] Address: [address] [place] [address] Performed By: #### 5 7021-8 ####[facility] EASTJOHN [id number] [place] [address] [place] Lymphocytes/100 WBC (Bld) 26.6 % Normal [facility] Comment on above: Order Comment: Speci men Type: BLOOD SPECIMENOrdering Facility: [facility] Address: [address] [place] [address] Performed By: #### 5 7021-8 ####[facility]ASTNCTOOELE [facility] [id number] [place] [address] [place] MCH (RBC) [Entitic mass] 30.7 pg Normal 26.0-34.0 [facility] Comment on above: Order Comment: Speci men Type: BLOOD SPECIMENOrdering Facility: [facility] Address: [address] [place] [address] Performed By: #### 5 7021-8 ####[facility] [id number] [place] [address] [place] MCHC (RBC) [Mass/Vol] 34.4 g/dL Normal 30.5-36.0 [facility] Comment on above: Order Comment: Speci men Type: BLOOD SPECIMENOrdering Facility: [facility] Address: [address] [place] [address] Performed By: #### 5 7021-8 ####[facility] EASTNCLIA [id number] [place] [address] [place] MCV (RBC) [Entitic vol] 89.3 fL Normal 80.0-100.0 [facility] Comment on above: Order Comment: Speci men Type: BLOOD SPECIMENOrdering Facility: [facility] Address: [address] [place] [address] Performed By: #### 5 7021-8 ####[facility]LEWNCLIA [id number] [place] [address] [place] Monocytes (Bld) [#/Vol] 0.77 10*3/uL Normal <0.87 [facility] Comment on above: Order Comment: Speci men Type: BLOOD SPECIMENOrdering Facility: [facility] Address: [address] [place] [address] Performed By: #### 5 7021-8 ####[facility] [id number] [place] [address] [place] Monocytes/100 WBC (Bld) 9.5 % Normal [facility] Comment on above: Order Comment: Speci men Type: BLOOD SPECIMENOrdering Facility: [facility] Address: [address] [place] [address] Performed By: #### 5 7021-8 ####[facility] [id number] [place] [address] [place] Neutrophils (Bld) [#/Vol] 4.97 10*3/uL Normal 1.45-7.50 [facility] Comment on above: Order Comment: Speci men Type: BLOOD SPECIMENOrdering Facility: [facility] Address: [address] [place] [address] Performed By: #### 5 7021-8 ####[facility] [id number] [place] [address] [place] Neutrophils/100 WBC (Bld) 61.6 % Normal [facility] Comment on above: Order Comment: Speci men Type: BLOOD SPECIMENOrdering Facility: [facility] Address: [address] [place] [address] Performed By: #### 5 7021-8 ####[facility] [id number] [place] [address] [place] Nucleated RBC (Bld) [#/Vol] 10*3/uL Normal <0.01 [facility] Comment on above: Order Comment: Speci men Type: BLOOD SPECIMENOrdering Facility: [facility] Address: [address] [place] [address] Performed By: #### 5 7021-8 ####[facility] [id number] [place] [address] [place] Nucleated RBC/100 WBC (Bld) [Ratio] 0.0 /100 WBC Normal [facility] Comment on above: Order Comment: Speci men Type: BLOOD SPECIMENOrdering Facility: [facility] Address: [address] [place] [address] Performed By: #### 5 7021-8 ####[facility] [id number] [place] [address] [place] Platelet mean volume (Bld) [Entitic vol] 11.1 fL Normal 9.0-12.7 [facility] Comment on above: Order Comment: Speci men Type: BLOOD SPECIMENOrdering Facility: [facility] Address: [address] [place] [address] Performed By: #### 5 7021-8 ####[facility] [id number] [place] [address] [place] Platelets (Bld) [#/Vol] 218 10*3/uL Normal 150-400 [facility] Comment on above: Order Comment: Speci men Type: BLOOD SPECIMENOrdering Facility: [facility] Address: [address] [place] [address] Performed By: #### 5 7021-8 ####[facility] [id number] [place] [address] [place] RBC (Bld) [#/Vol] 3.65 10*6/uL Low 3.90-5.[address] [facility] Comment on above: Order Comment: Speci men Type: BLOOD SPECIMENOrdering Facility: [facility] Address: [address] [place] [address] Performed By: #### 5 7021-8 ####[facility] [id number] [place] [address] [place] WBC (Bld) [#/Vol] 8.07 10*3/uL Normal 3.70-11.[address] [facility] Comment on above: Order Comment: Speci men Type: BLOOD SPECIMENOrdering Facility: [facility] Address: [address] [place] [address] Performed By: #### 5 7021-8 ####[facility] [id number] [place] [address] [place] HBV surface Ag Ser Qlon 09-26 HBV surface Ag Ql (S) Negative Normal Negative [facility] Comment on above: Order Comment: Speci men Type: BLOOD SPECIMENOrdering Facility: [facility] Address: [address] [place] [address] Performed By: #### 7 3752-8, 08743-0, 5195-3 ####[facility] LABCLIA [id number] [place] [address] [place] HCV Ab Ser Qlon 10-22-2024 HCV Ab Ql (S) Negative Normal Negative [facility] Comment on above: Order Comment: Speci men Type: BLOOD SPECIMENOrdering Facility: [facility] Address: [address] [place] [address] Result Comment: The result suggests no evidence of active infection with Hepatitis C virus. Should recent infection be suspected, repeat testing may be considered 4-6 weeks after this draw. Performed By: #### 1 6128-1 ####[facility] LABCLIA [id number] [place] [address] [place] HGB ELECTROPHORESIS FOR EVAL (LAB ORDER)on 10-22-2024 Hemoglobin A (Bld) [Mass fraction] 97.4 % Normal 96.2-98.0 [facility] Comment on above: Order Comment: Speci men Type: BLOOD SPECIMENOrdering Facility: [facility] Address: [address] [place] [address] Performed By: #### L [id number], HGBELEV ####[facility] LABCLIA [id number] [place] [address] [place] Hemoglobin A2 (Bld) [Mass fraction] 2.6 % Normal 2.0-3.1 [facility] Comment on above: Order Comment: Speci men Type: BLOOD SPECIMENOrdering Facility: [facility] Address: [address] [place] [address] Performed By: #### L [id number], HGBELEV ####[facility] LABCLIA [id number] [place] [address] [place] Hemoglobin Unsp Elph (Bld) [Mass fraction] No abnormal hemoglobin identified. Normal No abnormal hemoglobin identified. [facility] Comment on above: Order Comment: Speci men Type: BLOOD SPECIMENOrdering Facility: [facility] Address: [address] [place] [address] Performed By: #### L [id number], HGBELEV ####[facility] LABIA [id number] [place] [address] [place] HGB EVALUATION CASCADE INTER Carlos Eduardo 10-22-2024 Hemoglobin pattern (Bld) [Interp] Reviewed by Chantal Palomares DO Normal [facility] Comment on above: Order Comment: Speci men Type: BLOOD SPECIMENOrdering Facility: [facility] Address: [address] [place] [address] Performed By: #### L [id number], HGBELEV ####[facility] LABCLIA [id number] [place] [id number] [place] INTERPRETATION (HGB EVAL) Normal [facility] Comment on above: Order Comment: Speci men Type: BLOOD SPECIMENOrdering Facility: [facility] Address: [address] [place] [address] Result Comment: No a bnormal hemoglobin is identified. There is a normal hemoglobin capillary electrophoresis pattern. Hemoglobins were analyzed by capillary electrophoresis and CBC red cell parameters were reviewed. Performed By: #### L [id number], HGBELEV ####[facility] LABIA [id number] [place] [address] [place] HIV 1+2 Ab IA Qlon 5 HIV 1 and 2 Ab IA.rapid Nom (S/P/Bld) Normal [facility] Comment on above: Order Comment: Speci men Type: BLOOD SPECIMENOrdering Facility: [facility] Address: [address] [place] [address] Result Comment: Test not indicated. Performed By: #### 7 3752-8, 93130-1, 5195-3 ####[facility] LABIA [id number] [place] [address] [place] HIV 1+2 Ab+HIV1 p24 Ag IA Ql Non-Reactive Normal Nonreactive [facility] Comment on above: Order Comment: Speci men Type: BLOOD SPECIMENOrdering Facility: [facility] Address: [address] [place] [address] Performed By: #### 7 3752-8, 37581-1, 5195-3 ####[facility] [id number] [place] [address] [place] HIV immunoassay testing algorithm interpretation (S/P/Bld) [Interp] Normal [facility] Comment on above: Order Comment: Speci men Type: BLOOD SPECIMENOrdering Facility: [facility] Address: [address] [place] [address] Result Comment: No e vidence of HIV-1 or HIV-2 infection. Should recent infection be suspected, repeat testing may be considered 2-3 weeks after this draw. [place] Rev. Code 3701.243(E): This information has been [...] or diagnoses. Performed By: #### 7 3752-8, 23874-1, 5195-3 ####[facility] LABCLIA [id number] [place] [address] [place] HbA1c (Bld)on 10-22-2024 Average glucose Estimated from glycated hemoglobin (Bld) [Mass/Vol] 97 mg/dL Normal [facility] Comment on above: Order Comment: Boni carolina Type: BLOOD SPECIMEN [facility] Address: [address] [place] [address] Result Comment: eAG: (Estimated average glucose) is a calculated value from HgbA1c and is sales representative of the average blood glucose level in the last 2-3 month period. Performed By: #### 5 8410-2 #### [facility] [id number] [address] [place] [address] [place] HbA1c (Bld) [Mass fraction] 5.0 % Normal 4.3-5.6 [facility] Comment on above: Order Comment: Boni carolina Type: BLOOD SPECIMEN [facility] Address: [address] [place] [address] Result Comment: Amer ican Diabetes Association guidelines indicate that patients with HgbA1c in the range 5.7-6.4% are at increased risk for development of diabetes, and intervention by lifestyle modification may be beneficial. HgbA1c greater or equal to 6.5% is considered diagnostic of diabetes. Performed By: #### 5 8410-2 #### [facility] [id number] [address] [place] [address] [place] [id number] PLUSon 10-22-2024 Cell-free DNA./Cell-free DNA.total Dosage of chromosome-specific cfDNA (cfDNA) [Molar fraction] 15% Normal [facility] Comment on above: Order Comment: Speci men Type: BLOOD SPECIMEN [facility] Address: [address] [place] [address] Performed By: #### 5 8410-2 #### [facility] CLIA [id number] [address] [place] [address] [place] Chr 13+18+21+X+Y aneuploidy Dosage of chromosome-specific cfDNA Ql (cfDNA) Negative Normal [facility] Comment on above: Order Comment: Speci men Type: BLOOD SPECIMEN [facility] Address: [address] [place] [address] Performed By: #### 5 8410-2 #### [facility] CLIA [id number] [address] [place] [address] Chr 21 trisomy Dosage of chromosome-specific cfDNA Ql (cfDNA) Negative Normal [facility] Comment on above: Order Comment: Speci men Type: BLOOD SPECIMEN [facility] Address: [address] [place] [address] Performed By: #### 5 8410-2 #### [facility] CLIA [id number] [address] [place] [address] Chr X and Y aneuploidy risk Sequencing Ql (cfDNA) [Interp] Not detected Normal [facility] Comment on above: Order Comment: Speci men Type: BLOOD SPECIMEN [facility] Address: [address] [place] [address] Result Comment: Not Detected Not Detected Performed By: #### 5 8410-2 #### [facility] CLIA [id number] [address] [place] [address] [place] Citation Bryan (Reference lab test) Comment Normal [facility] Comment on above: Order Comment: Speci men Type: BLOOD SPECIMEN [facility] Address: [address] [place] [address] Result Comment: 1. P tristin ROGERS, et al. Awa Med. 2012;14(3):296-305. 2. Nathalia GILLESPIE, et al. Prenat Diag. 2013;33(6):591-597. 3. Manolo C, et al. Clin Chem. 2015 Apr;61(4):608-616. 4. Terry ROGERS et al. Awa Med. 2011;13(11):913-920. 5. ACOG/SMFM Practice Bulletin No. 226, May 2020. Performed By: #### 5 8410-2 #### [facility] CLIA [id number] [address] [place] [address] [place] Gestational age Estimated from conception date Love Normal [facility] Comment on above: Order Comment: Boni carolina Type: BLOOD SPECIMEN [facility] Address: [address] [place] [address] Performed By: #### 5 8410-2 #### [facility] CLIA [id number] [address] [place] [address] [place] GESTATIONALAGE AGE > OR = 9W Yes Normal [facility] Comment on above: Order Comment: Boni carolina Type: BLOOD SPECIMEN [facility] Address: [address] [place] [address] Performed By: #### 5 8410-2 #### [facility] CLIA [id number] [address] [place] [address] [place] Laboratory comment Bryan (Report) Comment Normal [facility] Comment on above: Order Comment: Boni carolina Type: BLOOD SPECIMEN [facility] Address: [address] [place] [address] Result Comment: The MaterniT(R) 21 PLUS laboratory-developed test (LDT) analyzes circulating cell-free DNA from a maternal blood sample. This test is used for screening purposes and not diagnostic. Clinical correlation is recommended. Validation data on twin pregnancies is limited and the ability of this test to detect aneuploidy in higher multiple gestations has not yet been validated. Performed By: #### 5 8410-2 #### [facility] CLIA [id number] [address] [place] [address] [place] director underwriter sales name Nom (Provider) Comment Normal [facility] Comment on above: Order Comment: Speci men Type: BLOOD SPECIMEN [facility] Address: [address] [place] [address] Result Comment: This specimen showed an expected representation of chromosome 21, 18 and 13 material. Clinical correlation is suggested. Comment Leticia Westbrook MD, Director, [employer] Performed By: #### 5 8410-2 #### [facility] CLIA [id number] [address] [place] [address] [place] LIMITATIONS OF THE TEST Comment Normal [facility] Comment on above: Order Comment: Speci men Type: BLOOD SPECIMEN [facility] Address: [address] [place] [address] Result Comment: Ruddy wiggins the results of [...] Fragmin(R)). Performed By: #### 5 8410-2 #### [facility] [id number] [address] [place] [address] STATES [facility] Monosomy X risk Dosage of chromosome-specific cfDNA Ql (Plasma cell-free+WBC DNA) [Interp] Not detected Normal [facility] Comment on above: Order Comment: Speci caity Type: BLOOD SPECIMEN [facility] Address: [address] [place] [address] Performed By: #### 5 8410-2 #### [facility] [id number] [address] [place] [address] NEGATIVE PREDICTIVE VALUE Note Normal [facility] Comment on above: Order Comment: Speci men Type: BLOOD SPECIMEN [facility] Address: [address] [place] [address] Result Comment: The Negative Predictive Value (NPV) for trisomy 21, 18, and 13 is greater than 99%. The NPV for SCA and ESS cannot be calculated as SCA and ESS are only reported when an abnormality is detected. Performed By: #### 5 8410-2 #### [facility] [id number] [address] [place] [address] [place] PERFORMANCE CHARACTERISTICS Note Normal [facility] Comment on above: Order Comment: Boni carolina Type: BLOOD SPECIMEN [facility] Address: [address], [place] [address] Result Comment: ! Sex ! Accuracy: 99.4% [...] observed size distribution of each syndrome [per [facility] database nstd37] and across the range of fractions observed in routine clinical NIPT. Actual sensitivity can also be influenced by other factors such as the size of the event, total sequence counts, amplification bias, or sequence bias. ## Love gestation only. Performed By: #### 5 8410-2 #### [facility] [id number] [address] [place] [address] POSITIVE PREDICTIVE VALUE N/A Normal [facility] Comment on above: Order Comment: Specsuman carolina Type: BLOOD SPECIMEN [facility] Address: [address] [place] [address] Performed By: #### 5 8410-2 #### [facility] CLIA [id number] [address] [place] [address] [place] Reference Lab Test Method Comment Normal [facility] Comment on above: Order Comment: Specsuman carolina Type: BLOOD SPECIMEN [facility] Address: [address] [place] [address] Result Comment: See Notes Circulating cell-free DNA [...] 22. Performed By: #### 5 8410-2 #### [facility] CLIA [id number] [address] [place] [address] [place] Service comment (Unsp spec) [Interp] Comment Normal [facility] Comment on above: Order Comment: Speci men Type: BLOOD SPECIMEN [facility] Address: [address] [place] [address] Result Comment: See Notes [employer] is a subsidiary of [employer], using the brand [employer]. This test was developed and its performance characteristics determined by [employer]. It has not been cleared or approved by the Food and Drug Administration. This laboratory is certified under the Clinical Laboratory Improvement Amendments (CLIA) as qualified to perform high complexity clinical laboratory testing and accredited by the [employer] (CAP). Performed By: #### 5 8410-2 #### [facility] CLIA [id number] [address] [place] [address] [place] Sex Dosage of chromosome-specific cfDNA Nom (cfDNA) Comment Normal [facility] Comment on above: Order Comment: Speci men Type: BLOOD SPECIMEN [facility] Address: [address] [place] [address] Result Comment: Cons istent with Male Performed By: #### 5 8410-2 #### [facility] CLIA [id number] [address] [place] [address] [place] Test performance information Bryan (Unsp spec) Comment Normal [facility] Comment on above: Order Comment: Speci men Type: BLOOD SPECIMEN [facility] Address: [address] [place] [address] Result Comment: The performance characteristics of the MaterniT(R) 21 PLUS laboratory-developed test (LDT) have been determined in a clinical validation study with women at increased risk for chromosomal aneuploidy.[1-4] Performed By: #### 5 8410-2 #### [facility] CLIA [id number] [address] [place] [address] [place] Trisomy 13 risk Dosage of chromosome-specific cfDNA Ql (cfDNA) [Interp] Negative Normal [facility] Comment on above: Order Comment: Speci men Type: BLOOD SPECIMEN [facility] Address: [address] [place] [address] Performed By: #### 5 8410-2 #### [facility] CLIA [id number] [address] [place] [address] [place] Trisomy 18 risk Dosage of chromosome-specific cfDNA Ql (Plasma cell-free+WBC DNA) [Interp] Negative Normal [facility] Comment on above: Order Comment: Speci men Type: BLOOD SPECIMEN [facility] Address: [address] [place] [address] Performed By: #### 5 8410-2 #### [facility] CLIA [id number] [address] [place] [address] [place] RBC PARAMETERS FOR HB IDon 0 10-22-2024 Erythrocyte distribution width (RBC) [Ratio] 13.1 % Normal 11.5-15.0 [facility] Comment on above: Order Comment: Speci men Type: BLOOD SPECIMEN [facility] Address: [address] [place] [address] Performed By: #### 5 8410-2 #### [facility] CLIA [id number] [address] [place] [address] [place] Hematocrit (Bld) [Volume fraction] 33.2 % Low 36.0-46.0 [facility] Comment on above: Order Comment: Speci men Type: BLOOD SPECIMEN [facility] Address: [address] [place] [address] Performed By: #### 5 8410-2 #### [facility] CLIA [id number] [address] [place] [address] [place] Hemoglobin (Bld) [Mass/Vol] 11.2 g/dL Low 11.5-15.5 [facility] Comment on above: Order Comment: Speci men Type: BLOOD SPECIMEN [facility] Address: [address] [place] [address] Performed By: #### 5 8410-2 #### [facility] CLIA [id number] [address] [place] [address] [place] Order Comment: Speci men Type: BLOOD SPECIMENOrdering Facility: [facility] Address: [address] [place] [address] Performed By: #### 5 7021-8 ####[facility] [id number] [place] [address] [place] MCH (RBC) [Entitic mass] 30.4 pg Normal 26.0-34.0 [facility] Comment on above: Order Comment: Speci men Type: BLOOD SPECIMEN [facility] Address: [address] [place] [address] Performed By: #### 5 8410-2 #### [facility] [id number] [address] [place] [address] [place] MCHC (RBC) [Mass/Vol] 33.7 g/dL Normal 30.5-36.0 [facility] Comment on above: Order Comment: Speci men Type: BLOOD SPECIMEN [facility] Address: [address] [place] [address] Performed By: #### 5 8410-2 #### [facility] [id number] [address] [place] [address] [place] MCV (RBC) [Entitic vol] 90.2 fL Normal 80.0-100.0 [facility] Comment on above: Order Comment: Speci men Type: BLOOD SPECIMEN [facility] Address: [address] [place] [address] Performed By: #### 5 8410-2 #### [facility] CLIA [id number] [address] [place] [address] [place] RBC (Bld) [#/Vol] 3.68 10*6/uL Low 3.90-5.[address] [facility] Comment on above: Order Comment: Speci men Type: BLOOD SPECIMEN [facility] Address: [address] [place] [address] Performed By: #### 5 8410-2 #### [facility] CLIA [id number] [address] [place] [address] [place] RUBELLA IGG ANTIBODYon 10-22 RUBELLA IGG AB, QUAL Positive Normal Positive [facility] Comment on above: Order Comment: Speci men Type: BLOOD SPECIMEN [facility] Address: [address] [place] [address] Result Comment: The result suggests recent or past exposure to Rubella virus or history of Rubella vaccination. Positive result may also be seen due to presence of passively-transferred antibodies. Please correlate with patient's history. Performed By: #### 5 8410-2 #### [facility] CLIA [id number] [address] [place] [address] [place] Reagin and Treponema pallidu m IgG and IgM [Interp]on 10-22-2024 T. pallidum IgG+IgM IA Ql (S) Non-Reactive Normal Nonreactive [facility] Comment on above: Order Comment: Speci men Type: BLOOD SPECIMENOrdering Facility: [facility] Address: [address] [place] [address] Performed By: #### 7 3752-8, 93468-1, 5195-3 ####[facility] LABCLIA [id number] [place] [address] [place] Reagin+T pallidum IgG+IgM Se rPl-Impon 10-22-2024 Reagin and Treponema pallidum IgG and IgM [Interp] Cannot exclude recent Treponemal infection if specimen collected within 7-10 days after appearance of suspect lesions or 2-3 weeks after an exposure. Clinical correlation is required. Normal [facility] Comment on above: Order Comment: Speci men Type: BLOOD SPECIMENOrdering Facility: [facility] Address: [address] [place] [address] Performed By: #### 7 3752-8, 75471-2, 5195-3 ####[facility] LABCLIA [id number] [place] [address] [place] TYPE + SCREEN PRENATALon ABO O Normal [facility] Comment on above: Order Comment: Speci men Type: BLOOD SPECIMENOrdering Facility: [facility] Address: [address] [place] [address] Performed By: #### T SPN ####[facility] [id number] [place] [address] [place] Rh Nom (Bld) Positive Normal [facility] Comment on above: Order Comment: Speci men Type: BLOOD SPECIMENOrdering Facility: [facility] Address: [address] [place] [address] Performed By: #### T SPN ####CC [facility] BLOOD BANKIA [id number] [place] [address] [place] TYPE AND SCREEN EXPIRATION 10/25/2024 23:59 Normal [facility] Comment on above: Order Comment: Speci men Type: BLOOD SPECIMENOrdering Facility: [facility] Address: [address] [place] [address] Performed By: #### T SPN ####CC [facility] BANKCLIA [id number] [place] [address] [place] CNOVon 10-06-2024 CNOV Office Visit (WALKWA) KI DELGADO ([id number]) 1995 F Date Time Provider Department 10/06/24 9:10 AM MARGARITA ALMAGUER During your visit today, we recorded the following information about you: Pulse Blood pressure Weight 119/minute 134/84 77.7 kg Margarita Almaguer APRN.STACKER STRAIGHTENER 10/06/2024 9:58 AM Signed (J06.9) Viral upper [...] mental status, or other concerns. Margarita Almaguer APRN.STACKER STRAIGHTENER 10/06/2024 10:06 AM Signed This note was created using mobiDEOSriter. Subjective Ki Delgado is a 29 year [...] 4.8 oz (more content not included)... Normal [facility] CNPNon 10-06-2024 RENNY Telephone (KEVIN) KI DELGADO ([id number]) 1995 F Date Time Provider Department 10/06/24 MARGARITA ALMAGUER During your visit today, we recorded the following information about you: Nelly Pierre 10/06/2024 10:53 AM Signed Ki is calling Margarita Almaguer APRN.CNP today to request the RX sent to pharmacy today be sent to a different pharmacy as they do not have Tamiflu in stock at [facility] Pleases send to [facility] for patient Patient has been identified by name and birthdate. Duration of symptoms: today Person calling: self Call patient at: at home [phone] (home) [phone] (cell) Was an appointment scheduled: No Closing statement: Medication not in stock at [facility] Margarita Almaguer APRN.CNP 10/06/2024 11:33 AM Signed Sent Allergies As of Date: 10/06/2024 (No Known Allergies) Date Reviewed: 10/06/2024 Reviewed by: Almaguer, Margariat, INTEGRATION ENGINEER.STACKER STRAIGHTENER - Fully Assessed Reason for Visit: Medication [...] Encounter Status:Closed by [facility] DEL[facility] ([id number]) 1995 F Date Time Provider Department 10/06/24 [...] are any other recommendations. SVETA Madera Emily, APRN.STACKER STRAIGHTENER 10/06/2024 10:23 AM Signed Agree with plan. [...] Date Reviewed: 10/06/2024 Reviewed by: Margarita Almaguer APRN.STACKER STRAIGHTENER - Fully Assessed Prescriptions as of 10/06/2024 [...] Status:Closed by NICOLE SIMPSON on 10/06/24 Normal [facility] INFLUENZA A&B MOLECULAR (POC )on 10-06-2024 Flu A (POCT) Positive Abnormal Negative [facility] Comment on above: Location:[facility] Office, [address] [place] [address], [facility] Interpretation and review of laboratory results Abnormal [facility] Procedural Control Valid [facility] Location:[facility], [address] [place] [address], [address] [place] [address] POINT OF CARE [facility] STREP A MOLECULAR (POC)on Procedural Control Valid [facility] Strep A (POCT) Negative Negative [facility] ALLIED HEALTHon 09-30-2024 ALLIED HEALTH HNO ID: [id number] Author: GUILLERMO CHUN Tech Service: Radiology Author Type: Yeast Culture Developer Type: Allied Health Filed: 09/30/2024 20:50 Note [...] PATIENT PRESENTS WITH AN IMPLANTABLE OR ATTACHED PATIENT SUPPORT ASSISTANT: No RADIOLOGY DEPARTMENT: Ultrasound PERIPHERAL IV DATA: Not applicable SIGNED BY: Yany Mckay September 30, 2024 8:49 PM Normal [facility] B-HCG SerPl-aCncon 5 [place] [address].0 m[IU]/mL High <5.0 [facility] Comment on above: Order Comment: Speci men Type: BLOOD SPECIMEN [facility]ing Facility[facility] Address: [address] [place] [address] Result Comment: JAMILAH TITATIVE HCG NORMAL RANGES Weeks of Gestation (Weeks Since LMP) 3 Weeks (5.8-71.2 mIU/mL) 4 Weeks (9.5-750 mIU/mL) 5 Weeks (217-7138 mIU/mL) 6 Weeks (158-79131 mIU/mL) 7 Weeks (3697-943502 mIU/mL) 8 Weeks (25989-405454 mIU/mL) 9 Weeks (78138-468498 mIU/mL) 10 Weeks (25015-257135 mIU/mL) 12 Weeks (45900-872177 mIU/mL) Referenced to 4th IS of [facility] Performed By: #### 2 1198-7 #### [facility] CLIA [id number] [address] [place] [address] [place] Basic metabolic 2000 panelon 09-30-2024 Anion gap [Moles/Vol] 12 mmol/L Normal 8-15 [facility] Comment on above: Order Comment: Speci men Type: BLOOD SPECIMEN [facility]ing [facility] Address: [address] [place] [address] Performed By: #### 2 4321-2 #### [facility] CLIA [id number] [address] [place] [address] [place] Calcium [Mass/Vol] 10.4 mg/dL High 8.5-10.2 [facility] Comment on above: Order Comment: Speci men Type: BLOOD SPECIMEN [facility]ing [facility] Address: [address] [place] [address] Performed By: #### 2 4321-2 #### [facility] CLIA [id number] [address] [place] [address] [place] Chloride [Moles/Vol] 102 mmol/L Normal 98-107 [facility] Comment on above: Order Comment: Speci men Type: BLOOD SPECIMEN [facility]ing Facility: [facility] Address: [address] [place] [address] Performed By: #### 2 4321-2 #### [facility] CLIA [id number] [address] [place] [address] [place] CO2 [Moles/Vol] 22 mmol/L Normal 22-30 [facility] Comment on above: Order Comment: Speci men Type: BLOOD SPECIMEN [facility]ing [facility] Address: [address] [place] [address] Performed By: #### 2 4321-2 #### [facility] CLIA [id number] [address] STATES OF [facility] Creatinine [Mass/Vol] 0.95 mg/dL Normal 0.58-0.96 [facility] Comment on above: Order Comment: Lisai men Type: BLOOD SPECIMEN [facility]ing [facility] Address: [address] [place] [address] Performed By: #### 2 4321-2 #### [facility] CLIA [id number] [address] Creatinine and Glomerular filtration rate.predicted panel (S/P/Bld) 84 mL/min/1.73m??? Normal >=60 [facility] Comment on above: Order Comment: Boni carolina Type: BLOOD SPECIMEN [facility]ing [facility] Address: [address] [place] [address] Result Comment: Maeve mated Glomerular Filtration Rate [...] #### 2 4321-2 #### [facility] CLIA [id number] [address] STATES OF [facility] Glucose [Mass/Vol] 87 mg/dL Normal 74-99 [facility] Comment on above: Order Comment: Boni carolina Type: BLOOD SPECIMEN Ordering Facility: [facility] Address: [address] [id number] Result Comment: The [place] Diabetes Association (ADA) provides guidance for cutoff [...] Standards of Medical Care in Diabetes 2016, [place] [employer]. Diabetes Care. 2016.39(Suppl 1). Performed By: #### 2 4321-2 #### [facility] CLIA [id number] [address] [place] [address] [place] Potassium [Moles/Vol] 4.0 mmol/L Normal 3.7-5.1 [facility] Comment on above: Order Comment: Boni carolina Type: BLOOD SPECIMEN Ordering Facility[facility] Address: [address] [place] [address] Performed By: #### 2 4321-2 #### [facility] CLIA [id number] [address] STATES [place] Sodium [Moles/Vol] 136 mmol/L Normal 136-144 [facility] Comment on above: Order Comment: Boni carolina Type: BLOOD SPECIMEN Ordering Facility: [facility] Address: [address] [id number] Performed By: #### 2 4321-2 #### [facility] CLIA [id number] [address] [place] [address] [place] Urea nitrogen [Mass/Vol] 10 mg/dL Normal 7-21 [facility] Comment on above: Order Comment: Boni carolina Type: BLOOD SPECIMEN Ordering Facility[facility] Address: [address] [id number] Performed By: #### 2 4321-2 #### [facility] CLIA [id number] [address] [place] [address] [place] CBC W Auto Differential pane l (Bld)on 09-30-2024 Basophils (Bld) [#/Vol] 0.04 10*3/uL Normal <0.11 [facility] Comment on above: Order Comment: Speci men Type: BLOOD SPECIMEN Ordering Facility[facility] Address: [address] [place] [address] Performed By: #### 5 7021-8 #### [facility] CLIA [id number] [address] [place] [address] [place] Basophils/100 WBC (Bld) 0.4 % Normal [facility] Comment on above: Order Comment: Speci men Type: BLOOD SPECIMEN Ordering [facility] Address: [address] [place] [address] Performed By: #### 5 7021-8 #### [facility] CLIA [id number] [address] [place] [address] [place] Differential cell count method Nom (Bld) Auto Normal [facility] Comment on above: Order Comment: Speci men Type: BLOOD SPECIMEN Ordering [facility] Address: [address] [place] [address] Performed By: #### 5 7021-8 #### [facility] CLIA [id number] [address] [place] [address] [place] Eosinophils (Bld) [#/Vol] 0.17 10*3/uL Normal <0.46 [facility] Comment on above: Order Comment: Speci men Type: BLOOD SPECIMEN [facility]ing [facility] Address: [address] [place] [address] Performed By: #### 5 7021-8 #### [facility] CLIA [id number] [address] [place] [address] [place] Eosinophils/100 WBC (Bld) 1.8 % Normal [facility] Comment on above: Order Comment: Speci men Type: BLOOD SPECIMEN [facility]ing [facility] Address: [address] [place] [address] Performed By: #### 5 7021-8 #### [facility] CLIA [id number] [address] [place] [address] [place] Erythrocyte distribution width (RBC) [Ratio] 13.1 % Normal 11.5-15.0 [facility] Comment on above: Order Comment: Speci men Type: BLOOD SPECIMEN Ordering Facility: [facility] Address: [address] [place] [address] Performed By: #### 5 7021-8 #### [facility] CLIA [id number] [address] [place] [address] [place] Hematocrit (Bld) [Volume fraction] 35.7 % Low 36.0-46.0 [facility] Comment on above: Order Comment: Speci men Type: BLOOD SPECIMEN Ordering [facility] Address: [address] [place] [address] Performed By: #### 5 7021-8 #### [facility] CLIA [id number] [address] [place] [address] [place] Hemoglobin (Bld) [Mass/Vol] 12.4 g/dL Normal 11.5-15.5 [facility] Comment on above: Order Comment: Speci men Type: BLOOD SPECIMEN [facility]ing [facility] Address: [address] [place] [address] Performed By: #### 5 7021-8 #### [facility] CLIA [id number] [address] STATES [place] Immature granulocytes (Bld) [#/Vol] 0.03 10*3/uL Normal <0.10 [facility] Comment on above: Order Comment: Speci men Type: BLOOD SPECIMEN Ordering [facility] Address: [address] [place] [address] Performed By: #### 5 7021-8 #### [facility] CLIA [id number] [address] OF [place] Immature granulocytes/100 WBC (Bld) 0.3 % Normal [facility] Comment on above: Order Comment: Speci men Type: BLOOD SPECIMEN Ordering Facility[facility] Address: [facility] [place] [address] Performed By: #### 5 7021-8 #### [facility] CLIA [id number] [address] Lymphocytes (Bld) [#/Vol] 3.47 10*3/uL Normal 1.00-4.00 [facility] Comment on above: Order Comment: Speci men Type: BLOOD SPECIMEN [facility] Address: [address] [place] [address] Performed By: #### 5 7021-8 #### [facility] CLIA [id number] [address] Lymphocytes/100 WBC (Bld) 37.4 % Normal [facility] Comment on above: Order Comment: Speci men Type: BLOOD SPECIMEN Ordering [facility] Address: [address] [place] [address] Performed By: #### 5 7021-8 #### [facility] CLIA [id number] [address] MCH (RBC) [Entitic mass] 30.5 pg Normal 26.0-34.0 [facility] Comment on above: Order Comment: Speci men Type: BLOOD SPECIMEN Ordering [facility] Address: [address] [place] [address] Performed By: #### 5 7021-8 #### [facility] CLIA [id number] [address] MCHC (RBC) [Mass/Vol] 34.7 g/dL Normal 30.5-36.0 [facility] Comment on above: Order Comment: Speci men Type: BLOOD SPECIMEN [facility] Address: [address] [place] [address] Performed By: #### 5 7021-8 #### [facility] CLIA [id number] [address] MCV (RBC) [Entitic vol] 87.9 fL Normal 80.0-100.0 [facility] Comment on above: Order Comment: Speci men Type: BLOOD SPECIMEN [facility] Address: [address] [place] [address] Performed By: #### 5 7021-8 #### [facility] CLIA [id number] [address] [place] [address] [place] Monocytes (Bld) [#/Vol] 1.03 10*3/uL High <0.87 [facility] Comment on above: Order Comment: Speci men Type: BLOOD SPECIMEN [facility] Address: [address] [place] [address] Performed By: #### 5 7021-8 #### [facility] CLIA [id number] [address] Monocytes/100 WBC (Bld) 11.1 % Normal [facility] Comment on above: Order Comment: Speci men Type: BLOOD SPECIMEN [facility] Address: [address] [place] [address] Performed By: #### 5 7021-8 #### [facility] CLIA [id number] [address] STATES [place] Neutrophils (Bld) [#/Vol] 4.54 10*3/uL Normal 1.45-7.50 [facility] Comment on above: Order Comment: Speci men Type: BLOOD SPECIMEN [facility] Address: [address] [place] [address] Performed By: #### 5 7021-8 #### [facility] CLIA [id number] [address] Neutrophils/100 WBC (Bld) 49.0 % Normal [facility] Comment on above: Order Comment: Speci men Type: BLOOD SPECIMEN [facility] Address: [address] [place] [address] Performed By: #### 5 7021-8 #### [facility] CLIA [id number] [address] OF [place] Nucleated RBC (Bld) [#/Vol] 10*3/uL Normal <0.01 [facility] Comment on above: Order Comment: Speci men Type: BLOOD SPECIMEN [facility] Address: [address] [place] [address] Performed By: #### 5 7021-8 #### [facility] CLIA [id number] [address] [place] [address] [place] Nucleated RBC/100 WBC (Bld) [Ratio] 0.0 /100 WBC Normal [facility] Comment on above: Order Comment: Speci men Type: BLOOD SPECIMEN Ordering [facility] Address: [address] [place] [address] Performed By: #### 5 7021-8 #### [facility] CLIA [id number] [address] [place] [address] [place] Platelet mean volume (Bld) [Entitic vol] 10.5 fL Normal 9.0-12.7 [facility] Comment on above: Order Comment: Speci men Type: BLOOD SPECIMEN [facility] Address: [address] [place] [address] Performed By: #### 5 7021-8 #### [facility] CLIA [id number] [address] OF [place] Platelets (Bld) [#/Vol] 238 10*3/uL Normal 150-400 [facility] Comment on above: Order Comment: Speci men Type: BLOOD SPECIMEN [facility] Address: [address] [place] [address] Performed By: #### 5 7021-8 #### [facility] CLIA [id number] [address] [place] RBC (Bld) [#/Vol] 4.06 10*6/uL Normal 3.90-5.20 [facility] Comment on above: Order Comment: Speci men Type: BLOOD SPECIMEN [facility] Address: [address] [place] [address] Performed By: #### 5 7021-8 #### [facility] CLIA [id number] [address] OF [place] WBC (Bld) [#/Vol] 9.28 10*3/uL Normal 3.70-11.00 [facility] Comment on above: Order Comment: Speci men Type: BLOOD SPECIMEN [facility] Address: [address] [place] [address] Performed By: #### 5 7021-8 #### [facility] CLIA [id number] [address] [place] [address] [facility] ED NOTEon 09-30-2024 ED NOTE HNO ID: [id number] Author: PATRICIA LONGORIA RN Service: ? Author Type: Registered Nurse Type: ED Notes Filed: 09/30/2024 21:53 Note Text: Discharge instructions d/w pt and at bedside. Stated understanding with no further questions for this nurse. Encouraged f/u with PCP and referring doctors given. Stated understanding. [facility] ED PROV NOTEon 09-30-2024 ED PROV NOTE HNO ID: [id number] Author: PATRICIA CASANOVA MD Service: Emergency Medicine Author Type: Physician Type: ED Provider Notes Filed: 09/30/2024 21:48 Note Text: ED Provider Note Patient Name: iK Delgado : 1995 SERVICE DATE: 09/30/24 History [...] PANEL - Abnorma (more content not included)... [facility] ED Triage Noteon 09-30-2024 ED Triage Note HNO ID: [id number] Author: NANCY LAGUERRE PA-C Service: Emergency Medicine Author Type: Physician Lumber Carrier Operator Type: ED Triage Notes Filed: 09/30/2024 19:40 [...] Microscopic, reflex Culture SIGNATURE: Nancy Laguerre PA-C [facility] TYPE + SCREEN PRENATALon ABO O [facility] Comment on above: Order Comment: Speci men Type: BLOOD SPECIMEN Order[facility] Address: [address] [place] [address] Performed By: #### T SPN #### [facility] CLIA [id number] [address] Rh Nom (Bld) Positive [facility] Comment on above: Order Comment: Speci men Type: BLOOD SPECIMEN [facility] Address: [facility] [place] [address] Performed By: #### T SPN #### [facility] CLIA [id number] [address] TYPE AND SCREEN EXPIRATION 10/03/2024 23:59 [facility] Comment on above: Order Comment: Speci men Type: BLOOD SPECIMEN [facility] Address: [address] [place] [address] Performed By: #### T SPN #### [facility] CLIA [id number] [address] US PREG TRANSABD <14 WKS LTD [...] 6 mm. - Embryo: Single present - [place] rump length: 2.4 cm, corresponding gestational age [...] crown rump length. Left ovarian corpus luteum. Senior Director Insight: [employer] Transcribe Date/Time: Sep 30 2024 9:11P Dictated by : ELIER MIKE MD This examination was interpreted and the report reviewed and electronically signed by: ELIER MIKE MD on Sep 30 2024 9:15PM EST [id number] [facility] US PREG TRANSVAG <14 WEEKSon 09-30-2024 US [...] 6 mm. - Embryo: Single present - [place] rump length: 2.4 cm, corresponding gestational age [...] crown rump length. Left ovarian corpus luteum. Senior Director Insight: LACY Transcribe Date/Time: Sep 30 2024 9:11P Dictated by : ELIER MIKE MD This examination was interpreted and the report reviewed and electronically signed by: ELIER MIKE MD on Sep 30 2024 9:15PM EST [id number] Normal [facility] Bacteria Ur Culton Bacteria identified Cx Nom (U) ORGANISM ID: 1 10,000 -<50,000 CFU/ml Normal urogenital matt Normal [facility] Comment on above: Performed By: #### 6 30-4 ####[facility] LABCLIA [id number] [address] STATES [place] C. trachomatis+N. gonorrhoea e DNA RAYA+probe Ql (Unsp spec)on 09-20-2024 C. trachomatis rRNA RAYA+probe Ql (Unsp spec) Not detected Normal Not detected [facility] Comment on above: Order Comment: Speci men Type: BLOOD SPECIMEN [facility] Address: [address] [place] [address] Performed By: #### 5 8410-2 #### [id number] [address] [place] [address] STATES OF [facility] N. gonorrhoeae rRNA RAYA+probe Ql (Unsp spec) Not detected Normal Not detected [facility] Comment on above: Order Comment: Speci men Type: BLOOD SPECIMEN [facility] Address: [address] [place] [address] Performed By: #### 5 8410-2 #### [facility] CLIA [id number] [address] [place] [address] [place] POC [employer] ULTRASOUNDon 01-27-20 25 Indication Viability; confirm cardiac [...] Read By: Rao Pineda NP MATERNAL MEDICINE [facility] Radiology Study observation (narrative) [facility] Yamile 09-15-2024 RENNY Telephone (ANN-MARIEWM) KI DELAGDO ([id number]) 1995 F Date Time Provider Department 09/15/24 [...] Encounter Status:Closed by MAXINE SCHWARZ on 09/15/24 [facility] CNOVon 09-02-2024 CNOV Office Visit (OBGYWM) KI DELGADO ([id number]) 1995 F Date Time Provider Department 09/02/24 [...] L0 SAB0 IAB0 Ectopic0 Multiple0 Live Births0 Personal Care Aid History LMP: 01/20/2024 (Approximate), Having periods Age at Menarche: Age at First : Age at Menopause: Personal Care Aid History Comments: Sexual Activity: Yes; Male Contraception: [...] palpitations, # 90 tab(s), 0 Refill(s), Pharmacy: [facility]/pharmacy #[id number], Encounter to establish care Wellness examination, 163.8, [...] - Moderate Lauren Pal MD Referring Provider: CNOSTANTINO GAINES [[id number]] Allergies As of Date: 09/02/2024 (No Known [...] Status:Closed by LAUREN PAL on 09/02/24 Normal [facility] US Pelvison 09-02-2024 Indication r/o ectopic [...] By: Ki Mims RDMS Read By: Raman Goyal M.D. MATERNAL MEDICINE [facility] Radiology Study observation (narrative) [facility] B-HCG SerPl-aCncon 5 HCG.beta subunit Qn 2155.0 m[IU]/mL High <5.0 [facility] Comment on above: Order Comment: Speci men Type: BLOOD SPECIMENOrdering Facility: [facility] Address: [address] [place] [address] Result Comment: JAMILAH TITATIVE HCG NORMAL RANGES Weeks of Gestation (Weeks Since LMP) 3 Weeks (5.8-71.2 mIU/mL) 4 Weeks (9.5-750 mIU/mL) 5 Weeks (217-7138 mIU/mL) 6 Weeks (158-69473 mIU/mL) 7 Weeks (3697-366608 mIU/mL) 8 Weeks (89365-044795 mIU/mL) 9 Weeks (61918-831178 mIU/mL) 10 Weeks (34580-140161 mIU/mL) 12 Weeks (43935-903278 mIU/mL) Referenced to 4th IS of [facility] Performed By: #### 2 1858-7 ####[facility] LABCLIA [id number] [address] [address] [address] [place] CBC panel Auto (Bld)on 09-01 Erythrocyte distribution width (RBC) [Ratio] 12.6 % Normal 11.5-15.0 [facility] Comment on above: Order Comment: Speci men Type: BLOOD SPECIMEN [facility] Address: [address] [place] [address] Performed By: #### 5 8410-2 #### [facility] [id number] [address] [place] [address] [place] Hematocrit (Bld) [Volume fraction] 41.7 % Normal 36.0-46.0 [facility] Comment on above: Order Comment: Speci men Type: BLOOD SPECIMEN [facility] Address: [address] [place] [address] Performed By: #### 5 8410-2 #### [facility] [id number] [address] [place] [address] [place] Hemoglobin (Bld) [Mass/Vol] 14.0 g/dL Normal 11.5-15.5 [facility] Comment on above: Order Comment: Speci men Type: BLOOD SPECIMEN Ordering Facility: [facility] Address: [address] [place] [address] Performed By: #### 5 8410-2 #### [facility] [id number] [address] [place] [address] [place] MCH (RBC) [Entitic mass] 29.5 pg Normal 26.0-34.0 [facility] Comment on above: Order Comment: Speci men Type: BLOOD SPECIMEN Ordering Facility: [facility] Address: [address] [place] [address] Performed By: #### 5 8410-2 #### [facility] [id number] [address] [place] [address] [place] MCHC (RBC) [Mass/Vol] 33.6 g/dL Normal 30.5-36.0 [facility] Comment on above: Order Comment: Speci men Type: BLOOD SPECIMEN Ordering Facility: [facility] Address: [address] [place] [address] Performed By: #### 5 8410-2 #### [facility] CLIA [id number] [address] [place] [address] [place] MCV (RBC) [Entitic vol] 87.8 fL Normal 80.0-100.0 [facility] Comment on above: Order Comment: Speci men Type: BLOOD SPECIMEN Ordering Facility: [facility] Address: [address] [place] [address] Performed By: #### 5 8410-2 #### [facility] CLIA [id number] [address] [place] [address] [place] Nucleated RBC (Bld) [#/Vol] 10*3/uL Normal <0.01 [facility] Comment on above: Order Comment: Speci men Type: BLOOD SPECIMEN Ordering Facility: [facility] Address: [address] [place] [address] Performed By: #### 5 8410-2 #### [facility] CLIA [id number] [address] [place] [address] [place] Platelet mean volume (Bld) [Entitic vol] 10.7 fL Normal 9.0-12.7 [facility] Comment on above: Order Comment: Speci men Type: BLOOD SPECIMEN Ordering Facility: [facility] Address: [address] [place] [address] Performed By: #### 5 8410-2 #### [facility] CLIA [id number] [address] [place] [address] [place] Platelets (Bld) [#/Vol] 230 10*3/uL Normal 150-400 [facility] Comment on above: Order Comment: Speci men Type: BLOOD SPECIMEN Ordering Facility: [facility] Address: [address] [place] [address] Performed By: #### 5 8410-2 #### [facility] CLIA [id number] [address] [place] [address] [place] RBC (Bld) [#/Vol] 4.75 10*6/uL Normal 3.90-5.[address] [facility] Comment on above: Order Comment: Speci men Type: BLOOD SPECIMEN [facility]ing Facility[facility] Address: [address] [place] [address] Performed By: #### 5 8410-2 #### [facility] CLIA [id number] [address] [place] [address] [place] WBC (Bld) [#/Vol] 6.48 10*3/uL Normal 3.70-11.[address] [facility] Comment on above: Order Comment: Speci men Type: BLOOD SPECIMEN [facility] Address: [address] [place] [address] Performed By: #### 5 8410-2 #### [facility] CLIA [id number] [address] [place] [address] [place] Comprehensive metabolic 2000 panelon 09-01-2024 Albumin [Mass/Vol] 4.3 g/dL Normal 3.9-4.9 [facility] Comment on above: Order Comment: Speci men Type: BLOOD SPECIMEN Ordering Facility: [facility] Address: [address] [place], [place] [address] Performed By: #### 2 4323-8 #### [facility] CLIA [id number] [address] [place] [address] [place] ALP [Catalytic activity/Vol] 57 U/L Normal 34-123 [facility] Comment on above: Order Comment: Speci men Type: BLOOD SPECIMEN Ordering Facility[facility] Address: [address] [place] [address] Performed By: #### 2 4323-8 #### [facility] CLIA [id number] [address] [place] [address] [place] ALT [Catalytic activity/Vol] 15 U/L Normal 7-38 [facility] Comment on above: Order Comment: Speci men Type: BLOOD SPECIMEN Ordering Facility[facility] Address: [address] [id number] Performed By: #### 2 4323-8 #### [facility] CLIA [id number] [address] [place] [address] [place] Anion gap [Moles/Vol] 9 mmol/L Normal 8-15 [facility] Comment on above: Order Comment: Speci men Type: BLOOD SPECIMEN Ordering Facility[facility] Address: [address] [place] [address] Performed By: #### 2 4323-8 #### [facility] CLIA [id number] [address] [place] [address] [place] AST [Catalytic activity/Vol] 16 U/L Normal 13-35 [facility] Comment on above: Order Comment: Speci men Type: BLOOD SPECIMEN [facility]ing Facility[facility] Address: [address] [place] [address] Performed By: #### 2 4323-8 #### [facility] CLIA [id number] [address] [place] [address] [place] Bilirubin [Mass/Vol] 0.3 mg/dL Normal 0.2-1.3 [facility] Comment on above: Order Comment: Speci men Type: BLOOD SPECIMEN Ordering Facility[facility] Address: [address] [place] [address] Performed By: #### 2 4323-8 #### [facility] CLIA [id number] [address] [place] [address] [place] Calcium [Mass/Vol] 9.5 mg/dL Normal 8.5-10.2 [facility] Comment on above: Order Comment: Speci men Type: BLOOD SPECIMEN Ordering [facility] Address: [address] [place] [address] Performed By: #### 2 4323-8 #### [facility] CLIA [id number] [address] [place] [address] [place] Chloride [Moles/Vol] 105 mmol/L Normal 98-107 [facility] Comment on above: Order Comment: Speci men Type: BLOOD SPECIMEN [facility] Address: [address] [place] [address] Performed By: #### 2 4323-8 #### [facility] CLIA [id number] [address] [place] [address] [place] CO2 [Moles/Vol] 21 mmol/L Low 22-30 [facility] Comment on above: Order Comment: Speci men Type: BLOOD SPECIMEN [facility] Address: [address] [place] [address] Performed By: #### 2 4323-8 #### [facility] CLIA [id number] [address] [place] [address] [place] Creatinine [Mass/Vol] 0.85 mg/dL Normal 0.58-0.96 [facility] Comment on above: Order Comment: Speci men Type: BLOOD SPECIMEN Ordering Facility[facility] Address: [address] [place] [address] Performed By: #### 2 4323-8 #### [facility] CLIA [id number] [address] [place] [address] [place] Creatinine and Glomerular filtration rate.predicted panel (S/P/Bld) 96 mL/min/1.73m??? Normal >=60 [facility] Comment on above: Order Comment: Speci men Type: BLOOD SPECIMEN [facility] Address: [address] [id number] Result Comment: Maeve mated Glomerular Filtration Rate [...] GFR. Performed By: #### 2 4323-8 #### [facility] [id number] [address] [place] [address] [place] Glucose [Mass/Vol] 56 mg/dL Low 74-99 [facility] Comment on above: Order Comment: Boni carolina Type: BLOOD SPECIMEN Ordering Facility: [facility] Address: [address] [place] [address] Result Comment: The [place] Diabetes Association (ADA) provides guidance for cutoff [...] Standards of Medical Care in Diabetes 2016, [place] [employer]. Diabetes Care. 2016.39(Suppl 1). Performed By: #### 2 4323-8 #### [facility] [id number] [address] [place] [address] [place] Potassium [Moles/Vol] 3.7 mmol/L Normal 3.7-5.1 [facility] Comment on above: Order Comment: Boni carolina Type: BLOOD SPECIMEN [facility] Facility[facility] Address: [address] [place], [place] [address] Performed By: #### 2 4323-8 #### [facility] CLIA [id number] [address] [place] [address] [place] Protein [Mass/Vol] 6.8 g/dL Normal 6.3-8.0 [facility] Comment on above: Order Comment: Speci men Type: BLOOD SPECIMEN [facility] Address: [address] [place] [address] Performed By: #### 2 4323-8 #### [facility] CLIA [id number] [address] [place] [address] [place] Sodium [Moles/Vol] 135 mmol/L Low 136-144 [facility] Comment on above: Order Comment: Speci men Type: BLOOD SPECIMEN [facility] Address: [address] [place] [address] Performed By: #### 2 4323-8 #### [facility] CLIA [id number] [address] [place] [address] [place] Urea nitrogen [Mass/Vol] 12 mg/dL Normal 7-21 [facility] Comment on above: Order Comment: Speci men Type: BLOOD SPECIMEN [facility] Address: [address] [place] [address] Performed By: #### 2 4323-8 #### [facility] [id number] [address] [place] [address] [place] [facility] 5 HCG.beta subunit Qn 935.3 m[IU]/mL High <5.0 C [facility] Comment on above: Order Comment: Speci men Type: BLOOD SPECIMENOrdering Facility: [facility] Address: [address] [place] [address] Result Comment: JAMILAH TITATIVE HCG NORMAL RANGES Weeks of Gestation (Weeks Since LMP) 3 Weeks (5.8-71.2 mIU/mL) 4 Weeks (9.5-750 mIU/mL) 5 Weeks (217-7138 mIU/mL) 6 Weeks (158-81779 mIU/mL) 7 Weeks (3697-184552 mIU/mL) 8 Weeks (99891-112024 mIU/mL) 9 Weeks (21288-646795 mIU/mL) 10 Weeks (42948-726993 mIU/mL) 12 Weeks (25322-076426 mIU/mL) Referenced to 4th IS of [facility] Performed By: #### 2 1198-7 ####[facility] LABCLIA [id number] [place] [address] [place] HCG QUANTITATIVEon HCG.beta subunit Qn 935.3 m[IU]/mL [facility] Comment on above: QUANTITATIVE HCG NOR MAL RANGES Weeks of Gestation (Weeks Since LMP) 3 Weeks (5.8-71.2 mIU/mL) 4 Weeks (9.5-750 mIU/mL) 5 Weeks (217-7138 mIU/mL) 6 Weeks (158-60868 mIU/mL) 7 Weeks (3697-967432 mIU/mL) 8 Weeks (68715-183145 mIU/mL) 9 Weeks (45265-985779 mIU/mL) 10 Weeks (32381-539184 mIU/mL) 12 Weeks (96569-541343 mIU/mL) Referenced to 4th IS of [facility] HCG.beta subunit Qnon 2024 Interpretation and review of laboratory results Abnormal [facility] CNPNon 08-27-2024 MARCUSN Telephone (YONIS) KI DELGADO ([id number]) 1995 F Date Time Provider Department 08/27/24 CONSTANTINO GAINES During your visit today, we recorded the following information about you: Terri Griffith LPN 08/27/2024 8:49 AM Signed Patient received results of hcg quants on ISH and called asking if any repeat labs [...] LPN 08/31/2024 10:39 AM Signed Patient received ISH message with results of hcg quant drawn [...] Diagnosis:Threatened [O20.0] Order(s):HCG QUANTITATIVE [SQHCGQT] Order #: [id number] STANDING COMPLETE BLOOD COUNT [SQCBC] Order #: [id number] FUTURE Prescriptions as of 08/31/2024 - propranolol (INDERAL) 10 mg tablet 1-2 tabs, Oral, TID, PRN palpitations, # 90 tab(s), 0 Refill(s), Pharmacy: [facility]/pharmacy #[id number], Encounter to establish care Wellness examination, 163.8, [...] Status:Closed by TERRI GRIFFITH on 08/31/24 Normal [facility] B-HCG SerPl-aCncon 5 HCG.beta subunit Qn 351.8 m[IU]/mL High <5.0 C [facility] Comment on above: Order Comment: Speci men Type: BLOOD SPECIMENOrdering Facility: [facility] Address: [address] [place] [address] Result Comment: JAMILAH TITATIVE HCG NORMAL RANGES Weeks of Gestation (Weeks Since LMP) 3 Weeks (5.8-71.2 mIU/mL) 4 Weeks (9.5-750 mIU/mL) 5 Weeks (217-7138 mIU/mL) 6 Weeks (158-39980 mIU/mL) 7 Weeks (3697-828735 mIU/mL) 8 Weeks (57320-946025 mIU/mL) 9 Weeks (55035-840765 mIU/mL) 10 Weeks (03656-446293 mIU/mL) 12 Weeks (40459-826915 mIU/mL) Referenced to 4th IS of [facility] Performed By: #### 2 1198-7 ####[facility] [id number] [address] [place] B-HCG SerPl-aCncon 4 HCG.beta subunit Qn 178.5 m[IU]/mL High <5.0 C [facility] Comment on above: Order Comment: Speci men Type: BLOOD SPECIMENOrdering Facility: [facility] Address: [address] [place] [address] Result Comment: JAMILAH TITATIVE HCG NORMAL RANGES Weeks of Gestation (Weeks Since LMP) 3 Weeks (5.8-71.2 mIU/mL) 4 Weeks (9.5-750 mIU/mL) 5 Weeks (217-7138 mIU/mL) 6 Weeks (158-89577 mIU/mL) 7 Weeks (3697-379745 mIU/mL) 8 Weeks (58007-678866 mIU/mL) 9 Weeks (31526-719632 mIU/mL) 10 Weeks (97470-491857 mIU/mL) 12 Weeks (87051-251879 mIU/mL) Referenced to 4th IS of [facility] Performed By: #### 2 1198-7 ####[facility] [id number] [address] OF [place] Yamile 06-28-2024 RENNY Telephone ([employer]) KI DELGADO ([id number]) 1995 F Date Time Provider Department 06/28/24 LUCIANA JOSEPH During your visit today, we recorded the following information about you: Jena Bob 06/28/2024 1:38 PM Signed Ki is calling Luciana Joseph APRN.[employer]ER [employer] today asking the Macrobid for UTI is [...] Stop Macrobid. Start Keflex. - sent to [facility] Jodi Crocker PA-C Allergies As of Date: [...] Status:Closed by JODI CROCKER on 06/28/24 Normal [facility] Bacteria Ur Culton Bacteria identified Cx [...] , Intermediate >32 , Resistant >64 Abnormal [facility] Comment on above: Performed By: #### 6 30-4 ####[facility] LABCLIA [id number] [address] OF [facility] CNOVon 06-26-2024 CNOV Office Visit (JOSE) KI DELGADO ([id number]) 1995 F Date Time Provider Department 06/26/24 8:20 AM LUCIANA JOSEPH During your visit today, we recorded the following information about you: Temperature Pulse Blood pressure Weight 97.4 degrees 82/minute 132/91 71.8 kg Luciana Joseph APRN.[employer]ER [employer]AIGHTENER 06/26/2024 8:54 AM Signed Subjective HPI Ki [...] prevention given - URINE CULTURE Luciana Joseph APRN.ST[employer]ER STRAIGHTENER Referring Provider: SELF [200] Allergies As of Date: 06/26/2024 (No Known Allergies) Date Reviewed: 06/26/2024 Reviewed by: Ivanna Warner MA - Fully Assessed Reason for Visit: UTI [116] Cmt: Symptoms started yesterday frequency burning and blood in urine. Primary Visit Diagnosis:Recurrent UTI (urinary tract infection) [N39.0] Order(s):UA DIP, URINE (POC) [3078700] Order #: [id number]. #:[id number] nitrofurantoin monohydrate and macrocrystal (MACROBID) 100 mg capsuleTake 1 capsule by mouth two times a day for 5 days.Disp: 10 capsuleRfl: 0 URINE CULTURE [SQURCUL] Order #: [id number]. #:[id number] Prescriptions as of 06/26/2024 - nitrofurantoin monohydrate [...] Status:Closed by LUCIANA JOSEPH on 06/26/24 Normal [facility] UA DIP, URINE (POC)on 2023 BILIRUBIN UA (POCT) Negative Negative [facility] CLARITY UA (POCT) Turbid [facility] COLOR UA (POCT) Dark yellow [facility] GLUCOSE UA (POCT) Negative Negative mg/dL [facility] Hemoglobin Ql (U) Moderate Abnormal Negative [facility] Interpretation and review of laboratory results Abnormal [facility] KETONE UA (POCT) Negative Negative mg/dL [facility] LEUKOCYTES UA (POCT) Small Abnormal Negative [facility] NITRITE UA (POCT) Negative Negative [facility] PH UA (POCT) 7.5 4.5 - 8.0 [facility] Protein Ql (U) 30 mg/dL Abnormal Negative [facility] SPECIFIC GRAVITY UA (POCT) 1.020 1.005 - 1.030 [facility] UROBILINOGEN UA (POCT) 0.2 Normal E.U./dL [facility] Location:[facility] Office, [address] [place] [address], [address] [place] [address] POINT OF CARE [facility] .GFRon 08-09-2022 GFR 73 ml/min/1.73sqm Normal [facility] ([place]) Comment on above: Result Comment: GFR Population [...] By: #### B MP, GFR #### Lorri [address] [address] GFR Non- 60 ml/min/1.73sqm Normal [facility] ([place]) Comment on above: Result Comment: GFR Population [...] Performed By: #### B MP, GFR #### [address] [address] .Urinalysis Microscopic (AO) on 08-08-2022 UA Bacteria Trace Abnormal [facility] ([place] Comment on above: Performed By: #### U AMICAO, UA #### [address] [address] UA RBC 0-5 Abnormal None Seen [facility] ([place] Comment on above: Performed By: #### U AMICAO, UA #### [address] [address] UA Squam Epithelial 5-10 Abnormal None Seen [facility] ([place]) Comment on above: Performed By: #### U AMICAO, UA #### [address] [address] UA WBC 10-15 Abnormal None Seen [facility] ([place] Comment on above: Performed By: #### U AMICAO, UA #### [address] [address] BMPon 08-08-2022 BUN/Creatinine Ratio 13 ratio Normal 7-27 [facility] ([place]) Comment on above: Performed By: #### B MP, GFR #### [address] [address] Calcium [Mass/Vol] 9.3 mg/dL Normal 8.4-10.2 [facility] ([place]) Comment on above: Performed By: #### B MP, GFR #### [address] [address] Chloride [Moles/Vol] 102 mmol/L Normal 98-107 [facility] ([place]) Comment on above: Performed By: #### B MP, GFR #### [address] [address] CO2 [Moles/Vol] 28 mmol/L Normal 22-29 [facility] ([place] Comment on above: Performed By: #### B MP, GFR #### [address] [address] Creatinine [Mass/Vol] 1.10 mg/dL High 0.55-1.02 [facility] ([place]) Comment on above: Performed By: #### B MP, GFR #### [address] [address] Electrolyte Balance 8.0 mEq/L Normal 4.0-15.0 [facility] ([place]) Comment on above: Performed By: #### B MP, GFR #### [address] [address] Glucose [Mass/Vol] 135 mg/dL High 70-105 [facility] ([place] Comment on above: Performed By: #### B MP, GFR #### [address] [address] Potassium [Moles/Vol] 4.6 mmol/L Normal 3.5-5.1 [facility] ([place]) Comment on above: Performed By: #### B MP, GFR #### [address] [address] Sodium [Moles/Vol] 138 mmol/L Normal 136-145 [facility] ([place]) Comment on above: Performed By: #### B MP, GFR #### [address] [address] Urea nitrogen [Mass/Vol] 14 mg/dL Normal 7-18 [facility] ([place] Comment on above: Performed By: #### B MP, GFR #### [address] [address] LABORATORYOrdered By: Sherie Arriaga on 08-08-2022 Appearance [...] SS UAon 08-08-2022 Color (U) Yellow Normal [facility] ([place] Comment on above: Performed By: #### U AMICAO, UA #### [address] [address] Glucose (U) [Mass/Vol] Negative Normal Negative [facility] ([place] Comment on above: Performed By: #### U AMICAO, UA #### [address] [address] Ketones Ql (U) Negative Normal Negative [facility] ([place] Comment on above: Performed By: #### U AMICAO, UA #### [address] [address] UA Appear Clear Normal Clear [facility] ([place] Comment on above: Performed By: #### U AMICAO, UA #### [address] [address] UA Blood Trace Abnormal Negative [facility] ([place] Comment on above: Performed By: #### U AMICAO, UA #### [address] [address] UA Leuk Est Negative Normal Negative [facility] ([place] Comment on above: Performed By: #### U AMICAO, UA #### [address] [address] UA Nitrite Negative Normal Negative [facility] ([place] Comment on above: Performed By: #### U AMICAO, UA #### [address] [address] UA pH 6.5 Normal 5.0 - 8.0 [facility] ([place] Comment on above: Performed By: #### U AMICAO, UA #### [address] [address] UA Protein 30 mg/dL Normal Negative [facility] ([place] Comment on above: Performed By: #### U AMICAO, UA #### [address] [address] UA Spec Grav 1.025 Normal 1.015-1.025 [facility] ([place] Comment on above: Performed By: #### U AMICAO, UA #### [address] [address] UA Specimen Type Not Given Normal [facility] ([place] Comment on above: Performed By: #### U AMICAO, UA #### [address] [address] UA Urobilinogen 0.2 E.U./dL Normal 0.2-1.0 [facility] ([place] Comment on above: Performed By: #### U AMICAO, UA #### [address] [address] Urobilinogen (U) [Mass/Vol] Negative Normal Negative [facility] ([place] Comment on above: Performed By: #### U AMICAO, UA #### [address] [address] .GFRon 02-07-2022 GFR 68 ml/min/1.73sqm Normal [facility] ([place] Comment on above: Result Comment: GFR Population [...] Performed By: #### B MP, GFR #### [address] [place] [id number] GFR Non- 56 ml/min/1.73sqm Normal [facility] ([place] Comment on above: Result Comment: GFR Population [...] Performed By: #### B MP, GFR #### [address] [address] BMPon 02-07-2022 BUN/Creatinine Ratio 18 ratio Normal 7-27 [facility] ([place]) Comment on above: Performed By: #### B MP, GFR #### [address] [address] Calcium [Mass/Vol] 9.4 mg/dL Normal 8.4-10.2 [facility] ([place]) Comment on above: Performed By: #### B MP, GFR #### [address] [address] Chloride [Moles/Vol] 104 mmol/L Normal 98-107 [facility] ([place]) Comment on above: Performed By: #### B MP, GFR #### [address] [address] CO2 [Moles/Vol] 28 mmol/L Normal 22-29 [facility] ([place] Comment on above: Performed By: #### B MP, GFR #### [address] [address] Creatinine [Mass/Vol] 1.18 mg/dL High 0.55-1.02 [facility] ([place]) Comment on above: Performed By: #### B MP, GFR #### [address] [place], [place] [address] Electrolyte Balance 10.0 mEq/L Normal 4.0-15.0 [facility] ([place]) Comment on above: Performed By: #### B MP, GFR #### [id number] [place], [place] [address] Glucose [Mass/Vol] 97 mg/dL Normal 70-105 [facility] ([place]) Comment on above: Performed By: #### B MP, GFR #### [address] [address] Potassium [Moles/Vol] 4.8 mmol/L Normal 3.5-5.1 [facility] ([place]) Comment on above: Performed By: #### B MP, GFR #### [address] [address] Sodium [Moles/Vol] 142 mmol/L Normal 136-145 [facility] ([place] Comment on above: Performed By: #### B MP, GFR #### [address] [address] Urea nitrogen [Mass/Vol] 21 mg/dL High 7-18 [facility] ([place]) Comment on above: Performed By: #### B MP, GFR #### [address] [address] LABORATORYOrdered By: Barney Blandon on 02-07-2022 Calcium [...] ml/min/1.73sqm Invalid Interpretation Code AO Chemistry S [id number] 01-11-2022 Dog Dander IgE <0.35 Normal <0.35 [facility] ([place]) Comment on above: Result Comment: Perf ormed By: [facility] [employer] [address] [place] [address] Turn Down Man: Chad De La Garza III, M.D. CLIA#: [id number] Performed By: #### B MP, GFR #### [place] [id number] Dog Dander-Class Class 0 Normal Class 0 [facility] ([place]) Comment on above: Result Comment: Perf ormed By: [facility] [employer] [address] [place] [address] Turn Down Man: Chad De La Garza III, M.D. CLIA#: [id number] Performed By: #### B MP, GFR #### [address] [address] .Auto Diffon 01-10-2022 Basophil, Absolute 0.00 10 3/mcL Normal 0.00-0.19 [facility] ([place]) Comment on above: Performed By: #### L IPID, CBC, TSH, ADIFF, GFR, ANEU, CMP #### [address] [address] Basophils/100 WBC (Bld) 1.0 % Normal 0.0-2.5 [facility] ([place]) Comment on above: Performed By: #### L IPID, CBC, TSH, ADIFF, GFR, ANEU, CMP #### [address] [address] Eosinophil, Absolute 0.10 10 3/mcL Normal 0.00-0.40 A [facility] ([place]) Comment on above: Performed By: #### L IPID, CBC, TSH, ADIFF, GFR, ANEU, CMP #### [address] [address] Eosinophils/100 WBC (Bld) 2.3 % Normal 0.0-7.0 [facility] ([place]) Comment on above: Performed By: #### L IPID, CBC, TSH, ADIFF, GFR, ANEU, CMP #### [address] [address] Lymphocyte, Absolute 2.00 10 3/mcL Normal 0.77-3.85 A [facility] ([place]) Comment on above: Performed By: #### L IPID, CBC, TSH, ADIFF, GFR, ANEU, CMP #### [address] [address] Lymphocytes/100 WBC (Bld) 42.1 % Normal 10.0-50.0 [facility] ([place]) Comment on above: Performed By: #### L IPID, CBC, TSH, ADIFF, GFR, ANEU, CMP #### [address] [address] Monocyte, Absolute 0.50 10 3/mcL Normal 0.15-1.00 [facility] ([place]) Comment on above: Performed By: #### L IPID, CBC, TSH, ADIFF, GFR, ANEU, CMP #### [address] [address] Monocytes/100 WBC (Bld) 11.4 % Normal 1.7-13.0 [facility] ([place]) Comment on above: Performed By: #### L IPID, CBC, TSH, ADIFF, GFR, ANEU, CMP #### [address] [address] Neutrophils/100 WBC (Bld) 43.2 % Normal 37.0-80.0 [facility] ([place]) Comment on above: Performed By: #### L IPID, CBC, TSH, ADIFF, GFR, ANEU, CMP #### [address] [address] .GFRon 01-10-2022 GFR 62 ml/min/1.73sqm Normal [facility] ([place]) Comment on above: Result Comment: GFR Population [...] Performed By: #### B MP, GFR #### [address] [address] GFR Non- 51 ml/min/1.73sqm Normal [facility] ([place]) Comment on above: Result Comment: GFR Population [...] Performed By: #### B MP, GFR #### [address] [address] .NEUABSon 01-10-2022 Neutrophil, Absolute 2.00 10 3/mcL Low 2.85-6.16 [facility] ([place]) Comment on above: Performed By: #### L IPID, CBC, TSH, ADIFF, GFR, ANEU, CMP #### [address] [address] CBCon 01-10-2022 Erythrocyte distribution width (RBC) [Ratio] 15.9 % High 11.5-14.5 [facility] ([place]) Comment on above: Performed By: #### L IPID, CBC, TSH, ADIFF, GFR, ANEU, CMP #### [address] [address] Hematocrit (Bld) [Volume fraction] 38.5 % Normal 37.0-47.0 [facility] ([place]) Comment on above: Performed By: #### L IPID, CBC, TSH, ADIFF, GFR, ANEU, CMP #### [address] [address] Hgb 12.7 G/dL Normal 12.0-16.0 [facility] ([place]) Comment on above: Performed By: #### L IPID, CBC, TSH, ADIFF, GFR, ANEU, CMP #### [address] [address] MCH (RBC) [Entitic mass] 28.7 pg Normal 27.0-31.2 [facility] ([place]) Comment on above: Performed By: #### L IPID, CBC, TSH, ADIFF, GFR, ANEU, CMP #### [address] [address] MCHC 33.1 G/dL Normal 33.0-37.0 [facility] ([place]) Comment on above: Performed By: #### L IPID, CBC, TSH, ADIFF, GFR, ANEU, CMP #### [address] [address] MCV (RBC) [Entitic vol] 86.8 fL Normal 80.0-94.0 [facility] ([place] Comment on above: Performed By: #### L IPID, CBC, TSH, ADIFF, GFR, ANEU, CMP #### [address] [address] Platelet 225 10 3/mcL Normal 130-400 [facility] ([place]) Comment on above: Performed By: #### L IPID, CBC, TSH, ADIFF, GFR, ANEU, CMP #### [address] [address] Platelet mean volume (Bld) [Entitic vol] 10.0 fL Normal 7.4-10.4 [facility] ([place]) Comment on above: Performed By: #### L IPID, CBC, TSH, ADIFF, GFR, ANEU, CMP #### [address] [address] RBC 4.44 10 6/mcL Normal 4.20-5.40 [facility] ([place]) Comment on above: Performed By: #### L IPID, CBC, TSH, ADIFF, GFR, ANEU, CMP #### [address] [address] WBC 4.70 10 3/mcL Normal 4.60-10.80 [facility] ([place]) Comment on above: Performed By: #### L IPID, CBC, TSH, ADIFF, GFR, ANEU, CMP #### [address] [address] CMPon 01-10-2022 Albumin Level 4.3 G/dL Normal 3.5-5.0 [facility] ([place]) Comment on above: Performed By: #### B MP, GFR #### [address] [address] Albumin/Globulin [Mass ratio] 1.4 {ratio} Normal 1.1-2.5 [facility] ([place]) Comment on above: Performed By: #### B MP, GFR #### [address] [address] ALP [Catalytic activity/Vol] 57 U/L Normal 40-135 [facility] ([place]) Comment on above: Performed By: #### B MP, GFR #### [address] [address] ALT [Catalytic activity/Vol] 33 U/L Normal 14-59 [facility] ([place]) Comment on above: Performed By: #### B MP, GFR #### [address] [address] AST [Catalytic activity/Vol] 32 U/L Normal 10-40 [facility] ([place]) Comment on above: Performed By: #### B MP, GFR #### [address] [address] Bili Total 0.5 mg/dL Normal 0.2-1.0 [facility] ([place]) Comment on above: Result Comment: Use of this assay is not recommended for patients undergoing treatment with eltrombopag due to the potential for falsely elevated results. Performed By: #### B MP, GFR #### [address] [address] BUN/Creatinine Ratio 12 ratio Normal 7-27 [facility] ([place]) Comment on above: Performed By: #### B MP, GFR #### [address] [address] Calcium [Mass/Vol] 10.1 mg/dL Normal 8.4-10.2 [facility] ([place]) Comment on above: Performed By: #### B MP, GFR #### [address] [address] Chloride [Moles/Vol] 106 mmol/L Normal 98-107 [facility] ([place]) Comment on above: Performed By: #### B MP, GFR #### [address] [address] CO2 [Moles/Vol] 26 mmol/L Normal 22-29 [facility] ([place]) Comment on above: Performed By: #### B MP, GFR #### [address] [address] Creatinine [Mass/Vol] 1.28 mg/dL High 0.55-1.02 [facility] ([place]) Comment on above: Performed By: #### B MP, GFR #### [address] [address] Electrolyte Balance 10.0 mEq/L Normal 4.0-15.0 [facility] ([place]) Comment on above: Performed By: #### B MP, GFR #### [address] [address] Globulin 3.1 G/dL Normal [facility] ([place]) Comment on above: Performed By: #### B MP, GFR #### [address] [address] Glucose [Mass/Vol] 88 mg/dL Normal 70-105 [facility] ([place]) Comment on above: Performed By: #### B MP, GFR #### [address] [address] Potassium [Moles/Vol] 5.3 mmol/L High 3.5-5.1 [facility] ([place]) Comment on above: Performed By: #### B MP, GFR #### [address] [address] Sodium [Moles/Vol] 142 mmol/L Normal 136-145 [facility] ([place]) Comment on above: Performed By: #### B MP, GFR #### [address] [address] Total Protein 7.4 G/dL Normal 6.4-8.2 [facility] ([place]) Comment on above: Performed By: #### B MP, GFR #### [address] [address] Urea nitrogen [Mass/Vol] 16 mg/dL Normal 7-18 [facility] ([place]) Comment on above: Performed By: #### B MP, GFR #### [address] [address] LABORATORYOrdered By: Antonieta Cano on 01-10-2022 Albumin [...] 01-10-2022 Cholesterol [Mass/Vol] 191 mg/dL Normal 0-200 [facility] ([place]) Comment on above: Result Comment: Chol esterol Reference Interval: Less than 200 Desirable 200-239 Borderline high risk 240 and above High risk Performed By: #### L IPID, CBC, TSH, ADIFF, GFR, ANEU, CMP #### [address] [address] Cholesterol in HDL [Mass/Vol] 58 mg/dL Normal 40-60 [facility] ([place]) Comment on above: Performed By: #### L IPID, CBC, TSH, ADIFF, GFR, ANEU, CMP #### [address] [address] Cholesterol in LDL [Mass/Vol] 122 mg/dL Normal 0-130 [facility] ([place]) Comment on above: Performed By: #### L IPID, CBC, TSH, ADIFF, GFR, ANEU, CMP #### [address] [address] Triglyceride [Mass/Vol] 57 mg/dL Normal 0-150 [facility] ([place]) Comment on above: Result Comment: Trig lyceride Reference Interval: Less than 150 Normal 150-199 Borderline high risk 200-499 High risk 500 or higher Very high risk Performed By: #### L IPID, CBC, TSH, ADIFF, GFR, ANEU, CMP #### [id number] [place], [place] [address] TSHon 01-10-2022 TSH Qn 2.39 m[IU]/L Normal 0.36-3.74 [facility] ([place]) Comment on above: Performed By: #### L IPID, CBC, TSH, ADIFF, GFR, ANEU, CMP #### [id number] [place], [place] [address] Vital Signs Date Time Vital Sign Value Performing Clinician Chris vera 2025 08:35-0400 Body mass index (BMI) [Ratio] 35.36 kg/m2 Sheree Swain MD Work Phone: [facility] 2025 08:35-0400 Body weight 93.44 kg Sheree Swain MD Work Phone: [facility] 2025 08:35-0400 Diastolic blood pressure 70 mm[Hg] Sheree Swain MD Work Phone: [facility] 2025 08:35-0400 Systolic blood pressure 108 mm[Hg] Sheree Swain MD Work Phone: [facility] 04-21-2025 07:50-0400 Body mass index (BMI) [Ratio] 35.02 kg/m2 Destiney Schroeder INTEGRATION ENGINEER.CNM Work Phone: [facility] 04-21-2025 07:50-0400 Body weight 92.53 kg Destiney Schroeder INTEGRATION ENGINEER.CNM Work Phone: [facility] 04-21-2025 07:50-0400 Diastolic blood pressure 82 mm[Hg] Destiney Plotts INTEGRATION ENGINEER.CNM Work Phone: [facility] 04-21-2025 07:50-0400 Systolic blood pressure 124 mm[Hg] Destiney Plotts INTEGRATION ENGINEER.CNM Work Phone: [facility] 04-15-2025 07:57-0400 Body mass index (BMI) [Ratio] 34.84 kg/m2 Shabnam Wilson INTEGRATION ENGINEER.CNM Work Phone: [facility] 04-15-2025 07:57-0400 Body weight 92.08 kg Shabnam Wilson INTEGRATION ENGINEER.CNM Work Phone: [facility] 04-15-2025 07:57-0400 Diastolic blood pressure 76 mm[Hg] Shabnam Wilson INTEGRATION ENGINEER.CNM Work Phone: [facility] 04-15-2025 07:57-0400 Systolic blood pressure 104 mm[Hg] Shabnam Wilson INTEGRATION ENGINEER.CNM Work Phone: [facility] 04-08-2025 15:20-0400 Body mass index (BMI) [Ratio] 34.84 kg/m2 Mira Lewis MD Work Phone: [facility] 04-08-2025 15:20-0400 Body weight 92.08 kg Mira Lewis MD Work Phone: [facility] 04-08-2025 15:20-0400 Diastolic blood pressure 74 mm[Hg] Mira Lewis MD Work Phone: [facility] 04-08-2025 15:20-0400 Systolic blood pressure 112 mm[Hg] Mira Lewis MD Work Phone: [facility] 03-25-2025 08:08-0400 Body mass index (BMI) [Ratio] 34.16 kg/m2 Shabnam Wilson INTEGRATION ENGINEER.CNM Work Phone: [facility] 03-25-2025 08:08-0400 Body weight 90.27 kg Shabnam Wilson INTEGRATION ENGINEER.CNM Work Phone: [facility] 03-25-2025 08:08-0400 Diastolic blood pressure 60 mm[Hg] Shabnam Wilson INTEGRATION ENGINEER.CNM Work Phone: [facility] 03-25-2025 08:08-0400 Systolic blood pressure 104 mm[Hg] Shabnam Wilson INTEGRATION ENGINEER.CNM Work Phone: [facility] 03-10-2025 09:01-0400 Body mass index (BMI) [Ratio] 33.99 kg/m2 Rao Faithdestiny INTEGRATION ENGINEER.STACKER STRAIGHTENER Work Phone: [facility] 03-10-2025 09:01-0400 Body weight 89.81 kg Rao Pineda INTEGRATION ENGINEER.STACKER STRAIGHTENER Work Phone: [facility] 03-10-2025 09:01-0400 Diastolic blood pressure 62 mm[Hg] Rao Pineda INTEGRATION ENGINEER.STACKER STRAIGHTENER Work Phone: [facility] 03-10-2025 09:01-0400 Systolic blood pressure 112 mm[Hg] Rao Pineda INTEGRATION ENGINEER.STACKER STRAIGHTENER Work Phone: [facility] 02-18-2025 08:10-0400 Body mass index (BMI) [Ratio] 33.51 kg/m2 Mira Lewis MD Work Phone: [facility] 02-18-2025 08:10-0400 Body weight 88.54 kg Mira Lewis MD Work Phone: [facility] 02-18-2025 08:10-0400 Diastolic blood pressure 80 mm[Hg] Mira Lewis MD Work Phone: [facility] 02-18-2025 08:10-0400 Systolic blood pressure 120 mm[Hg] Mira Lewis MD Work Phone: [facility] 01-20-2025 08:02-0400 Body mass index (BMI) [Ratio] 33.13 kg/m2 Destiney Schroeder INTEGRATION ENGINEER.CNM Work Phone: [facility] 01-20-2025 08:02-0400 Body weight 87.54 kg Destiney Plotbrynn INTEGRATION ENGINEER.CNM Work Phone: [facility] 01-20-2025 08:02-0400 Diastolic blood pressure 72 mm[Hg] Destiney Plotts INTEGRATION ENGINEER.CNM Work Phone: [facility] 01-20-2025 08:02-0400 Systolic blood pressure 110 mm[Hg] Destiney Plotts INTEGRATION ENGINEER.CNM Work Phone: [facility] 12-23-2024 09:01-0400 Body mass index (BMI) [Ratio] 32.27 kg/m2 Constantino Gaines MD Work Phone: [facility] 12-23-2024 09:01-0400 Body weight 85.28 kg Constantino Gaines MD Work Phone: [facility] 12-23-2024 09:01-0400 Diastolic blood pressure 60 mm[Hg] Constantino Gaines MD Work Phone: [facility] 12-23-2024 09:01-0400 Systolic blood pressure 104 mm[Hg] Constantino Gaines MD Work Phone: [facility] 11-25-2024 07:51-0400 Body mass index (BMI) [Ratio] 31.41 kg/m2 Destiney Plotts INTEGRATION ENGINEER.CNM Work Phone: [facility] 11-25-2024 07:51-0400 Body weight 83.01 kg Destiney Plotts INTEGRATION ENGINEER.CNM Work Phone: [facility] 11-25-2024 07:51-0400 Diastolic blood pressure 74 mm[Hg] Destiney Plotts INTEGRATION ENGINEER.CNM Work Phone: [facility] 11-25-2024 07:51-0400 Systolic blood pressure 112 mm[Hg] Destiney Plotts INTEGRATION ENGINEER.CNM Work Phone: [facility] 10-25-2024 11:48-0500 Body mass index (BMI) [Ratio] 30 kg/m2 Destiney Plotts INTEGRATION ENGINEER.CNM Work Phone: [facility] 10-25-2024 11:48-0500 Body weight 79.29 kg Destiney Plotts INTEGRATION ENGINEER.CNM Work Phone: [facility] 10-25-2024 11:48-0500 Diastolic blood pressure 70 mm[Hg] Destiney Plotts INTEGRATION ENGINEER.CNM Work Phone: [facility] 10-25-2024 11:48-0500 Systolic blood pressure 110 mm[Hg] Destiney Plotts INTEGRATION ENGINEER.CNM Work Phone: [facility] 10-11-2024 07:38-0500 Body mass index (BMI) [Ratio] 29.35 kg/m2 Rao Hadestiny INTEGRATION ENGINEER.STACKER STRAIGHTENER Work Phone: [facility] 10-11-2024 07:38-0500 Body weight 77.56 kg Rao Haury INTEGRATION ENGINEER.STACKER STRAIGHTENER Work Phone: [facility] 10-11-2024 07:38-0500 Diastolic blood pressure 78 mm[Hg] Rao Haury INTEGRATION ENGINEER.STACKER STRAIGHTENER Work Phone: [facility] 10-11-2024 07:38-0500 Systolic blood pressure 114 mm[Hg] Rao Hadestiny INTEGRATION ENGINEER.STACKER STRAIGHTENER Work Phone: [facility] 10-06-2024 09:31-0500 Body mass index (BMI) [Ratio] 29.4 kg/m2 Margarita Almaguer INTEGRATION ENGINEER.STACKER STRAIGHTENER Work Phone: [facility] 10-06-2024 09:31-0500 Body weight 77.7 kg Margarita Almaguer INTEGRATION ENGINEER.STACKER STRAIGHTENER Work Phone: [facility] 10-06-2024 09:31-0500 Diastolic blood pressure 84 mm[Hg] Margarita Almaguer INTEGRATION ENGINEER.STACKER STRAIGHTENER Work Phone: [facility] 10-06-2024 09:31-0500 Heart rate 119 /min Margarita Almaguer INTEGRATION ENGINEER.STACKER STRAIGHTENER Work Phone: [facility] 10-06-2024 09:31-0500 SaO2% (BldA) [Mass fraction] 100 % Margarita Almaguer INTEGRATION ENGINEER.STACKER STRAIGHTENER Work Phone: [facility] 10-06-2024 09:31-0500 Systolic blood pressure 134 mm[Hg] Margarita Almaguer INTEGRATION ENGINEER.STACKER STRAIGHTENER Work Phone: [facility] 10-04-2024 08:06-0500 Body mass index (BMI) [Ratio] 29.18 kg/m2 Ascencion Kessler MD Work Phone: [facility] 10-04-2024 08:06-0500 Body weight 77.11 kg Ascencion Kessler MD Work Phone: [facility] 10-04-2024 08:06-0500 Diastolic blood pressure 74 mm[Hg] Ascencion Kessler MD Work Phone: [facility] 10-04-2024 08:06-0500 Systolic blood pressure 118 mm[Hg] Ascencion Kessler MD Work Phone: [facility] 09-20-2024 10:59-0500 Body height 164.5 cm Rao Haury INTEGRATION ENGINEER.STACKER STRAIGHTENER Work Phone: [facility] 09-20-2024 10:59-0500 Body mass index (BMI) [Ratio] 27.99 kg/m2 Rao Haury INTEGRATION ENGINEER.STACKER STRAIGHTENER Work Phone: [facility] 09-20-2024 10:59-0500 Body weight 75.75 kg Rao Haury INTEGRATION ENGINEER.STACKER STRAIGHTENER Work Phone: [facility] 09-20-2024 10:59-0500 Diastolic blood pressure 70 mm[Hg] Rao Haury INTEGRATION ENGINEER.STACKER STRAIGHTENER Work Phone: [facility] 09-20-2024 10:59-0500 Systolic blood pressure 124 mm[Hg] Rao Haury INTEGRATION ENGINEER.STACKER STRAIGHTENER Work Phone: [facility] 09-02-2024 11:31-0500 Body mass index (BMI) [Ratio] 27.12 kg/m2 Lauren Pal MD Work Phone: [facility] 09-02-2024 11:31-0500 Body weight 73.48 kg Lauren Pal MD Work Phone: [facility] 09-02-2024 11:31-0500 Diastolic blood pressure 84 mm[Hg] Lauren Pal MD Work Phone: [facility] 09-02-2024 11:31-0500 Systolic blood pressure 114 mm[Hg] Lauren Pal MD Work Phone: [facility] 06-26-2024 08:36-0400 Body mass index (BMI) [Ratio] 26.5 kg/m2 Luciana Callow INTEGRATION ENGINEER.STACKER STRAIGHTENER Work Phone: [facility] 06-26-2024 08:36-0400 Body temperature 97.39 [degF] Luciana Callow INTEGRATION ENGINEER.STACKER STRAIGHTENER Work Phone: [facility] 06-26-2024 08:36-0400 Body weight 71.8 kg ow INTEGRATION ENGINEER.STACKER STRAIGHTENER Work Phone: [facility] 06-26-2024 08:36-0400 Diastolic blood pressure 91 mm[Hg] INTEGRATION ENGINEER.STACKER STRAIGHTENER Work Phone: [facility] 06-26-2024 08:36-0400 Heart rate 82 /min INTEGRATION ENGINEER.STACKER STRAIGHTENER Work Phone: [facility] 06-26-2024 08:36-0400 SaO2% (BldA) [Mass fraction] 99 % INTEGRATION ENGINEER.STACKER STRAIGHTENER Work Phone: [facility] 06-26-2024 08:36-0400 Systolic blood pressure 132 mm[Hg] Luciana Callow INTEGRATION ENGINEER.STACKER STRAIGHTENER Work Phone: [facility] 02-11-2024 11:11-0400 Body height 164.6 cm Ascencion Kessler MD Work Phone: [facility] 02-11-2024 11:11-0400 Body mass index (BMI) [Ratio] 26.95 kg/m2 Ascencion Kessler MD Work Phone: [facility] 02-11-2024 11:11-0400 Body weight 73.03 kg Ascencion Kessler MD Work Phone: [facility] 02-11-2024 11:11-0400 Diastolic blood pressure 60 mm[Hg] Ascencion Kessler MD Work Phone: [facility] 02-11-2024 11:11-0400 Systolic blood pressure 100 mm[Hg] Ascencion Kessler MD Work Phone: [facility] Encounters Encounter Date Encounter Type Care Provider Facility Start: 05-06-2025 ambulatory Jerel Branch Jr. [facility] Start: 2025 End: 2025 Patient encounter procedure Sheree Swain MD Work Phone: OB/Gynecology Comment on above: Encounter for superv ision of normal first in third trimester (HCC) (Primary Dx); History of chronic hypertension; Excessive growth affecting management of in third trimester, single or unspecified fetus (HCC); Anxiety during (HCC); 38 weeks gestation of (HCC) Start: 2025 End: 2025 ambulatory JEREL BRANCH JR Facility:[facility] Start: 04-21-2025 End: 04-21-2025 Patient encounter procedure Destiney Schroeder APRN.CNM Work Phone: OB/Gynecology Comment on above: Encounter for superv ision of normal first in third trimester (HCC) (Primary Dx); Excessive growth affecting management of in third trimester, single or unspecified fetus (HCC); History of chronic hypertension; Anxiety during (HCC); 37 weeks gestation of (HCC) Start: 04-21-2025 End: 04-21-2025 ambulatory JEREL BRANCH JR Facility:[facility] Start: 04-15-2025 End: 04-15-2025 Patient encounter procedure Shabnam Wilson APRN.CNM Work Phone: OB/Gynecology Comment on above: Encounter for superv ision of normal first in third trimester (HCC) (Primary Dx); 37 weeks gestation of (HCC); Excessive growth affecting management of in third trimester, single or unspecified fetus (HCC); History of chronic hypertension; Anxiety during (HCC) Start: 04-15-2025 End: 04-15-2025 ambulatory JEREL BRANCH JR Facility:[facility] Start: 04-11-2025 End: 04-19-2025 Telephone encounter [...] 04-08-2025 End: 04-08-2025 ambulatory JEREL BRANCH JR Facility:[facility] Start: 03-25-2025 End: 03-25-2025 Patient encounter procedure Shabnam Wilson APRN.CNM Work Phone: OB/Gynecology Comment on above: Encounter for superv ision of normal first in third trimester (HCC) (Primary Dx); 34 weeks gestation of (HCC); Uterine size date discrepancy , third trimester (HCC); History of chronic hypertension; Anxiety during ([facility]) Start: 03-25-2025 End: 03-25-2025 ambulatory JEREL BRANCH JR Facility:[facility] Start: 03-10-2025 End: 03-10-2025 Patient encounter procedure Rao Pienda APRN.STACKER STRAIGHTENER Work Phone: OB/Gynecology Comment on above: Encounter for superv ision of normal first in third trimester (HCC) (Primary Dx); 31 weeks gestation of (HCC); Uterine size date discrepancy , third trimester (HCC); Anxiety during (HCC) Encounter for ultras ound to check growth ([facility]) (Primary Dx); Uterine size date discrepancy , third trimester (HCC); 31 weeks gestation of (HCC) Start: 03-10-2025 End: 03-10-2025 ambulatory JEREL BRANCH JR Facility:[facility] Start: 02-21-2025 End: 04-23-2025 Follow-up encounter Constantino Gaines MD Work Phone: OB/Gynecology Start: 02-18-2025 End: 02-18-2025 Patient encounter procedure Mira Lewis MD Work Phone: OB/Gynecology Comment on above: 29 weeks gestation o f (HCC) (Primary Dx); Encounter for supervision of normal first in second trimester ([facility]); Need for vaccination; Spotting complicating , third trimester ([facility]); Uterine size date discrepancy , third trimester ([facility]) Start: 02-18-2025 End: 02-18-2025 ambulatory JEREL BRANCH JR Facility:[facility] Start: 01-20-2025 End: 01-20-2025 Patient encounter procedure Destiney Schroeder APRN.CNM Work Phone: OB/Gynecology Comment on above: History of chronic h ypertension (Primary Dx); Encounter for supervision of normal first in second trimester ([facility]); Anxiety during ([facility]); 24 weeks gestation of ([facility]); Screening for diabetes mellitus Start: 01-20-2025 End: 01-20-2025 ambulatory JEREL BRANCH JR Facility:[facility] Start: 12-23-2024 End: 12-23-2024 Patient encounter procedure Constantino Gaines MD Work Phone: OB/Gynecology Comment on above: Encounter for superv ision of normal first in second trimester ([facility]) (Primary Dx); History of chronic hypertension; 20 weeks gestation of ([facility]) Encounter for anatomic survey ([facility]) (Primary Dx); 20 weeks gestation of ([facility]) Start: 12-23-2024 End: 12-23-2024 ambulatory JEREL BRANCH JR Facility:[facility] Start: 11-25-2024 End: 11-25-2024 ambulatory JEREL BRANCH JR Facility:[facility] Start: 11-25-2024 End: 11-25-2024 Patient encounter procedure Destiney Schroeder APRN.CNM Work Phone: OB/Gynecology Comment on above: 16 weeks gestation o f ([facility]) (Primary Dx); Anxiety during ([facility]); Encounter for supervision in primigravida, antepartum ([facility]) Start: 11-03-2024 End: 11-04-2024 Telephone encounter Destiney Schroeder APRN.CNM Work Phone: OB/Gynecology Comment on above: Vaginal Discharge Start: 10-25-2024 End: 12-25-2024 Follow-up encounter Rao Pineda APRN.CNP Work Phone: OB/Gynecology Start: 10-25-2024 End: 10-25-2024 ambulatory JEREL BRANCH JR Facility:[facility] Start: 10-25-2024 End: 10-25-2024 Patient encounter procedure Whsuman Tech 1 Research Greenhouse Supervisor Mfm Wstr Mob Maternal Medicine Comment on above: Encounter for antena hali screening for malformation using ultrasound (Primary Dx); 12 weeks gestation of 12 weeks gestation o f (Primary Dx); Encounter for supervision in primigravida, antepartum; Anxiety during Start: 10-22-2024 End: 10-22-2024 ambulatory JEREL BRANCH JR Facility:[facility] Start: 10-11-2024 End: 10-11-2024 ambulatory JEREL Edwar JOSE CARLOS DAI Facility:[facility] Start: 10-11-2024 End: 10-11-2024 Patient encounter procedure Rao Pineda APRN.CNP Work Phone: OB/Gynecology Comment on above: Encounter for superv ision in primigravida, antepartum (Primary Dx); 10 weeks gestation of ; Influenza A; Anxiety during Start: 10-07-2024 End: 10-07-2024 E-mail encounter from caregiver Jodi Crocker PA-C Work Phone: [facility] Start: 10-07-2024 End: 10-07-2024 Patient encounter procedure Jodi Crocker PA-C Work Phone: [facility] Comment on above: Lab results Start: 10-06-2024 End: 10-06-2024 Telephone encounter Sheree Swain MD Work Phone: OB/Gynecology Comment on above: Medication Problem Start: 10-06-2024 End: 10-06-2024 ambulatory JEREL BRANCH JR Facility:[facility] Start: 10-06-2024 End: 10-06-2024 Office outpatient new 30 minutes Margarita Almaguer APRN.STACKER STRAIGHTENER Work Phone: [facility] Comment on above: Viral upper respirat ory tract infection with cough (Primary Dx); Pharyngitis, unspecified etiology; Influenza A Start: 10-04-2024 End: 10-04-2024 ambulatory JEREL Edwar BRANCH Facility:[facility] Start: 10-04-2024 End: 10-04-2024 Patient encounter procedure Ascencion Kessler MD Work Phone: OB/Gynecology Comment on above: 10 weeks gestation o f (Primary Dx) Start: 09-30-2024 End: 09-30-2024 Emergency department patient visit JEREL Edwar JOSE CARLOS DAI Facility:[facility] Start: 09-20-2024 End: 09-20-2024 ambulatory JEREL BRANCH Facility:[facility] Start: 09-20-2024 End: 09-20-2024 Patient encounter procedure Rao Pineda APRN.STACKER STRAIGHTENER Work Phone: OB/Gynecology Comment on above: Encounter for superv ision in primigravida, antepartum (Primary Dx); Less than 8 weeks gestation of ; Anxiety during ; History of chronic hypertension; with uncertain dates in first trimester Start: 09-02-2024 End: 09-02-2024 ambulatory Research Greenhouse Supervisor Wstr Mob Us Remote Work Phone: OB/Gynecology Start: 09-02-2024 End: 09-02-2024 Patient encounter procedure Us Tech 1 Wstr Mob OB/Gynecology Comment on above: Early stage of pregn minh (Primary Dx); Anxiety; related nausea, antepartum Start: 09-01-2024 End: 09-01-2024 ambulatory JEREL Edwar JOSE CARLOS DAI Facility:[facility] Start: 08-31-2024 End: 08-31-2024 Orders Only Constantino Gaines MD Work Phone: [facility] Comment on above: Bleeding in early pr egnancy (Primary Dx); , location unknown Start: 08-30-2024 End: 08-30-2024 ambulatory JEREL BRANCH JR Facility:[facility] Start: 08-27-2024 End: 08-31-2024 Telephone encounter Constantino Gaines APRN.CNM Work Phone: OB/Gynecology Comment on above: Results Start: 08-26-2024 End: 08-26-2024 ambulatory JEREL BRANCH JR Facility:[facility] Start: 08-24-2024 End: 08-24-2024 ambulatory JEREL BRANCH JR Facility:[facility] Start: 06-28-2024 End: 06-28-2024 Telephone encounter Luciana Opal ARAGON.STACKER STRAIGHTENER Work Phone: [facility] Comment on above: Medication Problem Start: 06-26-2024 End: 06-26-2024 ambulatory JEREL BRANCH JR Facility:[facility] Start: 06-26-2024 End: 06-26-2024 Patient encounter procedure Luciana Opal ARAGON.STACKER STRAIGHTENER Work Phone: [facility] Comment on above: Recurrent UTI (urina ry tract infection) (Primary Dx) Start: 02-11-2024 End: 02-11-2024 Patient encounter procedure Ascencion Kessler MD Work Phone: OB/Gynecology Comment on above: Encounter for gyneco logical examination (general) (routine) without abnormal findings (Primary Dx); Screening for cervical cancer Start: 02-11-2024 End: 02-11-2024 Patient encounter status Ascencion Kessler MD Work Phone: [facility] Start: 08-08-2022 End: 08-09-2022 ambulatory DENNIS GREENBERG DO Facility:B Start: 08-08-2022 End: 08-08-2022 Patient encounter procedure DENNIS GREENBERG DO [facility] Start: 07-23-2022 End: 07-28-2022 ambulatory DENNIS GREENBERG DO Facility:[facility] Start: 07-23-2022 End: 07-27-2022 Outreach Lab DENNIS GREENBERG DO [facility] Start: 02-07-2022 End: 02-08-2022 ambulatory MS. SHABNAM GILBERT STACKER STRAIGHTENER Facility:[facility] Start: 02-07-2022 End: 02-07-2022 Patient encounter procedure SHABNAM GILBERT INTEGRATION ENGINEER-STACKER STRAIGHTENER [facility] Start: 01-10-2022 End: 01-11-[address] ELLA KING MD. Facility:[facility] Start: 01-10-2022 End: 01-10-2022 Patient encounter procedure DENNIS GREENBERG DO [facility] Procedures Date Procedure Procedure Detail Performing Clinician Start: 2025 Urnls dip stick/tabl et rgnt non-auto w/o micrscp Sheree Swain MD Work Phone: Start: 04-21-2025 Urnls dip stick/tabl et rgnt non-auto w/o micrscp Destiney Schroeder INTEGRATION ENGINEER.CNM Work Phone: Start: 04-08-2025 Us preg uterus after 1st trimest 1/ gestation Rao Pineda INTEGRATION ENGINEER.STACKER STRAIGHTENER Work Phone: Start: 04-08-2025 Urnls dip stick/tabl et rgnt non-auto w/o micrscp Mira Lewis MD Work Phone: Start: 03-25-2025 Urnls dip stick/tabl et rgnt non-auto w/o micrscp Shabnam Wilson INTEGRATION ENGINEER.CNM Work Phone: Start: 03-10-2025 Us preg uterus after 1st trimest 1/1st gestation Mira Lewis MD Work Phone: Start: 12-23-2024 Us preg uterus after 1st trimest /1st gestation Rao Pineda INTEGRATION ENGINEER.STACKER STRAIGHTENER Work Phone: Start: 10-25-2024 Us preg uterus after 1st trimest 1/ gestation Rao Pineda INTEGRATION ENGINEER.STACKER STRAIGHTENER Work Phone: Start: 10-22-2024 Antibody screen JEREL BRANCH JR Comment on above: Order Comment: Speci men Type: BLOOD SPECIMENOrdering Facility: [facility] Address: [address] [place] [address] Performed By: #### T SPN ####[facility] B[facility] BANKCLIA [id number] [address], [place] [address] [place] Start: 10-06-2024 INFLUENZA A&B MOLECU LAR (POC) [facility] Provider Start: 10-06-2024 STREP A MOLECULAR (POC) [facility] Provider Start: 09-30-2024 Antibody screen JEREL BRANCH JR Comment on above: Order Comment: Speci men Type: BLOOD SPECIMEN Ordering Facility: [facility] Address: [address] [place] [address] [place] [address] Performed By: #### T SPN #### [facility] CLIA [id number] [address] [place] [address] [place] Start: 09-20-2024 Us uterus l imited fetuses Rao Faithdestiny ARZATESTACKER STRAIGHTENER Work Phone: Start: 09-02-2024 pelvic nonobstetr ic real-time image complete Constantino Gaines MD Work Phone: Start: 06-26-2024 Urnls dip stick/tabl et rgnt auto w/o microscopy [facility] Provider Foot structure (body structure) DENNIS GREENBERG DO Comment on above: More than 10 years a go Plan of Treatment Date Care Activity Detail Author Start: 02-18-2035 Urine microalbumin profile DTaP,Tdap,Td Vaccine (3 - Td or Tdap) [facility] Start: 02-10-2027 Screening for malign ant neoplasm of cervix Cervical Cancer Screening [facility] Start: 01-10-2027 Urine microalbumin profile DTaP,Tdap,Td Vaccine (2 - Td or Tdap) [facility] Start: 06-13-2025 End: 06-13-2025 Patient encounter procedure 06/13/2025 10:30 AM EDT Office Visit OB/Gynecology [address] [place] [address] Loren Lemus MD [address] [place] [id number] 6 week post OB/Gynecology Comment on above: 6 week post Start: 05-16-2025 End: 05-16-2025 Patient encounter procedure 05/16/2025 10:30 AM EDT Office Visit OB/Gynecology [address] [place] [address] Shabnam Wilson APRN.CNM [address] [place] [address] 2 week post OB/Gynecology Comment on above: 2 week post Start: 05-06-2025 End: 05-06-2025 Patient encounter procedure 05/06/2025 8:10 AM EDT Routine Office Visit OB/Gynecology [address] [place] [address] Mira Lewis MD [address] [place] [address] OB OB/Gynecology Comment on above: OB Start: 2025 End: 2025 Patient encounter procedure 2025 8:40 AM EDT Routine Office Visit OB/Gynecology [address] [place] [address] Sheree Michele MD [address] [place] [address] OB OB/Gynecology Comment on above: OB Start: 04-25-2025 Influenza vaccination C [facility] Start: 04-21-2025 End: 04-21-2025 Patient encounter procedure OB/Gynecology Comment on above: OB OB- please ask for f ax number for her FMLA Start: 04-15-2025 End: 04-15-2025 Patient encounter procedure 04/15/2025 8:00 AM EDT Routine Office Visit OB/Gynecology [address] [place] [address] Shabnam Wilson APRN.CNM [address] [place] [address] OB OB/Gynecology Comment on above: OB Start: 04-08-2025 End: 04-08-2025 Patient encounter procedure OB/Gynecology Comment on above: Growth/OB Growth Start: 03-25-2025 End: 03-25-2025 Patient encounter procedure 03/25/2025 8:00 AM EDT Routine Office Visit OB/Gynecology [address] [place] [address] Shabnam Wilson APRN.CN [address] [place] [address] OB OB/Gynecology Comment on above: OB Start: 03-10-2025 End: 03-10-2026 OBSTETRIC ULTRASOUND WHI OBSTETRIC ULTRASOUND WHI Anc Imaging Routine Encounter for supervision of normal first in third trimester (HCC) Uterine size date discrepancy , third trimester (HCC) Expected: 03/10/2025, Expires: 03/10/2026 [facility] Work Phone: Comment on above: Expected: 03/10/2025 , Expires: 03/10/2026 Start: 03-10-2025 End: 03-10-2025 Patient encounter procedure Maternal Medicine Comment on above: Growth Growth/OB Start: 03-04-2025 End: 02-18-2026 OBSTETRIC ULTRASOUND WHI OBSTETRIC ULTRASOUND WHI Anc Imaging Routine Uterine size date discrepancy , third trimester (HCC) Expected: 03/04/2025, Expires: 02/18/2026 [facility] Work Phone: Comment on above: Expected: 03/04/2025 , Expires: 02/18/2026 Start: 02-18-2025 End: 02-18-2025 Patient encounter procedure 02/18/2025 8:10 AM EDT Routine Office Visit OB/Gynecology [address] [place], [place] [address] Mira Lewis MD [address] [place] [address] OB/ glucose OB/Gynecology Comment on above: OB/ glucose Start: 02-18-2025 End: 02-18-2025 ambulatory 02/18/2025 8:00 AM EDT Results Only [facility] [address] [place] [address] lab glucose [place] [facility] Comment on above: lab glucose Start: 02-14-2025 End: 02-14-2025 Patient encounter procedure 02/14/2025 8:50 AM EDT Office Visit OB/Gynecology [address] [place] [address] Ascencion Kessler MD [address] [place] [address] Annual OB/Gynecology Comment on above: Annual Start: 01-20-2025 End: 04-21-2025 ANEMIA REFLEX PANEL ANEMIA REFLEX PANEL Lab Routine History of chronic hypertension Encounter for supervision of normal first in second trimester (HCC) Anxiety during (HCC) 24 weeks gestation of (HCC) Expected: 01/20/2025, Expires: 04/21/2025 [facility] Comment on above: Expected: 01/20/2025 , Expires: 04/21/2025 Start: 01-20-2025 End: 01-20-2026 GESTATIONAL GLUCOSE SCREEN, 1-HOUR, 50 GRAM, NON-FASTING GESTATIONAL GLUCOSE SCREEN, 1-HOUR, 50 GRAM, NON-FASTING Lab Routine History of chronic hypertension Encounter for supervision of normal first in second trimester (HCC) Anxiety during (HCC) 24 weeks gestation of (HCC) Screening for diabetes mellitus Expected: 01/20/2025, Expires: 01/20/2026 [facility] Work Phone: Comment on above: Expected: 01/20/2025 , Expires: 01/20/2026 Start: 01-20-2025 End: 01-20-2026 SYPHILIS TREPONEMAL W/REFLEX SYPHILIS TREPONEMAL W/REFLEX Lab Routine History of chronic hypertension Encounter for supervision of normal first in second trimester (HCC) Anxiety during (HCC) 24 weeks gestation of (HCC) Expected: 01/20/2025, Expires: 01/20/2026 [facility] Comment on above: Expected: 01/20/2025 , Expires: 01/20/2026 Start: 01-20-2025 End: 01-20-2025 Patient encounter procedure 01/20/2025 8:00 AM EDT Routine Office Visit OB/Gynecology [address] [place] [address] Destiney Schroeder APRN.CNM [address] [place] [address] OB Routine OB/Gynecology Comment on above: OB Routine Start: 12-23-2024 End: 12-23-2024 Patient encounter procedure Maternal Medicine Comment on above: Anatomy/OB Start: 11-25-2024 End: 11-25-2024 Patient encounter procedure 11/25/2024 8:00 AM EDT Routine Office Visit OB/Gynecology [address] [place] [address] Destiney Schroeder APRN.CNM [address] [place] [address] OB OB/Gynecology Comment on above: OB Start: 10-25-2024 End: 10-25-2024 Patient encounter procedure Maternal Medicine Comment on above: Nuchal OB Start: 10-18-2024 End: 10-18-2024 Patient encounter procedure 10/18/2024 8:00 AM EST Routine Office Visit OB/Gynecology [address] [place] [address] Ascencion Kessler MD [address] [place] [address] Weekly heart beat check (per Miriam) OB/Gynecology Comment on above: Weekly heart b eat check (per Miriam) Start: 10-13-2024 End: 10-13-2024 Patient encounter procedure 10/13/2024 8:00 AM EST Routine Office Visit OB/Gynecology [address] [place] [address] Ascencion Kessler MD [address] [address] Weekly heart beat check (per Haury) OB/Gynecology Comment on above: Weekly heart b eat check (per Haury) Start: 09-20-2024 End: 12-20-2024 ANEMIA REFLEX PANEL ANEMIA REFLEX PANEL Lab Routine Encounter for supervision in primigravida, antepartum Less than 8 weeks gestation of Expected: 09/20/2024, Expires: 12/20/2024 [facility] Work Phone: Comment on above: Expected: 09/20/2024 , Expires: 12/20/2024 Start: 09-20-2024 End: 12-20-2024 Chromosome 21 trisomy [Presence] in Blood or Tissue by Cytogenetics [id number] PLUS Lab Routine Encounter for supervision in primigravida, antepartum Less than 8 weeks gestation of Expected: 09/20/2024, Expires: 12/20/2024 [facility] Comment on above: Expected: 09/20/2024 , Expires: 12/20/2024 Start: 09-20-2024 End: 12-20-2024 Hemoglobin A1c in Blood HEMOGLOBIN A1C Lab Routine Encounter for supervision in primigravida, antepartum Less than 8 weeks gestation of Expected: 09/20/2024, Expires: 12/20/2024 [facility] Comment on above: Expected: 09/20/2024 , Expires: 12/20/2024 Start: 09-20-2024 End: 12-20-2024 HEMOGLOBIN EVALUATION CASCADE HEMOGLOBIN EVALUATION CASCADE Lab Routine Encounter for supervision in primigravida, antepartum Less than 8 weeks gestation of Expected: 09/20/2024, Expires: 12/20/2024 [facility] Comment on above: Expected: 09/20/2024 , Expires: 12/20/2024 Start: 09-20-2024 End: 12-20-2024 Hepatitis B virus surface Ag [Presence] in Serum HEPATITIS B SURFACE ANTIGEN Lab Routine Encounter for supervision in primigravida, antepartum Less than 8 weeks gestation of Expected: 09/20/2024, Expires: 12/20/2024 [facility] Comment on above: Expected: 09/20/2024 , Expires: 12/20/2024 Start: 09-20-2024 End: 12-20-2024 Hepatitis C virus Ab [Presence] in Serum HEPATITIS C ANTIBODY IA WITH CONFIRMATION Lab Routine Encounter for supervision in primigravida, antepartum Less than 8 weeks gestation of Expected: 09/20/2024, Expires: 12/20/2024 [facility] Comment on above: Expected: 09/20/2024 , Expires: 12/20/2024 Start: 09-20-2024 End: 12-20-2024 HIV 1+2 Ab [Presence] in Serum or Plasma by Immunoassay HIV 1/2 COMBO WITH REFLEX TO DIFFERENTIATION Lab Routine Encounter for supervision in primigravida, antepartum Less than 8 weeks gestation of Expected: 09/20/2024, Expires: 12/20/2024 [facility] Comment on above: Expected: 09/20/2024 , Expires: 12/20/2024 Start: 09-20-2024 End: 09-20-2025 OBSTETRIC ULTRASOUND WHI OBSTETRIC ULTRASOUND WHI Anc Imaging Routine Encounter for supervision in primigravida, antepartum Less than 8 weeks gestation of Expected: 09/20/2024, Expires: 09/20/2025 [facility] Comment on above: Expected: 09/20/2024 , Expires: 09/20/2025 Start: 09-20-2024 End: 12-20-2024 RUBELLA IGG ANTIBODY RUBELLA IGG ANTIBODY Lab Routine Encounter for supervision in primigravida, antepartum Less than 8 weeks gestation of Expected: 09/20/2024, Expires: 12/20/2024 [facility] Comment on above: Expected: 09/20/2024 , Expires: 12/20/2024 Start: 09-20-2024 End: 12-20-2024 SYPHILIS TREPONEMAL W/REFLEX SYPHILIS TREPONEMAL W/REFLEX Lab Routine Encounter for supervision in primigravida, antepartum Less than 8 weeks gestation of Expected: 09/20/2024, Expires: 12/20/2024 [facility] Comment on above: Expected: 09/20/2024 , Expires: 12/20/2024 Start: 09-20-2024 End: 12-20-2024 TYPE + SCREEN TYPE + SCREEN Blood Bank Routine Encounter for supervision in primigravida, antepartum Less than 8 weeks gestation of Expected: 09/20/2024, Expires: 12/20/2024 [facility] Comment on above: Expected: 09/20/2024 , Expires: 12/20/2024 Start: 09-20-2024 End: 09-20-2024 Patient encounter procedure 09/20/2024 11:00 AM EST Initial Office Visit OB/Gynecology [address] [place] [address] Rao Pineda, INTEGRATION ENGINEER.STACKER STRAIGHTENER [address] [place] [address] initial ob appointment- lmp 07/21/24 OB/Gynecology Comment on above: initial ob appointme nt- lmp 07/21/24 Start: 09-09-2024 End: 09-09-2024 Patient encounter procedure 09/09/2024 11:00 AM EST Initial Office Visit OB/Gynecology [address] [place] [address] Rao Pineda, INTEGRATION ENGINEER.STACKER STRAIGHTENER [address] [place] [address] initial ob appointment- lmp 07/21/24 OB/Gynecology Comment on above: initial ob appointme nt- lmp 07/21/24 Start: 09-02-2024 End: 09-02-2024 Patient encounter procedure 09/02/2024 11:30 AM EST Office Visit OB/Gynecology [address] [place] [address] Lauren Pal MD [address] [place] [address] f/u ultrasound to r/o ectopic OB/Gynecology Comment on above: f/u ultrasound to r/ o ectopic Start: 09-02-2024 End: 09-02-2024 ambulatory 09/02/2024 11:00 AM EST Procedure OB/Gynecology [address] [place] [address] Remote, Research Greenhouse Supervisor Wstr Mob Us [address] [place] [address] r/o ectopic OB/Gynecology Comment on above: r/o ectopic Start: 08-31-2024 End: 11-30-2024 CBC panel - Blood by Automated count COMPLETE BLOOD COUNT Lab Routine Threatened Expected: 08/31/2024, Expires: 11/30/2024 [facility] Comment on above: Expected: 08/31/2024 , Expires: 11/30/2024 Start: 08-31-2024 End: 11-30-2024 Comprehensive metabolic 2000 panel - Serum or Plasma COMPREHENSIVE METABOLIC PANEL Lab Routine Bleeding in early , location unknown Expected: 08/31/2024, Expires: 11/30/2024 [facility] Comment on above: Expected: 08/31/2024 , Expires: 11/30/2024 Start: 08-31-2024 End: 08-31-2025 US Pelvis PELVIC US [facility] Anc Imaging Routine Bleeding in early , location unknown Expected: 08/31/2024, Expires: 08/31/2025 [facility] Work Phone: Comment on above: Expected: 08/31/2024 , Expires: 08/31/2025 Start: 04-25-2024 Covid-19 Vaccine ( season) Covid-19 Vaccine () [facility] Start: 04-25-2024 Covid-19 Vaccine () Covid-19 Vaccine ( season) [facility] Start: 04-25-2024 Influenza vaccination C [facility] Start: 08-25-2023 Behavioral Health Screening Behavioral Health Screening [facility] Start: 2023 HPV Vaccine (1 - 3-d ose SCDM series) HPV Vaccine (1 - 3-dose SCDM series) [facility] Start: 04-25-2023 Covid-19 Vaccine () Covid-19 Vaccine () [facility] Start: 2017 Screening for malign ant neoplasm of cervix Cervical Cancer Screening [facility] Start: 2015 Hepatitis B Vaccine (1 of 3 - 19+ 3-dose series) Hepatitis B Vaccine (1 of 3 - 19+ 3-dose series) [facility] Start: 2014 Anxiety Screening Anxiety Screening [facility] Start: 2014 Depression Screening Depression Scre ening [facility] Start: 2014 Hepatitis C screening Hepatitis C Sc reening [facility] Start: 2014 HIV screening HIV Screening [facility] Bacteria identified in Urine by Culture URINE CULTURE Microbiology Routine Recurrent UTI (urinary tract infection) Ordered: 06/26/2024 [facility] Work Phone: Comment on above: Ordered: 06/26/2024 Bacteria identified in Urine by Culture BACTERIAL CULTURE, URINE Microbiology Routine Encounter for supervision in primigravida, antepartum Less than 8 weeks gestation of 09/20/2024 11:[address] [facility] BACTERIAL VAGINOSIS NAAT BACTERIAL VAGINOSIS NAAT Lab Routine Spotting complicating , third trimester ([facility]) 02/18/2025 8:30 AM EDT [facility] MARY/TRICHOMONAS NAAT MARY/TRICHOMONAS NAAT Lab Routine Spotting complicating , third trimester ([facility]) 02/18/2025 8:30 AM EDT [facility] Chlamydia trachomatis+Neisseria gonorrhoeae DNA [Presence] in Unspecified specimen by RAYA with probe detection GONORRHEA/CHLAMYDIA NAAT Lab Routine Encounter for supervision in primigravida, antepartum Less than 8 weeks gestation of 09/20/2024 11:50 AM EST [facility] End: 09-10-2024 Choriogonadotropin.beta subunit [Units/volume] in Serum or Plasma HCG QUANTITATIVE Lab Routine Threatened 2x per week for 4 Occurrences starting 08/27/2024 until 09/10/2024, 1 completed [facility] Work Phone: Comment on above: 2x per week for 4 Oc currences starting 08/27/2024 until 09/10/2024, 1 completed COVID & INFLUENZA A/ B & RSV PCR, ROUTINE COVID & INFLUENZA A/B & RSV PCR, ROUTINE Microbiology Routine Viral upper respiratory tract infection with cough Influenza A Ordered: 10/06/2024 [facility] Work Phone: Comment on above: Ordered: 10/06/2024 PAP TEST PAP TEST Lab [place] Encounter for gynecological examination (general) (routine) without abnormal findings Screening for cervical cancer 02/11/2024 12:02 PM EDT [facility] Work Phone: ROUTINE, GR OUP B STREPTOCOCCUS BY PCR ROUTINE, GROUP B STREPTOCOCCUS BY PCR Microbiology Routine 36 weeks gestation of (FORMER[facility]) 04/08/2025 3:43 PM EDT [facility] Work Phone: URINE OB DIP B/O URINE OB DIP B/ O Lab Routine Encounter for supervision of normal first in third trimester ([facility]) History of chronic hypertension 37 weeks gestation of ([facility]) Ordered: 04/15/2025 [facility] Work Phone: Comment on above: Ordered: 04/15/2025 Immunizations Immunization Date Immunization Notes Care Provider Gustavo kline 02-18-2025 tetanus toxoid, redu ham diphtheria toxoid, and acellular pertussis vaccine, adsorbed Mira Lewis MD Work Phone: [facility] 04-23-2021 influenza virus vaccine, unspecified formulation SHABNAMYAHIR GILBERT INTEGRATION ENGINEER-STACKER STRAIGHTENER [facility] 01-03-2021 SARS-CoV-2 (COVID-19 ) mRNA-1273 vaccine SHABNAM OFELIA INTEGRATION ENGINEER-STACKER STRAIGHTENER [facility] Comment on above: Result Comment: 2021: TPVAL 12-06-2020 SARS-CoV-2 (COVID-19 ) mRNA-1273 vaccine SHABNAM OFELIA INTEGRATION ENGINEER-STACKER STRAIGHTENER [facility] Comment on above: Result Comment: 2021: TPVALL 04-10-2020 influenza virus vaccine, unspecified formulation SHABNAM OFELIA INTEGRATION ENGINEER-STACKER STRAIGHTENER [facility] 06-16-2019 influenza virus vaccine, unspecified formulation SHABNAM GILBERT INTEGRATION ENGINEER-STACKER STRAIGHTENER [facility] 04-09-2018 influenza virus vaccine, unspecified formulation SHABNAM GILBERT INTEGRATION ENGINEER-STACKER STRAIGHTENER [facility] 01-10-2017 tetanus toxoid, redu ham diphtheria toxoid, and acellular pertussis vaccine, adsorbed SHABNAM GILBERT INTEGRATION ENGINEER-STACKER STRAIGHTENER [facility] Payers Date Payer Category Payer Self-pay 2024 [employer] BLUE CARD PPO OOS [id number] 2024 Unknown [id number] 2023 Unknown [id number] 2022 Unknown [id number] 2022 Unknown [id number] 1996 Unknown [id number] 1996 Unknown [id number] 1996 Unknown [id number] 1996 Unknown [id number] 1996 Unknown [id number] [id number] Unknown [id number] Social History Date Type Detail Facility Start: 01-09-2022 End: 02-11-2024 Tobacco smoking status Never smoked tobacco (finding) [facility] Start: 1995 Sex Assigned At Female A [facility] Start: 02-11-2024 Tobacco use and exposure Smokeless tobacco non-user [facility] Start: 02-11-2024 End: 09-02-2024 Alcohol intake Current drinker of alcohol (finding) [facility] Start: 02-11-2024 End: 09-02-2024 History of Social function [facility] Start: 02-11-2024 End: 09-02-2024 Tobacco use panel [facility] Start: 02-11-2024 Tobacco Comment smoking outside-pare nt [facility] Start: 02-11-2024 Alcohol Comment socially [facility] Start: 1995 [place] Assigned At [place] Start: 07-26-2012 National Score (1-10 0), lower number is lower risk 54 [facility] Start: 09-20-2024 End: 04-08-2025 Alcoholic beverage intake Ex-drinker (finding) [facility] Start: 08-13-2024 [facility] Start: 09-15-2024 Gender identity Identifies as female gender (finding) [facility] Start: 09-15-2024 Sexual orientation Heterosexual (dwaine higginbotham) [facility] Goals Date Patient Goal Desired Activity /State [...] was discussed with the patient or authorized sales representative. The patient or authorized sales representative has agreed to proceed with the sensitive examination. @ 38.6 weeks Assessment & Plan Encounter for supervision of normal first in third trimester ([facility]) Orders: URINE OB DIP B/O History of chronic hypertension BP well controlled. Orders: URINE OB DIP B/O Excessive growth affecting management of in third trimester, single or unspecified fetus ([facility]) Orders: URINE OB DIP B/O Anxiety during ([facility]) Orders: URINE OB DIP B/O 38 weeks gestation of ([facility]) IOL scheduled Kick counts and labor reviewed Sheree Crowder MD [facility] 2025 Miscellaneous Notes DM-Pt doing well. Denies vaginal Bleeding, Leaking fluid, or regular Contractions. Pt reports good movement Physical Exam: Gen: female in no apparent distress Abd: soft, Gravid. Non tender to palpation. See flow sheet Participation of a fellow, resident, medical student, or advanced practice provider student in performing the sensitive examination was discussed with the patient or authorized sales representative. The patient or authorized sales representative has agreed to proceed with the sensitive examination. @ 38.6 weeks Assessment & Plan Encounter for supervision of normal first in third trimester ([facility]) Orders: URINE OB DIP B/O History of chronic hypertension BP well controlled. Orders: URINE OB DIP B/O Excessive growth affecting management of in third trimester, single or unspecified fetus (HCC) Orders: URINE OB DIP B/O Anxiety during (HCC) Orders: URINE OB DIP B/O 38 weeks gestation of (HCC) IOL scheduled Kick counts and labor reviewed Sheree Crowder MD documented in this encounter [facility] 2025 Instructions Ember Darden MA - 2025 8:31 AM EDT SEQUENTIAL SCREENINGS The [facility] offers sequential screenings for women who are [...] It will require an appointment with our customer data technician. This is not an ultrasound performed [...] the above symptoms, contact our office at [phone] and ask to speak with a nurse. After hours, you can call doctors registry at [phone] OR call [facility] at [phone] and ask to have the doctor sanitation technician paged. If you consider this an emergency, dial 9-- or go to your nearest emergency department. NEED HELP? Are you dealing with a violent or abusive relationship? Are you a victim of rape or sexual assult? Call [facility] ([facility] 24 hour Crisis Hotline: 624.131.8341 or 647-020-3209. MANUAL Your Guide to a Healthy manual is now on-line. Visit [email or web address] [email or web address] to download your free copy documented in this encounter [facility] 04-21-2025 Progress note Formatting of t his [...] discussed with the Patient or Patient's Authorized Business Rules Developer. As applicable, any other physician, advance practice provider, medical student, or other health professional student that will be observing or involved in the sensitive examination for educational or training purposes was discussed with the Patient or Authorized Business Rules Developer. The Patient or Authorized Business Rules Developer has agreed to proceed with the sensitive [...] or sooner if needed Destiney Schroeder APRN.CNM [facility] Work Phone: 04-21-2025 Miscellaneous Notes S: Ki [...] discussed with the Patient or Patient's Authorized Business Rules Developer. As applicable, any other physician, advance practice provider, medical student, or other health professional student that will be observing or involved in the sensitive examination for educational or training purposes was discussed with the Patient or Authorized Business Rules Developer. The Patient or Authorized Business Rules Developer has agreed to proceed with the sensitive [...] Destiney Schroeder APRN.CNM documented in this encounter [facility] 04-21-2025 Instructions Ember Darden MA - 04/21/2025 7:46 AM EDT SEQUENTIAL SCREENINGS The [facility] offers sequential screenings for women who are [...] It will require an appointment with our customer data technician. This is not an ultrasound performed [...] the above symptoms, contact our office at [phone] and ask to speak with a nurse. After hours, you can call doctors registry at [phone] OR call [facility] at [phone] and ask to have the doctor sanitation technician paged. If you consider this an emergency, dial 3-3-2 or go to your nearest emergency department. NEED HELP? Are you dealing with a violent or abusive relationship? Are you a victim of rape or sexual assult? Call [facility] ([place]) 24 hour Crisis Hotline: 245.274.3589 or 942-904-7079. MANUAL Your Guide to a Healthy manual is now on-line. Visit [email or web address] ncyGuide to download your free copy documented in this encounter [facility] 04-19-2025 Telephone encounter Note FMLA has been singed and faxed. Copy is placed into scanning folder. Lucrecia Sheppard MA [facility] 04-19-2025 Miscellaneous Notes FMLA has been singed and faxed. Copy is placed into scanning folder. Lucrecia Sheppard MA Received [facility] paperwork- will complete on working on forms for provider to sign. Lucrecia Sheppard MA documented in this encounter [facility] 04-15-2025 Progress note Formatting of t his [...] RTO in 1 weeks Shabnam Wilson APRN.CNM [facility] 04-15-2025 Miscellaneous Notes MELINA-S: Ki Delgado is [...] Shabnam Wilson APRN.CNM documented in this encounter [facility] 04-15-2025 Instructions Salima Marin MA - 04/15/2025 7:57 AM EDT SEQUENTIAL SCREENINGS The [facility] offers sequential screenings for women who are [...] It will require an appointment with our customer data technician. This is not an ultrasound performed [...] the above symptoms, contact our office at [phone] and ask to speak with a nurse. After hours, you can call doctors registry at [phone] OR call [facility] at [phone] and ask to have the doctor sanitation technician paged. If you consider this an emergency, dial or go to your nearest emergency department. NEED HELP? Are you dealing with a violent or abusive relationship? Are you a victim of rape or sexual assult? Call [facility] ([facility] 24 hour Crisis Hotline: 757.713.7590 or 514-998-9876. MANUAL Your Guide to a Healthy manual is now on-line. Visit [email or web address] ncyGuide to download your free copy documented in this encounter [facility] 04-11-2025 Telephone encounter Note Received [facility] paperwork- will complete on working on forms for provider to sign. Lucrecia Sheppard MA [facility] 04-08-2025 Note Indication Evaluation of growth Discrepancy [...] 13 oz EFW by: Hadlock (HC-AC-FL) Extended Dull Coat Mill Operator 5.0 mm Extremities / Bony Struc FL [...] be different from the original. S: Ki eDlgado is a 29 year old female who [...] collected ASSESSMENT/PLAN: 1. 36 weeks gestation of ([facility]) - ICD9: V22.2, ICD10: Z3A.36 (primary diagnosis) - URINE OB DIP B/O - ROUTINE, GROUP B STREPTOCOCCUS BY PCR 2. Encounter for supervision of normal first in third trimester ([facility]) - ICD9: V22.0, ICD10: Z34.03 - URINE OB DIP B/O Mira Lewis MD [facility] 04-08-2025 Miscellaneous Notes S: Ki Delgado is [...] collected ASSESSMENT/PLAN: 1. 36 weeks gestation of ([facility]) - ICD9: V22.2, ICD10: Z3A.36 (primary diagnosis) - URINE OB DIP B/O - ROUTINE, GROUP B STREPTOCOCCUS BY PCR 2. Encounter for supervision of normal first in third trimester ([facility]) - ICD9: V22.0, ICD10: Z34.03 - URINE OB DIP B/O Mira Lewis MD documented in this encounter [facility] 04-08-2025 Instructions Salima Marin MA - 04/08/2025 3:20 PM EDT SEQUENTIAL SCREENINGS The [facility] offers sequential screenings for women who are [...] It will require an appointment with our customer data technician. This is not an ultrasound performed [...] the above symptoms, contact our office at [phone] and ask to speak with a nurse. After hours, you can call doctors registry at [phone] OR call [facility] at [phone] and ask to have the doctor sanitation technician paged. If you consider this an emergency, dial 9--5 or go to your nearest emergency department. NEED HELP? Are you dealing with a violent or abusive relationship? Are you a victim of rape or sexual assult? Call [facility] ([place]) 24 hour Crisis Hotline: 458.305.4599 or 375-506-9658. MANUAL Your Guide to a Healthy manual is now on-line. Visit [email or web address] ncyGuide to download your free copy documented in this encounter [facility] 03-25-2025 Progress note Formatting of t his [...] RTO in 2 weeks Shabnam Wilson APRN.CNM [facility] 03-25-2025 Miscellaneous Notes MELINA-S: Ki Delgado is [...] Shabnam Wilson APRN.CNM documented in this encounter [facility] 03-25-2025 Instructions Shabnam Wilson APRN.CNM - 03/25/2025 [...] the above symptoms, contact our office at [phone] and ask to speak with a nurse. After hours, you can call doctors registry at [phone] OR call [facility] at [phone] and ask to have the doctor sanitation technician paged. If you consider this an emergency, dial 9-1-3 or go to your nearest emergency department. NEED HELP? Are you dealing with a violent or abusive relationship? Are you a victim of rape or sexual assult? Call [facility] ([facility] 24 hour Crisis Hotline: 892.616.6342 or 843-004-6189. MANUAL Your Guide to a Healthy manual is now on-line. Visit [email or web address] ncyGuide to download your free copy documented in this encounter [facility] 03-10-2025 Note Indication Evaluation of growth Discrepancy [...] 14 oz EFW by: Hadlock (HC-AC-FL) Extended Dull Coat Mill Operator 5.0 mm Extremities / Bony Struc FL [...] supervision of normal first in third trimester ([facility]) - ICD9: V22.0, ICD10: Z34.03 (primary diagnosis) - Continue PNV and LDA 2. 31 weeks gestation of ([facility]) - ICD9: V22.2, ICD10: Z3A.31 - Hemoglobin 10.6 on 02/18 - Repeat CBC next visit 3. Uterine size date discrepancy , third trimester ([facility]) - ICD9: 649.63, ICD10: O26.843 - Growth today, report pending 4. Anxiety during ([facility]) - ICD9: 648.43, 300.00, ICD10: O99.340, F41.9 - Mood stable since second trimester PTL precautions and kick counts reviewed. RTO in 2 weeks or sooner as needed. Rao Pineda APRN.MARCUS [facility] 03-10-2025 Miscellaneous Notes EH - S: Ki [...] supervision of normal first in third trimester ([facility]) - ICD9: V22.0, ICD10: Z34.03 (primary diagnosis) - Continue PNV and LDA 2. 31 weeks gestation of ([facility]) - ICD9: V22.2, ICD10: Z3A.31 - Hemoglobin 10.6 on 02/18 - Repeat CBC next visit 3. Uterine size date discrepancy , third trimester ([facility]) - ICD9: 649.63, ICD10: O26.843 - Growth today, report pending 4. Anxiety during ([facility]) - ICD9: 648.43, 300.00, ICD10: O99.340, F41.9 - Mood stable since second trimester PTL precautions and kick counts reviewed. RTO in 2 weeks or sooner as needed. Rao Pineda APRN.MARCUS documented in this encounter [facility] 03-10-2025 Instructions Lucrecia Sheppard MA - 03/10/2025 9:01 AM EDT SEQUENTIAL SCREENINGS The [facility] offers sequential screenings for women who are [...] It will require an appointment with our customer data technician. This is not an ultrasound performed [...] the above symptoms, contact our office at [phone] and ask to speak with a nurse. After hours, you can call doctors registry at [phone] OR call [facility] at [phone] and ask to have the doctor sanitation technician paged. If you consider this an emergency, dial 3-1-2 or go to your nearest emergency department. NEED HELP? Are you dealing with a violent or abusive relationship? Are you a victim of rape or sexual assult? Call [facility] ([place]) 24 hour Crisis Hotline: 131.107.6313 or 942-420-7144. MANUAL Your Guide to a Healthy manual is now on-line. Visit [email or web address] ncyGuide to download your free copy documented in this encounter [facility] 02-18-2025 Progress note Formatting of t his [...] discussed with the Patient or Patient's Authorized Business Rules Developer. As applicable, any other physician, advance practice provider, medical student, or other health professional student that will be observing or involved in the sensitive examination for educational or training purposes was discussed with the Patient or Authorized Business Rules Developer. The Patient or Authorized Business Rules Developer has agreed to proceed with the sensitive examination. Copious vaginal discharge. Cervix friable Declined LARC TDAP today GCT today S>D by 2 weeks. Growth at 32 weeks Family hx 12lb baby recently ASSESSMENT/PLAN: 1. 29 weeks gestation of ([facility]) - ICD9: V22.2, ICD10: Z3A.29 (primary diagnosis) 2. Encounter for supervision of normal first in second trimester ([facility]) - ICD9: V22.0, ICD10: Z34.02 3. Need for vaccination - ICD9: V05.9, ICD10: Z23 TDAp 4. Spotting complicating , third trimester ([facility]) - ICD9: 649.53, ICD10: O26.853 - BACTERIAL VAGINOSIS NAAT - MARY/TRICHOMONAS NAAT 5. Uterine size date discrepancy , third trimester ([facility]) - ICD9: 649.63, ICD10: O26.843 - OBSTETRIC ULTRASOUND WHI Mira Lewis MD [facility] 02-18-2025 Miscellaneous Notes S: Ki Delgado is [...] discussed with the Patient or Patient's Authorized Business Rules Developer. As applicable, any other physician, advance practice provider, medical student, or other health professional student that will be observing or involved in the sensitive examination for educational or training purposes was discussed with the Patient or Authorized Business Rules Developer. The Patient or Authorized Business Rules Developer has agreed to proceed with the sensitive examination. Copious vaginal discharge. Cervix friable Declined LARC TDAP today GCT today S>D by 2 weeks. Growth at 32 weeks Family hx 12lb baby recently ASSESSMENT/PLAN: 1. 29 weeks gestation of ([facility]) - ICD9: V22.2, ICD10: Z3A.29 (primary diagnosis) 2. Encounter for supervision of normal first in second trimester ([facility]) - ICD9: V22.0, ICD10: Z34.02 3. Need for vaccination - ICD9: V05.9, ICD10: Z23 TDAp 4. Spotting complicating , third trimester ([facility]) - ICD9: 649.53, ICD10: O26.853 - BACTERIAL VAGINOSIS NAAT - MARY/TRICHOMONAS NAAT 5. Uterine size date discrepancy , third trimester ([facility]) - ICD9: 649.63, ICD10: O26.843 - OBSTETRIC ULTRASOUND WHI Mira Lewis MD documented in this encounter [facility] 02-18-2025 Note HNO ID: [id number] Author: ASHA CATSRO MA Service: ? Author Type: Shipping And Receiving Operator Type: Progress Notes Filed: 02/18/2025 08:47 Note [...] severely ill: Yes Patient denies history of Guillain-Amanda Syndrome (a severe paralytic illness): Yes Tdap Adacel injection was given without incident. See immunizations for details of immunizations administered today. VIS sheet provided: Yes Provider Mira Lewis MD was present in office at time of injection. Asha Castro MA [facility] 02-18-2025 History of Present illness Narrative [...] severely ill: Yes Patient denies history of Guillain-Amanda Syndrome (a severe paralytic illness): Yes Tdap Adacel injection was given without incident. See immunizations for details of immunizations administered today. VIS sheet provided: Yes Provider Mira Lewis MD was present in office at time of injection. Asha Castro MA documented in this encounter [facility] 02-18-2025 Instructions Asha Castro MA - 02/18/2025 8:09 AM EDT SEQUENTIAL SCREENINGS The [facility] offers sequential screenings for women who are [...] It will require an appointment with our customer data technician. This is not an ultrasound performed [...] the above symptoms, contact our office at [phone] and ask to speak with a nurse. After hours, you can call doctors registry at [phone] OR call [facility] at [phone] and ask to have the doctor sanitation technician paged. If you consider this an emergency, dial 9-1-4 or go to your nearest emergency department. NEED HELP? Are you dealing with a violent or abusive relationship? Are you a victim of rape or sexual assult? Call [facility] ([place]) 24 hour Crisis Hotline: 504.807.2951 or 864-140-1882. MANUAL Your Guide to a Healthy manual is now on-line. Visit [email or web address] ncyGuide to download your free copy documented in this encounter [facility] 01-20-2025 Progress note Formatting of t his [...] 5. Screening for diabetes mellitus - HTN [id number] took metoprolol - lost over 100 lbs.and blood pressures normal - Anxiety decreased - Measuring 2 weeks ahead- watch growth - Concern over weight gain- discussed diet- no meal skipping or dieting- reviewed decreasing sugar/carb - Reviewed GCT process for next visit - RTO 4 weeks or sooner Destiney Schroeder APRN.CNM [facility] Work Phone: 01-20-2025 Miscellaneous Notes S: Ki [...] Destiney Schroeder APRN.CNM documented in this encounter [facility] 01-20-2025 Instructions Crescencio Nicholas MA - 01/20/2025 7:54 AM EDT SEQUENTIAL SCREENINGS The [facility] offers sequential screenings for women who are [...] It will require an appointment with our customer data technician. This is not an ultrasound performed [...] the above symptoms, contact our office at [phone] and ask to speak with a nurse. After hours, you can call doctors registry at [phone] OR call [facility] at [phone] and ask to have the doctor sanitation technician paged. If you consider this an emergency, dial or go to your nearest emergency department. NEED HELP? Are you dealing with a violent or abusive relationship? Are you a victim of rape or sexual assult? Call [facility] ([place]) 24 hour Crisis Hotline: 235.948.3164 or 944-686-2722. MANUAL Your Guide to a Healthy manual is now on-line. Visit [facility].org/HealthyPregna ncyGuide to download your free copy documented in this encounter [facility] 12-23-2024 Progress note Formatting of t his note might be different from the original. RR_ Doing well overall. Taking PNV. ASA prophylaxis- cont. Anatomy US done today. F/u in 4 weeks or prn. Constantino Gaines MD [facility] 12-23-2024 Miscellaneous Notes RR_ Doing well overall. Taking PNV. ASA prophylaxis- cont. Anatomy US done today. F/u in 4 weeks or prn. Constantino Gaines MD documented in this encounter [facility] 12-23-2024 Instructions Salima Marin MA - 12/23/2024 8:30 AM EDT SEQUENTIAL SCREENINGS The [facility] offers sequential screenings for women who are [...] It will require an appointment with our customer data technician. This is not an ultrasound performed [...] the above symptoms, contact our office at [phone] and ask to speak with a nurse. After hours, you can call doctors registry at [phone] OR call [facility] at [phone] and ask to have the doctor sanitation technician paged. If you consider this an emergency, dial 9-1-4 or go to your nearest emergency department. NEED HELP? Are you dealing with a violent or abusive relationship? Are you a victim of rape or sexual assult? Call [facility] ([place]) 24 hour Crisis Hotline: 720.399.8099 or 674-309-6386. MANUAL Your Guide to a Healthy manual is now on-line. Visit [facility].org/HealthyPregna ncyGuide to download your free copy documented in this encounter [facility] 11-25-2024 Progress note Formatting of t his [...] for anatomy US and ANNABELLE Schroeder APRN.CNM [facility] 11-25-2024 Miscellaneous Notes S: Ki Delgado is [...] ANNABELLE Schroeder APRN.CNM documented in this encounter [facility] 11-04-2024 Telephone encounter Note Agree with plan of care. Destiney Schroeder APRN.CNM [facility] 11-04-2024 Miscellaneous Notes Agree with plan of [...] Nicole Simpson RN documented in this encounter [facility] 11-03-2024 Telephone encounter Note 13w5d Calling because [...] call with further advice. Nicole Simpson RN [facility] 10-25-2024 Progress note Formatting of t his [...] doppler to call office Destiney Schroeder APRN.CNM [facility] 10-25-2024 Miscellaneous Notes S: Ki Delgado is [...] Destiney Schroeder APRN.CNM documented in this encounter [facility] 10-25-2024 Instructions Asha Castro MA - 10/25/2024 11:23 AM EST SEQUENTIAL SCREENINGS The [facility] offers sequential screenings for women who are [...] It will require an appointment with our customer data technician. This is not an ultrasound performed [...] the above symptoms, contact our office at [phone] and ask to speak with a nurse. After hours, you can call doctors registry at [phone] OR call [facility] at [phone] and ask to have the doctor sanitation technician paged. If you consider this an emergency, dial 9-1-1 or go to your nearest emergency department. NEED HELP? Are you dealing with a violent or abusive relationship? Are you a victim of rape or sexual assult? Call [facility] ([facility] 24 hour Crisis Hotline: 389.889.6103 or 607-030-4901. MANUAL Your Guide to a Healthy manual is now on-line. Visit [facility]org/HealthyPregna ncyGuide to download your free copy documented in this encounter [facility] 10-11-2024 Instructions Dm Rodriguez MA - 10/11/2024 7:37 AM EST SEQUENTIAL SCREENINGS The [facility] offers sequential screenings for women who are [...] It will require an appointment with our customer data technician. This is not an ultrasound performed [...] the above symptoms, contact our office at [phone] and ask to speak with a nurse. After hours, you can call doctors registry at [phone] OR call [facility] at [phone] and ask to have the doctor sanitation technician paged. If you consider this an emergency, dial 04-25- or go to your nearest emergency department. NEED HELP? Are you dealing with a violent or abusive relationship? Are you a victim of rape or sexual assult? Call [facility] ([place]) 24 hour Crisis Hotline: 863.469.3685 or 912-732-9685. MANUAL Your Guide to a Healthy manual is now on-line. Visit [facility]org/HealthyPregna ncyGuide to download your free copy documented in this encounter [facility] 10-11-2024 Progress note Formatting of t his note might be different from the original. EH - S: Ki is a 29 year old female who presents at 10w3d for a routine visit. O: See flow sheet Gen: No apparent distress Abd: Gravid, nontender ASSESSMENT/PLAN: 1. Encounter for supervision in primigravida, antepartum - ICD9: V22.0, ICD10: Z34.00 (primary diagnosis) - [facility] for [place] [facility] week 2. 10 weeks gestation of [...] or sooner as needed. Rao Pineda APRN.MARCUS [facility] 10-11-2024 Miscellaneous Notes EH - S: Ki is a 29 year old female who presents at 10w3d for a routine visit. O: See flow sheet Gen: No apparent distress Abd: Gravid, nontender ASSESSMENT/PLAN: 1. Encounter for supervision in primigravida, antepartum - ICD9: V22.0, ICD10: Z34.00 (primary diagnosis) - Leaving for [place] [facility] next week 2. 10 weeks gestation of [...] Rao Pineda APRN.CNP documented in this encounter [facility] 10-06-2024 Telephone encounter Note Sent [facility] 10-06-2024 Miscellaneous Notes Sent Ki is calling Margarita Almaguer APRN.CNP today to request the RX sent to pharmacy today be sent to a different pharmacy as they do not have Tamiflu in stock at [facility] Pleases send to [facility] for patient Patient has been identified by name and birthdate. Duration of symptoms: today Person calling: self Call patient at: at home [phone] (home) [phone] (cell) Was an appointment scheduled: No Closing statement: Medication not in stock at [facility] documented in this encounter [facility] 10-06-2024 Telephone encounter Note Patient notified. Nicole Simpson RN [facility] 10-06-2024 Miscellaneous Notes Patient notified. Nicole Simpson [...] Nicole Simpson RN documented in this encounter [facility] 10-06-2024 Telephone encounter Note Left message to call office. Rema Parson RN [facility] 10-06-2024 Telephone encounter Note Ki is calling Margarita Almaguer APRN.MARCUS today to request the RX sent to pharmacy today be sent to a different pharmacy as they do not have Tamiflu in stock at [facility] Pleases send to [facility] for patient Patient has been identified by name and birthdate. Duration of symptoms: today Person calling: self Call patient at: at home [phone] (home) [phone] (cell) Was an appointment scheduled: No Closing statement: Medication not in stock at [facility] Elieser Villegas [facility] 10-06-2024 Telephone encounter Note Agree with plan. Hope she feels better! Continue to push fluids and try to stay nourished with small frequent protein filled meals. Rao Pineda APRN.MARCUS [facility] 10-06-2024 Telephone encounter Note 9w5d Patient [...] are any other recommendations. Nicole Simpson RN [facility] 10-06-2024 Note SARS-COV-2 (AGENT OF COVID-19) RNA: Not detected INFLUENZA A RNA: Detected INFLUENZA B RNA: Not detected RESPIRATORY SYNCYTIAL VIRUS (RSV) RNA: Not detected [facility] Comment on above: Performed By: #### 9 [id number] ####[facility] LABCLIA [id number] [address] [place] 10-06-2024 Note HNO ID: [id number] Author: MARGARITA ALMAGUER APRN.CNP Service: ? Author Type: Nurse Practitioner Type: Progress Notes Filed: 10/06/2024 10:06 Note Text: This note was created using mobiDEOSriter. Subjective Ki Delgado is a 29 year [...] wants the se (more content not included)... [facility] 10-06-2024 History of Present illness Narrative [...] which included preparing to see the patient, zype-rv-xczn patient care, completing clinical documentation, obtaining and/or reviewing separately obtained history, performing a medically appropriate examination, counseling and educating the patient/family/caregiver, and ordering medications, tests, or procedures. documented in this encounter [facility] 10-06-2024 Instructions Margarita Almaguer APRN.CNP - 10/06/2024 [...] or other concerns. documented in this encounter [facility] 10-06-2024 Telephone encounter Note 9w5d Calling c/o chest congestion and worsening cough. Asking what to do. Advised to go to PCP or urgent care for evaluation and call with update if tested positive for any illness. Message sent with safe medication list. Nicole Simpson RN [facility] 10-04-2024 Progress note Formatting of t his [...] RTO - 1 week. Ascencion Kessler MD [facility] 10-04-2024 Miscellaneous Notes Primigravida who presents at [...] Ascencion Kessler MD documented in this encounter [facility] 10-04-2024 Instructions Dm Rodriguez MA - 10/04/2024 8:04 AM EST SEQUENTIAL SCREENINGS The [facility] offers sequential screenings for women who are [...] It will require an appointment with our customer data technician. This is not an ultrasound performed [...] the above symptoms, contact our office at [phone] and ask to speak with a nurse. After hours, you can call doctors registry at [phone] OR call [facility] at [phone] and ask to have the doctor sanitation technician paged. If you consider this an emergency, dial 9-1-0 or go to your nearest emergency department. NEED HELP? Are you dealing with a violent or abusive relationship? Are you a victim of rape or sexual assult? Call [facility] ([place]) 24 hour Crisis Hotline: 534.458.8114 or 600-652-9586. MANUAL Your Guide to a Healthy manual is now on-line. Visit [facility]org/HealthyPregna ncyGuide to download your free copy documented in this encounter [facility] 09-15-2024 Note HNO ID: [id number] Author: RAO PINEDA APRN.STACKER STRAIGHTENER Service: ? Author Type: Nurse Practitioner Type: Progress Notes Filed: 09/20/2024 11:45 Note Text: Piano Instructor offered: Patient declines. INITIAL OB ASSESSMENT HPI: [...] Status: Partner: Name: Layo Age: 30 Occupation: [employer] Gender: Male History reviewed. No pertinent past medical history. PAST SURGICAL HISTORY Pro (more content not included)... [facility] 09-15-2024 History of Present illness Narrative Images from the original note were not included. Piano Instructor offered: Patient declines. INITIAL OB ASSESSMENT HPI: [...] discussed with the Patient or Patient's Authorized Business Rules Developer. As applicable, any other physician, advance practice provider, medical student, or other health professional student that will be observing or involved in the sensitive examination for educational or training purposes was discussed with the Patient or Authorized Business Rules Developer. The Patient or Authorized Business Rules Developer has agreed to proceed with the sensitive [...] above documentation of this student. Rao Pineda APRN.STACKER STRAIGHTENER Limited OB ultrasound exam: single intrauterine and [...] Your guide to a health and the Swatch Clerk. Discussed hemoglobin electrophoresis. Patient: Accepts Reviewed midwifery and sound art instructor services that are available. 2) Screening: Hemoglobin [...] (28-30 weeks): [] Consent [] Contraception [] Contact Lens Molder [] TeamBirth handout Third trimester (36-40 weeks): [] GBS [] Presentation - [] Scheduled [] yes - Hibiclens, pre-op instructions, CBC, T&S ordered [] no [] H&P [] Preferences worksheet [] Scanned in EMR With Uncertain Dates in First Trimester - 09/20/2024 Comment: September 20, 2024 POCUS not consistent with LMP. Confirm dating with NT. Rao Pineda APRN.STACKER STRAIGHTENER History of Chronic Hypertension - 09/20/2024 Comment: [...] Rao Pineda APRN.CNP documented in this encounter [facility] 09-15-2024 Instructions Rao Pineda APRN.CNP - 09/15/2024 11:16 AM EST Images from the original note were not included. Please select the following link to access the [facility] Your Guide to a Healthy . [email or web address]/healthypregnancyguide Please select the following link to access the [facility] Your Guide to a Healthy . [email or web address].[email or web address]/healthypregnancyguide MORNING SICKNESS IN by Meryl Guajardo M.D. for Roadtrippers As you may already know, morning sickness can often be more appropriately called evening sickness or rbmin-jwtuol-um-the-day sickness. While there are the mariaelena few, [...] medication, Doxylamine, is currently marketed as an sawf-ohe-ttkdghd sleeping pill. Ask your practitioner if creating a vitamin B6/Doxylamine combination with irrh-xue-rrcwbty medications would be safe for you. Prescription [...] as Phenergan, Compazine, Reglan Psychotherapy Services at [facility] Call Behavioral Health Access Line at [phone] to schedule Individual psychotherapy In-person or virtual Wait time for first evaluation may be 12 or more weeks. Wait list spots may be available. Due to the high volume of patients this option is recommended if you are looking for short term acute symptom coping strategies. 2-689-7-BPTI9FKKL - [facility] Mental Health Hotline If you are in suicidal crisis, please call or text 4-883-328-TALK ( ) or visit the National Suicide Prevention Lifeline website. mchb.[facility] vista regional hospitala.gov If you are in crisis, call 221 or go to your nearest Emergency Department Here are some links for wonderful Providers here in the community and surrounding areas. Do not hesitate to contact their offices, many are offering virtual visits during this time. Psychotherapy Services outside of [facility] Support International Online Provider Directory https://Bibulu.SpringCM/ - can assist in finding providers in your area that might be more extensive then the list below. [facility] [place], [place] [address] [place] [address] [facility] [address] [place] [address] [facility] [address] [place] [address] [facility] [address] [place], [place] [id number] Alek Farley MD [address] [place] [address] [place] [facility] [address] [facility], [address] [place] [address] [facility] Services [address] [place] [address] [facility] Counseling Services [place] / [place] [phone]/ [phone] Dianna Michelle [address] [facility] [address] [facility] [phone] Aves of Counseling and Mediation Kimberly / Siri [phone] Behavioral health services of [facility] [address] [place] [address]/ ripley and lead [phone] CHRIS Larson, MAMADOU Bu and Beyond Family Therapy Workshops, telehealth and at home visits. [phone] [facility] counseling [place] 20 locations [place], [place], [place], [place], [place], [place], [place], [place]ts, [place], [place], [place], [place], [place], [place], [facility], [place], [place] ,[facility], [place], [place],[facility], [facility] [place], [place], [facility], [place] [facility], [place] www.walla walla general hospitalAccess Information Management.co [phone] Psychotherapy resources outside of [facility] are listed below [facility] TravelCLICK Psychotherapy Web: https://www.Spondo/ Support International Online Provider Directory https://Projektino/ [facility] https://Ginkgo Bioworks/ Sqrrl for Behavioral Health and Wellness Web: https://91 Golf/ Wasabi Productions for Effective Living Web: https://Polytouch Medical.Digbyliving.SpringCM/ LifeStance Web: https://Avalign Technologies Holdings.SpringCM/location/s laurys station/[place]/ Signature [facility] Web: https://www.[facility].or / [facility] Web: https://Orpheus Media Research.org/ Recovery Resources Mental health and substance abuse help Web: https://www.Wistron Optronics (Kunshan) Cos.org & RESOURCES Support International Direct peer support and connection to professional resources Non-Emergency Helpline Phone: / Text: 237.135.5348 Web: https://www..net/ Online Provider Directory: https://Projektino/ Online Support Meetings: https://www..net/get-he lp/vwn-bgplvx-qraktmy-meetings/ GI Baby and Manufacturing Group Leader Services Web: https://www.RetAPPs/ FitStar Expert information on medication use during and Text: [phone] Web: https://Selventa/ NATIONAL REGISTRY FOR PSYCHIATRIC MEDICATIONS Currently studying the safety of antidepressants, ADHD medications and atypical antipsychotics taken during TO PARTICIPATE CALL TOLL-FREE: Web: https://womensmentalhealth.org/re search/pregnancyregistry/ Support Groups: [facility]- Follow on facebook Baby Bistro support group led by [facility] department [facility] - Support Group [place] [facility] Health[facility].org The POEM support group [phone] Www.poemonline.org Follow on facebook - POAMAN dee chapter Online support meetings PSI https://www..net/get-he lp/jgm-adukza-bzcwvfy-meetings/ [facility] mommy and me virtual support group 11:30-1pm Support for mothers and new babies and toddlers [place] childbirth education: Childbirth @cc.org or call [phone] CRISIS: CRISIS HOTLINE [phone], 911 or go to the nearest ER. [facility] [phone] / [facility] [phone] https://www.lincoln hospitalrb.org Crisis text line text the word HOME to 167735 [facility] [address] [place] [address] [facility] [address] www.Achronix Semiconductor Fabi Zavala clinical counseling [address] [address] www.bethbritton.SpringCM [phone] Holding space psychotherapy Rin Osorio ROTARY DRILL OPERATOR HELPER MUSIC TYPOGRAPHER-S [address] [facility] www.HealthyOut [phone]/ Stew [phone] They all offer virtual. All work with trauma Support groups Online support meetings PSI https://www..net/get-he lp/trg-mcgtow-xjwuhaa-meetings/ Here are the support groups they offer: Support of parents of 1 to 4 years old children POEM ( Outreach and Encouragement for Moms) offers free support for mothers experiencing depression, anxiety, and other mood and anxiety disorders. Masks are recommended but not required. No pre-registration required. Babies in arms welcome. meetings now take place on the and Friday of each month Location: [facility] [address] [place] [address] Room 122 (library room) 7-8:00 p.m. When you enter the [facility] parking lot off of [address] the entrance door closest to our meeting room is on the front of the building toward the right. For those who are more comfortable with a virtual platform, POEM offers online support group options several days of the week. To register for an online group or to find out more about POEM, website at: https://mhaohio.org/get-help/cuba memorial hospitalzhyn-wdpirt-yfszco/poem-services/ offer a confidential helpline: private Facebook group is called YANN Wood Here are the groups they offer: Traumatic childbirth resources: Http://pattch.org/ https://www.FuturedermlizFootmarks.SpringCM/ Name Location (s) Phone # (s) Services Website [facility] Psychotherapy [address] [place], [place] - [phone]; [address] [phone] In-Person GROUPS INDIVIDUAL THERAPY MATERNAL-INFANT MENTAL HEALTH MEDICATION MANAGEMENT PLAY AND ART THERAPY TELETHERAPY https://www.Spondo/s ervices/ [facility]akiya DEE? [address] [place], [place] [address] ? [address], [address] [place], [place] [id number] ? SUNG [address] [place], [place] [address]? Grief Support Groups Individual Grief Counseling Spiritual Care Memorial Events https://plymouth.[facility].org/grief-services [facility] [address] [place], [place] [address]; ; Email: drake@HealthiNation Women's Mental Health; Couples Counseling; Trauma (EMDR); Stress Management; Mood and Anxiety Related Disorders- and much more https://www.Woodland Biofuels/ LifeStance Numerous as they have contract providers: access website to find specific providers near you Counseling including CBT and EMDR as well as many more modalities; Medication Management; Telehealth and In-Person https://MedeFile International/ Discrete Sport Behavioral Health and Wellness [address] [place] [address]; [phone] Personal, Family and Group Therapy; Psychological Testing and Diagnosis; Medication Management; Life and Career Coaching; Psychoanalysis; Literacy Testing; Yoga and Meditation https://91 Golf/ FERTILE EARTH SYSTEMS [facility] [address] [facility] [address], [place] [address] [address] ; [facility], [address] [place] [address]; Office # for both sites: Individual and Couples Counseling https://www.PivotDesk.SpringCM/ paymentinsurance.html OCD & Anxiety Joint venture between [facility] [address] [facility], [address], [place] [address]; Specialize in Cognitive-Behavioral Therapy (CBT) for the treatment of anxiety disorders across the lifespan. TELEHEALTH ONLY. https://ocdandanxietycenterocashcloud/faqs [facility] [address] [facility] [place], [address] [place] [address] [facility] [place] [address] [place] [address] [facility] [place], [address] [place] [address] [place], [address], [id number] [place] [address] [facility]. [place], [place], [address] [place] [address] [place], [place], [id number] Transportation Services To minimize patient barriers, [facility] provides transportation services to patients who [...] assistance Substance abuse treatment Medication assisted treatment https://www.[facility].or g/mental-health/ [facility] OFFICE AT [facility] [address] [place] [address] [facility] OFF[facility] [address] [place] [address] [facility] OFFICE [address] [place] [address] [place] [facility] (at [facility]) [address] [place] [address] [facility] SYRINGE EXCHANGE PROGRAM & HIV SCREENING [address] [place] [address] [facility] [facility] EXCHANGE PROGRAM [address] [place] [address] Behavioral Health Urgent Care: [facility] Sites Counseling Indvidual and Group Medication Management Case Management benefits applications housing assistance Substance abuse treatment Medication assisted treatment Employment Services/ Job Training [email or web address]/ [facility] [address] [place], [place] [address]: P: [phone] [facility], [address], [place] [address] P: [phone] Our services include: Addiction Mental Health Treatment Assessment Psychiatry Medical Care Employment Housing Drug and Alcohol Prevention HIV/AIDS Prevention [email or web address] [facility] [place] [address] [place] [address] [place] [address] [place], [place] [address]alta[address] [place], [place] [address] [place] [address] [place] [address] [place] [id number] [facility] [address] [place] [address] [place] [address] [place] [address] TMS Therapy/ Counseling Psychocological Testing for ADHD Medication Management In-Person/ Telemedicine [email or web address]-depression Memory & Psychological services [address], [place] [address] Neuropsychological Testing For ADHD [email or web address] [facility] - Main Office [address] [place] [id number] [id number] Providing cjzn-sc-tsps and telehealth services. Adult Case Management Community Education and Prevention Employment Outpatient Treatment - Counseling & Psychotherapy Psychiatric Services [email or web address] [facility] [address] [address] [facility] [address] [place] [address] Virtual Appointments! Now offering safe and convenient virtual client appointments to anyone in [place]! Individual Therapy Couples/Relationship Therapy Trauma/EMDR Therapy Art Therapy Play Therapy Watch Case Polisher Support: Parenting Skills, Parent Child Interaction Therapy, Parent Interaction Therapy Meditation Dietitian/Lighting Equipment Operator Services Group Therapy Yoga [email or web address] Carolina Flores [phone] Private Practice: Telehealth Only Specializes in EMDR for Trauma None documented in this encounter [facility] 09-02-2024 Note HNO ID: [id number] Author: RAMAN GOYAL MD Service: ? Author Type: Physician Type: Progress Notes Filed: 09/02/2024 12:55 Note Text: The patient presents for requested ultrasound. Full report available in the Imaging tab in Epic. Raman Goyal MD [facility] 09-02-2024 History of Present illness Narrative The patient presents for requested ultrasound. Full report available in the Imaging tab in Epic. Raman Goyal MD documented in this encounter [facility] 09-02-2024 Note HNO ID: [id number] Author: LAUREN PAL MD Service: ? Author [...] L0 SAB0 IAB0 Ectopic0 Multiple0 Live Births0 Personal Care Aid History LMP: 01/20/2024 (Approximate), Having periods Age at Menarche: Age at First : Age at Menopause: Personal Care Aid History Comments: Sexual Activity: Yes; Male Contraception: [...] palpitations, # 90 tab(s), 0 Refill(s), Pharmacy: [facility]/pharmacy #[id number], Encounter to establish care Wellness examination, 163.8, [...] Level: 4 - Moderate Lauren Pal MD [facility] 09-02-2024 History of Present illness Narrative Ki Delgado is a 29 year old female who presents for problem visit follow up from HPI: Patient presents after US. She reports that she had 10 days of light spotting but this has resolved. Also she reports mild nausea. Patient denies pain. She is anxiou. OB History T0 L0 SAB0 IAB0 Ectopic0 Multiple0 Live Births0 Personal Care Aid History LMP: 01/20/2024 (Approximate), Having periods Age at Menarche: Age at First : Age at Menopause: Personal Care Aid History Comments: Sexual Activity: Yes; Male Contraception: [...] palpitations, # 90 tab(s), 0 Refill(s), Pharmacy: [facility]/pharmacy #[id number], Encounter to establish care Wellness examination, 163.8, [...] Lauren Pal MD documented in this encounter [facility] 08-31-2024 Telephone encounter Note Patient notified. Mira Nguyen RN [facility] 08-31-2024 Miscellaneous Notes Patient notified. Mira Nguyen [...] there. thanks. Constantino Gaines MD Patient received ISH message with results of hcg quant drawn [...] Patient received results of hcg quants on ISH and called asking if any repeat labs are needed. Lmp was 07/21/2024. Patient reports that she continues to have brownish spotting only when using restroom and cramping is intermittent and mild when it occurs. Please advise. New ob appointment is scheduled on 09/09/2024 documented in this encounter [facility] 08-31-2024 Note Addended by: CONSTANTINO GAINES on: 08/31/2024 11:01 AM Modules accepted: Orders [facility] 08-31-2024 Telephone encounter Note My apologies, thought I ordered cbc and cmp. Repeat quant tomorrow, I misread it and thought it was done Friday. Yes, 48 hrs apart is more appropriate. Have CMP and CBC done w/ next quant and get US and we will go from there. thanks. Constantino Gaines MD [facility] 08-31-2024 Telephone encounter Note Patient received ISH message with results of hcg quant drawn on 08/30/2024 and asking if she needs to have lab repeated today as mentioned in result note or tomorrow (48 hours after last). Previous HCG quants drawn on 08/24 and 08/26/24. Does patient need to have a CBC drawn also? Order placed was for a CMP. Please advise. [facility] 08-27-2024 Telephone encounter Note Pt notified-states she has not been taking the Spironolactone. Has been taking PNV w/folic acid. Pt will have completed Friday (08/30/24) and Friday (09/01/24). Please leave phone note open for results. Maxine Schwarz RN [facility] 08-27-2024 Telephone encounter Note recommend she [...] Friday and next week. Constantino Gaines MD [facility] 08-27-2024 Telephone encounter Note Patient received results of hcg quants on mychart and called asking if any repeat labs are needed. Lmp was 07/21/2024. Patient reports that she continues to have brownish spotting only when using restroom and cramping is intermittent and mild when it occurs. Please advise. New ob appointment is scheduled on 09/09/2024 [facility] 06-28-2024 Telephone encounter Note This provider returned [...] Keflex. - sent to Elieser CARRERA PA-C [facility] 06-28-2024 Miscellaneous Notes This provider returned the [...] Ceftriaxone? Please advise documented in this encounter [facility] 06-28-2024 Telephone encounter Note Ki is calling Luciana Joseph APRN.MARCUS today asking the Macrobid for UTI is changed. She's taken Macrobid in the past for UTI's and they haven not worked -She is not feeling any better since Friday's visit. Asking prescription is changed to Ceftriaxone? Please advise [facility] 06-26-2024 Note HNO ID: [id number] Author: LUCIANA JOSEPH APRN.CNP Service: ? Author [...] prevention given - URINE CULTURE Luciana Joseph APRN.[facility] 06-26-2024 History of Present illness Narrative Subjective [...] Luciana Joseph APRN.MARCUS documented in this encounter [facility] 02-11-2024 History of Present illness Narrative Piano Instructor offered: Patient accepts, visit chaperoned by Lucrecia [...] OB History No obstetric history on file. Personal Care Aid History LMP: 01/20/2024 (Approximate), Having periods Age at Menarche: Age at First : Age at Menopause: Personal Care Aid History Comments: Sexual Activity: Yes; Male Contraception: [...] external genitalia normal, normal Bartholin's glands, urethra, [place]'s glands, no vulvar lesions, no cervical lesions, [...] Ascencion Kessler MD documented in this encounter [facility] 08-10-2022 Note . MICRO - Microbiology PROCEDURE: [...] Locations *1: This test was performed at: [facility], [address] [place] [address], [address] , [facility] 08-08-2022 Evaluation + Plan note Diagnostic Tests PendingUrine Culture 08/08/22 Future Scheduled TestsBasic Metabolic Panel 02/08/22 [facility] 02-08-2022 Evaluation + Plan note Future Scheduled TestsBasic Metabolic Panel 02/08/22Basic Metabolic Panel 07/23/22Urinalysis Microscopic 07/23/22Urine Culture 07/23/22 [facility] 01-10-2022 Evaluation + Plan note Diagnostic Tests PendingBob Montero Dander 01/10/22 [facility] Evaluation + Plan note Future Appointments Appointment Date:02/08/2022 11:00:00 AM Scheduled Provider:DENNIS GREENBERG DO Location:[facility] Appointment Type:PC OV Follow Up [facility] Evaluation note Diagnosis Encounter for gynecological examination (general) (routine) without abnormal findings- Primary Screening for cervical cancer Screening for malignant neoplasm of the cervix [facility] Diagnosis Recurrent UTI (urinary tract infection)- Primary Urinary tract infection, site not specified documented [facility] Diagnosis Bleeding in early - Primary Unspecified hemorrhage in early , unspecified as to episode of care , location unknown state, incidental [facility] Diagnosis Threatened - Primary Threatened , unspecified as to episode of care [facility] Diagnosis Bleeding in early - Primary Unspecified hemorrhage in early , unspecified as to episode of care , location unknown state, incidental [facility]* Diagnosis Early stage of - Primary state, incidental Anxiety Anxiety state, unspecified related nausea, antepartum Mild hyperemesis gravidarum, antepartum [facility]* Diagnosis Encounter for supervision in primigravida, antepartum- Primary Less than 8 weeks gestation of state, incidental Anxiety during History of chronic hypertension with uncertain dates in first trimester [facility] Diagnosis 10 weeks gestation of - Primary state, incidental [facility]* Diagnosis Viral upper respiratory tract infection with cough- Primary Acute upper respiratory infections of unspecified site Pharyngitis, unspecified etiology Influenza A Influenza with other respiratory manifestations [facility] Diagnosis Influenza A- Primary Influenza with other respiratory manifestations [facility] Diagnosis Encounter for supervision in primigravida, antepartum- Primary 10 weeks gestation of state, incidental Influenza A Influenza with other respiratory manifestations Anxiety during [facility] Diagnosis Encounter for screening for malformation using ultrasound- Primary 12 weeks gestation of state, incidental [facility] Diagnosis 12 weeks gestation of - Primary state, incidental Encounter for supervision in primigravida, antepartum Anxiety during documented [facility] Diagnosis 16 weeks gestation of (HCC)- Primary state, incidental Anxiety during ([facility]) Encounter for supervision in primigravida, antepartum ([facility]) [facility] this [facility] Diagnosis Encounter for supervision of normal first in second trimester ([facility])- Primary Supervision of normal first History of chronic hypertension 20 weeks gestation of ([facility]) state, incidental documented [facility] this [facility]* Diagnosis Encounter for anatomic survey ([facility])- Primary Encounter for anatomic survey 20 weeks gestation of ([facility]) state, incidental documented [facility] this [facility] Diagnosis History of chronic hypertension- Primary Encounter for supervision of normal first in second trimester ([facility]) Supervision of normal first Anxiety during ([facility]) 24 weeks gestation of ([facility]) state, incidental Screening for diabetes mellitus documented [facility]* Diagnosis 29 weeks gestation of ([facility])- Primary state, incidental Encounter for supervision of normal first in second trimester ([facility]) Supervision of normal first Need for vaccination Need for prophylactic vaccination and inoculation against unspecified single disease Spotting complicating , third trimester ([facility]) Uterine size date discrepancy , third trimester ([facility]) [facility] this [facility] Diagnosis Encounter for supervision of normal first in third trimester ([facility])- Primary Supervision of normal first 31 weeks gestation of ([facility]) state, incidental Uterine size date discrepancy , third trimester ([facility]) Anxiety during ([facility]) [facility] this [facility] Diagnosis Encounter for ultrasound to check growth ([facility])- Primary Encounter for routine screening for malformation using ultrasonics Uterine size date discrepancy , third trimester ([facility]) 31 weeks gestation of ([facility]) state, incidental documented [facility] this encounter [facility] Diagnosis Encounter for supervision of normal first in third trimester ([facility])- Primary Supervision of normal first 34 weeks gestation of ([facility]) state, incidental Uterine size date discrepancy , third trimester ([facility]) History of chronic hypertension Anxiety during ([facility]) [facility] this [facility] Diagnosis 36 weeks gestation of ([facility])- Primary state, incidental Encounter for supervision of normal first in third trimester ([facility]) Supervision of normal first documented [facility]* Diagnosis macrosomia during in third trimester, single or unspecified fetus ([facility])- Primary Encounter for supervision of normal first in third trimester ([facility]) Supervision of normal first Uterine size date discrepancy , third trimester ([facility]) [facility] this encounter [facility]* Diagnosis Encounter for supervision of normal first in third trimester ([facility])- Primary Supervision of normal first 37 weeks gestation of ([facility]) state, incidental Excessive growth affecting management of in third trimester, single or unspecified fetus ([facility]) History of chronic hypertension Anxiety during ([facility]) [facility] encounter [facility] Diagnosis Encounter for supervision of normal first in third trimester ([facility])- Primary Supervision of normal first Excessive growth affecting management of in third trimester, single or unspecified fetus ([facility]) History of chronic hypertension Anxiety during ([facility]) 37 weeks gestation of ([facility]) state, incidental [facility] Diagnosis Encounter for supervision of normal first in third trimester ([facility])- Primary Supervision of normal first History of chronic hypertension Excessive growth affecting management of in third trimester, single or unspecified fetus (HCC) Anxiety during ([facility]) 38 weeks gestation of ([facility]) state, incidental * Assessment & Plan Note - Sheree Michele MD - 2025 8:43 AM EDT Associated Problem(s): History of chronic hypertension BP well controlled. Orders: URINE OB DIP B/O * Assessment & Plan Note - Sheree Michele MD - 2025 8:43 AM EDT Associated Problem(s): Anxiety during (HCC) Orders: URINE OB DIP B/O documented in this encounter [facility] course Narrative No data available for this section [facility] Discharge instructions No data available for this section [facility] Progress note No data available for this section [facility] Reason for referral (narrative)* Diagnostic Procedure Only (Routine) - Pending Review Specialty Diagnoses / Procedures Referred By Contac t Referred To Contact [facility] Diagnoses Bleeding in early , location unknown Procedures PELVIC US WHI US PELVIC NONOBSTETRIC REAL-TIME IMAGE COMPLETE Constantino Gaines MD [address] [place] [address] [facility] [address] [place] [address] Referral ID Status Reason Start Date Expiration Date Visits Requested Visits Authorized [id number] Pending Review Auto-Generat ed Referral 08/31/2024 08/31/2025 1 1 [facility] for referral (narrative)* Diagnostic Procedure Only (Routine) - Pending Review Specialty Diagnoses / Procedures Referred By Contac t Referred To Contact [facility] Diagnoses Encounter for supervision in primigravida, antepartum Less than 8 weeks gestation of Procedures OBSTETRIC ULTRASOUND WHI US PREG UTERUS AFTER 1ST TRIMEST GESTATION Rao Pineda APRN.STACKER STRAIGHTENER [address] [place] [address] [facility] [address] [place] [address] Referral ID Status Reason Start Date Expiration Date Visits Requested Visits Authorized [id number] Pending Review Auto-Generat ed Referral 09/20/2024 09/20/2025 1 1 * Diagnostic Procedure Only (Routine) - New Request Specialty Diagnoses / Procedures Referred By Arlene t Referred To Contact [facility] Diagnoses Encounter for supervision in primigravida, antepartum Less than 8 weeks gestation of Procedures OBSTETRIC ULTRASOUND WHI US PREG UTERUS AFTER 1ST TRIMEST GESTATION Rao Pineda APRN.CNP [address] [place] [address] [facility] [address] [place] [address] Referral ID Status Reason Start Date Expiration Date Visits Requested Visits Authorized [id number] New Request Auto-Generat ed Referral 09/20/2024 09/20/2025 1 1 [facility] N[facility]* Diagnostic Procedure Only (Routine) - Closed Specialty Diagnoses / Procedures Referred By Contac t Referred To Contact [facility] Diagnoses Bleeding in early , location unknown Procedures PELVIC US WHI US PELVIC NONOBSTETRIC REAL-TIME IMAGE COMPLETE Constantino Gaines MD [address] [place] [address] [facility] [address] [place] [address] Referral ID Status Reason Start Date Expiration Date V isits Requested Visits Authorized [id number] Closed Auto-Generate d Referral 08/31/2024 08/24/2025 1 1 [facility] Summary Purpose Family History No Family History Records FoundNo Family History Records FoundNo Family History Records FoundNo Family History Records Found Advance Directives No Advanced Directives Records FoundNo Advanced Directives Records FoundNo Advanced Directives Records FoundNo Advanced Directives Records Found Additional Source Comments Care Team (unrecognized sect ion and content) Briar Cutter Relationship Specialty Start Date End Date Jerel Branch Jr., MD PCP - General Internal Medicine 07/29/12 Briar Cutter Relationship Specialty Start Date End Date Jerel Branch Jr., MD PCP - General Internal Medicine 07/29/12 Briar Cutter Relationship Specialty Start Date End Date Jerel Branch Jr., MD PCP - General Internal Medicine 07/29/12 Briar Cutter Relationship Specialty Start Date End Date Jerel Branch Jr., MD PCP - General Internal Medicine 07/29/12 Briar Cutter Relationship Specialty Start Date End Date Jerel Branch Jr., MD PCP - General Internal Medicine 07/29/12 Briar Cutter Relationship Specialty Start Date End Date Jerel Branch Jr., MD PCP - General Internal Medicine 07/29/12 Briar Cutter Relationship Specialty Start Date End Date Jerel Branch Jr., MD PCP - General Internal Medicine 07/29/12 Briar Cutter Relationship Specialty Start Date End Date Jerel Branch Jr., MD PCP - General Internal Medicine 07/29/12 Briar Cutter Relationship Specialty Start Date End Date Jerel Branch Jr., MD PCP - General Internal Medicine 07/29/12 Briar Cutter Relationship Specialty Start Date End Date Jerel Branch Jr., MD PCP - General Internal Medicine 07/29/12 Briar Cutter Relationship Specialty Start Date End Date Jeerl Branch Jr., MD PCP - General Internal Medicine 07/29/12 Briar Cutter Relationship Specialty Start Date End Date Jerel Branch Jr., MD PCP - General Internal Medicine 07/29/12 Briar Cutter Relationship Specialty Start Date End Date Jerel Branch Jr., MD PCP - General Internal Medicine 07/29/12 Briar Cutter Relationship Specialty Start Date End Date Jerel Branch Jr., MD PCP - General Internal Medicine 07/29/12 Briar Cutter Relationship Specialty Start Date End Date Jerel Branch Jr., MD PCP - General Internal Medicine 07/29/12 Briar Cutter Relationship Specialty Start Date End Date Jerel Branch Jr., MD PCP - General Internal Medicine 07/29/12 Briar Cutter Relationship Specialty Start Date End Date Jerel Branch Jr., MD PCP - General Internal Medicine 07/29/12 Briar Cutter Relationship Specialty Start Date End Date Jerel Branch Jr., MD PCP - General Internal Medicine 07/29/12 Briar Cutter Relationship Specialty Start Date End Date Jerel Branch Jr., MD PCP - General Internal Medicine 07/29/12 Care Team (unrecognized sect ion and content) Care Team Personnel Name: DENNIS GREENBERG DO Position: P4 Physician - Primary Care Member Role: Primary Care Physician Address: Address: [address] [place] [id number] [place] Care Team Related Persons Name: WILLIAN MATA Address: Home [address] [place] [phone] Name: WILLIAN MATA Address: [address] [phone] Care Team Personnel Name: DENNIS GREENBERG DO Position: P4 Physician - Primary Care Member Role: Primary Care Physician Address: Address: [address] [place] [id number] [place] Care Team Related Persons Name: WILLIAN MATA Address: [address] [phone] Name: WILLIAN MATA Address: [address] [phone] INFORMATION SOURCE (unrecogn ized section and content) DATE CREATED AUTHOR 08/15/2022 [facility] ([place]) DATE CREATED AUTHOR AUTHOR'S ORGANIZ ATION 10/03/2024 [facility] DATE CREATED AUTHOR AUTHOR'S ORGANIZ ATION 03/14/2025 [facility] DATE CREATED AUTHOR AUTHOR'S ORGANIZ ATION 04/30/2025 [facility] Source Comments (unrecognize d section and content) In the event this informatio n is protected by the Federal Confidentiality of Alcohol and Drug Abuse Patient Records regulations: The Federal rules restrict any use of the information to criminally investigate or prosecute any alcohol or drug abuse patient.[facility] Center[facility] the event this information is protected by the Federal Confidentiality of Alcohol and Drug Abuse Patient Records regulations: The Federal rules restrict any use of the information to criminally investigate or prosecute any alcohol or drug abuse patient.[facility] CenterIn the event this information is protected by the Federal Confidentiality of Alcohol and Drug Abuse Patient Records regulations: The Federal rules restrict any use of the information to criminally investigate or prosecute any alcohol or drug abuse patient.[facility] CenterIn the event this information is protected by the Federal Confidentiality of Alcohol and Drug Abuse Patient Records regulations: The Federal rules restrict any use of the information to criminally investigate or prosecute any alcohol or drug abuse patient.[facility] CenterIn the event this information is protected by the Federal Confidentiality of Alcohol and Drug Abuse Patient Records regulations: The Federal rules restrict any use of the information to criminally investigate or prosecute any alcohol or drug abuse patient.[facility] CenterIn the event this information is protected by the Federal Confidentiality of Alcohol and Drug Abuse Patient Records regulations: The Federal rules restrict any use of the information to criminally investigate or prosecute any alcohol or drug abuse patient.[facility] CenterIn the event this information is protected by the Federal Confidentiality of Alcohol and Drug Abuse Patient Records regulations: The Federal rules restrict any use of the information to criminally investigate or prosecute any alcohol or drug abuse patient.[facility] CenterIn the event this information is protected by the Federal Confidentiality of Alcohol and Drug Abuse Patient Records regulations: The Federal rules restrict any use of the information to criminally investigate or prosecute any alcohol or drug abuse patient.[facility] CenterIn the event this information is protected by the Federal Confidentiality of Alcohol and Drug Abuse Patient Records regulations: The Federal rules restrict any use of the information to criminally investigate or prosecute any alcohol or drug abuse patient.[facility] CenterIn the event this information is protected by the Federal Confidentiality of Alcohol and Drug Abuse Patient Records regulations: The Federal rules restrict any use of the information to criminally investigate or prosecute any alcohol or drug abuse patient.[facility] CenterIn the event this information is protected by the Federal Confidentiality of Alcohol and Drug Abuse Patient Records regulations: The Federal rules restrict any use of the information to criminally investigate or prosecute any alcohol or drug abuse patient.[facility] CenterIn the event this information is protected by the Federal Confidentiality of Alcohol and Drug Abuse Patient Records regulations: The Federal rules restrict any use of the information to criminally investigate or prosecute any alcohol or drug abuse patient.[facility] CenterIn the event this information is protected by the Federal Confidentiality of Alcohol and Drug Abuse Patient Records regulations: The Federal rules restrict any use of the information to criminally investigate or prosecute any alcohol or drug abuse patient.[facility] CenterIn the event this information is protected by the Federal Confidentiality of Alcohol and Drug Abuse Patient Records regulations: The Federal rules restrict any use of the information to criminally investigate or prosecute any alcohol or drug abuse patient.[facility] CenterIn the event this information is protected by the Federal Confidentiality of Alcohol and Drug Abuse Patient Records regulations: The Federal rules restrict any use of the information to criminally investigate or prosecute any alcohol or drug abuse patient.[facility] CenterIn the event this information is protected by the Federal Confidentiality of Alcohol and Drug Abuse Patient Records regulations: The Federal rules restrict any use of the information to criminally investigate or prosecute any alcohol or drug abuse patient.[facility] CenterIn the event this information is protected by the Federal Confidentiality of Alcohol and Drug Abuse Patient Records regulations: The Federal rules restrict any use of the information to criminally investigate or prosecute any alcohol or drug abuse patient.[facility] CenterIn the event this information is protected by the Federal Confidentiality of Alcohol and Drug Abuse Patient Records regulations: The Federal rules restrict any use of the information to criminally investigate or prosecute any alcohol or drug abuse patient.[facility] CenterIn the event this information is protected by the Federal Confidentiality of Alcohol and Drug Abuse Patient Records regulations: The Federal rules restrict any use of the information to criminally investigate or prosecute any alcohol or drug abuse patient.[facility] CenterIn the event this information is protected by the Federal Confidentiality of Alcohol and Drug Abuse Patient Records regulations: The Federal rules restrict any use of the information to criminally investigate or prosecute any alcohol or drug abuse patient.[facility] CenterIn the event this information is protected by the Federal Confidentiality of Alcohol and Drug Abuse Patient Records regulations: The Federal rules restrict any use of the information to criminally investigate or prosecute any alcohol or drug abuse patient.[facility] CenterIn the event this information is protected by the Federal Confidentiality of Alcohol and Drug Abuse Patient Records regulations: The Federal rules restrict any use of the information to criminally investigate or prosecute any alcohol or drug abuse patient.[facility] CenterIn the event this information is protected by the Federal Confidentiality of Alcohol and Drug Abuse Patient Records regulations: The Federal rules restrict any use of the information to criminally investigate or prosecute any alcohol or drug abuse patient.[facility] CenterIn the event this information is protected by the Federal Confidentiality of Alcohol and Drug Abuse Patient Records regulations: The Federal rules restrict any use of the information to criminally investigate or prosecute any alcohol or drug abuse patient.[facility] CenterIn the event this information is protected by the Federal Confidentiality of Alcohol and Drug Abuse Patient Records regulations: The Federal rules restrict any use of the information to criminally investigate or prosecute any alcohol or drug abuse patient.[facility] CenterIn the event this information is protected by the Federal Confidentiality of Alcohol and Drug Abuse Patient Records regulations: The Federal rules restrict any use of the information to criminally investigate or prosecute any alcohol or drug abuse patient.[facility] CenterIn the event this information is protected by the Federal Confidentiality of Alcohol and Drug Abuse Patient Records regulations: The Federal rules restrict any use of the information to criminally investigate or prosecute any alcohol or drug abuse patient.[facility] CenterIn the event this information is protected by the Federal Confidentiality of Alcohol and Drug Abuse Patient Records regulations: The Federal rules restrict any use of the information to criminally investigate or prosecute any alcohol or drug abuse patient.[facility] CenterIn the event this information is protected by the Federal Confidentiality of Alcohol and Drug Abuse Patient Records regulations: The Federal rules restrict any use of the information to criminally investigate or prosecute any alcohol or drug abuse patient.[facility] CenterIn the event this information is protected by the Federal Confidentiality of Alcohol and Drug Abuse Patient Records regulations: The Federal rules restrict any use of the information to criminally investigate or prosecute any alcohol or drug abuse patient.[facility] CenterIn the event this information is protected by the Federal Confidentiality of Alcohol and Drug Abuse Patient Records regulations: The Federal rules restrict any use of the information to criminally investigate or prosecute any alcohol or drug abuse patient.[facility] CenterIn the event this information is protected by the Federal Confidentiality of Alcohol and Drug Abuse Patient Records regulations: The Federal rules restrict any use of the information to criminally investigate or prosecute any alcohol or drug abuse patient.[facility] CenterIn the event this information is protected by the Federal Confidentiality of Alcohol and Drug Abuse Patient Records regulations: The Federal rules restrict any use of the information to criminally investigate or prosecute any alcohol or drug abuse patient.[facility] CenterIn the event this information is protected by the Federal Confidentiality of Alcohol and Drug Abuse Patient Records regulations: The Federal rules restrict any use of the information to criminally investigate or prosecute any alcohol or drug abuse patient.[facility] Reason for Visit (unrecogniz ed section and [...] Referred By Arlene t Referred To Contact [facility] Diagnoses Encounter for supervision in primigravida, antepartum Less than 8 weeks gestation of Encounter for supervision of normal , unspecified, unspecified trimester Procedures OBSTETRIC ULTRASOUND WHI US PREG UTERUS AFTER 1ST TRIMEST GESTATION Rao Pineda, MAHESH.STACKER STRAIGHTENER [address] [address] Phone: tel: fax: [facility] [address] [place] [address] Referral ID Status Reason Start Date Expiration Date Visits Requested Visits Authorized [id number] Authorized Auto-Generat ed Referral 10/11/2024 08/24/2025 20 20 Reason Onset Date Comments Care 10/25/2024 Reason Comments Vaginal Discharge Reason Onset Date Comments Care 12/23/2024 Specialty Diagnoses / Procedures Referred By Contac t Referred To Contact [facility] Diagnoses Encounter for supervision in primigravida, antepartum (HCC) Less than 8 weeks gestation of ([facility]) Procedures OBSTETRIC ULTRASOUND WHI US PREG UTERUS AFTER 1ST TRIMEST GESTATION Rao Pineda APRN.STACKER STRAIGHTENER [address] [place] [address] Phone: tel: fax: [facility] [address] [place] [address] Referral ID Status Reason Start Date Expiration Date V isits Requested Visits Authorized [id number] Closed Auto-Generate d Referral 09/20/2024 09/20/2025 1 1 Reason Onset Date Comments Care 01/20/2025 Reason Onset Date Comments Care 02/18/2025 Reason Onset Date Comments Care 03/10/2025 Specialty Diagnoses / Procedures Referred By Contac t Referred To Contact [facility] Diagnoses Uterine size date discrepancy , third trimester ([facility]) Procedures OBSTETRIC ULTRASOUND WHI US PREG UTERUS AFTER 1ST TRIMEST GESTATION Mira Lewis MD [address] [place] [address] Phone: tel: fax: [facility] [address] [place] [address] Referral ID Status Reason Start Date Expiration Date V isits Requested Visits Authorized [id number] Closed Auto-Generate d Referral 02/24/2025 08/24/2025 1 1 Reason Onset Date Comments Care 03/25/2025 Reason Onset Date Comments Care 04/08/2025 Specialty Diagnoses / Procedures Referred By Contac t Referred To Contact [facility] Diagnoses Encounter for supervision of normal first in third trimester (HCC) Uterine size date discrepancy , third trimester (HCC) Procedures OBSTETRIC ULTRASOUND WHI US PREG UTERUS AFTER 1ST TRIMEST GESTATION Rao Pineda APRN.CNP [address] [place] [address] Phone: tel: fax: [facility] [address] [place] [address] Referral ID Status Reason Start Date Expiration Date V isits Requested Visits Authorized [id number] Closed Auto-Generate d Referral 03/10/2025 03/10/2026 1 [...] BE BASED ON THE PRIMARY CLINICAL RECORDS. [facility] provides no warranty or guarantee of the accuracy or completeness of information in this document.
[2025-05-01] MEDS: Lactated Ringers 1,000 ML 50 ML IV (16:25)
[2025-05-01 16:51] LABS: Hematocrit 38.4 % (37-47); Hemoglobin 13.7 g/dL (12.0-15.0); Immature Granulocytes Count 0.110 X10^3/uL (0.0-0.0); Mean Corp Hgb Conc 35.7 g/dL (32-36); Mean Corpuscular Volume 89.1 fL (81-99); Mean Platelet Vol. 11.8 fl (6.2-12.0); NRBC Flagged by Analyzer 0 % (0-5); POSITIVE DIFFERENTIAL YES; Platelet Count 215 K/mm3 (150-450); RBC Distribution Width CV 15.1 % (11.6-14.6); RBC Distribution Width SD 49.3 fl (35.1-43.9); Red Blood Count 4.31 M/mm3 (4.2-5.4); White Blood Count 18.1 K/mm3 (4.4-11.0)
[2025-05-01 17:08] LABS: Differential Indicated SCAN CRITERIA MET; Red Cell Morphology NORM C+C NORMAL (NORM C&C)
[2025-05-01 17:30] LABS: Syphilis Antibodies Nonreactive (Nonreactive)
[2025-05-01] MEDS: Lactated Ringers 1,000 ML 999 ML IV ×2 (17:45→21:40)
[2025-05-01] MEDS: fentaNYL-bupivacaine (epidural) 100 ML BAG EPIDURAL (18:48)
--- NOTE | 2025-05-01 19:27 | PCM.HP.OB ---
HPI - General General Date of Admission: 05/01/25 Date of Service: 05/01/25 HPI Narrative KI DELGADO, is a 30 F who presents with contractions. Maternal Data Information KAMERON Calculator Estimated Delivery Date Method Current WG Current Estimate 05/06/25 [facility] 39w 2d [facility] Medical History (Updated 05/01/25 @ 19:[address] Dario Hart MD) Asthma Anxiety Chronic hypertension Home Medications ?Medication ?Instructions ?Recorded ?Last Taken ?Type aspirin 81 mg chewable tablet 1 tab PO DAILY 05/01/25 04/30/25 History (Aspirin Childrens) cholecalciferol (vitamin D3) 25 25 mcg PO DAILY 05/01/25 04/30/25 History mcg (1,000 unit) capsule (Vitamin D3) loratadine 10 mg tablet (Claritin) 10 mg PO DAILY 05/01/25 05/01/25 History vits no.130-ferrous fum 1 tab PO DAILY 05/01/25 05/01/25 History 27 mg iron-folic acid 800 mcg tablet ( Vitamin) Allergy/AdvReac Type Severity Reaction Status Date / Time No Known Allergies Allergy Verified 05/01/25 15:12 Social History Smoking Status: Never smoker History Elective abortions Hx Para 0 Spontaneous abortions Hx # Term Pregnancies Ectopic pregnancies Hx # Pregnancies Multiple births # of living children NST FHR Rate Baby A Baseline: 140 Variability:: Moderate Accelerations:: 15 x 15 Decelerations:: Variable Uterine Activity:: Q 2 minutes Vital Signs Vital Signs Vital Signs: 05/01/25 15:13 05/01/25 15:13 05/01/25 15:13 Temperature Temperature Source Pulse Rate 96 Respiratory Rate Blood Pressure 135/88 H BP Systolic 135 BP Diastolic 88 Pulse Ox 98 05/01/25 15:13 05/01/25 15:13 05/01/25 15:13 Temperature 99.1 F Temperature Source Temporal Pulse Rate Respiratory Rate 16 Blood Pressure BP Systolic BP Diastolic Pulse Ox 05/01/25 15:14 05/01/25 18:16 05/01/25 18:16 Temperature 99.1 F Temperature Source Pulse Rate 107 H Respiratory Rate Blood Pressure BP Systolic BP Diastolic Pulse Ox 97 05/01/25 18:21 05/01/25 18:21 05/01/25 18:24 Temperature Temperature Source Pulse Rate 105 H Respiratory Rate Blood Pressure 136/83 H BP Systolic 136 BP Diastolic 83 Pulse Ox 100 05/01/25 18:24 05/01/25 18:26 05/01/25 18:26 Temperature Temperature Source Pulse Rate 95 98 Respiratory Rate Blood Pressure BP Systolic BP Diastolic Pulse Ox 100 05/01/25 18:30 05/01/25 18:30 05/01/25 18:30 Temperature Temperature Source Pulse Rate 108 H Respiratory Rate 16 Blood Pressure 137/89 H BP Systolic 137 BP Diastolic 89 Pulse Ox 05/01/25 18:34 05/01/25 18:34 05/01/25 18:35 Temperature Temperature Source Pulse Rate 102 H Respiratory Rate 16 Blood Pressure 134/77 H BP Systolic 134 BP Diastolic 77 Pulse Ox 05/01/25 18:36 05/01/25 18:36 05/01/25 18:36 Temperature Temperature Source Pulse Rate 102 H Respiratory Rate Blood Pressure 118/70 BP Systolic 118 BP Diastolic 70 Pulse Ox 100 05/01/25 18:36 05/01/25 18:39 05/01/25 18:39 Temperature 99.3 F H Temperature Source Pulse Rate 97 Respiratory Rate Blood Pressure 116/68 BP Systolic 116 BP Diastolic 68 Pulse Ox 05/01/25 18:40 05/01/25 18:41 05/01/25 18:41 Temperature Temperature Source Pulse Rate 107 H Respiratory Rate 16 Blood Pressure BP Systolic BP Diastolic Pulse Ox 100 05/01/25 18:44 05/01/25 18:44 05/01/25 18:45 Temperature Temperature Source Pulse Rate 104 H Respiratory Rate 16 Blood Pressure 106/64 BP Systolic 106 BP Diastolic 64 Pulse Ox 05/01/25 18:46 05/01/25 18:46 05/01/25 18:49 Temperature Temperature Source Pulse Rate 100 Respiratory Rate Blood Pressure 113/68 BP Systolic 113 BP Diastolic 68 Pulse Ox 100 05/01/25 18:49 05/01/25 18:50 05/01/25 18:51 Temperature Temperature Source Pulse Rate 109 H 108 H Respiratory Rate 16 Blood Pressure BP Systolic BP Diastolic Pulse Ox 05/01/25 18:51 05/01/25 18:54 05/01/25 18:54 Temperature Temperature Source Pulse Rate 97 Respiratory Rate Blood Pressure 114/66 BP Systolic 114 BP Diastolic 66 Pulse Ox 100 05/01/25 18:55 05/01/25 18:56 05/01/25 18:56 Temperature Temperature Source Pulse Rate 104 H Respiratory Rate 16 Blood Pressure BP Systolic BP Diastolic Pulse Ox 100 05/01/25 18:59 05/01/25 18:59 05/01/25 19:00 Temperature Temperature Source Pulse Rate 96 Respiratory Rate 16 Blood Pressure 113/67 BP Systolic 113 BP Diastolic 67 Pulse Ox 05/01/25 19:01 05/01/25 19:01 05/01/25 19:05 Temperature Temperature Source Pulse Rate 99 Respiratory Rate 16 Blood Pressure BP Systolic BP Diastolic Pulse Ox 100 05/01/25 19:06 05/01/25 19:06 05/01/25 19:07 Temperature Temperature Source Pulse Rate 111 H Respiratory Rate Blood Pressure 111/61 BP Systolic 111 BP Diastolic 61 Pulse Ox 100 05/01/25 19:07 05/01/25 19:09 05/01/25 19:09 Temperature Temperature Source Pulse Rate 110 H 104 H Respiratory Rate Blood Pressure 105/59 L BP Systolic 105 BP Diastolic 59 Pulse Ox 05/01/25 19:10 05/01/25 19:11 05/01/25 19:11 Temperature Temperature Source Pulse Rate 117 H Respiratory Rate 16 Blood Pressure BP Systolic BP Diastolic Pulse Ox 100 05/01/25 19:14 05/01/25 19:14 05/01/25 19:16 Temperature Temperature Source Pulse Rate 106 H 98 Respiratory Rate Blood Pressure 114/64 BP Systolic 114 BP Diastolic 64 Pulse Ox 05/01/25 19:16 05/01/25 19:21 05/01/25 19:21 Temperature Temperature Source Pulse Rate 106 H Respiratory Rate Blood Pressure BP Systolic BP Diastolic Pulse Ox 99 100 05/01/25 19:24 05/01/25 19:24 Temperature Temperature Source Pulse Rate 111 H Respiratory Rate Blood Pressure BP Systolic BP Diastolic Pulse Ox 93 Weight Weight: 207 lb 7.28 oz Body Mass Index (BMI) 34.5 Physical Exam Const alert, oriented x3 and no apparent distress GI soft to palpation, non-tender, non-distended and no masses Inspection: gravid external exam normal Narrative: cvx - 6/80/-1, AROM bloody fluid Labs Labs Labs: Blood Type O POSITIVE Antibody Screen NEGATIVE Hct 38.4 % (37-47) Hgb 13.7 g/dL (12.0-15.0) Syphilis Total Ab Nonreactive (Nonreactive) Assessment & Plan (1) 39 weeks gestation of : COMMENT: @ 39&2 (2) Chronic hypertension: PLAN: Plan Admit to L&D Expectant management Pain - comfortable with epidural GBS negative EFW - less than 4500g and patient with adequate pelvis AROM for blood fluid. Suspect placental abruption. & maternal status are reassuring and will monitor closely.
--- NOTE | 2025-05-01 23:19 | OB.VAGDELI_ITS ---
Maternal Data Information KAMERON Calculator Estimated Delivery Date Method Current WG Current Estimate 05/06/25 Manual 39w 3d Vaginal Delivery Maternal Presentation Maternal Presentation: Active Labor Vaginal Delivery Information Procedure Performed: Vacuum Assisted Vaginal Delivery Station at time of placement: +2 Number of vacuum pulls: 4 Number of vacuum pop offs: 1 Surgeon/Practitioner: Dario Hart Date of Procedure: 05/01/25 Pre-Procedure Diagnosis: (1) Labor (2) Suspected placental abruption Post-Procedure Diagnosis: Same Type of anesthesia: Epidural Estimated Blood Loss: 450ml Findings Description of procedure: Patient was intermittently assessed while pushing. Called to room when patient had been pushing 3.5 hours. descent was noted with good pushing effort. Patient agreed with plan for continued pushing. When patient had been pushing about 5.5 hours she was re-assessed. Patient was C/C/+2. Discussed R/B/A of vacuum assisted delivery. position confirmed and vacuum placed on head and position confirmed. With one pull descent was not noted and pop off occurred. Decision made to proceed with pushing without vacuum at this time. Patient continued to push well. When she had been pushing for 6+ hours the decision was made to place the vacuum again. position confirmed and vacuum placed on head and position confirmed. With good maternal pushing effort and gentle traction good descent noted. The vacuum was released. With a total of 3 pulls the head crowned and vacuum released after each pull. The head then delivered and was gently guided to allow delivery of anterior and posterior shoulders. No excess traction placed on the head. The body delivered. 3VC clamped and cut in delayed fashion. Placenta delivered with gentle traction and good uterine tone obtained. Presentation: LOP Amniotic Membrane Rupture Type: Artificial Amniotic Fluid Description: Bloody Placental Delivery Description: Expressed Placenta Disposition: [facility] Specimen collected: No Cord Vessel Description: 3 Vessels Cord Entanglement: None A Gender: Male (1 minute): 8 (5 minute): 9 Delayed Cord Clamping: Yes Drinking Water Technician co chairman: No Post Vaginal Deli Medications given after delivery: IV Pitocin Episiotomy Description: None Laceration: 2nd degree (perineal - repaired with 3-0 vicryl) Complication Complications: No
[2025-05-01] MEDS: Lactated Ringers 1,000 ML 200 ML IV (23:47)
[2025-05-02] VITALS (36 sets, daily range): BP systolic 101–133; BP diastolic 58–82; PULSE 88–161; RESP 16–18; TEMP 36.4–37.1; O2SAT 93–100
[2025-05-02] MEDS: fentaNYL-bupivacaine (epidural) 100 ML BAG EPIDURAL (00:41)
[2025-05-02] MEDS: Oxytocin 15 Units/NS 250ml 15 UNITS/250 ML IV.SOLN 334 UNITS IV (05:15)
[2025-05-02] MEDS: Oxytocin 15 Units/NS 250ml 15 UNITS/250 ML IV.SOLN 83 UNITS IV (05:35)
--- NOTE | 2025-05-02 05:40 | EX.PCM.OBVAG ---
Maternal Data Information KAMERON Calculator Estimated Delivery Date Method Current WG Current Estimate 05/06/25 Manual 39w 3d Vaginal Delivery Vaginal Delivery Information Procedure Performed: Vacuum Assisted Vaginal Delivery
--- NOTE | 2025-05-02 20:20 | NURSING ---
IV was discontinued by prior nurse. This RN assessed patient, post site intact.
[2025-05-03 00:17] VITALS: BP 121/70; PULSE 98; RESP 16; TEMP 36.9; O2SAT 99
[2025-05-03 06:10] VITALS: BP 111/77; PULSE 91; RESP 16; TEMP 36.6; O2SAT 100
[2025-05-03 08:26] VITALS: BP 125/83; PULSE 97; RESP 16; TEMP 36.7; O2SAT 99
--- NOTE | 2025-05-03 08:28 | PCM.PN.OB ---
Subjective Subjective Doing well. Ambulating and voiding without difficulty. Mild lochia. Breast feeding. Objective Data Objective Data Vital Signs: Vital Signs Temp Pulse Resp BP Pulse Ox O2 Del Method 98.1 F 97 16 125/83 H 99 Room Air 05/03/25 08:26 05/03/25 08:26 05/03/25 08:26 05/03/25 08:26 05/03/25 08:26 05/03/25 08:26 Oxygen Delivery Method Room Air Weight: 94.1 kg Body Mass Index (BMI) 34.5 Intake & Output: Intake and Output for Last 24 Hours 05/01/25 05/02/25 05/03/25 23:59 23:59 23:59 Intake Total 2000.00 / 2000.00 2500.00 / 2500.00 Output Total 400 / 400 1850 / 1850 Balance 1600.00 / 1600.00 650.00 / 650.00 Lab / Micro Data 05/01/25 15:55 ROS Constitutional Constitutional: Denies headache(s) Cardiovascular Cardiovascular: Denies chest pain or dyspnea Gastrointestinal Gastrointestinal: Denies nausea or vomiting Genitourinary Genitourinary: Denies dysuria Physical Exam Const alert, oriented x3 and no apparent distress General Appearance: cooperative and comfortable Eyes PERRL and EOMs intact bilaterally Resp normal respiratory effort GI soft to palpation and non-tender Uterus Palpation: uterus fundus firm ( below umbilicus) Extremity normal to inspection and full ROM Neuro oriented x3 and CN's II-XII intact bilaterally Psych mental status grossly normal Assessment & Plan (1) Chronic hypertension: (2) Vacuum extractor delivery, delivered: PLAN: Plan Discharge home
--- NOTE | 2025-05-03 08:28 | PCM.DC.SUM ---
Providers Date of Admission: 05/01/25 Date of Discharge: 05/03/25 Primary Care Physician: Dr. Nate Robertson Jr., MD Reason For Visit: VAG Diagnosis Discharge Diagnosis (1) Chronic hypertension: Status: Chronic Code(s): I10 - Essential (primary) hypertension (2) Vacuum extractor delivery, delivered: Status: Acute Code(s): O75.9 - Complication of labor and delivery, unspecified Plan Discharge home Medications at Discharge Home Medications cholecalciferol (vitamin D3) 25 mcg (1,000 unit) capsule (Vitamin D3) 25 mcg PO DAILY 05/01/25 loratadine 10 mg tablet (Claritin) 10 mg PO DAILY 05/01/25 vits no.130-ferrous fum 27 mg iron-folic acid 800 mcg tablet ( Vitamin) 1 tab PO DAILY 05/01/25 Hospital Course Operations None Procedures None Summary of Care Provided Minutes Spent on Discharge: 20 Hospital Course: Vacuum assisted delivery. No complications . Breast feeding. Physical Exam Const alert and no apparent distress Narrative: Fundus firm, below umbilicus. Weight / BMI Weight Weight: 94.1 kg Body Mass Index (BMI) 34.5 ABG / Lab / Microbiology Data 05/01/25 15:55 D/C Instructions May resume sexual activity in: 6 weeks DC O2, CPAP, BIPAP Needs Home O2 Discharge instructions: No Please Follow Up With: Yamilet Page MD When: Follow up with our office in 1-2 and 6 weeks or as needed. [phone] Meaningful Use Info Meaningful Use Meaningful Use Diagnoses (Choose all that apply): None applicable Discharge Plan Admission Admit Date/Time: 05/01/25 15:20 Primary Reason for Your Visit: labor Attending Provider: Dario Hart Primary Care Provider: Nate Robertson Jr. Discharge Orders/Prescriptions Prescriptions: Continued Vitamin 27 mg iron- 800 mcg tablet 1 tab PO DAILY cholecalciferol (vitamin D3) [Vitamin D3] 25 mcg (1,000 unit) capsule 25 mcg PO DAILY loratadine [Claritin] 10 mg tablet 10 mg PO DAILY Discontinued aspirin [Aspirin Childrens] 81 mg tablet,chewable 1 tab PO DAILY Referrals / Follow Up: Nate Robertson Jr., MD [Primary Care Provider] -
--- NOTE | 2025-05-03 08:30 | PCM.DC.SUM ---
Providers Date of Admission: 05/01/25 Primary Care Physician: Dr. Nate Robertson Jr., MD Reason For Visit: VAG Diagnosis Discharge Diagnosis (1) Chronic hypertension: Status: Chronic Code(s): I10 - Essential (primary) hypertension (2) Vacuum extractor delivery, delivered: Status: Acute Code(s): O75.9 - Complication of labor and delivery, unspecified Plan Discharge home Medications at Discharge Home Medications cholecalciferol (vitamin D3) 25 mcg (1,000 unit) capsule (Vitamin D3) 25 mcg PO DAILY 05/01/25 loratadine 10 mg tablet (Claritin) 10 mg PO DAILY 05/01/25 vits no.130-ferrous fum 27 mg iron-folic acid 800 mcg tablet ( Vitamin) 1 tab PO DAILY 05/01/25 Weight / BMI Weight Weight: 94.1 kg Body Mass Index (BMI) 34.5 ABG / Lab / Microbiology Data 05/01/25 15:55 D/C Instructions May resume sexual activity in: 6 weeks DC O2, CPAP, BIPAP Needs Home O2 Discharge instructions: No Please Follow Up With: Yamilet Page MD When: Follow up with our office in 1-2 and 6 weeks or as needed. [phone] Meaningful Use Info Meaningful Use Meaningful Use Diagnoses (Choose all that apply): None applicable Discharge Plan Admission Admit Date/Time: 05/01/25 15:20 Primary Reason for Your Visit: labor Attending Provider: Dario Hart Primary Care Provider: Nate Robertson Jr. Discharge Orders/Prescriptions Prescriptions: Continued Vitamin 27 mg iron- 800 mcg tablet 1 tab PO DAILY cholecalciferol (vitamin D3) [Vitamin D3] 25 mcg (1,000 unit) capsule 25 mcg PO DAILY loratadine [Claritin] 10 mg tablet 10 mg PO DAILY Discontinued aspirin [Aspirin Childrens] 81 mg tablet,chewable 1 tab PO DAILY Referrals / Follow Up: Nate Robertson Jr., MD [Primary Care Provider] - Disposition Disposition (needs filled in before D/C Order can be placed): Home, Self Care
--- NOTE | 2025-05-03 11:24 | CASEMGMT ---
Social Work Assessment Labor and Delivery Unit Patient Address: [address] [place] [address] [place] [address] Phone number: [phone] Date of Referral: 05/01/25 Time of Referral:? 1530 Referred By: Dr. Hart Date of Intervention: ?05/03/25? Time of Intervention:? 1000 Reason for Referral:?father- alcoholic, sober now Sw completed chart review and acknowledges social work consult. Sw presented to bedside and introduced self to mother of baby (MOB- Blank) and father of baby (FOB- Layo). Sw explained reason for sw involvement and completed psychosocial assessment. History obtained from: medical records, MOB and FOB Household composition: Currently residing in the family home is MOB, DURGA, DURGA's 3 year old son Lisy (50/50 shared parenting with Lisy's mom), and baby to also reside in the home when ready for discharge. Parents state that they are in the process of building a new home in [place] and will be moving within the month. No housing concerns at this time. Patient's parent/guardian status:? FARZANA states that she and DURGA initially met on a dating arnel, but had her sister in common with each other. They have been together for two years and are . Laramie baby is first baby for MOB and first baby for parents together. No concerns reported of domestic violence or intimate partner violence. ? Medical History: ?FARZANA is 30 year old female who is 1, para 0- now 1 following labor and delivery of . FARZANA received routine care during with [facility]. FARZANA presented to hospital and delivered baby via vaginal delivery on 05/02/25. Baby boy, named Genaro Grigsby, was born weighing 8lb 6oz with apgars of 8 and 9 at one and five minutes of life, respectfully. FARZANA states that she is breast feeding and baby will be seen by Dr. Ott for pediatrics. Educational Status:? Both parents graduated from high school and MOB obtained her Doctorate degree. Neither parent struggled with reading, learning or comprehension. Financial Status: Both parents are gainfully employed outside of the home. 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 Supplies:?? All necessary baby supplies obtained, including: car seat, safe sleep space, clothes, diapers and wipes. Childcare/Caregiver(s):? When both parents are working they have childcare arranged through family members Transportation:?? MOB and FOB have their drivers license and reliable means of transportation. Programs/Agencies Involved: ???Parents are over income for community resources that provide financial assistance. Children Services/Legal Issues:??No prior involvement with children services, no issues or concerns warranting referral to be made at this time. ? Behavioral Health Issues: ??Mental Health History:?FOB denies mental health history. MOB states that she has history of anxiety, and was previously prescribed Lexapro by her primary care doctor. MOB states that she struggled with anxiety during her first trimester because she was emotional and nervous about experiencing a loss. MOB states that once she entered her second trimester her anxiety stopped and she felt completely fine. MOB reports that now that baby has been born she feels like herself, denies feeling down, anxious, sad or depressed. ?? Substance Use History:?Parents deny substance use prior to and during . ? Family History:?MOB states that her father and her brother have substance use history. MOB states that she does not use substances due to her genetic disposition. MOB states that she is mindful of healthy coping skills to utilize. Drug Screens: ??No drug screens observed while completing chart review. Family/Social Stressors:? Parents deny any issues, concerns or stressors at this time. Support Systems: MOB identifies that both sets of grandparents are their biggest supports along with a big group of friends. Depression/Shaken Baby/Safe Sleeping:? Agustin educated parents on signs and symptoms of baby blues and depression and anxiety. MOB states that she has heard the terms and is mindful of what red flags to be mindful of going into this period. Agustin stated that MOB is at risk to experiencing symptoms due to having a history of anxiety. MOB states that she does not anticipate having any symptoms as she typically feels really good and does not normally have any anxiety. FOB states that he is mindful of what symptoms to be on the lookout for and would know how to help and support MOB. Agustin educated parents on shaken baby prevention and ABCs of safe sleep, parents express understanding. ASSESSMENT:? MOB and baby admitted following labor and delivery of . MOB with history of anxiety, and states that once she was out of her first trimester her anxiety dissipated. MOB states that she has mild anxiety at baseline that is always manageable aside from a few years ago when she was prescribed Lexapro by her primary care doctor. MOB denies being connected to a mental health professional at this time. MOB reports feeling comfortable talking to FOB about her thoughts and feelings if she were to struggle with any symptoms during this period. FARZANA states that thus far she feels like herself and is thankful that baby is here and is healthy. MOB excited to be able to go home today. MOB and FOB both present for completion of assessment with sw. Both parents report to having a connection and serrano with baby, MOB observed to hold baby lovingly and attentively. MOB and FOB talkative and receptive to sw involvement and support. Parents have all necessary baby supplies and have natural supports in place. PLAN:? No other services requested or indicated. MOB and baby to be discharged when medically ready. Parents were provided literature regarding: signs and symptoms of baby blues and mood and anxiety disorders, Help Me Grow, shaken baby prevention, ABCs of safe sleep and a list of [facility] resources that are available for them should any needs present themselves. Pinky Murdock, PHYSICIAN/OPHTHALMOLOGIST, [employer]
[2025-05-03 12:54] VITALS: BP 122/85; PULSE 85; RESP 16; TEMP 36.6; O2SAT 99
== END 2025-05-03 13:25 | disposition home or self-care (01) | DRG 807 ==
LOC: WPOUT 15:28 → WP 15:28
PROVIDERS: Admitting Provider Obstetrics & Gynecology; PCP Internal Medicine; Visit Provider Obstetrics & Gynecology
DX: O75.9 Complication of labor and delivery, unspecified (principal); Z37.0 Single live birth; O10.02 Pre-existing essential hypertension complicating childbirth; O45.93 Premature separation of placenta, unspecified, third trimester; O70.1 Second degree perineal laceration during delivery; Z3A.39 39 weeks gestation of pregnancy; Z79.82 Long term (current) use of aspirin
CPT/HCPCS: 59025; 59050; 85025; 86780; 86850; 86900; 86901; 99221; G0378